=== PATIENT | female | born 1970 | race Caucasian/White ===

== ENCOUNTER → 2019-05-15 12:35 | Outpatient (CLI) | payer MEDICAID, SELFPAY ==
--- NOTE | 2019-05-15 12:38 | CA_ITS ---
APPROVED REPORT EXAM: Comprehensive 2D, Doppler, and color-flow Echocardiogram Screen Printing Stencil Preparer: Lucie Espino CRT Ht: 5 ft 4 in Wt: 204lbs BSA: 1.97 BP: 137/80 mmHg Indications: Abnormal ECG, Chest Pain, Fatigue, Hyperlipidemia, Hypertension/HDD 2D Dimensions LVOT 1.86 cm (M/F) 1.5-2.5 M-Mode Dimensions RVDd 1.95 cm (0.9-2.6) LVDd 5.42 cm (3.5-5.7) LVDs 3.48 cm (3.5-5.7) IVSd 0.91 cm (0.6-1.1) PWd 0.71 cm (0.6-1.1) EF (Teich) 64.80% FS 35.80% EDV (Teich) 142.50 mL ESV (Teich) 50.20 mL LV Diastology E/A Ratio 0.83 Aortic Valve LVOT Max 171.00 (70-110 cm/s) LVOT VTI 37.77 cm Mitral Valve MV A Velocity 97.00 (40-130 cm/s) Left Ventricle Left atrium is mildly enlarged, left ventricle is normal size, mild concentric left ventricular hypertrophy, visually estimated ejection fraction 55% with no regional wall motion abnormality, grade 1 diastolic dysfunction seen without tissue Doppler evidence of raise left atrial pressure. Right Ventricle Right atrium and right ventricular normal size and contractility. Aortic Valve Aortic valve is minimally thickened and fibrosed. There is no aortic stenosis aortic insufficiency. Mitral Valve Mitral valve is grossly normal, there is no mitral stenosis, there is mild mitral regurgitation. Tricuspid Valve Tricuspid valve is grossly normal, there is mild tricuspid regurgitation, tricuspid regurgitation jet velocity is inadequate for calculation of the right ventricular systolic pressure. Pulmonic Valve Pulmonic valve is poorly visualized. Great Vessels Aortic root is normal size. Pericardium No significant pericardial effusion noted. Conclusion 1. Mildly enlarged left atrium, normal left ventricular size, mild concentric left ventricular hypertrophy, visually estimated ejection fraction 55% with no regional wall motion abnormality, grade 1 diastolic dysfunction seen without tissue Doppler evidence of raise left atrial pressure. 2. Mild mitral and tricuspid regurgitation. 3. No significant pericardial effusion noted. Electronically signed by : Ren Carrington, 05/16/2019 06:12:39
== END ==
PROVIDERS: PCP Family Medicine; Visit Provider Nurse Practitioner Family
DX: I11.9 Hypertensive heart disease without heart failure (principal); I44.7 Left bundle-branch block, unspecified; I10 Essential (primary) hypertension; Z82.49 Family history of ischemic heart disease and other diseases of the circulatory system
CPT/HCPCS: 93306

== ENCOUNTER → 2019-08-28 09:09 | Outpatient (CLI) | payer MEDICAID, SELFPAY ==
[2019-08-28 11:11] LABS: Chloride 100 mmol/L (98-107)
[2019-08-28 11:12] LABS: Potassium 3.7 mmoL/L (3.5-5.1); Sodium 138 mmol/L (136-145)
[2019-08-28 11:15] LABS: Anion Gap 14.7 mEq/L (5-15); Blood Urea Nitrogen 7 mg/dl (7-17); Carbon Dioxide 27 mmol/L (22.0-30.0); Estimated Glomerular Filt Rate 90 ml/min (>60); GFR (African American) 109 ML/MIN (>60); Glucose 179 mg/dl (74-100)
== END ==
PROVIDERS: Visit Provider Nurse Practitioner Family
DX: I10 Essential (primary) hypertension (principal); R60.9 Edema, unspecified
CPT/HCPCS: 36415; 80048

== ENCOUNTER → 2019-11-14 09:56 | Outpatient (CLI) | payer MEDICAID, SELFPAY | PROVIDERS: PCP Family Medicine; Visit Provider Urology | DX: R00.2 Palpitations (principal); R00.0 Tachycardia, unspecified; I11.9 Hypertensive heart disease without heart failure; I10 Essential (primary) hypertension; Z82.49 Family history of ischemic heart disease and other diseases of the circulatory system | CPT/HCPCS: 93270 ==

== ENCOUNTER 2020-03-30 08:18 | Emergency (ER) | payer MEDICAID, SELFPAY ==
[2020-03-30 08:23] VITALS: BP 151/84; PULSE 82; RESP 16; TEMP 36.6; O2SAT 100; BMI 35.2
--- NOTE | 2020-03-30 08:41 | CT_ITS ---
PROCEDURE: CT ABDOMEN PELVIS WO CON CLINICAL INDICATION: lower abd pain Abdominal pain, history of diverticulitis COMPARISON: No exams were available for comparison TECHNIQUE: Axial images obtained with sagittal and coronal reformats. All CT scans at the facility use one or more dose reduction, viz: automated exposure control, ma/kV adjustment per patient size (including targeted exams where dose is matched to indication, i.e. head), or iterative reconstruction technique. FINDINGS: LOWER THORAX: No acute finding ABDOMEN & PELVIS: Fatty liver. The spleen, adrenal glands, pancreas, and kidneys have an unremarkable appearance. The there has been a prior cholecystectomy. No intestinal obstruction or free air. There is a umbilical hernia which contains fat. Unremarkable appendix. No intestinal obstruction or free air. There is diverticulosis of the colon but no evidence of diverticulitis. There has been a prior hysterectomy. There is focal increased density involving the left abdominal wall which measures 3 cm transverse and extends cephalad caudad for length of 10 cm which could be due to rectus hematoma. Please correlate as the patient's area of pain and tenderness follow-up suggested to confirm stability. No acute bony anomalies. 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 Asymmetric prominence of the left rectus abdominus muscle inferiorly suspicious for rectus hematoma. 2. Colonic diverticulosis without diverticulitis. 3. Fatty liver Dictated by: Cortes Kumar MD 03/30/2020 11:25 Cortes Kumar MD in [facility] 03/30/2020 11:25
--- NOTE | 2020-03-30 08:50 | HMH.EDGENADL ---
ED Disposition Clinical Impression: Abdominal pain, generalized, Spider veins of both lower extremities, Hyperglycemia Diarrhea Qualifiers: Diarrhea type: unspecified type Qualified Code(s): R19.7 - Diarrhea, unspecified Disposition: Home, Self-Care Condition on Discharge: Good Instructions: DI for Abdominal Pain-Adult, DI for Diarrhea and Traveler's Diarrhea -- Adult, DI for Hyperglycemia -- Adult Additional Instructions: Tylenol or ibuprofen for pain. Imodium for diarrhea. Outpatient diarrhea panel. Follow-up results with your primary care provider. See your primary care provider for further evaluation of elevated blood sugar. Additional instructions for ABDOMINAL PAIN: See your physician as soon as possible for further evaluation. Return immediately if worsening abdominal pain, vomiting, shortness of breath, fever, vomiting of blood or abdominal distention. Referrals: David Alvarez MD [Primary Care Provider] - - Critical Care Critical Care Time: No Attestation: On 03/30/20, the high probability of a clinically significant, sudden or life threatening deterioration of the following system(s) required my full and direct attention, intervention and personal management. The time I documented below is in addition to time spent performing reported procedures but includes the following listed in this critical care notation. Medical Decision Making - Medical Records Medical records reviewed: Yes: I reviewed the patient's medical records. - Niko Inquiry Pt receiving controlled substance: No Vital Signs: 03/30/20 08:23 03/30/20 09:54 03/30/20 10:13 Temperature 97.8 F 98 F Temperature Source Oral Oral Pulse Rate 78 Pulse Rate [Right Radial] 82 62 Respiratory Rate 16 18 16 Blood Pressure 132/88 Blood Pressure [Right Arm] 151/84 H 101/41 L Blood Pressure Mean [Right Arm] 106 61 Blood Pressure Source [Right Arm] Automatic Cuff Automatic Cuff Blood Pressure Position Sitting Blood Pressure Position [Right Arm] Sitting Sitting 02 Sat by Pulse Oximetry 100 98 Oxygen Delivery Method Room Air Room Air Room Air - Lab Data Lab results reviewed: Yes: I reviewed the patient's lab results. Lab Results 03/30/20 08:55: Urine Color Yellow, Urine Appearance Clear, Urine pH 5.0, Ur Specific [place] >= 1.030, Urine Protein 1+, Urine Glucose (UA) 1+, Urine Ketones Trace, Urine Blood 1+, Urine Nitrate Negative, Urine Bilirubin Negative, Urine Urobilinogen 0.2, Ur Leukocyte Esterase Negative, Urine RBC 3-5, Urine WBC Occasional, Ur Squamous Epith Cells 5-10, Urine Bacteria Trace 03/30/20 09:00: WBC 9.3, RBC 4.33, Hgb 13.6, Hct 39.6, MCV 91.4, MCH 31.4 H, MCHC 34.4, RDW 13.0, Plt Count 333, MPV 7.7, Neut % (Auto) 76.0, Lymph % (Auto) 17.5, [place] % (Auto) 3.3, Eos % (Auto) 2.6, Baso % (Auto) 0.5, Neut # (Auto) 7.1, Lymph # (Auto) 1.6, Pre[place] # (Auto) 0.3, Eos # (Auto) 0.2, Baso # (Auto) 0.1 03/30/20 09:00: Sodium 140, Potassium 3.8, Chloride 102, Carbon Dioxide 25, Anion Gap 16.8 H, BUN 6 L, Creatinine 0.70, Estimated Creat Clear 146, Estimated GFR 90, Est GFR ( Amer) 109, Glucose 210 H, Calcium 9.5, Total Bilirubin 1.7 H, AST 35, ALT 41, Alkaline Phosphatase 68, Total Protein 7.5, Albumin 4.1, Globulin 3.4 H, Albumin/Globulin Ratio 1.2, Amylase 55, Lipase 205 03/30/20 09:00: D-Dimer 0.32 03/30/20 09:00: Hemoglobin A1c 6.8 H Result diagrams: 03/30/20 09:00 03/30/20 09:00 - CT Data CT Scan: Abdomen, Pelvis Time Received: 09:43 ([facility] fax) ED CT Reviewed: Yes: I have reviewed the patient's CT results Findings Narrative: No evidence of acute abnormality Hepatic steatosis Diverticulosis Medical Decision Narrative: Addendum: At 11:25 AM I received a call from Dr. Kumar, who has performed an over read on the CT scan that was originally read by [employer]. He is concerned that she may have a rectus sheath hematoma. There was no history of trauma and the patient is not on any anticoagulants. Clinically
[2020-03-30 09:05] LABS: Microscopic, Urine URINE MICROSCOPIC (MICROSCOPIC)
--- NOTE | 2020-03-30 09:11 | PC.NURSE ---
pt to CT
[2020-03-30 09:12] LABS: Appearance,Urine CLEAR (Clear); Bilirubin,Urine Negative (Negative); Blood, Urine 1+ (Negative); Color,Urine YELLOW (Yellow); Glucose,Urine (UA) 1+ (Negative); Ketones,Urine TRACE (Negative); Leukocyte Esterase,Urine Negative (Negative); Nitrate,Urine Negative (Negative); Protein,Urine 1+ (Negative); Specific Gravity, Urine >= 1.030 (1.005-1.030); Urobilinogen,Urine 0.2 EU/dl (0.2)
[2020-03-30 09:17] LABS: Chloride 102 mmol/L (98-107); Potassium 3.8 mmoL/L (3.5-5.1); Sodium 140 mmol/L (136-145)
[2020-03-30 09:20] LABS: Alanine Aminotransferase 41 U/L (12-78); Alkaline Phosphatase 68 U/L (38-126); Amylase 55 U/L (30-110); Anion Gap 16.8 mEq/L (5-15); Aspartate Amino Transferase 35 U/L (14-36); Basophils # 0.1 K/mm3 (0-0.2); Basophils % 0.5 % (0.1-2.0); Bilirubin,Total 1.7 mg/dl (0.2-1.3); Blood Urea Nitrogen 6 mg/dl (7-17); Calcium 9.5 mg/dl (8.4-10.2); Carbon Dioxide 25 mmol/L (22.0-30.0); Creatinine Clearance Estimated 146 mL/min (50-200); Eosinophils # 0.2 K/mm3 (0.0-0.4); Eosinophils % 2.6 % (0.1-12.0); Estimated Glomerular Filt Rate 90 ml/min (>60); GFR (African American) 109 ML/MIN (>60); Glucose 210 mg/dl (74-100); Hematocrit 39.6 % (37.0-47.0); Hemoglobin 13.6 g/dL (12.2-16.2); Lymphocytes # 1.6 K/mm3 (0.7-4.5); Lymphocytes % 17.5 % (10-50); Mean Corpuscular HGB Conc 34.4 g/dL (31.8-35.4); Mean Corpuscular Hemoglobin 31.4 pg (27.0-31.2); Mean Corpuscular Volume 91.4 fl (81-99); Mean Platelet Volume 7.7 fl (7.4-10.4); Monocytes # 0.3 K/mm3 (0.1-1.0); Monocytes % 3.3 % (1.7-9.3); Neutrophils # 7.1 K/mm3 (1.8-7.8); Platelet Count 333 K/mm3 (142-424); Red Blood Count 4.33 M/mm3 (4.20-5.40); White Blood Count 9.3 K/mm3 (4.8-10.8)
[2020-03-30 09:21] LABS: Albumin Level 4.1 g/dl (3.5-5.0); Albumin/Globulin Ratio 1.2 (1.1-1.8); Globulin 3.4 g/dL (1.3-3.2); Lipase 205 U/L (23-300); Total Protein,Serum 7.5 g/dl (6.3-8.2)
[2020-03-30 09:25] LABS: D-Dimer 0.32 ug/mL (0.15-8.0)
[2020-03-30 09:29] LABS: Bacteria,Urine Trace /lpf; WBC,Urine Occasional #/hpf (0-3)
[2020-03-30 09:48] LABS: Hemoglobin A1C 6.8 % (4.0-6.0)
[2020-03-30 09:54] VITALS: BP 101/41; PULSE 62; RESP 18; O2SAT 98
[2020-03-30 10:13] VITALS: BP 132/88; PULSE 78; RESP 16; TEMP 36.6; O2SAT 98
== END 2020-03-30 10:14 | disposition home or self-care (01) ==
PROVIDERS: Emergency Provider Emergency Medicine; PCP Family Medicine
DX: R10.84 Generalized abdominal pain (principal); I83.93 Asymptomatic varicose veins of bilateral lower extremities; R73.9 Hyperglycemia, unspecified; E78.5 Hyperlipidemia, unspecified; I10 Essential (primary) hypertension; K57.90 Diverticulosis of intestine, part unspecified, without perforation or abscess without bleeding; Z90.79 Acquired absence of other genital organ(s); Z79.899 Other long term (current) drug therapy
CPT/HCPCS: 36415; 74176; 80053; 81001; 82150; 83036; 83690; 85025; 85378; 99283

== ENCOUNTER → 2020-04-10 12:27 | Outpatient (CLI) | payer MEDICAID, SELFPAY ==
[2020-04-10 13:35] LABS: Hemoglobin A1C 6.6 % (4.0-6.0)
== END ==
PROVIDERS: Visit Provider Family Medicine
DX: Z00.00 Encounter for general adult medical examination without abnormal findings (principal); R73.9 Hyperglycemia, unspecified
CPT/HCPCS: 36415; 83036

== ENCOUNTER → 2020-07-30 10:08 | Outpatient (CLI) | payer MEDICAID, SELFPAY ==
--- NOTE | 2020-07-30 10:10 | US_ITS ---
APPROVED REPORT Exam Type: Lower Extremity Segmental Pressures Rubber Goods Finisher: Yane Jimenez RVT Indications Claudication: Bilaterally Rest Pain: Bilaterally Risk Factors Hypertension Hyperlipidemia Pressures/Indices Right Indices Left Indices Brachial 150.00 mmHg Brachial 138.00 mmHg Low Thigh 176.00 mmHg 1.17 Low Thigh 157.00 mmHg 1.05 Calf 156.00 mmHg 1.04 Calf 162.00 mmHg 1.08 Ankle(PT) 169.00 mmHg 1.13 Ankle(PT) 170.00 mmHg 1.13 Ankle(DP) 163.00 mmHg 1.09 Ankle(DP) 163.00 mmHg 1.09 Digit 80.00 mmHg 0.53 Digit 97.00 mmHg 0.65 Findings RT SLOANE:1.13 LT SLOANE:1.13 RT TBI:0.53 LT TBI:0.65 NORMAL PULSES BILATERAL NORMAL WAVEFORMS BILATERAL Conclusion RT SLOANE:1.13 LT SLOANE:1.13 RT TBI:0.53 LT TBI:0.65 NORMAL PULSES BILATERAL NORMAL WAVEFORMS BILATERAL Normal appearing resting noninvasive lower extremity arterial study. Electronically signed by : Cortes Kumar MD 07/30/2020 16:47:43
== END ==
PROVIDERS: PCP Family Medicine; Visit Provider Family Medicine
DX: I70.213 Atherosclerosis of native arteries of extremities with intermittent claudication, bilateral legs (principal); M79.672 Pain in left foot; R09.89 Other specified symptoms and signs involving the circulatory and respiratory systems
CPT/HCPCS: 93923

== ENCOUNTER 2020-08-06 07:38 | Day surgery (SDC) | payer MEDICAID, SELFPAY ==
[2020-08-06] VITALS (16 sets, daily range): BP systolic 118–170; BP diastolic 74–101; PULSE 73–120; RESP 16–20; TEMP 36.4–36.8; O2SAT 96–100; BMI 36.0
--- NOTE | 2020-08-06 | IR_ITS ---
APPROVED REPORT Patient Location: Outpatient Postdoctoral Research Fellow: LORELEI Perera RT (R) PROCEDURES Left heart catheterization Left ventriculogram Selective coronary angiogram INDICATION Unstable angina, Left bundle branch block, 2 antianginal medications with recurrent symptoms highly consistent with angina pectoris, Informed consent was obtained prior to the procedure. COMPLICATIONS none Estimated Blood Loss: less than 10 mls TECHNIQUE One percent lidocaine used to anesthetize the right anterior aspect of the wrist. The right radial artery was accessed via the Seldinger technique. A 6 Slovak sheath was placed in the right radial artery. 2.5 mg of verapamil, 800 mcg of nitroglycerin, 1mg Lidocaine and 5000 U Heparin were given through the arterial sheath. The trap catheter was also used to perform left heart catheterization, left ventriculogram and selective coronary angiogram. At the end of the procedure the sheath was removed good hemostasis was achieved using Traclet band, patient was transferred to the postop holding area in stable condition. ANGIOGRAPHIC RESULTS The left main artery Normal The left anterior descending artery Normal The circumflex artery Large dominant normal The right coronary artery Small nondominant normal The DOTSON ventriculogram reveals Normal 65% The left ventricular end-diastolic pressure 20 mmHg IMPRESSION Normal coronary arteries Normal ejection fraction Elevated LVEDP PLAN 1. Medical management Electronically signed by : Buddy Daniels, 08/06/2020 11:44:06
--- NOTE | 2020-08-06 07:39 | ECG_ITS ---
APPROVED REPORT Exam: Resting ECG HR:80 bpm ECG Measurements Heart Rate 80 AXES ME 166 P 55 QRSd 132 QRS -24 QT 412 T 108 QTc 475 Conclusion Normal sinus rhythm Left bundle branch block Abnormal ECG Electronically signed by : Xavier Bass, 08/06/2020 17:41:28
--- NOTE | 2020-08-06 07:47 | PC.NURSE ---
NEETA SULLIVAN spoke with Dr. Daniels, states they are going to do a heart cath on pt today
--- NOTE | 2020-08-06 07:51 | HMH.EDCP ---
ED Disposition Clinical Impression: Unstable angina pectoris, LBBB (left bundle branch block), Obesity (BMI 30-39.9) Disposition: Still a Patient Condition on Discharge: Good - Critical Care Critical Care Time: No Attestation: On , the high probability of a clinically significant, sudden or life threatening deterioration of the following system(s) required my full and direct attention, intervention and personal management. The time I documented below is in addition to time spent performing reported procedures but includes the following listed in this critical care notation. Medical Decision Making - Medical Records Medical records reviewed: Yes: I reviewed the patient's medical records. - Niko Inquiry Pt receiving controlled substance: No Vital Signs: 08/06/20 07:39 Temperature 97.6 F Temperature Source Oral Pulse Rate [Left Radial] 85 Respiratory Rate 18 Blood Pressure [Left Arm] 161/88 H Blood Pressure Mean [Left Arm] 112 Blood Pressure Source [Left Arm] Automatic Cuff Blood Pressure Position [Left Arm] Sitting 02 Sat by Pulse Oximetry 100 Oxygen Delivery Method Room Air - Lab Data Lab results reviewed: Yes: I reviewed the patient's lab results. Orders (Tests/Meds): ED MEDICATIONS Generic Name Dose Route Start Last Admin Trade Name Freq PRN Reason Stop Dose Admin Nitroglycerin 0.4 mg 08/06/20 07:44 Nitroglycerin 0.4mg Sl Tablet SL 09/05/20 07:43 [id number] PRN Chest Pain Discontinued Medications Generic Name Dose Route Start Last Admin Trade Name Freq PRN Reason Stop Dose Admin Aspirin 324 mg 08/06/20 07:41 Aspirin 81mg Chewable Tablet PO 08/06/20 07:42 ONCE ONE ORDERS Category Date Time Status XR chest 2V Stat Exams 08/06/20 07:40 Ordered Basic Metabolic Panel Stat Lab 08/06/20 07:40 Ordered Complete Blood Count Auto Diff Stat Lab 08/06/20 07:40 Ordered Covid-19 IgG/IgM ([facility]) Stat Lab 08/06/20 07:49 Ordered Troponin I Q3H Lab 08/06/20 10:45 Ordered Troponin I Q3H Lab 08/06/20 13:45 Ordered Troponin I Stat Lab 08/06/20 07:40 Ordered - ECG Data Tracing #1 Normal Sinus Rhythm: Yes Ischemic changes: non-specific ST-T wave changes Conduction abnormalities present: LBBB (hx of lbbb) - Physician Consults Physician Consulted: oliva Reason -: Pt condition - MEIR Score for Non-Stemi Age of Patient: 40-49 years old Heart Rate: 70-89 bpm Systolic Blood Pressure: 160-199 mmHg Serum Creatinine: 0.40-0.79 mg/dl CHF Killip Class: I-No CHF Other Risk Factors: None Non-Stemi Risk Score: 48 Chest Pain HPI - General Chief Complaint: Chest Pain Stated Complaint: chest pain Time Seen by Provider: 08/06/20 07:40 Mode of Arrival: Ambulatory Source of Information: Patient, Spouse, Medical Record Limitations: No Limitations Description of Symptoms (Recalled from ER Triage Doc. by RN): pt c/o chest heaviness, states she woke up with it approx 0600 today. Pt denies SOA, cough, fever. Pt reports hx of bundle branch block, states she has had a previous heart cath with no stents. - History of Present Illness HPI narrative: acute onset of ant chest pressure at o300 lasted about 1 hr and again at o6oo - has known lbbb and had cath a few yrs ago with no stents - she reports no tob or diabetes and has possible hives after contrast before MD complaint: chest pain indicative of cardiac Onset (ago): hour(s) Duration: intermittent Activity at onset: during rest, awoke with symptoms Pain location: substernal Severity: moderate Quality: heaviness Pain radiation: none Risk Factors for CAD: Hypertension, Hypercholesterolemia, Family Hx of CAD Treatments prior to or on arrival for Cardiac Chest Pain: none - Related Data Prior Cardiac Testing/Procedures: Cardiac Angiogram On Oral Contraceptives: No Home Medications Medication Instructions Recorded Confirmed Amlodipine Besylate [Amlodipine 5 mg PO DAILY 03/30/20 08/05/20 5mg tab]
--- NOTE | 2020-08-06 07:59 | PC.NURSE ---
laboratory operations coordinator at bedside. Consent signed at this time.
--- NOTE | 2020-08-06 08:11 | PC.NURSE ---
having difficulty getting an IV on pt, multiple attempts, contacting outpatient staff to have them come down with ultrasound to attempt IV.
--- NOTE | 2020-08-06 08:21 | PC.NURSE ---
Shaheed Oliveros from outpatient in with pt to start IV.
--- NOTE | 2020-08-06 09:04 | PC.NURSE ---
pt to labeling associate at this time with deidra bonner transporting pt. Outpatient staff going to meet them in labeling associate to attempt picc line insertion and to obtain blood.
--- NOTE | 2020-08-06 09:22 | XR_ITS ---
PROCEDURE: XR CHEST PORTABLE PICC PLAC CLINICAL HISTORY: Confirm PICC line placement COMPARISON: No exams were available for comparison FINDINGS: Left upper extremity PICC line has been inserted. The tip is in the region the SVC. Normal heart size. The lungs are clear without infiltrates, suspicious nodules, or pleural effusions. No acute bony abnormalities. IMPRESSION: Left upper extremity PICC line tip in the region the SVC Dictated by: Cortes Kumar MD 08/06/2020 10:27 Cortes Kumar MD in [place] 08/06/2020 10:27
[2020-08-06 10:23] LABS: Basophils # 0.1 K/mm3 (0-0.2); Basophils % 0.6 % (0.1-2.0); Eosinophils # 0.1 K/mm3 (0.0-0.4); Eosinophils % 0.6 % (0.1-12.0); Hematocrit 45.3 % (37.0-47.0); Hemoglobin 15.5 g/dL (12.2-16.2); Lymphocytes # 1.1 K/mm3 (0.7-4.5); Lymphocytes % 11.5 % (10-50); Mean Corpuscular HGB Conc 34.3 g/dL (31.8-35.4); Mean Corpuscular Hemoglobin 31.7 pg (27.0-31.2); Mean Corpuscular Volume 92.5 fl (81-99); Mean Platelet Volume 7.5 fl (7.4-10.4); Monocytes # 0.3 K/mm3 (0.1-1.0); Monocytes % 3.4 % (1.7-9.3); Neutrophils # 8.2 K/mm3 (1.8-7.8); Neutrophils % 83.9 % (37.0-80.0); Platelet Count 350 K/mm3 (142-424); Red Cell Distribution Width 14.3 % (11.5-17.5); White Blood Count 9.8 K/mm3 (4.8-10.8)
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
[2020-08-06 10:29] LABS: Chloride 105 mmol/L (98-107); Potassium 3.8 mmoL/L (3.5-5.1); Sodium 138 mmol/L (136-145)
[2020-08-06 10:32] LABS: Anion Gap 13.8 mEq/L (5-15); Blood Urea Nitrogen 7 mg/dl (7-17); Calcium 10.3 mg/dl (8.4-10.2); Carbon Dioxide 23 mmol/L (22.0-30.0); Creatinine Clearance Estimated 149 mL/min (50-200); Estimated Glomerular Filt Rate 90 ml/min (>60); GFR (African American) 109 ML/MIN (>60); Glucose 144 mg/dl (74-100)
--- NOTE | 2020-08-06 10:34 | CA_ITS ---
APPROVED REPORT EXAM: Comprehensive 2D, Doppler, and color-flow Echocardiogram Director Social: Jazzy Mayen Ht: 5 ft 4 in Wt: 210lbs BSA: 2.00 BP: 170/100 mmHg Indications: cp, hx- Mitral Valve insufficiency Echo Enhancing Agent Comments: Technically limited exam due to body habitus and limited windows, Anterior preicardial effusion with reflective debris. Wall motion abnormaities present. Abnormal Pulmonic valve pressures. 2D Dimensions IVSd 0.78 cm LVEF (Visual) 52.30 % PWd 0.81 cm LVDd 5.73 cm LVDs 4.17 cm Aortic Root 0.00 cm LVOT 1.97 cm (M/F) 1.5-2.5 M-Mode Dimensions LA Diam 3.59 cm (1.9-4.0) Ao Diam 2.76 cm (2.0-3.7) EPSs 1.00 cm LV Diastology E Decel Time 63.00 (160-240 msec) E/A Ratio 4.26 MED E' 7.10 (< 7 cm/sec) MED A' 18.40 cm/s E'/MED E' Ratio 20.76 (>14) LAT E' 16.70 (<10 cm/sec) LAT A' 5.30 cm/s E/LAT E' Ratio 8.83 (>14) Aortic Valve AO Peak GR. 12.60 mmHg Mitral Valve MV E Max Mynor. 147.00 (40-130 cm/s) MV A Velocity 35.00 (40-130 cm/s) E/A Ratio 4.26 MV Decel. Time 63.00 (160-240 ms) MV PHT 19.00 ms Pulmonary Valve PV Peak Velocity 133.00 (50-150 cm/s) Tricuspid Valve TR P. Velocity 194.00 cm/s RAP Estimate 10.00 mmHg RVSP 25.10 mmHg Left Ventricle Left atrium is upper limit of the normal size, left ventricle is normal size, there is hyperdynamic left ventricular systolic function, visually estimated ejection fraction over 65% with no regional wall motion abnormality, diastolic parameters are within normal range. Right Ventricle Right atrium and right ventricle are normal size and contractility. Aortic Valve Aortic valve is grossly normal, there is no aortic stenosis or aortic insufficiency. Mitral Valve Mitral valve is grossly normal, there is mild mitral regurgitation. Tricuspid Valve Tricuspid valve is grossly normal, there is mild tricuspid regurgitation tricuspid regurgitation jet velocity is inadequate for calculation of the right ventricular systolic pressure. Pulmonic Valve Pulmonic valve is poorly visualized. Great Vessels Aortic root is normal size. Pericardium Anterior echo-free space and small pericardial effusion noted. Conclusion 1. Normal left ventricular size, hyperdynamic left ventricular systolic function, visually estimated ejection fraction over 65% with no regional wall motion abnormality, diastolic parameters are within normal range, there is abnormal septal motion. 2. Mild mitral and tricuspid regurgitation. 4. Anterior echo-free space and small pericardial effusion noted. Electronically signed by : Ren Carrington, 08/07/2020 16:23:16
[2020-08-06 10:44] LABS: Troponin I < 0.01 ng/ml (0.00-0.034)
[2020-08-06 10:45] LABS: Coronavirus 19 IgG Antibody Negative (Negative); Coronavirus 19 IgM Antibody Negative (Negative)
[2020-08-06 10:59] LABS: Chol/HDL Ratio 4.2 (1-3.5); Cholesterol 163 mg/dl (140-200); HDL Cholesterol 39 mg/dl (40-60); Triglycerides 198 mg/dl (30-150); VLDL Cholesterol 40 mg/dL (0-40)
[2020-08-06 11:11] LABS: Direct LDL Cholesterol 91.98 mg/dL (100-129)
== END 2020-08-06 14:58 | disposition home or self-care (01) ==
LOC: CATHLAB 09:05 → ER 09:05
PROVIDERS: Internal Medicine Cardiovascular Disease; Nurse Practitioner Family; Emergency Provider Emergency Medicine; PCP Family Medicine; Visit Provider Internal Medicine
DX: R07.9 Chest pain, unspecified (principal); I25.110 Atherosclerotic heart disease of native coronary artery with unstable angina pectoris; I44.7 Left bundle-branch block, unspecified; E11.9 Type 2 diabetes mellitus without complications; I10 Essential (primary) hypertension; Z88.8 Allergy status to other drugs, medicaments and biological substances; Z79.899 Other long term (current) drug therapy
CPT/HCPCS: 71045; 80048; 80061; 84484; 85025; 86328; 93005; 93306; 93458; 99152; 99283; C1725; C1769; J1644; Q9967

== ENCOUNTER → 2020-08-07 12:44 | Outpatient (CLI) | payer MEDICAID, SELFPAY ==
--- NOTE | 2020-08-07 | CA_ITS ---
APPROVED REPORT Right Upper Extremity Venous Study for DVT. Assembling Fabricator: Jazzy Parrish RCS, RVS Indications Upper Extremity Pain: Right s/p Right Radial heart cath 08/06/2020 Findings Imaging reveals a widely patent Internal Jugular Vein, Deep Venous System and Superficial Venous System bilaterally. No evidence of intraluminal venous thrombosis Of the Right arm Spontaneous phasic flow is visualized.. Conclusion Negative for DVT of the right upper extremity. Electronically signed by : Cortes Kumar MD 08/07/2020 17:16:02
--- NOTE | 2020-08-07 | CA_ITS ---
APPROVED REPORT Findings Color Flow Duplex demonstrates no evidence of significant arterial insufficiency of the right radial artery. No evidence of pseudoaneurysm of the radial artery. Conclusion Color Flow Duplex demonstrates no evidence of significant arterial insufficiency of the right radial artery. No evidence of pseudoaneurysm of the radial artery. Critical Notification Critical Value: No Physician Notified Date: 08/07/2020 Time: 14:00 Physician Name: Deisy Carrington Electronically signed by : Cortes Kumar MD 08/07/2020 17:14:32
== END ==
PROVIDERS: PCP Family Medicine; Visit Provider Internal Medicine
DX: M79.89 Other specified soft tissue disorders (principal)
CPT/HCPCS: 93931; 93971

== ENCOUNTER → 2020-09-02 12:06 | Outpatient (CLI) | payer MEDICAID, SELFPAY ==
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
== END ==
PROVIDERS: PCP Family Medicine; Visit Provider Family Medicine
DX: M79.605 Pain in left leg (principal); M79.89 Other specified soft tissue disorders
CPT/HCPCS: 93971

== ENCOUNTER → 2021-01-06 18:14 | Outpatient (CLI) | payer MEDICAID, SELFPAY ==
[2021-01-06 18:52] LABS: Amphetamine/Metha Screen,Urine Negative ng/ml (<1000); Barbiturates Screen,Urine Negative ng/ml (<200)
[2021-01-06 18:53] LABS: Benzodiazepines Screen,Urine Negative ng/ml (<200)
[2021-01-06 18:54] LABS: Cannabinoid Screen,Urine Negative ng/ml (<50); Cocaine Screen,Urine Negative ng/ml (<300)
[2021-01-06 18:55] LABS: Methadone Screen,Urine Negative ng/ml (<300)
[2021-01-06 18:56] LABS: Opiate Screen,Urine Positive ng/ml (<300); Phencyclidine Screen,Urine Negative ng/ml (<25)
== END ==
PROVIDERS: Visit Provider Family Medicine
DX: Z79.899 Other long term (current) drug therapy (principal)
CPT/HCPCS: 80305

== ENCOUNTER → 2021-04-10 13:51 | Outpatient (CLI) | payer MEDICAID, SELFPAY ==
[2021-04-10 13:54] LABS: Adenovirus,PCR Not Detected (NotDetected); Bordetella Pertussis Not Detected (NotDetected); Chlamydophila Pneumoniae, PCR Not Detected (NotDetected); Coronavirus 229E Not Detected (NotDetected); Coronavirus NL63 Not Detected (NotDetected); Coronavirus OC43 Not Detected (NotDetected); Coronovirus HKU1,PCR Not Detected (NotDetected); Human Metapneumovirus Not Detected (NotDetected); Influenza A, PCR Not Detected (NotDetected); Influenza AH1, 2009 Not Detected (NotDetected); Influenza AH1, PCR Not Detected (NotDetected); Influenza AH3,PCR Not Detected (NotDetected); Influenza B, PCR Not Detected (NotDetected); Mycoplasma Pneumoniae, PCR Not Detected (NotDetected); Parainfluenza 1, PCR Not Detected (NotDetected); Parainfluenza 2, PCR Not Detected (NotDetected); Parainfluenza 3, PCR Not Detected (NotDetected); Parainfluenza 4, PCR Not Detected (NotDetected); Respiratory Syncytial Virus Not Detected (NotDetected); Rhinovirus/Enterovirus Not Detected (NotDetected)
[2021-04-10 14:31] LABS: Coronavirus 19, PCR Detected (NotDetected)
== END ==
PROVIDERS: Visit Provider Family Medicine
DX: Z20.822 Contact with and (suspected) exposure to COVID-19 (principal); H93.90 Unspecified disorder of ear, unspecified ear; U07.1 COVID-19
CPT/HCPCS: 87486; 87581; 87632; 87798; C9803; U0003; U0005

== ENCOUNTER 2021-04-21 11:35 | Emergency (ER) | payer MEDICAID, SELFPAY ==
--- NOTE | 2021-04-21 11:31 | ECG_ITS ---
APPROVED REPORT Exam: Resting ECG HR:129 bpm ECG Measurements Heart Rate 129 AXES WV 130 P 42 QRSd 120 QRS -18 QT 354 T 116 QTc 518 Conclusion Sinus tachycardia with fusion complexes Anterior infarct, age undetermined ST & T wave abnormality, consider lateral ischemia Abnormal ECG Electronically signed by : Xavier Bass MD 04/22/2021 17:29:04
[2021-04-21 11:36] VITALS: BP 158/92; PULSE 136; RESP 16; TEMP 36.3; O2SAT 94; BMI 33.1
--- NOTE | 2021-04-21 11:39 | HMH.EDGENADL ---
ED Disposition Clinical Impression: Sinus tachycardia, Pneumonia due to COVID-19 virus Disposition: Home, Self-Care Condition on Discharge: Fair Instructions: DI for COVID-19 (Suspected or Confirmed ), Tachycardia Additional Instructions: Continue taking metoprolol. Stop taking amlodipine. Start taking diltiazem CD 180 mg daily. Follow-up in the office with cardiology in 1 week. Prescriptions: dilTIAZem HCL [Diltiazem 24Hr ER (Cd)] 180 mg PO DAILY #30 cap Transmission Status: Pending to [facility] Referrals: Provider,MD Erin [Referring] - Buddy Daniels MD [Staff Physician] - (1 week) - Critical Care Critical Care Time: No Attestation: On , the high probability of a clinically significant, sudden or life threatening deterioration of the following system(s) required my full and direct attention, intervention and personal management. The time I documented below is in addition to time spent performing reported procedures but includes the following listed in this critical care notation. Medical Decision Making - Medical Records Medical records reviewed: Yes: I reviewed the patient's medical records. MR Comment: Reviewed most recent heart cath and ECHO results, see below. Reviewed records from [place] emergency department visit from [facility]. - Niko Inquiry Pt receiving controlled substance: No Vital Signs: 04/21/21 11:36 04/21/21 12:01 Temperature 97.4 F L Temperature Source Oral Pulse Rate 93 H Pulse Rate [Left Radial] 136 H Respiratory Rate 16 16 Blood Pressure 127/76 Blood Pressure [Right Arm] 158/92 H Blood Pressure Mean [Right Arm] 114 Blood Pressure Position [Right Arm] Sitting 02 Sat by Pulse Oximetry 94 L 96 Oxygen Delivery Method Room Air Room Air - Lab Data Lab Results 04/21/21 11:57: WBC 6.9, RBC 4.74, Hgb 14.7, Hct 44.2, MCV 93.1, MCH 30.9, MCHC 33.2, RDW 12.1, Plt Count 631 H, MPV 7.4, Neut % (Auto) 88.5 H, Lymph % (Auto) 6.7 L, [place] % (Auto) 3.6, Eos % (Auto) 0.7, Baso % (Auto) 0.5, Neut # (Auto) 6.1, Lymph # (Auto) 0.5 L, [place] # (Auto) 0.3, Eos # (Auto) 0.1, Baso # (Auto) 0.0, Total Counted 100, Neutrophils % (Manual) 93 H, Lymphocytes % (Manual) 6 L, Monocytes % (Manual) 1 L, Platelet Estimate Normal 04/21/21 11:57: Sodium 140, Potassium 3.6, Chloride 102, Carbon Dioxide 22, Anion Gap 19.6 H, BUN 3 L, Creatinine 0.60, Estimated Creat Clear 158, Estimated GFR 107, Est GFR ( Amer) 129, Glucose 259 H, Calcium 9.7, Troponin I < 0.01 Result diagrams: 04/21/21 11:57 04/21/21 11:57 Orders (Tests/Meds): ED MEDICATIONS Discontinued Medications Generic Name Dose Route Start Last Admin Trade Name Freq PRN Reason Stop Dose Admin Metoprolol Tartrate 5 mg 04/21/21 12:44 04/21/21 12:50 Metoprolol Tartrate 5mg/5ml Vial IV 04/21/21 12:45 5 mg ONCE ONE Administration ORDERS Category Date Time Status Consult to Cardiology [CONS] Routine Cons 04/21/21 12:42 Active Troponin I Q3H Lab 04/21/21 15:15 Ordered Troponin I Q3H Lab 04/21/21 18:15 Ordered Event recorder Request [Holter Monitor Req by Crow/] Y 04/21/21 13:43 Ordered Stat PROCEDURES Left heart catheterization Left ventriculogram Selective coronary angiogram INDICATION Unstable angina, Left bundle branch block, 2 antianginal medications with recurrent symptoms highly consistent with angina pectoris, Informed consent was obtained prior to the procedure. COMPLICATIONS none Estimated Blood Loss: less than 10 mls TECHNIQUE One percent lidocaine used to anesthetize the right anterior aspect of the wrist. The right radial artery was accessed via the Seldinger technique. A 6 Romanian sheath was placed in the right radial artery. 2.5 mg of verapamil, 800 mcg of nitroglycerin, 1mg Lidocaine and 5000 U Heparin were given through the arterial sheath. The trap catheter was also used to perform left heart catheterization, left ventriculogram and selecti
[2021-04-21 12:01] VITALS: BP 127/76; PULSE 93; RESP 16; O2SAT 96
--- NOTE | 2021-04-21 12:02 | XR_ITS ---
PROCEDURE: XR CHEST 2V CLINICAL HISTORY: jaw and neck pain, positive for Covid19 COMPARISON: CR XR CHEST PORTABLE PICC PLAC from 08/06/2020 FINDINGS: The cardiomediastinal silhouette and pulmonary vascularity are within normal limits. Scattered opacities are present in both lower lobes which were not present on 08/06/2020. There is some opacification also within the lingula. No obvious effusion. There is a nodular opacity overlying the left lower lung zone/left heart area measuring 13 mm. This could represent an artifact, pulmonary nodule, or small rounded area of consolidation. Follow-up recommended No acute bony abnormalities. IMPRESSION: Bilateral airspace disease consistent with pneumonia possibly related to Covid19 pneumonia. Left lower lobe nodular opacity which could be due to artifact, nodule, or small area of rounded consolidation. Follow-up suggested Dictated by: Cortes Kumar MD 04/21/2021 12:29 Cortes Kumar MD in [place] 04/21/2021 12:29
[2021-04-21 12:10] LABS: Basophils % 0.5 % (0.1-2.0); Eosinophils # 0.1 K/mm3 (0.0-0.4); Eosinophils % 0.7 % (0.1-12.0); Hematocrit 44.2 % (37.0-47.0); Hemoglobin 14.7 g/dL (12.2-16.2); Lymphocytes # 0.5 K/mm3 (0.7-4.5); Lymphocytes % 6.7 % (10-50); Mean Corpuscular HGB Conc 33.2 g/dL (31.8-35.4); Mean Corpuscular Hemoglobin 30.9 pg (27.0-31.2); Mean Corpuscular Volume 93.1 fl (81-99); Mean Platelet Volume 7.4 fl (7.4-10.4); Monocytes # 0.3 K/mm3 (0.1-1.0); Monocytes % 3.6 % (1.7-9.3); Neutrophils # 6.1 K/mm3 (1.8-7.8); Neutrophils % 88.5 % (37.0-80.0); Platelet Count 631 K/mm3 (142-424); Red Blood Count 4.74 M/mm3 (4.20-5.40); Red Cell Distribution Width 12.1 % (11.5-17.5); White Blood Count 6.9 K/mm3 (4.8-10.8)
[2021-04-21 12:12] LABS: Chloride 102 mmol/L (98-107); Sodium 140 mmol/L (136-145)
[2021-04-21 12:13] LABS: MANUAL DIFFERENTIAL MANUAL DIFFERENTIAL (MANUAL DIFF); Potassium 3.6 mmoL/L (3.5-5.1)
[2021-04-21 12:15] LABS: Blood Urea Nitrogen 3 mg/dl (7-17); Creatinine Clearance Estimated 158 mL/min (50-200); Estimated Glomerular Filt Rate 107 ml/min (>60); GFR (African American) 129 ML/MIN (>60)
[2021-04-21 12:16] LABS: Anion Gap 19.6 mEq/L (5-15); Calcium 9.7 mg/dl (8.4-10.2); Carbon Dioxide 22 mmol/L (22.0-30.0); Glucose 259 mg/dl (74-100)
[2021-04-21 12:32] LABS: Troponin I < 0.01 ng/ml (0.00-0.034)
[2021-04-21 12:34] LABS: Lymphocytes % 6 % (10-50); Monocytes % 1 % (2-9); Neutrophils % 93 % (42-76); Platelet Estimate Normal; Total Cells Counted 100
--- NOTE | 2021-04-21 12:41 | PC.NURSE ---
CHUCK valentine, called to come evaluate patient
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
--- NOTE | 2021-04-21 14:45 | PC.NURSE ---
Called RT to see if there are any available holter monitors for d/c
[2021-04-21 15:29] VITALS: BP 123/84; PULSE 70; RESP 16; TEMP 36.9; O2SAT 98
== END 2021-04-21 15:33 | disposition home or self-care (01) ==
PROVIDERS: Emergency Provider Emergency Medicine; PCP Family Medicine
DX: R00.0 Tachycardia, unspecified (principal); U07.1 COVID-19; J12.82 Pneumonia due to coronavirus disease 2019; I20.0 Unstable angina; E78.5 Hyperlipidemia, unspecified; K21.9 Gastro-esophageal reflux disease without esophagitis; I10 Essential (primary) hypertension; E11.9 Type 2 diabetes mellitus without complications; F41.9 Anxiety disorder, unspecified; Z79.899 Other long term (current) drug therapy
CPT/HCPCS: 71046; 80048; 84484; 85007; 85025; 93005; 93270; 96374; 99284

== ENCOUNTER → 2021-05-05 08:56 | Outpatient (CLI) | payer MEDICAID, SELFPAY ==
--- NOTE | 2021-05-05 09:14 | CA_ITS ---
APPROVED REPORT EXAM: Comprehensive 2D, Doppler, and color-flow Echocardiogram Financial Operations Consultant: Fransisca Lozoya, RT(R) Ht: 5 ft 4 in Wt: 197lbs BSA: 1.94 BP: 153/93 mmHg Indications: SOA, palpitations, HTN, GERD, hx COVID 2D Dimensions Aortic Root 2.11 cm F: 2.7 - 3.3 M-Mode Dimensions RVDd 2.37 cm (0.9-2.6) LA Diam 3.13 cm (1.9-4.0) LVDd 4.77 cm (3.5-5.7) Ao Diam 2.55 cm (2.0-3.7) LVDs 4.06 cm (3.5-5.7) IVSd 0.72 cm (0.6-1.1) PWd 0.72 cm (0.6-1.1) EF (Teich) 31.60% FS 14.90% EDV (Teich) 106.00 mL ESV (Teich) 72.50 mL LV Diastology E Decel Time 243.00 (160-240 msec) E/A Ratio 0.8 MED E' 8.60 (< 7 cm/sec) E'/MED E' Ratio 7.52 (>14) LAT E' 5.70 (<10 cm/sec) E/LAT E' Ratio 11.35 (>14) Mitral Valve MV E Max Mynor. 65.00 (40-130 cm/s) MV A Velocity 81.00 (40-130 cm/s) E/A Ratio 0.80 MV Decel. Time 243.00 (160-240 ms) MV PHT 71.00 ms Left Ventricle Technically difficult study because of the patient factors and poor acoustic windows. Left atrium is normal size, left ventricle is normal size, there is no concentric left ventricular hypertrophy, visually estimated ejection fraction 55% with no regional wall motion abnormality, endocardial surfaces are poorly visualized, diastolic parameters are inconclusive. Right Ventricle Right atrium and right ventricle are normal size and contractility. Aortic Valve Aortic valve is grossly normal, there is no aortic stenosis or aortic insufficiency. Mitral Valve Mitral valve grossly normal, there is trace mitral regurgitation. Tricuspid Valve Tricuspid valve grossly normal, there is trace tricuspid regurgitation, tricuspid regurgitation jet velocity is inadequate for calculation of the right ventricular systolic pressure. Pulmonic Valve Pulmonic valve is poorly visualized. Great Vessels Aortic root is normal size. Inferior vena cava is not well visualized. Pericardium No significant pericardial effusion noted. Conclusion 1. Technically difficult study because of the patient factors and poor acoustic windows. 2. Normal left ventricular size, preserved left ventricular systolic function, visually estimated ejection fraction 55% with no regional wall motion abnormality, diastolic parameters are inconclusive. 3. Trace mitral and tricuspid regurgitation. 4. No significant pericardial effusion noted. 5. Inferior vena cava is not well visualized. Electronically signed by : Ren Carrington MD 05/05/2021 21:38:01
[2021-05-05 10:13] LABS: Chloride 100 mmol/L (98-107); Sodium 138 mmol/L (136-145)
[2021-05-05 10:14] LABS: Potassium 3.6 mmoL/L (3.5-5.1)
[2021-05-05 10:16] LABS: Blood Urea Nitrogen 6 mg/dl (7-17); Estimated Glomerular Filt Rate 89 ml/min (>60); GFR (African American) 108 ML/MIN (>60)
[2021-05-05 10:17] LABS: Anion Gap 15.6 mEq/L (5-15); Carbon Dioxide 26 mmol/L (22.0-30.0); Glucose 161 mg/dl (74-100)
== END ==
PROVIDERS: Visit Provider Nurse Practitioner Family
DX: R06.02 Shortness of breath (principal); U07.1 COVID-19; J12.82 Pneumonia due to coronavirus disease 2019; I11.9 Hypertensive heart disease without heart failure; E78.5 Hyperlipidemia, unspecified; K21.9 Gastro-esophageal reflux disease without esophagitis; R00.0 Tachycardia, unspecified; R00.2 Palpitations; R19.7 Diarrhea, unspecified
CPT/HCPCS: 36415; 80048; 93306

== ENCOUNTER → 2021-05-16 09:57 | Outpatient (CLI) | payer MEDICAID, SELFPAY ==
[2021-05-16 10:02] LABS: Adenovirus F 40/41, stool Not Detected (NotDetected); Astrovirus Not Detected (NotDetected); Campylobacter Not Detected (NotDetected); Clostridium Difficile A/B, PCR Not Detected (NotDetected); Cryptosporidium Not Detected (NotDetected); Cyclospora Cayetanesis Not Detected (NotDetected); Entamoeba histolytica Not Detected (NotDetected); Enteroaggregative E coli Not Detected (NotDetected); Enteropathogenic E coli Not Detected (NotDetected); Enterotoxigenic E coli Not Detected (NotDetected); Giardia lamblia Not Detected (NotDetected); Norovirus Not Detected (NotDetected); Plesimonas Shigalloides, PCR Not Detected (NotDetected); Rotavirus A Not Detected (NotDetected); Salmonella, PCR Not Detected (NotDetected); Sapovirus Not Detected (NotDetected); Shiga-like toxin E coli Not Detected (NotDetected); Shigella Enterovasive E coli Not Detected (NotDetected); Vibrio Cholerae Not Detected (NotDetected); Vibrio, PCR Not Detected (NotDetected); Yersinia Entercolitica, PCR Not Detected (NotDetected)
== END ==
PROVIDERS: Visit Provider Family Medicine
DX: R19.7 Diarrhea, unspecified (principal)
CPT/HCPCS: 87507

== ENCOUNTER → 2021-06-08 10:45 | Outpatient (CLI) | payer MEDICAID, SELFPAY ==
[2021-06-08 11:29] LABS: Hemoglobin A1C 6.3 % (4.0-6.0)
== END ==
PROVIDERS: Visit Provider Family Medicine
DX: E11.9 Type 2 diabetes mellitus without complications (principal)
CPT/HCPCS: 36415; 83036

== ENCOUNTER → 2021-06-19 13:47 | Outpatient (CLI) | payer MEDICAID, SELFPAY ==
[2021-06-19 15:30] LABS: Basophils # 0.1 K/mm3 (0-0.2); Basophils % 0.4 % (0.1-2.0); Eosinophils # 0.3 K/mm3 (0.0-0.4); Eosinophils % 1.9 % (0.1-12.0); Hematocrit 42.7 % (37.0-47.0); Hemoglobin 15.2 g/dL (12.2-16.2); Lymphocytes # 2.7 K/mm3 (0.7-4.5); Mean Corpuscular HGB Conc 35.5 g/dL (31.8-35.4); Mean Corpuscular Hemoglobin 31.4 pg (27.0-31.2); Mean Corpuscular Volume 88.3 fl (81-99); Mean Platelet Volume 10.1 fl (7.4-10.4); Monocytes # 0.6 K/mm3 (0.1-1.0); Monocytes % 4.2 % (1.7-9.3); Neutrophils # 10.1 K/mm3 (1.8-7.8); Neutrophils % 73.5 % (37.0-80.0); Platelet Count 374 K/mm3 (142-424); Red Blood Count 4.83 M/mm3 (4.20-5.40); Red Cell Distribution Width 13.9 % (11.5-17.5); White Blood Count 13.7 K/mm3 (4.8-10.8)
[2021-06-19 16:26] LABS: Alanine Aminotransferase 42 U/L (12-78); Albumin Level 4.6 g/dl (3.5-5.0); Alkaline Phosphatase 74 U/L (38-126); Aspartate Amino Transferase 34 U/L (14-36); Bilirubin,Direct 0.1 mg/dl (0.0-0.4); Bilirubin,Total 2.1 mg/dl (0.2-1.3); Blood Urea Nitrogen 12 mg/dl (7-17); Calcium 10.5 mg/dl (8.4-10.2); Carbon Dioxide 28 mmol/L (22.0-30.0); Chloride 97 mmol/L (98-107); Chol/HDL Ratio 3.6 (1-3.5); Cholesterol 162 mg/dl (140-200); Estimated Glomerular Filt Rate 77 ml/min (>60); GFR (African American) 93 ML/MIN (>60); Glucose 118 mg/dl (74-100); HDL Cholesterol 45 mg/dl (40-60); Sodium 138 mmol/L (136-145); Total Protein,Serum 7.7 g/dl (6.3-8.2); Triglycerides 185 mg/dl (30-150); VLDL Cholesterol 37 mg/dL (0-40)
[2021-06-19 16:37] LABS: Direct LDL Cholesterol 97.87 mg/dL (100-129)
[2021-06-19 16:57] LABS: Thyroid Stimulating Hormone 2.27 uIU/mL (0.465-4.68)
[2021-06-19 17:50] LABS: Free T4 (Free Thyroxine) 1.46 ng/dl (0.78-2.19)
== END ==
PROVIDERS: PCP Family Medicine; Visit Provider Internal Medicine Cardiovascular Disease
DX: R42 Dizziness and giddiness (principal); R00.2 Palpitations; I11.9 Hypertensive heart disease without heart failure; I44.7 Left bundle-branch block, unspecified; Z82.49 Family history of ischemic heart disease and other diseases of the circulatory system
CPT/HCPCS: 36415; 80048; 80061; 80076; 84439; 84443; 85025; 93270

== ENCOUNTER 2021-06-20 11:34 | Emergency (ER) | payer MEDICAID, SELFPAY ==
--- NOTE | 2021-06-20 11:30 | ECG_ITS ---
APPROVED REPORT Exam: Resting ECG HR:57 bpm ECG Measurements Heart Rate 57 AXES WV 154 P 34 QRSd 136 QRS -33 QT 498 T 49 QTc 484 Conclusion Sinus bradycardia with sinus arrhythmia Left axis deviation Left bundle branch block Abnormal ECG Electronically signed by : Xavier Bass MD 06/20/2021 19:55:14
[2021-06-20 11:34] VITALS: BP 156/68; PULSE 68; RESP 16; TEMP 36.8; O2SAT 98; BMI 32.5
--- NOTE | 2021-06-20 11:40 | XR_ITS ---
PROCEDURE INFORMATION: Exam: XR Chest Exam date and time: 06/20/2021 11:40 AM Age: 50 years old Clinical indication: Other: Weakness blurred vision TECHNIQUE: Imaging protocol: XR of the chest. Views: 1 view. COMPARISON: CR XR CHEST 2V 04/21/2021 12:11 PM FINDINGS: Tubes, catheters and devices: A device overlying the left chest, new since the prior study. Lungs: No consolidation. Interval resolution of previously demonstrated lung base airspace disease. Pleural spaces: Unremarkable. No pleural effusion. No pneumothorax. Heart/Mediastinum: Unremarkable. No cardiomegaly. Bones/joints: No acute fracture seen. IMPRESSION: No evidence of acute cardiopulmonary disease.
--- NOTE | 2021-06-20 11:41 | CT_ITS ---
PROCEDURE INFORMATION: Exam: CT Head Without Contrast Exam date and time: 06/20/2021 11:41 AM Age: 50 years old Clinical indication: Weakness, extremity; Bilateral; Additional info: Weakness blurred vision TECHNIQUE: Imaging protocol: Computed tomography of the head without contrast. Radiation optimization: All CT scans at this facility use at least one of these dose optimization techniques: automated exposure control; mA and/or kV adjustment per patient size (includes targeted exams where dose is matched to clinical indication); or iterative reconstruction. COMPARISON: No relevant prior studies available. FINDINGS: Brain: The brain demonstrates right cerebral volume loss, for example asymmetric widening of right frontoparietal sulci appreciated on sagittal image 18 of series 1002. This could be congenital or acquired. No hemorrhage or edema seen. Cerebral ventricles: Mild ex vacuo enlargement of the right lateral ventricle. Paranasal sinuses: Visualized sinuses are unremarkable. No fluid levels. Mastoid air cells: Visualized mastoid air cells are well aerated. Bones/joints: A chronic appearing nasal bone fracture. Soft tissues: Unremarkable. IMPRESSION: 1. No acute intracranial abnormality seen. 2. Mild right cerebral atrophy.
--- NOTE | 2021-06-20 11:52 | HMH.EDGENADL ---
ED Disposition Clinical Impression: Chest pain, Hypokalemia Disposition: Home, Self-Care Condition on Discharge: Good Additional Instructions: Follow-up with your primary care physician for repeat labs next week. Prescriptions: Potassium Chloride [Klor-Con] 20 meq PO DAILY #10 packet Transmission Status: Received by [facility] Referrals: David Alvarez MD [Primary Care Provider] - - Critical Care Critical Care Time: No Attestation: On , the high probability of a clinically significant, sudden or life threatening deterioration of the following system(s) required my full and direct attention, intervention and personal management. The time I documented below is in addition to time spent performing reported procedures but includes the following listed in this critical care notation. Medical Decision Making - Medical Records Medical records reviewed: Yes: I reviewed the patient's medical records. - Niko Inquiry Pt receiving controlled substance: No Vital Signs: 06/20/21 11:34 06/20/21 13:30 06/20/21 18:18 Temperature 98.2 F 98.2 F Temperature Source Oral Pulse Rate 55 L 61 Pulse Rate [Radial] 68 Respiratory Rate 16 18 16 Blood Pressure 151/72 H 141/70 H Blood Pressure [Right Arm] 156/68 H Blood Pressure Mean [Right Arm] 97 Blood Pressure Source Automatic Cuff Blood Pressure Position Sitting Blood Pressure Position [Right Arm] Sitting 02 Sat by Pulse Oximetry 98 97 Oxygen Delivery Method Room Air Room Air - Lab Data Lab results reviewed: Yes: I reviewed the patient's lab results. Lab Results 06/20/21 11:45: WBC 8.8 D, RBC 5.18, Hgb 16.1, Hct 44.8, MCV 86.5, MCH 31.0, MCHC 35.9 H, RDW 14.0, Plt Count 427 H, MPV 10.3, Neut % (Auto) 71.9, Lymph % (Auto) 22.0, [place] % (Auto) 3.7, Eos % (Auto) 1.7, Baso % (Auto) 0.7, Neut # (Auto) 6.3, Lymph # (Auto) 1.9, [place] # (Auto) 0.3, Eos # (Auto) 0.2, Baso # (Auto) 0.1 06/20/21 11:45: Sodium 140, Potassium 2.8 L*, Chloride 98, Carbon Dioxide 27, Anion Gap 17.8 H, BUN 13, Creatinine 0.90, Estimated Creat Clear 104, Estimated GFR 67, Est GFR ( Amer) 81, Glucose 135 H, Calcium 10.3 H, Total Bilirubin 2.7 H, AST 45 H D, ALT 52, Alkaline Phosphatase 73, Troponin I < 0.01, Total Protein 8.2, Albumin 4.8, Globulin 3.4 H, Albumin/Globulin Ratio 1.4 06/20/21 11:45: Magnesium 1.6 06/20/21 16:45: Troponin I < 0.01 Result diagrams: 06/20/21 11:45 06/20/21 11:45 Orders (Tests/Meds): ED MEDICATIONS Discontinued Medications Generic Name Dose Route Start Last Admin Trade Name Freq PRN Reason Stop Dose Admin Potassium Chloride/Water 100 mls @ 50 mls/hr 06/20/21 12:50 06/20/21 13:19 Potassium Chloride 20meq/100ml Ivpb IV 06/20/21 14:49 50 mls/hr ONCE ONE Administration Sodium Chloride 1,000 mls @ 999 mls/hr 06/20/21 13:30 06/20/21 14:55 Sod Chlor 0.9% 1000ml Bag IV 06/20/21 14:30 999 mls/hr .Q1H1M STEPHANIE Administration Potassium Chloride 40 meq 06/20/21 12:52 06/20/21 13:19 Potassium Chloride 20meq Tab PO 06/20/21 12:53 40 meq ONCE ONE Administration Medical Decision Narrative: Patient is a 42-year-old female presenting to the emergency department with chief complaint of chest pain, chest pressure numbness and tingling of her left hand, as well as some mild blurriness in her vision. Differential diagnosis with patient includes ACS, electrolyte abnormality, PVCs, atypical chest pain, pneumonia among others. Given this plan order CBC, CMP, troponin and repeat troponin, magnesium and reassess. Patient labs were consistent with severe hypokalemia with potassium at 2.8. Patient was given a run of IV potassium as well as 40 of oral potassium. Patient noted resolution of her symptoms with this. Patient initial troponin was not elevated, was unable to see the repeat troponin in her labs, but discussed it with the lab faculty who stated that it was 0.01 and not elevated, and also that magnesium was within normal med
[2021-06-20 11:58] LABS: Basophils # 0.1 K/mm3 (0-0.2); Basophils % 0.7 % (0.1-2.0); Eosinophils # 0.2 K/mm3 (0.0-0.4); Eosinophils % 1.7 % (0.1-12.0); Hematocrit 44.8 % (37.0-47.0); Hemoglobin 16.1 g/dL (12.2-16.2); Lymphocytes # 1.9 K/mm3 (0.7-4.5); Mean Corpuscular HGB Conc 35.9 g/dL (31.8-35.4); Mean Corpuscular Volume 86.5 fl (81-99); Mean Platelet Volume 10.3 fl (7.4-10.4); Monocytes # 0.3 K/mm3 (0.1-1.0); Monocytes % 3.7 % (1.7-9.3); Neutrophils # 6.3 K/mm3 (1.8-7.8); Neutrophils % 71.9 % (37.0-80.0); Platelet Count 427 K/mm3 (142-424); Red Blood Count 5.18 M/mm3 (4.20-5.40); White Blood Count 8.8 K/mm3 (4.8-10.8)
[2021-06-20 12:20] LABS: Chloride 98 mmol/L (98-107); Sodium 140 mmol/L (136-145)
[2021-06-20 12:22] LABS: Blood Urea Nitrogen 13 mg/dl (7-17); Creatinine Clearance Estimated 104 mL/min (50-200); Estimated Glomerular Filt Rate 67 ml/min (>60); GFR (African American) 81 ML/MIN (>60)
[2021-06-20 12:23] LABS: Alanine Aminotransferase 52 U/L (12-78); Albumin Level 4.8 g/dl (3.5-5.0); Albumin/Globulin Ratio 1.4 (1.1-1.8); Alkaline Phosphatase 73 U/L (38-126); Anion Gap 17.8 mEq/L (5-15); Aspartate Amino Transferase 45 U/L (14-36); Bilirubin,Total 2.7 mg/dl (0.2-1.3); Calcium 10.3 mg/dl (8.4-10.2); Carbon Dioxide 27 mmol/L (22.0-30.0); Globulin 3.4 g/dL (1.3-3.2); Glucose 135 mg/dl (74-100); Total Protein,Serum 8.2 g/dl (6.3-8.2)
[2021-06-20 12:46] LABS: Troponin I < 0.01 ng/ml (0.00-0.034)
[2021-06-20 12:48] LABS: Potassium 2.8 mmoL/L (3.5-5.1)
--- NOTE | 2021-06-20 12:50 | PC.NURSE ---
LAB CALLED WITH CRITICAL POTASSIUM 2.8 MD AWARE
[2021-06-20 13:30] VITALS: BP 151/72; PULSE 55; RESP 18; O2SAT 97
[2021-06-20 13:43] LABS: Magnesium 1.6 mg/dl (1.6-2.3)
[2021-06-20 18:18] VITALS: BP 141/70; PULSE 61; RESP 16; TEMP 36.8; O2SAT 98
[2021-06-20 18:20] LABS: Troponin I < 0.01 ng/ml (0.00-0.034)
== END 2021-06-20 18:24 | disposition home or self-care (01) ==
PROVIDERS: Emergency Provider Emergency Medicine; PCP Family Medicine
DX: R07.9 Chest pain, unspecified (principal); E87.6 Hypokalemia; K21.9 Gastro-esophageal reflux disease without esophagitis; I10 Essential (primary) hypertension; E78.5 Hyperlipidemia, unspecified; F41.8 Other specified anxiety disorders
CPT/HCPCS: 70450; 71045; 80053; 83735; 84484; 85025; 93005; 96365; 96366; 99283

== ENCOUNTER → 2021-06-24 08:59 | Outpatient (CLI) | payer MEDICAID, SELFPAY ==
[2021-06-24 10:14] LABS: INR 1.01 (0.9-1.1); Prothrombin Time 11.4 seconds (10.1-12.5)
[2021-06-24 10:25] LABS: Chloride 100 mmol/L (98-107); Potassium 3.8 mmoL/L (3.5-5.1); Sodium 138 mmol/L (136-145)
[2021-06-24 10:28] LABS: Alanine Aminotransferase 39 U/L (12-78); Albumin Level 4.5 g/dl (3.5-5.0); Albumin/Globulin Ratio 1.6 (1.1-1.8); Alkaline Phosphatase 70 U/L (38-126); Anion Gap 13.8 mEq/L (5-15); Aspartate Amino Transferase 29 U/L (14-36); Bilirubin,Total 3.4 mg/dl (0.2-1.3); Blood Urea Nitrogen 9 mg/dl (7-17); Calcium 10.4 mg/dl (8.4-10.2); Carbon Dioxide 28 mmol/L (22.0-30.0); Estimated Glomerular Filt Rate 89 ml/min (>60); GFR (African American) 108 ML/MIN (>60); Globulin 2.9 g/dL (1.3-3.2); Glucose 126 mg/dl (74-100); Total Protein,Serum 7.4 g/dl (6.3-8.2)
[2021-06-24 10:51] LABS: Basophils # 0.1 K/mm3 (0-0.2); Basophils % 1.4 % (0.1-2.0); Eosinophils # 0.1 K/mm3 (0.0-0.4); Eosinophils % 1.1 % (0.1-12.0); Hematocrit 44.4 % (37.0-47.0); Hemoglobin 15.1 g/dL (12.2-16.2); Lymphocytes # 1.7 K/mm3 (0.7-4.5); Lymphocytes % 18.3 % (10-50); Mean Corpuscular Hemoglobin 31.9 pg (27.0-31.2); Mean Corpuscular Volume 93.7 fl (81-99); Mean Platelet Volume 11.8 fl (7.4-10.4); Monocytes # 0.5 K/mm3 (0.1-1.0); Monocytes % 5.6 % (1.7-9.3); Neutrophils # 6.7 K/mm3 (1.8-7.8); Neutrophils % 73.7 % (37.0-80.0); Platelet Count 297 K/mm3 (142-424); Red Blood Count 4.74 M/mm3 (4.20-5.40); Red Cell Distribution Width 13.6 % (11.5-17.5); White Blood Count 9.1 K/mm3 (4.8-10.8)
[2021-06-25 08:52] LABS: HIV Screen 4th Generation wRfx Non Reactive (Non Reactive); Hep A Ab, IgM Negative (Negative); Hep A Ab, Total Negative (Negative); Hep B Core Ab, Total Negative (Negative); Hep B Surface Ab, Qual Reactive (.); Hepatitis B Surface Antigen Negative (Negative); Hepatitis C Antibody <0.1 s/co ratio (0.0-0.9)
[2021-06-26 02:18] LABS: ALT (SGPT) P5P 36 IU/L (0-40); Alpha 2-Macroglobulins, Qn 162 mg/dL (110-276); Apolipoprotein A-1 108 mg/dL (116-209); Fibrosis Score 0.46 (0.00-0.21); Fibrosis Stage F1-F2 (.); GGT 43 IU/L (0-60); Haptoglobin 160 mg/dL (42-296); Necroinflammat Activity Grade A0-A1 (.); Necroinflammat Activity Score 0.23 (0.00-0.17)
== END ==
PROVIDERS: Visit Provider Nurse Practitioner Family
DX: Z11.59 Encounter for screening for other viral diseases (principal); Z91.89 Other specified personal risk factors, not elsewhere classified
CPT/HCPCS: 36415; 80053; 81596; 85025; 85610; 86703; 86704; 86706; 86708; 87340; 87380; 87522; G0432

== ENCOUNTER → 2021-06-30 15:49 | Outpatient (CLI) | payer MEDICAID, SELFPAY ==
[2021-06-30 17:30] LABS: Anion Gap 15.2 mEq/L (5-15); Blood Urea Nitrogen 10 mg/dl (7-17); Calcium 10.6 mg/dl (8.4-10.2); Carbon Dioxide 29 mmol/L (22.0-30.0); Chloride 97 mmol/L (98-107); Estimated Glomerular Filt Rate 89 ml/min (>60); GFR (African American) 108 ML/MIN (>60); Glucose 95 mg/dl (74-100); Potassium 4.2 mmoL/L (3.5-5.1); Sodium 137 mmol/L (136-145)
== END ==
PROVIDERS: Visit Provider Family Medicine
DX: Z00.00 Encounter for general adult medical examination without abnormal findings (principal)
CPT/HCPCS: 36415; 80048

== ENCOUNTER → 2021-07-10 11:27 | Outpatient (CLI) | payer MEDICAID, SELFPAY ==
[2021-07-10 13:44] LABS: Alanine Aminotransferase 32 U/L (12-78); Albumin Level 4.8 g/dl (3.5-5.0); Albumin/Globulin Ratio 1.5 (1.1-1.8); Alkaline Phosphatase 64 U/L (38-126); Aspartate Amino Transferase 29 U/L (14-36); Bilirubin,Total 2.5 mg/dl (0.2-1.3); Blood Urea Nitrogen 7 mg/dl (7-17); Calcium 10.5 mg/dl (8.4-10.2); Carbon Dioxide 26 mmol/L (22.0-30.0); Chloride 104 mmol/L (98-107); Estimated Glomerular Filt Rate 89 ml/min (>60); GFR (African American) 108 ML/MIN (>60); Globulin 3.2 g/dL (1.3-3.2); Glucose 104 mg/dl (74-100); Sodium 140 mmol/L (136-145)
[2021-07-15 08:52] LABS: Hep B Core Ab, Total Negative (Negative); Hep B Surface Ab, Qual Reactive (.)
== END ==
PROVIDERS: Nurse Practitioner Family; PCP Family Medicine; Visit Provider Family Medicine
DX: Z11.59 Encounter for screening for other viral diseases (principal); Z91.89 Other specified personal risk factors, not elsewhere classified; E87.6 Hypokalemia
CPT/HCPCS: 36415; 80053; 86704; 86706

== ENCOUNTER 2021-07-19 04:43 | Emergency (ER) | payer MEDICAID, SELFPAY ==
[2021-07-19 04:44] VITALS: BP 149/70; PULSE 63; RESP 16; TEMP 37.2; O2SAT 98; BMI 32.5
--- NOTE | 2021-07-19 04:47 | ECG_ITS ---
APPROVED REPORT Exam: Resting ECG HR:62 bpm ECG Measurements Heart Rate 62 AXES NV 160 P 46 QRSd 132 QRS -12 QT 482 T 51 QTc 489 Conclusion Normal sinus rhythm Left bundle branch block Abnormal ECG Electronically signed by : Xavier Bass MD 07/21/2021 20:00:10
--- NOTE | 2021-07-19 04:47 | XR_ITS ---
PROCEDURE INFORMATION: Exam: XR Chest Exam date and time: 07/19/2021 4:47 AM Age: 50 years old Clinical indication: Pain; Chest pressure; Additional info: Chest pain TECHNIQUE: Imaging protocol: XR of the chest. Views: 2 views. COMPARISON: CR XR CHEST PORTABLE 06/20/2021 12:07 PM FINDINGS: Lungs: No focal consolidation. Pleural spaces: No pleural effusion. No pneumothorax. Heart/Mediastinum: Unremarkable cardiomediastinal silhouette. Bones/joints: No acute osseous findings. Cholecystectomy. IMPRESSION: No focal consolidation.
[2021-07-19 05:08] LABS: Basophils # 0.1 K/mm3 (0-0.2); Basophils % 1.8 % (0.1-2.0); Eosinophils # 0.2 K/mm3 (0.0-0.4); Eosinophils % 2.4 % (0.1-12.0); Hematocrit 45.5 % (37.0-47.0); Hemoglobin 14.8 g/dL (12.2-16.2); Lymphocytes # 1.9 K/mm3 (0.7-4.5); Lymphocytes % 24.4 % (10-50); Mean Corpuscular HGB Conc 32.6 g/dL (31.8-35.4); Mean Corpuscular Hemoglobin 30.8 pg (27.0-31.2); Mean Corpuscular Volume 94.6 fl (81-99); Monocytes # 0.4 K/mm3 (0.1-1.0); Monocytes % 5.3 % (1.7-9.3); Neutrophils # 5.1 K/mm3 (1.8-7.8); Neutrophils % 66.1 % (37.0-80.0); Platelet Count 287 K/mm3 (142-424); Red Blood Count 4.81 M/mm3 (4.20-5.40); Red Cell Distribution Width 13.8 % (11.5-17.5); White Blood Count 7.7 K/mm3 (4.8-10.8)
[2021-07-19 05:13] LABS: Chloride 104 mmol/L (98-107); Sodium 139 mmol/L (136-145)
[2021-07-19 05:16] LABS: Blood Urea Nitrogen 7 mg/dl (7-17)
[2021-07-19 05:17] LABS: Calcium 9.7 mg/dl (8.4-10.2); Carbon Dioxide 27 mmol/L (22.0-30.0); Creatinine Clearance Estimated 134 mL/min (50-200); Estimated Glomerular Filt Rate 89 ml/min (>60); GFR (African American) 108 ML/MIN (>60); Glucose 127 mg/dl (74-100)
--- NOTE | 2021-07-19 05:22 | HMH.EDGENADL ---
ED Disposition Clinical Impression: Atypical chest pain Disposition: Home, Self-Care Condition on Discharge: Fair Referrals: David Alvarez MD [Primary Care Provider] - - Critical Care Critical Care Time: No Attestation: On 07/19/21, the high probability of a clinically significant, sudden or life threatening deterioration of the following system(s) required my full and direct attention, intervention and personal management. The time I documented below is in addition to time spent performing reported procedures but includes the following listed in this critical care notation. Medical Decision Making - Medical Records Medical records reviewed: Yes: I reviewed the patient's medical records. - Niko Inquiry Pt receiving controlled substance: No Vital Signs: 07/19/21 04:44 Temperature 98.9 F Temperature Source Oral Pulse Rate [Right Radial] 63 Respiratory Rate 16 Blood Pressure [Right Arm] 149/70 H Blood Pressure Mean [Right Arm] 96 Blood Pressure Source [Right Arm] Automatic Cuff Blood Pressure Position [Right Arm] Sitting 02 Sat by Pulse Oximetry 98 Oxygen Delivery Method Room Air - Lab Data Lab results reviewed: Yes: I reviewed the patient's lab results. Lab Results 07/19/21 04:57: WBC 7.7, RBC 4.81, Hgb 14.8, Hct 45.5, MCV 94.6, MCH 30.8, MCHC 32.6, RDW 13.8, Plt Count 287, MPV 10.0, Neut % (Auto) 66.1, Lymph % (Auto) 24.4, [place] % (Auto) 5.3, Eos % (Auto) 2.4, Baso % (Auto) 1.8, Neut # (Auto) 5.1, Lymph # (Auto) 1.9, [place] # (Auto) 0.4, Eos # (Auto) 0.2, Baso # (Auto) 0.1 07/19/21 04:57: Sodium 139, Potassium 4.0, Chloride 104, Carbon Dioxide 27, Anion Gap 12.0, BUN 7, Creatinine 0.70, Estimated Creat Clear 134, Estimated GFR 89, Est GFR ( Amer) 108, Glucose 127 H, Calcium 9.7, Troponin I < 0.01 Result diagrams: 07/19/21 04:57 07/19/21 04:57 Orders (Tests/Meds): ED MEDICATIONS Discontinued Medications Generic Name Dose Route Start Last Admin Trade Name Freq PRN Reason Stop Dose Admin Aspirin 324 mg 07/19/21 05:25 07/19/21 05:27 Aspirin 81mg Chewable Tablet PO 07/19/21 05:26 324 mg ONCE ONE Administration ORDERS Category Date Time Status Troponin I Q3H Lab 07/19/21 08:00 Ordered Troponin I Q3H Lab 07/19/21 11:00 Ordered Medical Decision Narrative: Patient is a 50-year-old female presenting to the emergency department with chief complaint of chest pain, numbness and tingling. Differential diagnosis in this patient includes ACS, atypical chest pain, electrolyte abnormality, pneumothorax, GERD among others. Given this and her CBC, CMP, chest x-ray, EKG, troponins. On evaluation patient had resolution of the majority of her symptoms, less pain of mild lip tingling as well as intermittent sharp stabbing pain. Patient was given 324 of aspirin. EKG showed normal sinus rhythm, compared EKG from EKG prior with no acute change. Chest x-ray showed aerated lungs with no acute pertinent findings. Initial troponin is not elevated, electrolytes are grossly within normal limits besides a mildly elevated glucose. Patient is hemodynamically stable. Will get repeat troponin given short span of symptoms. General Adult HPI - General Chief complaint: Chest Pain Stated complaint: Chest Pain Time Seen by Provider: 07/19/21 05:00 Mode of Arrival: Ambulatory Limitations: No Limitations Description of Symptoms (Recalled from ER Triage Doc. by RN): Pt reports waking at 2:30am with right neck pain that radiates into her right arm and right side of her chest. Pt denies N/V/D. Denies cough. Denies SOA. Denies dizziness. She reports tingling to her arms, les, and lips. - History of Present Illness HPI narrative: Patient is a 50-year-old female presenting to the emergency department with chief complaint of numbness and tingling of her lips, numbness tingling of her chest and right arm as well as some tingling in her legs. She states that the symptoms woke her from sleep at around
[2021-07-19 05:32] LABS: Troponin I < 0.01 ng/ml (0.00-0.034)
[2021-07-19 08:34] LABS: Troponin I < 0.01 ng/ml (0.00-0.034)
[2021-07-19 08:58] VITALS: BP 132/74; PULSE 78; RESP 16; TEMP 36.6; O2SAT 98
== END 2021-07-19 08:59 | disposition home or self-care (01) ==
PROVIDERS: Emergency Provider Emergency Medicine; PCP Family Medicine
DX: R07.89 Other chest pain (principal); F41.9 Anxiety disorder, unspecified; E11.9 Type 2 diabetes mellitus without complications; E78.5 Hyperlipidemia, unspecified; I10 Essential (primary) hypertension
CPT/HCPCS: 71046; 80048; 84484; 85025; 93005; 96375; 99283

== ENCOUNTER 2021-08-09 16:41 | Emergency (ER) | payer MEDICAID, SELFPAY ==
--- NOTE | 2021-08-09 16:38 | ECG_ITS ---
APPROVED REPORT Exam: Resting ECG HR:59 bpm ECG Measurements Heart Rate 59 AXES MT 163 P 55 QRSd 129 QRS -13 QT 442 T 79 QTc 441 Conclusion SINUS BRADYCARDIA LEFT BUNDLE BRANCH BLOCK [120+ ms QRS DURATION, 80+ ms Q/S IN V1/V2, 85+ ms R IN I/aVL/V5/V6] ABNORMAL ECG UNCONFIRMED REPORT Electronically signed by : Xavier Bass MD 08/10/2021 20:35:36
[2021-08-09 16:45] VITALS: BP 165/75; PULSE 72; RESP 18; TEMP 36.6; O2SAT 98; BMI 24.0
--- NOTE | 2021-08-09 16:50 | HMH.EDGENADL ---
ED Disposition Clinical Impression: Abdominal pain Qualifiers: Abdominal location: right lower quadrant Qualified Code(s): R10.31 - Right lower quadrant pain Disposition: Home, Self-Care Condition on Discharge: Good Instructions: DI for Acute Abdominal Pain Additional Instructions: Cipro and Flagyl as prescribed. Call Dr. Alvarez's office tomorrow for follow-up, see him in the office Tuesday or Tuesday. Additional instructions for ABDOMINAL PAIN: See your physician as soon as possible for further evaluation. Return immediately if worsening abdominal pain, vomiting, shortness of breath, fever, vomiting of blood or abdominal distention. Prescriptions: Ciprofloxacin HCl [Cipro 500mg Tab] 500 mg PO BID #20 tab Transmission Status: Pending to [facility] metroNIDAZOLE [Metronidazole] 500 mg PO TID #30 tab Transmission Status: Pending to [facility] Referrals: David Alvarez MD [Primary Care Provider] - - Critical Care Critical Care Time: No Attestation: On , the high probability of a clinically significant, sudden or life threatening deterioration of the following system(s) required my full and direct attention, intervention and personal management. The time I documented below is in addition to time spent performing reported procedures but includes the following listed in this critical care notation. Medical Decision Making - Niko Inquiry Pt receiving controlled substance: No Vital Signs: 08/09/21 16:45 Temperature 97.8 F Temperature Source Oral Pulse Rate [Left Radial] 72 Respiratory Rate 18 Blood Pressure [Right Arm] 165/75 H Blood Pressure Mean [Right Arm] 105 02 Sat by Pulse Oximetry 98 - Lab Data Lab Results 08/09/21 17:17: Urine Color Yellow, Urine Appearance Clear, Urine pH 6.0, Ur Specific [place] 1.015, Urine Protein Negative, Urine Glucose (UA) Negative, Urine Ketones Negative, Urine Blood Negative, Urine Nitrate Negative, Urine Bilirubin Negative, Urine Urobilinogen 0.2, Ur Leukocyte Esterase Negative, Amorphous Sediment Trace 08/09/21 19:15: WBC 8.4, RBC 4.61, Hgb 14.0, Hct 43.0, MCV 93.3, MCH 30.3, MCHC 32.5, RDW 13.4, Plt Count 57 L, MPV 12.0 H, Neut % (Auto) 63.1, Lymph % (Auto) 27.8, [place] % (Auto) 5.2, Eos % (Auto) 1.8, Baso % (Auto) 2.1 H, Neut # (Auto) 5.3, Lymph # (Auto) 2.3, [place] # (Auto) 0.4, Eos # (Auto) 0.2, Baso # (Auto) 0.2 08/09/21 19:15: Sodium 138, Potassium 4.2, Chloride 106, Carbon Dioxide 23, Anion Gap 13.2, BUN 6 L, Creatinine 0.60, Estimated Creat Clear 115, Estimated GFR 107, Est GFR ( Amer) 129, Glucose 116 H, Calcium 9.9, Total Bilirubin 1.5 H, AST 34, ALT 33, Alkaline Phosphatase 58, Troponin I < 0.01, Total Protein 7.4, Albumin 4.3, Globulin 3.1, Albumin/Globulin Ratio 1.4, Lipase 197 Result diagrams: 08/09/21 19:15 08/09/21 19:15 Orders (Tests/Meds): ED MEDICATIONS Generic Name Dose Route Start Last Admin Trade Name Freq PRN Reason Stop Dose Admin Sodium Chloride 1,000 mls @ 999 mls/hr 08/09/21 17:00 08/09/21 17:54 Sod Chlor 0.9% 1000ml Bag IV 08/09/21 18:00 999 mls/hr .Q1H1M STEPHANIE Administration Promethazine HCl 1 boubacar 08/09/21 20:19 Promethazine 25mg Tablet Take Home Pack (10) PO 09/08/21 20:18 Q6HP PRN Nausea And Vomiting Sodium Chloride 10 ml 08/09/21 16:51 Sodium Chloride 0.9% 10ml Flush Syringe IV 09/08/21 16:50 NEEDED PRN Maintain IV Site Discontinued Medications Generic Name Dose Route Start Last Admin Trade Name Freq PRN Reason Stop Dose Admin Levofloxacin 500 mg 08/09/21 20:17 Levofloxacin 500mg Tab PO 08/09/21 20:18 ONCE ONE Metronidazole 500 mg 08/09/21 20:17 Metronidazole 500 Mg Tablet PO 08/09/21 20:18 ONCE ONE Ondansetron HCl 4 mg 08/09/21 16:51 08/09/21 17:54 Ondansetron 4mg/2ml Vial IV 08/09/21 16:52 4 mg ONCE ONE Administration ORDERS Category Date Time Status Troponin I Q3H Lab 08/09/21 21:30 Ordered Troponin I Q3H
--- NOTE | 2021-08-09 16:51 | CT_ITS ---
PROCEDURE INFORMATION: Exam: CT Abdomen And Pelvis Without Contrast Exam date and time: 08/09/2021 4:51 PM Age: 50 years old Clinical indication: Abdominal pain; Flank; Right; Additional info: Abd pain/ right sided flank and bladder pain/ history of kidney stones TECHNIQUE: Imaging protocol: Computed tomography of the abdomen and pelvis without contrast. Radiation optimization: All CT scans at this facility use at least one of these dose optimization techniques: automated exposure control; mA and/or kV adjustment per patient size (includes targeted exams where dose is matched to clinical indication); or iterative reconstruction. COMPARISON: CT ABDOMEN PELVIS WO CON 03/30/2020 9:13 AM FINDINGS: Lungs: Minimal linear subsegmental atelectasis in the visualized lower lungs. No focal consolidation. Liver: The liver is normal size. The liver appears more dense than on the prior exam from 03/30/2021 at which time it had HU density measurements of 18-20 suggesting prominent fatty change or other parenchymal liver disease, today the density measurements are 46-58, within normal limits. Gallbladder and bile ducts: Cholecystectomy clips. Biliary tree is within normal limits. No calcified stones. Pancreas: The pancreas is normal. Spleen: The spleen is normal. Adrenal glands: The adrenal glands are normal. Kidneys and ureters: 7 mm left upper pole renal nodule containing lazaro fat with HU density -73, consistent with tiny angiomyolipoma, coronal image 49 and axial series 3, image 27. No follow-up indicated per ACR guidelines. No suspicious mass seen on this nonenhanced exam. No calcified stones. No hydronephrosis, hydroureter, or obstructing ureteral stones. Bilateral extrarenal pelves. Stomach and bowel: There is diverticulosis coli, without evidence of acute diverticulitis.There is no evidence of intestinal perforation or obstruction. The stomach is normal. Appendix: No findings of appendicitis. Intraperitoneal space: There is no free intraperitoneal air. There is no significant free intraperitoneal fluid. Vasculature: Multiple calcified pelvic phleboliths. The vasculature demonstrates scattered mild atherosclerotic calcification. There is no aortic aneurysm. Lymph nodes: No significantly enlarged lymph nodes by short axis criteria. Urinary bladder: The bladder is unremarkable for the degree of distension, not well filled. No calcified stones. Reproductive: Post hysterectomy. No acute findings. 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 This is unchanged compared with the prior exam. No acute fracture or high-grade listhesis. Soft tissues: A shallow ventral fatty umbilical hernia series 3, image 57, no herniated bowel loops. There are no soft tissue masses or fluid collections. Fatty atrophic changes in the rectus abdominus muscles. IMPRESSION: 1. No hydronephrosis, hydroureter, or obstructing calcified stones to explain right flank pain. 2. There is diverticulosis coli, without evidence of acute diverticulitis. 3. Biliary tree within normal limits post cholecystectomy. 4. No findings of appendicitis. 5. Additional nonemergency and chronic findings as above.
--- NOTE | 2021-08-09 17:01 | PC.NURSE ---
pt to CT scan
--- NOTE | 2021-08-09 17:19 | PC.NURSE ---
urine collected and sent too the lab
--- NOTE | 2021-08-09 18:04 | PC.NURSE ---
Renita Moore RN at bedside attempting IV access at this time.
[2021-08-09 18:30] LABS: Microscopic, Urine URINE MICROSCOPIC (MICROSCOPIC)
[2021-08-09 18:34] LABS: Appearance,Urine CLEAR (Clear); Bilirubin,Urine Negative (Negative); Blood, Urine Negative (Negative); Color,Urine YELLOW (Yellow); Glucose,Urine (UA) Negative (Negative); Ketones,Urine Negative (Negative); Leukocyte Esterase,Urine Negative (Negative); Nitrate,Urine Negative (Negative); Protein,Urine Negative (Negative); Specific Gravity, Urine 1.015 (1.005-1.030); Urobilinogen,Urine 0.2 EU/dl (0.2)
[2021-08-09 18:40] LABS: Amorphous Sediment,Urine Trace /lpf
[2021-08-09 19:26] LABS: Basophils # 0.2 K/mm3 (0-0.2); Basophils % 2.1 % (0.1-2.0); Eosinophils # 0.2 K/mm3 (0.0-0.4); Eosinophils % 1.8 % (0.1-12.0); Lymphocytes # 2.3 K/mm3 (0.7-4.5); Lymphocytes % 27.8 % (10-50); Mean Corpuscular HGB Conc 32.5 g/dL (31.8-35.4); Mean Corpuscular Hemoglobin 30.3 pg (27.0-31.2); Mean Corpuscular Volume 93.3 fl (81-99); Monocytes # 0.4 K/mm3 (0.1-1.0); Monocytes % 5.2 % (1.7-9.3); Neutrophils # 5.3 K/mm3 (1.8-7.8); Neutrophils % 63.1 % (37.0-80.0); Red Blood Count 4.61 M/mm3 (4.20-5.40); Red Cell Distribution Width 13.4 % (11.5-17.5); White Blood Count 8.4 K/mm3 (4.8-10.8)
[2021-08-09 19:28] LABS: Platelet Count 57 K/mm3 (142-424)
[2021-08-09 19:33] LABS: Alanine Aminotransferase 33 U/L (12-78); Aspartate Amino Transferase 34 U/L (14-36); Blood Urea Nitrogen 6 mg/dl (7-17); Carbon Dioxide 23 mmol/L (22.0-30.0); Creatinine Clearance Estimated 115 mL/min (50-200); Estimated Glomerular Filt Rate 107 ml/min (>60); GFR (African American) 129 ML/MIN (>60)
[2021-08-09 19:50] LABS: Troponin I < 0.01 ng/ml (0.00-0.034)
[2021-08-09 20:13] LABS: Albumin Level 4.3 g/dl (3.5-5.0); Albumin/Globulin Ratio 1.4 (1.1-1.8); Alkaline Phosphatase 58 U/L (38-126); Anion Gap 13.2 mEq/L (5-15); Bilirubin,Total 1.5 mg/dl (0.2-1.3); Calcium 9.9 mg/dl (8.4-10.2); Chloride 106 mmol/L (98-107); Globulin 3.1 g/dL (1.3-3.2); Glucose 116 mg/dl (74-100); Lipase 197 U/L (23-300); Potassium 4.2 mmoL/L (3.5-5.1); Sodium 138 mmol/L (136-145); Total Protein,Serum 7.4 g/dl (6.3-8.2)
[2021-08-09 20:23] VITALS: BP 154/72; PULSE 69; RESP 18; TEMP 36.6; O2SAT 98
== END 2021-08-09 21:11 | disposition home or self-care (01) ==
PROVIDERS: Emergency Provider Emergency Medicine; PCP Family Medicine
DX: R10.31 Right lower quadrant pain (principal); F41.9 Anxiety disorder, unspecified; E11.9 Type 2 diabetes mellitus without complications; K21.9 Gastro-esophageal reflux disease without esophagitis; E78.5 Hyperlipidemia, unspecified; I10 Essential (primary) hypertension
CPT/HCPCS: 36415; 74176; 80053; 81001; 83690; 84484; 85025; 93005; 96365; 99283; J2405

== ENCOUNTER 2021-08-19 05:08 | Emergency (ER) | payer MEDICAID, SELFPAY ==
[2021-08-19 05:09] VITALS: BP 160/75; PULSE 58; RESP 17; TEMP 36.5; O2SAT 100; BMI 32.4
[2021-08-19 05:31] VITALS: BMI 32.4
[2021-08-19 06:05] LABS: Microscopic, Urine URINE MICROSCOPIC (MICROSCOPIC)
[2021-08-19 06:17] LABS: Appearance,Urine CLEAR (Clear); Bilirubin,Urine Negative (Negative); Blood, Urine Negative (Negative); Color,Urine YELLOW (Yellow); Glucose,Urine (UA) Negative (Negative); Ketones,Urine Negative (Negative); Leukocyte Esterase,Urine Negative (Negative); Nitrate,Urine Negative (Negative); Protein,Urine Negative (Negative); Specific Gravity, Urine 1.015 (1.005-1.030); Urobilinogen,Urine 0.2 EU/dl (0.2)
--- NOTE | 2021-08-19 06:18 | HMH.EDNVD ---
ED Disposition Clinical Impression: Sphincter of Oddi dysfunction Abdominal pain Qualifiers: Abdominal location: generalized Qualified Code(s): R10.84 - Generalized abdominal pain Disposition: Home, Self-Care Condition on Discharge: Good Instructions: DI for Acute Abdominal Pain Additional Instructions: see pcp or tuesday Referrals: David Alvarez MD [Primary Care Provider] - - Critical Care Critical Care Time: No Attestation: On 08/19/21, the high probability of a clinically significant, sudden or life threatening deterioration of the following system(s) required my full and direct attention, intervention and personal management. The time I documented below is in addition to time spent performing reported procedures but includes the following listed in this critical care notation. Medical Decision Making - Medical Records Medical records reviewed: Yes: I reviewed the patient's medical records. - Niko Inquiry Pt receiving controlled substance: No Vital Signs: 08/19/21 05:09 Temperature 97.7 F Temperature Source Oral Pulse Rate [Right] 58 L Respiratory Rate 17 Blood Pressure [Right Arm] 160/75 H Blood Pressure Mean [Right Arm] 103 02 Sat by Pulse Oximetry 100 Oxygen Delivery Method Room Air - Lab Data Lab results reviewed: Yes: I reviewed the patient's lab results. Lab Results 08/19/21 05:15: Urine Color Yellow, Urine Appearance Clear, Urine pH 6.0, Ur Specific [place] 1.015, Urine Protein Negative, Urine Glucose (UA) Negative, Urine Ketones Negative, Urine Blood Negative, Urine Nitrate Negative, Urine Bilirubin Negative, Urine Urobilinogen 0.2, Ur Leukocyte Esterase Negative, Urine RBC None, Urine WBC 3-5, Ur Squamous Epith Cells Occasional, Calcium Oxalate Crystal 1+, Urine Bacteria None, Fatty Casts 3-5 08/19/21 05:15: Urine Opiates Screen Negative, Urine Methadone Screen Negative, Ur Barbituates Screen Negative, Ur Phencyclidine Scrn Negative, Ur Amphetamines Screen Negative, U Benzodiazepines Scrn Negative, Urine Cocaine Screen Negative, U Marijuana (THC) Screen Negative 08/19/21 06:42: ESR 19 08/19/21 06:42: C-Reactive Protein 0.9, Amylase 73, Procalcitonin < 0.030 08/19/21 06:42: WBC 7.4, RBC 4.68, Hgb 14.5, Hct 42.5, MCV 90.9, MCH 30.9, MCHC 34.1, RDW 12.7, Plt Count 366, MPV 9.6, Neut % (Auto) 69.9, Lymph % (Auto) 23.2, [place] % (Auto) 4.7, Eos % (Auto) 1.7, Baso % (Auto) 0.5, Neut # (Auto) 5.2, Lymph # (Auto) 1.7, [place] # (Auto) 0.4, Eos # (Auto) 0.1, Baso # (Auto) 0.0 08/19/21 06:42: Sodium 135 L, Potassium 4.0, Chloride 103, Carbon Dioxide 27, Anion Gap 9.0, BUN 6 L, Creatinine 0.80, Estimated Creat Clear 116, Estimated GFR 77, Est GFR ( Amer) 93, Glucose 110 H, Calcium 9.1, Total Bilirubin 2.1 H, Direct Bilirubin 0.3, Conjugated Bilirubin 0.0, Indirect Bilirubin 1.8 H, Unconjugated Bilirubin 1.8 H, AST 23, ALT 26, Alkaline Phosphatase 75, Total Protein 7.3, Albumin 4.3, Lipase 377 H Result diagrams: 08/19/21 06:42 08/19/21 06:42 Orders (Tests/Meds): ED MEDICATIONS Generic Name Dose Route Start Last Admin Trade Name Freq PRN Reason Stop Dose Admin Sodium Chloride 8 ml 08/19/21 07:05 Sodium Chloride 0.9% 10ml Vial IV 09/18/21 07:04 NEEDED PRN dilute pepcid Discontinued Medications Generic Name Dose Route Start Last Admin Trade Name Freq PRN Reason Stop Dose Admin Diphenhydramine HCl 25 mg 08/19/21 07:07 08/19/21 07:41 Diphenhydramine 50mg/Ml Vial IV 08/19/21 07:08 25 mg ONCE ONE Administration Famotidine 20 mg 08/19/21 07:05 08/19/21 07:09 Famotidine 20mg/2ml Vial IV 08/19/21 07:06 20 mg ONCE ONE Administration Sodium Chloride 1,000 mls @ 999 mls/hr 08/19/21 07:15 08/19/21 07:09 Sod Chlor 0.9% 1000ml Bag IV 08/19/21 08:15 999 mls/hr .Q1H1M STEPHANIE Administration Iopamidol 75 ml 08/19/21 07:52 08/19/21 07:53 Iopamidol-370 (76%);100ml Bottle IV 08/19/21 07:53 75 ml ONCE ONE Administration Ketorolac [place]
--- NOTE | 2021-08-19 06:26 | PC.NURSE ---
Labs delayed d/t difficulty obtaining IV access and collect blood. Several attempts by 4x staff members with success at drawing labs, however Lab called and states they were hemolyzed and clotted. field assembly supervisor notified and was able to obtain a 20g to L upper arm. Lab notified to collect bloodwork.
--- NOTE | 2021-08-19 06:32 | PC.NURSE ---
Lab at bedside for blood draw
[2021-08-19 06:38] LABS: Barbiturates Screen,Urine Negative ng/ml (<200)
[2021-08-19 06:39] LABS: Amphetamine/Metha Screen,Urine Negative ng/ml (<1000); Benzodiazepines Screen,Urine Negative ng/ml (<200)
[2021-08-19 06:40] LABS: Methadone Screen,Urine Negative ng/ml (<300)
[2021-08-19 06:41] LABS: Cannabinoid Screen,Urine Negative ng/ml (<50); Cocaine Screen,Urine Negative ng/ml (<300); Squamous Epithelial Cell,Urine Occasional #/hpf (0-5)
[2021-08-19 06:42] LABS: Calcium Oxalate Crystals,Urine 1+ /lpf; Opiate Screen,Urine Negative ng/ml (<300)
[2021-08-19 06:43] LABS: Phencyclidine Screen,Urine Negative ng/ml (<25)
[2021-08-19 07:07] LABS: Basophils % 0.5 % (0.1-2.0); Eosinophils # 0.1 K/mm3 (0.0-0.4); Eosinophils % 1.7 % (0.1-12.0); Hematocrit 42.5 % (37.0-47.0); Hemoglobin 14.5 g/dL (12.2-16.2); Lymphocytes # 1.7 K/mm3 (0.7-4.5); Lymphocytes % 23.2 % (10-50); Mean Corpuscular HGB Conc 34.1 g/dL (31.8-35.4); Mean Corpuscular Hemoglobin 30.9 pg (27.0-31.2); Mean Corpuscular Volume 90.9 fl (81-99); Mean Platelet Volume 9.6 fl (7.4-10.4); Monocytes # 0.4 K/mm3 (0.1-1.0); Monocytes % 4.7 % (1.7-9.3); Neutrophils # 5.2 K/mm3 (1.8-7.8); Neutrophils % 69.9 % (37.0-80.0); Platelet Count 366 K/mm3 (142-424); Red Blood Count 4.68 M/mm3 (4.20-5.40); Red Cell Distribution Width 12.7 % (11.5-17.5); White Blood Count 7.4 K/mm3 (4.8-10.8)
--- NOTE | 2021-08-19 07:08 | CT_ITS ---
FINAL REPORT CLINICAL HISTORY: low abd/back pain radiating into pelvis COMPARISON: 08/09/2021 FINDINGS: Technique: The patient was injected with intravenous contrast. Axial images through the abdomen and pelvis were performed. This study was performed with techniques to keep radiation doses as low as reasonably achievable (ALARA). Individualized dose reduction techniques using automated exposure control or adjustment of mA and/or kV according to the patient's size were employed. Abdomen: There is mild bibasilar atelectasis. The liver is normal in size and attenuation. The patient is status post cholecystectomy. The spleen is unremarkable. The adrenals are normal. The pancreas is unremarkable. There is a stable, 7 mm fat containing mass in the upper pole of the left kidney consistent with an angiomyolipoma. The aorta is normal in caliber. There is no free fluid or adenopathy. Pelvis: The appendix is unremarkable. There is an umbilical hernia containing fat. Multiple sigmoid diverticula are identified. The patient is status post hysterectomy. The urinary bladder is unremarkable. There is no free fluid or adenopathy. IMPRESSION: Umbilical hernia containing fat. No acute inflammatory process. Reviewed, Interpreted and Dictated by Lamonte Gaytan III, MD Transcribed by Dejah Metzger Authenticated by Lamonte Gaytan III, MD on 08/19/2021 09:18:17 AM [facility]
[2021-08-19 07:22] LABS: Chloride 103 mmol/L (98-107); Sodium 135 mmol/L (136-145)
[2021-08-19 07:24] LABS: Bilirubin,Unconjugated 1.8 mg/dL (0.0-1.1); Blood Urea Nitrogen 6 mg/dl (7-17); Creatinine Clearance Estimated 116 mL/min (50-200); Estimated Glomerular Filt Rate 77 ml/min (>60); GFR (African American) 93 ML/MIN (>60)
[2021-08-19 07:25] LABS: Alanine Aminotransferase 26 U/L (12-78); Alkaline Phosphatase 75 U/L (38-126); Aspartate Amino Transferase 23 U/L (14-36); Bilirubin,Direct 0.3 mg/dl (0.0-0.4); Bilirubin,Indirect 1.8 mg/dL (0.0-0.9); Bilirubin,Total 2.1 mg/dl (0.2-1.3); Calcium 9.1 mg/dl (8.4-10.2); Carbon Dioxide 27 mmol/L (22.0-30.0); Glucose 110 mg/dl (74-100); Lipase 377 U/L (23-300)
--- NOTE | 2021-08-19 07:29 | PC.NURSE ---
notified radiology of ct scan
[2021-08-19 07:30] LABS: Albumin Level 4.3 g/dl (3.5-5.0); Amylase 73 U/L (30-110); Total Protein,Serum 7.3 g/dl (6.3-8.2)
[2021-08-19 07:31] LABS: C-Reactive Protein 0.9 mg/L (0-4)
[2021-08-19 08:08] LABS: Erythrocyte Sedimentation Rate 19 mm/hr (0-20)
[2021-08-19 09:15] LABS: Procalcitonin < 0.030 ng/mL (0.0-2.0)
[2021-08-19 10:21] VITALS: BP 155/71; PULSE 60; RESP 18; TEMP 36.5; O2SAT 99
== END 2021-08-19 10:22 | disposition home or self-care (01) ==
PROVIDERS: Emergency Provider Emergency Medicine; PCP Family Medicine
DX: K83.09 Other cholangitis (principal)
CPT/HCPCS: 74177; 80048; 80076; 80305; 81001; 82150; 83690; 84145; 85025; 85651; 86140; 96365; 96375; 99283; J2405; Q9967

== ENCOUNTER 2021-09-18 15:29 | Emergency (ER) | payer MEDICAID, SELFPAY ==
[2021-09-18 15:31] VITALS: BP 139/60; PULSE 72; RESP 16; TEMP 36.7; O2SAT 98; BMI 32.5
[2021-09-18 16:04] LABS: Microscopic, Urine URINE MICROSCOPIC (MICROSCOPIC)
[2021-09-18 16:09] LABS: Appearance,Urine CLEAR (Clear); Bilirubin,Urine Negative (Negative); Blood, Urine Negative (Negative); Glucose,Urine (UA) Negative (Negative); Ketones,Urine Negative (Negative); Leukocyte Esterase,Urine Negative (Negative); Nitrate,Urine Negative (Negative); Protein,Urine Negative (Negative); Specific Gravity, Urine <= 1.005 (1.005-1.030); Urobilinogen,Urine 0.2 EU/dl (0.2)
--- NOTE | 2021-09-18 16:14 | HMH.EDGENADL ---
ED Disposition Clinical Impression: Dysuria Disposition: Home, Self-Care Condition on Discharge: Good Instructions: DI for Urinary Tract Infection (UTI), DI for Urinary Tract Infection in Children Referrals: David Alvarez MD [Primary Care Provider] - - Critical Care Critical Care Time: No Attestation: On 09/18/21, the high probability of a clinically significant, sudden or life threatening deterioration of the following system(s) required my full and direct attention, intervention and personal management. The time I documented below is in addition to time spent performing reported procedures but includes the following listed in this critical care notation. Medical Decision Making - Medical Records Medical records reviewed: Yes: I reviewed the patient's medical records. - Niko Inquiry Pt receiving controlled substance: No Vital Signs: 09/18/21 15:31 09/18/21 16:31 Temperature 98.1 F Temperature Source Oral Pulse Rate 80 Pulse Rate [Right Radial] 72 Respiratory Rate 16 16 Blood Pressure 121/52 L Blood Pressure [Right Arm] 139/60 Blood Pressure Mean 72 Blood Pressure Mean [Right Arm] 86 Blood Pressure Source [Right Arm] Automatic Cuff Blood Pressure Position [Right Arm] Sitting 02 Sat by Pulse Oximetry 98 96 Oxygen Delivery Method Room Air - Lab Data Lab results reviewed: Yes: I reviewed the patient's lab results. Lab Results 09/18/21 15:40: Urine Color Straw, Urine Appearance Clear, Urine pH 7.0, Ur Specific [place] <= 1.005, Urine Protein Negative, Urine Glucose (UA) Negative, Urine Ketones Negative, Urine Blood Negative, Urine Nitrate Negative, Urine Bilirubin Negative, Urine Urobilinogen 0.2, Ur Leukocyte Esterase Negative, Urine RBC None, Urine WBC None, Ur Squamous Epith Cells Occasional, Urine Bacteria None Medical Decision Narrative: Patient is a 50-year-old female with history significant for renal stones is presenting for chief complaint of dysuria, increased frequency and hematuria for 2 to 3 days. Patient denies associated systemic symptoms. She has normal vital signs on initial exam and appears nontoxic. Differential diagnosis includes, but is not limited to, urinary tract infection, cystitis, renal stone, pyelonephritis. She was evaluated with UA. UA is negative for blood or infection. It is possible patient may have passed a small renal stone given her history. On my reassessment, patient continues to have normal vital signs and appears very comfortable. She is agreeable with discharge at this time. I do not believe any further work-up is indicated. I counseled her extensively on concerning signs and symptoms to return to the emergency department for. She will be able to follow-up next week with her primary care physician. She is agreeable with plan. General Adult HPI - General Chief complaint: Urogenital-Female Stated complaint: Hernia/bleeding Time Seen by Provider: 09/18/21 15:45 Mode of Arrival: Ambulatory Limitations: No Limitations Description of Symptoms (Recalled from ER Triage Doc. by RN): Pt c/o minimal vaginal bleeding when she went to the bathroom to urinate this afternoon. Pt c/o burning in vagina - History of Present Illness HPI narrative: Patient is a 50-year-old female with a history significant for fatty liver and renal stones is presenting for chief complaint of hematuria and increased frequency. She has had symptoms for 2 to 3 days. Patient denies systemic symptoms such as fever, upper respiratory symptoms, chest pain, dyspnea, N/V/D. Associated symptoms include low back pain and suprapubic and left lower quadrant abdominal pain. Patient also states she feels as if she has to urinate but then has difficulty urinating. She denies blood in her stool or vaginal bleeding. - Related Data Home Medications Medication Instructions Recorded Confirmed omeprazole 20 mg capsule,delayed 20 mg PO BID cap 08/14/21 09/18/21 release Famotidine [Aci
[2021-09-18 16:23] LABS: Color,Urine STRAW (Yellow)
[2021-09-18 16:28] LABS: Squamous Epithelial Cell,Urine Occasional #/hpf (0-5)
[2021-09-18 16:31] VITALS: BP 121/52; PULSE 80; RESP 16; O2SAT 96
[2021-09-18 17:00] VITALS: BP 119/55; PULSE 77; RESP 15; O2SAT 97
[2021-09-18 17:26] VITALS: BP 119/55; PULSE 75; RESP 17; TEMP 36.7; O2SAT 96
== END 2021-09-18 17:28 | disposition home or self-care (01) ==
PROVIDERS: Emergency Provider Emergency Medicine; PCP Family Medicine
DX: N39.0 Urinary tract infection, site not specified (principal); R31.9 Hematuria, unspecified; R00.2 Palpitations; R53.82 Chronic fatigue, unspecified; I10 Essential (primary) hypertension; I38 Endocarditis, valve unspecified; K21.9 Gastro-esophageal reflux disease without esophagitis; E78.5 Hyperlipidemia, unspecified; E11.9 Type 2 diabetes mellitus without complications; K76.0 Fatty (change of) liver, not elsewhere classified; F41.9 Anxiety disorder, unspecified; Z91.041 Radiographic dye allergy status; Z91.018 Allergy to other foods; Z91.010 Allergy to peanuts; Z88.8 Allergy status to other drugs, medicaments and biological substances; Z82.49 Family history of ischemic heart disease and other diseases of the circulatory system; Z83.3 Family history of diabetes mellitus; Z80.9 Family history of malignant neoplasm, unspecified
CPT/HCPCS: 81001; 99283

== ENCOUNTER 2021-10-06 07:01 | Emergency (ER) | payer MEDICAID, SELFPAY ==
[2021-10-06] VITALS (8 sets, daily range): BP systolic 108–135; BP diastolic 61–73; PULSE 57–69; RESP 12–16; TEMP 36.4; O2SAT 95–100; BMI 32.5
--- NOTE | 2021-10-06 07:01 | ECG_ITS ---
APPROVED REPORT Exam: Resting ECG HR:56 bpm ECG Measurements Heart Rate 56 AXES SC 167 P 24 QRSd 134 QRS -11 QT 445 T 89 QTc 438 Conclusion SINUS BRADYCARDIA LEFT BUNDLE BRANCH BLOCK [120+ ms QRS DURATION, 80+ ms Q/S IN V1/V2, 85+ ms R IN I/aVL/V5/V6] ABNORMAL ECG UNCONFIRMED REPORT Electronically signed by : Xavier Bass MD 10/07/2021 17:34:40
--- NOTE | 2021-10-06 07:09 | PC.NURSE ---
ED MD at
--- NOTE | 2021-10-06 07:13 | PC.NURSE ---
Called lab to have them come draw labs due to hard stick
--- NOTE | 2021-10-06 07:16 | PC.NURSE ---
Lab at to draw labs
--- NOTE | 2021-10-06 07:23 | XR_ITS ---
FINAL REPORT CLINICAL HISTORY: chest pain FINDINGS: The heart size is normal. The mediastinum is normal. There is right infrahilar atelectasis. There are no pleural effusions. There is no pneumothorax. There is no osseous abnormality. IMPRESSION: Atelectasis in the right infrahilar region. Reviewed, Interpreted and Dictated by Gerald Duque MD Transcribed by Sven Kapadia Authenticated by Gerald Duque MD on 10/06/2021 07:44:42 AM [facility]
--- NOTE | 2021-10-06 07:27 | HMH.EDCP ---
ED Disposition Clinical Impression: Obesity (BMI 30-39.9), LBBB (left bundle branch block), Atypical chest pain, Dizziness Disposition: Home, Self-Care Condition on Discharge: Good Instructions: DI for Atypical Chest Pain Additional Instructions: see pcp amrik for follow up Referrals: David Alvarez MD [Primary Care Provider] - - Critical Care Critical Care Time: No Attestation: On 10/06/21, the high probability of a clinically significant, sudden or life threatening deterioration of the following system(s) required my full and direct attention, intervention and personal management. The time I documented below is in addition to time spent performing reported procedures but includes the following listed in this critical care notation. Medical Decision Making - Medical Records Medical records reviewed: Yes: I reviewed the patient's medical records. - Niko Inquiry Pt receiving controlled substance: No Vital Signs: 10/06/21 07:01 10/06/21 07:46 10/06/21 08:03 Temperature 97.5 F L Temperature Source Oral Pulse Rate 64 57 L Pulse Rate [Orthostatic Lying Right] Pulse Rate [Orthostatic Sitting Right] Pulse Rate [Orthostatic Standing Right] Pulse Rate [Right Radial] 62 Respiratory Rate 12 Blood Pressure 135/65 120/62 Blood Pressure [Orthostatic Lying Right Arm] Blood Pressure [Orthostatic Sitting Right Arm] Blood Pressure [Orthostatic Standing Right Arm] Blood Pressure [Right Arm] 124/70 Blood Pressure Mean [Right Arm] 88 02 Sat by Pulse Oximetry 100 95 99 Oxygen Delivery Method Room Air Room Air 10/06/21 08:36 10/06/21 08:40 10/06/21 08:54 Temperature Temperature Source Pulse Rate 66 58 L Pulse Rate [Orthostatic Lying Right] 64 Pulse Rate [Orthostatic Sitting Right] 61 Pulse Rate [Orthostatic Standing Right] 60 Pulse Rate [Right Radial] Respiratory Rate 15 Blood Pressure 124/62 121/71 Blood Pressure [Orthostatic Lying Right Arm] 124/62 Blood Pressure [Orthostatic Sitting Right Arm] 133/63 Blood Pressure [Orthostatic Standing Right Arm] 121/73 Blood Pressure [Right Arm] Blood Pressure Mean [Right Arm] 02 Sat by Pulse Oximetry 100 100 Oxygen Delivery Method Room Air Room Air 10/06/21 09:07 Temperature Temperature Source Pulse Rate 59 L Pulse Rate [Orthostatic Lying Right] Pulse Rate [Orthostatic Sitting Right] Pulse Rate [Orthostatic Standing Right] Pulse Rate [Right Radial] Respiratory Rate Blood Pressure 108/61 L Blood Pressure [Orthostatic Lying Right Arm] Blood Pressure [Orthostatic Sitting Right Arm] Blood Pressure [Orthostatic Standing Right Arm] Blood Pressure [Right Arm] Blood Pressure Mean [Right Arm] 02 Sat by Pulse Oximetry 99 Oxygen Delivery Method Room Air - Lab Data Lab results reviewed: Yes: I reviewed the patient's lab results. Lab Results 10/06/21 07:48: WBC 7.9, RBC 4.87, Hgb 15.4, Hct 45.8, MCV 94.0, MCH 31.7 H, MCHC 33.7, RDW 12.8, Plt Count 142, MPV 11.2 H, Neut % (Auto) 64.7, Lymph % (Auto) 19.9, [place] % (Auto) 12.6 H, Eos % (Auto) 1.6, Baso % (Auto) 1.1, Neut # (Auto) 5.1, Lymph # (Auto) 1.6, [place] # (Auto) 1.0, Eos # (Auto) 0.1, Baso # (Auto) 0.1 10/06/21 07:48: Sodium 140, Potassium 4.1, Chloride 104, Carbon Dioxide 27, Anion Gap 13.1, BUN 8, Creatinine 0.70, Estimated Creat Clear 134, Estimated GFR 89, Est GFR ( Amer) 108, Glucose 114 H, Calcium 9.5, Troponin I < 0.01 10/06/21 07:48: Thyroxine (T4) 14.3 H 10/06/21 07:48: Total Bilirubin 2.0 H, Direct Bilirubin 0.5 H, Conjugated Bilirubin 0.0, Indirect Bilirubin 1.5 H, Unconjugated Bilirubin 1.4 H, AST 39 H, ALT 49, Alkaline Phosphatase 88, Total Protein 8.2, Albumin 4.6 10/06/21 07:48: Magnesium 1.6 Result diagrams: 10/06/21 07:48 10/06/21 07:48 Orders (Tests/Meds): ED MEDICATIONS Generic Name Dose Route Start Last Admin Trade Name Freq PRN Reason Stop Dose Admin Sodium Chloride 10 ml 10/06/21 07:21 Sodium Chloride 0.9
--- NOTE | 2021-10-06 07:42 | PC.NURSE ---
ALYSON RN at with US to try and start IV; lab also at BS
[2021-10-06 07:58] LABS: Basophils # 0.1 K/mm3 (0-0.2); Basophils % 1.1 % (0.1-2.0); Eosinophils # 0.1 K/mm3 (0.0-0.4); Eosinophils % 1.6 % (0.1-12.0); Hematocrit 45.8 % (37.0-47.0); Hemoglobin 15.4 g/dL (12.2-16.2); Lymphocytes # 1.6 K/mm3 (0.7-4.5); Lymphocytes % 19.9 % (10-50); Mean Corpuscular HGB Conc 33.7 g/dL (31.8-35.4); Mean Corpuscular Hemoglobin 31.7 pg (27.0-31.2); Mean Platelet Volume 11.2 fl (7.4-10.4); Monocytes % 12.6 % (1.7-9.3); Neutrophils # 5.1 K/mm3 (1.8-7.8); Neutrophils % 64.7 % (37.0-80.0); Platelet Count 142 K/mm3 (142-424); Red Blood Count 4.87 M/mm3 (4.20-5.40); Red Cell Distribution Width 12.8 % (11.5-17.5); White Blood Count 7.9 K/mm3 (4.8-10.8)
[2021-10-06 08:12] LABS: Chloride 104 mmol/L (98-107); Potassium 4.1 mmoL/L (3.5-5.1); Sodium 140 mmol/L (136-145)
[2021-10-06 08:15] LABS: Anion Gap 13.1 mEq/L (5-15); Blood Urea Nitrogen 8 mg/dl (7-17); Calcium 9.5 mg/dl (8.4-10.2); Carbon Dioxide 27 mmol/L (22.0-30.0); Creatinine Clearance Estimated 134 mL/min (50-200); Estimated Glomerular Filt Rate 89 ml/min (>60); GFR (African American) 108 ML/MIN (>60); Glucose 114 mg/dl (74-100)
--- NOTE | 2021-10-06 08:25 | PC.NURSE ---
ED MD at for update on POC
[2021-10-06 08:32] LABS: Troponin I < 0.01 ng/ml (0.00-0.034)
--- NOTE | 2021-10-06 08:39 | PC.NURSE ---
pt ambulatory to restroom without complications
--- NOTE | 2021-10-06 08:40 | PC.NURSE ---
patient back from restroom without any complications
[2021-10-06 08:50] LABS: Alanine Aminotransferase 49 U/L (12-78); Albumin Level 4.6 g/dl (3.5-5.0); Alkaline Phosphatase 88 U/L (38-126); Aspartate Amino Transferase 39 U/L (14-36); Bilirubin,Direct 0.5 mg/dl (0.0-0.4); Bilirubin,Indirect 1.5 mg/dL (0.0-0.9); Bilirubin,Unconjugated 1.4 mg/dL (0.0-1.1); Magnesium 1.6 mg/dl (1.6-2.3); Total Protein,Serum 8.2 g/dl (6.3-8.2)
[2021-10-06 09:13] LABS: T4 (Thyroxine) 14.3 ug/dl (5.53-11.0)
[2021-10-06 09:27] LABS: Thyroid Stimulating Hormone 2.31 uIU/mL (0.465-4.68)
== END 2021-10-06 09:33 | disposition home or self-care (01) ==
PROVIDERS: Emergency Provider Emergency Medicine; PCP Family Medicine
DX: R07.89 Other chest pain (principal); R42 Dizziness and giddiness; K21.9 Gastro-esophageal reflux disease without esophagitis; E78.5 Hyperlipidemia, unspecified; I10 Essential (primary) hypertension; F41.9 Anxiety disorder, unspecified
CPT/HCPCS: 71045; 80048; 80076; 83735; 84436; 84443; 84484; 85025; 93005; 99283

== ENCOUNTER → 2021-11-03 22:04 | Outpatient (CLI) | payer MEDICAID, SELFPAY | PROVIDERS: Visit Provider Family Medicine | DX: M54.9 Dorsalgia, unspecified (principal) | CPT/HCPCS: 87086 ==

== ENCOUNTER 2022-01-04 02:51 | Emergency (ER) | payer MEDICAID, SELFPAY ==
[2022-01-04] VITALS (8 sets, daily range): BP systolic 127–175; BP diastolic 67–109; PULSE 58–74; RESP 16–18; TEMP 36.3–36.6; O2SAT 96–100; BMI 32.5
--- NOTE | 2022-01-04 03:01 | ECG_ITS ---
APPROVED REPORT Exam: Resting ECG HR:61 bpm ECG Measurements Heart Rate 61 AXES W[place] 161 P 30 QRSd 132 QRS 35 QT 454 T -3 QTc 457 Conclusion SINUS RHYTHM INTRAVENTRICULAR CONDUCTION DELAY [130+ ms QRS DURATION] Late R wave progression ABNORMAL ECG UNCONFIRMED REPORT Electronically signed by : Xavier Bass MD 01/04/2022 21:19:36
[2022-01-04 03:05] LABS: Microscopic, Urine URINE MICROSCOPIC (MICROSCOPIC)
[2022-01-04 03:07] LABS: Appearance,Urine CLEAR (Clear); Bilirubin,Urine Negative (Negative); Blood, Urine Negative (Negative); Color,Urine YELLOW (Yellow); Glucose,Urine (UA) Negative (Negative); Ketones,Urine Negative (Negative); Leukocyte Esterase,Urine Negative (Negative); Nitrate,Urine Negative (Negative); Protein,Urine Negative (Negative); Specific Gravity, Urine <= 1.005 (1.005-1.030); Urobilinogen,Urine 0.2 EU/dl (0.2)
--- NOTE | 2022-01-04 03:11 | XR_ITS ---
PROCEDURE INFORMATION: Exam: XR Chest Exam date and time: 01/04/2022 3:15 AM Age: 51 years old Clinical indication: Other: Chest tightness TECHNIQUE: Imaging protocol: Radiologic exam of the chest. Views: 2 views. COMPARISON: CR XR CHEST PORTABLE 10/06/2021 7:20 AM FINDINGS: Lungs: Unremarkable. No consolidation. Pleural spaces: Unremarkable. No pleural effusion. No pneumothorax. Heart/Mediastinum: Unremarkable. No cardiomegaly. Bones/joints: Unremarkable. IMPRESSION: No acute findings.
[2022-01-04 03:19] LABS: Basophils # 0.3 K/mm3 (0-0.2); Basophils % 2.8 % (0.1-2.0); Eosinophils # 0.3 K/mm3 (0.0-0.4); Eosinophils % 3.5 % (0.1-12.0); Hematocrit 48.1 % (37.0-47.0); Hemoglobin 14.8 g/dL (12.2-16.2); Lymphocytes # 1.8 K/mm3 (0.7-4.5); Lymphocytes % 19.1 % (10-50); Mean Corpuscular HGB Conc 30.7 g/dL (31.8-35.4); Mean Corpuscular Hemoglobin 29.1 pg (27.0-31.2); Mean Corpuscular Volume 94.7 fl (81-99); Mean Platelet Volume 10.5 fl (7.4-10.4); Monocytes # 0.6 K/mm3 (0.1-1.0); Neutrophils # 6.5 K/mm3 (1.8-7.8); Neutrophils % 68.5 % (37.0-80.0); Platelet Count 222 K/mm3 (142-424); Red Blood Count 5.08 M/mm3 (4.20-5.40); White Blood Count 9.6 K/mm3 (4.8-10.8)
--- NOTE | 2022-01-04 03:22 | PC.NURSE ---
Pt gone to RAD
--- NOTE | 2022-01-04 03:25 | PC.NURSE ---
received call from jessica in lab. states blood is hemolyzed. requested add'l blood. rn attempting to obtain at this time. pt states am a difficult stick....it normally takes 15-16 times for anyone to get blood from me
[2022-01-04 03:26] LABS: Coronavirus 19, PCR Not Detected (NotDetected); Influenza A, PCR Not Detected (NotDetected); Influenza B, PCR Not Detected (NotDetected)
[2022-01-04 03:38] LABS: Strep Scrn Group A (Rapid) Negative (Negative)
[2022-01-04 03:48] LABS: Erythrocyte Sedimentation Rate 2 mm/hr (0-20)
--- NOTE | 2022-01-04 03:48 | PC.NURSE ---
spoke with jessica in lab and asked to come attempt to draw labs. states he will when he can.
[2022-01-04 05:04] LABS: Alanine Aminotransferase 36 U/L (12-78); Albumin Level 4.2 g/dl (3.5-5.0); Albumin/Globulin Ratio 1.3 (1.1-1.8); Alkaline Phosphatase 79 U/L (38-126); Anion Gap 14.1 mEq/L (5-15); Aspartate Amino Transferase 34 U/L (14-36); Bilirubin,Total 1.2 mg/dl (0.2-1.3); Blood Urea Nitrogen 10 mg/dl (7-17); Carbon Dioxide 25 mmol/L (22.0-30.0); Chloride 103 mmol/L (98-107); Creatinine Clearance Estimated 154 mL/min (50-200); Estimated Glomerular Filt Rate 106 ml/min (>60); GFR (African American) 129 ML/MIN (>60); Globulin 3.3 g/dL (1.3-3.2); Glucose 137 mg/dl (74-100); Potassium 4.1 mmoL/L (3.5-5.1); Sodium 138 mmol/L (136-145); Total Protein,Serum 7.5 g/dl (6.3-8.2)
[2022-01-04 05:09] LABS: C-Reactive Protein 1.2 mg/L (0-4)
--- NOTE | 2022-01-04 05:22 | PC.NURSE ---
Pt updated on POC, and given pillow for comfort. No other needs at this time.
[2022-01-04 05:26] LABS: Troponin I < 0.01 ng/ml (0.00-0.034)
--- NOTE | 2022-01-04 06:26 | PC.NURSE ---
Pt ambulatory to bathroom with no assistance.
--- NOTE | 2022-01-04 06:42 | PC.NURSE ---
Due to patient meeting SIRS criteria, then progressing to severe sepsis, and being placed on vapotherm, dr bragg states patient meets criteria for sepsis with organ dysfunction however doesn't want a fluid bolus given. Patient receiving lasix for chf, see MAR for times.
--- NOTE | 2022-01-04 07:06 | HMH.EDSOB ---
ED Disposition Clinical Impression: SOB (shortness of breath), Bronchitis Disposition: Home, Self-Care Condition on Discharge: Good Instructions: DI for Acute Bronchitis Additional Instructions: see pcp in am Referrals: David Alvarez MD [Primary Care Provider] - - Critical Care Critical Care Time: No Attestation: On 01/04/22, the high probability of a clinically significant, sudden or life threatening deterioration of the following system(s) required my full and direct attention, intervention and personal management. The time I documented below is in addition to time spent performing reported procedures but includes the following listed in this critical care notation. Medical Decision Making - Medical Records Medical records reviewed: Yes: I reviewed the patient's medical records. - Niko Inquiry Pt receiving controlled substance: No Vital Signs: 01/04/22 02:52 01/04/22 03:30 01/04/22 04:00 Temperature 97.4 F L Temperature Source Oral Pulse Rate 58 L 61 Pulse Rate [Left Radial] 63 Respiratory Rate 18 Blood Pressure 175/82 H 141/77 H Blood Pressure [Right Arm] 169/109 H Blood Pressure Mean Blood Pressure Mean [Right Arm] 129 Blood Pressure Source [Right Arm] Automatic Cuff Blood Pressure Position [Right Arm] Sitting 02 Sat by Pulse Oximetry 98 100 98 Oxygen Delivery Method Room Air Room Air Room Air 01/04/22 04:30 01/04/22 05:25 01/04/22 05:30 Temperature Temperature Source Pulse Rate 64 65 61 Pulse Rate [Left Radial] Respiratory Rate Blood Pressure 133/75 127/69 127/67 Blood Pressure [Right Arm] Blood Pressure Mean 94 Blood Pressure Mean [Right Arm] Blood Pressure Source [Right Arm] Blood Pressure Position [Right Arm] 02 Sat by Pulse Oximetry 96 97 96 Oxygen Delivery Method Room Air Room Air Room Air 01/04/22 06:00 Temperature Temperature Source Pulse Rate 73 Pulse Rate [Left Radial] Respiratory Rate Blood Pressure 136/71 Blood Pressure [Right Arm] Blood Pressure Mean Blood Pressure Mean [Right Arm] Blood Pressure Source [Right Arm] Blood Pressure Position [Right Arm] 02 Sat by Pulse Oximetry 97 Oxygen Delivery Method Room Air - Lab Data Lab results reviewed: Yes: I reviewed the patient's lab results. Lab Results 01/04/22 02:59: Urine Color Yellow, Urine Appearance Clear, Urine pH 7.0, Ur Specific [place] <= 1.005, Urine Protein Negative, Urine Glucose (UA) Negative, Urine Ketones Negative, Urine Blood Negative, Urine Nitrate Negative, Urine Bilirubin Negative, Urine Urobilinogen 0.2, Ur Leukocyte Esterase Negative, Ur Squamous Epith Cells 3-5 01/04/22 03:13: WBC 9.6, RBC 5.08, Hgb 14.8, Hct 48.1 H, MCV 94.7, MCH 29.1, MCHC 30.7 L, RDW 13.0, Plt Count 222, MPV 10.5 H, Neut % (Auto) 68.5, Lymph % (Auto) 19.1, [place] % (Auto) 6.0, Eos % (Auto) 3.5, Baso % (Auto) 2.8 H, Neut # (Auto) 6.5, Lymph # (Auto) 1.8, [place] # (Auto) 0.6, Eos # (Auto) 0.3, Baso # (Auto) 0.3 H, ESR 2 01/04/22 03:17: Group A Strep Rapid Negative 01/04/22 03:17: SARS-CoV-2 (PCR) Not detected, Influenza A Untype (PCR) Not detected, Influenza Type B (PCR) Not detected 01/04/22 04:35: Sodium 138, Potassium 4.1, Chloride 103, Carbon Dioxide 25, Anion Gap 14.1, BUN 10, Creatinine 0.60, Estimated Creat Clear 154, Estimated GFR 106, Est GFR ( Amer) 129, Glucose 137 H, Calcium 10.0, Total Bilirubin 1.2, AST 34, ALT 36, Alkaline Phosphatase 79, Troponin I < 0.01, C-Reactive Protein 1.2, Total Protein 7.5, Albumin 4.2, Globulin 3.3 H, Albumin/Globulin Ratio 1.3, Procalcitonin 0.030 Result diagrams: 01/04/22 03:13 01/04/22 04:35 Orders (Tests/Meds): ED MEDICATIONS Generic Name Dose Route Start Last Admin Trade Name Freq PRN Reason Stop Dose Admin Dexamethasone Sodium Phosphate 8 mg 01/04/22 03:15 01/04/22 03:17 Dexamethasone 4mg/Ml 5ml Mdv IM 02/03/22 03:14 8 mg Q6H STEPHANIE Administration ORDERS Category Date Time Status Troponin I Q3H
--- NOTE | 2022-01-04 07:12 | PC.NURSE ---
lab called regarding add on labs. mayte states there is enough blood to run additional test.
[2022-01-04 07:40] LABS: NT Pro Brain Natriuretic Pep. 87.7 pg/mL (0-125)
[2022-01-04 07:42] LABS: T4 (Thyroxine) 14.8 ug/dl (5.53-11.0)
[2022-01-04 07:55] LABS: Thyroid Stimulating Hormone 2.03 uIU/mL (0.465-4.68)
== END 2022-01-04 07:36 | disposition home or self-care (01) ==
PROVIDERS: Emergency Provider Emergency Medicine; PCP Family Medicine
DX: J40 Bronchitis, not specified as acute or chronic (principal); Z79.899 Other long term (current) drug therapy; Z88.8 Allergy status to other drugs, medicaments and biological substances; Z91.041 Radiographic dye allergy status; Z91.018 Allergy to other foods; Z91.010 Allergy to peanuts; E11.9 Type 2 diabetes mellitus without complications; I10 Essential (primary) hypertension; E78.5 Hyperlipidemia, unspecified; F41.9 Anxiety disorder, unspecified; K21.9 Gastro-esophageal reflux disease without esophagitis; R00.2 Palpitations; I51.89 Other ill-defined heart diseases
CPT/HCPCS: 36415; 71046; 80053; 81001; 83880; 84145; 84436; 84443; 84484; 85025; 85651; 86140; 87430; 93005; 96372; 99283; C9803; U0003; U0005

== ENCOUNTER 2022-01-23 02:11 | Emergency (ER) | payer MEDICAID, SELFPAY ==
[2022-01-23 02:42] LABS: Microscopic, Urine URINE MICROSCOPIC (MICROSCOPIC)
--- NOTE | 2022-01-23 02:42 | ECG_ITS ---
APPROVED REPORT Exam: Resting ECG HR:65 bpm ECG Measurements Heart Rate 65 AXES MT 169 P 23 QRSd 142 QRS -22 QT 445 T 81 QTc 456 Conclusion SINUS RHYTHM LEFT BUNDLE BRANCH BLOCK [120+ ms QRS DURATION, 80+ ms Q/S IN V1/V2, 85+ ms R IN I/aVL/V5/V6] ABNORMAL ECG UNCONFIRMED REPORT Electronically signed by : Xavier Bass MD 01/23/2022 21:38:32
[2022-01-23 02:43] VITALS: BP 138/83; PULSE 63; RESP 18; TEMP 36.8; O2SAT 96; BMI 32.5
[2022-01-23 02:53] LABS: Appearance,Urine CLEAR (Clear); Bilirubin,Urine Negative (Negative); Blood, Urine 1+ (Negative); Color,Urine YELLOW (Yellow); Glucose,Urine (UA) Negative (Negative); Ketones,Urine Negative (Negative); Leukocyte Esterase,Urine Negative (Negative); Nitrate,Urine Negative (Negative); PH,Urine 6.5 (5.0-8.5); Protein,Urine Negative (Negative); Specific Gravity, Urine <= 1.005 (1.005-1.030); Urobilinogen,Urine 0.2 EU/dl (0.2)
--- NOTE | 2022-01-23 02:53 | CT_ITS ---
PROCEDURE INFORMATION: Exam: CT Abdomen And Pelvis With Contrast Exam date and time: 01/23/2022 4:34 AM Age: 51 years old Clinical indication: Abdominal pain; Epigastric; Prior surgery; Surgery date: 6+ months; Surgery type: Gb and uterus TECHNIQUE: Imaging protocol: Computed tomography of the abdomen and pelvis with contrast. Radiation optimization: All CT scans at this facility use at least one of these dose optimization techniques: automated exposure control; mA and/or kV adjustment per patient size (includes targeted exams where dose is matched to clinical indication); or iterative reconstruction. Contrast material: ISOVUE; Contrast volume: 75 ml; Contrast route: IV; COMPARISON: CT ABDOMEN PELVIS WO CON 08/09/2021 5:01 PM FINDINGS: Liver: The liver is low in density. Gallbladder and bile ducts: See Stomach and bowel finding. Pancreas: Normal. No ductal dilation. Spleen: Normal. No splenomegaly. Adrenal glands: Normal. No mass. Kidneys and ureters: Normal. No hydronephrosis. Stomach and bowel: The patient is status post cholecystectomy sigmoid diverticulosis is present no active diverticulitis is seen. Appendix: No evidence of appendicitis. Intraperitoneal space: Unremarkable. No free air. No significant fluid collection. Vasculature: Unremarkable. No abdominal aortic aneurysm. Lymph nodes: Unremarkable. No enlarged lymph nodes. Urinary bladder: Unremarkable as visualized. Reproductive: Unremarkable as visualized. Bones/joints: Unremarkable. No acute fracture. Soft tissues: Unremarkable. IMPRESSION: 1. No acute process or mass noted. 2. Status post cholecystectomy and hysterectomy. 3. Diffuse hepatic steatosis.
--- NOTE | 2022-01-23 02:53 | XR_ITS ---
PROCEDURE INFORMATION: Exam: XR Chest Exam date and time: 01/23/2022 4:25 AM Age: 51 years old Clinical indication: Pain; Other: Epigastric; Prior surgery; Surgery date: 6+ months; Surgery type: Gb and uterus removed; Additional info: Abdominal pain with inspiration TECHNIQUE: Imaging protocol: Radiologic exam of the chest. Views: 2 views. COMPARISON: CR XR CHEST 2V 01/04/2022 3:15 AM FINDINGS: Lungs: Unremarkable. No consolidation. Pleural spaces: Unremarkable. No pleural effusion. No pneumothorax. Heart/Mediastinum: Unremarkable. No cardiomegaly. Bones/joints: Unremarkable. IMPRESSION: No acute findings.
[2022-01-23 03:36] LABS: Basophils # 0.1 K/mm3 (0-0.2); Basophils % 0.9 % (0.1-2.0); Eosinophils # 0.3 K/mm3 (0.0-0.4); Eosinophils % 3.9 % (0.1-12.0); Hematocrit 42.5 % (37.0-47.0); Lymphocytes # 2.5 K/mm3 (0.7-4.5); Lymphocytes % 32.2 % (10-50); Mean Corpuscular Hemoglobin 30.5 pg (27.0-31.2); Mean Corpuscular Volume 92.2 fl (81-99); Monocytes # 0.4 K/mm3 (0.1-1.0); Monocytes % 5.3 % (1.7-9.3); Neutrophils # 4.5 K/mm3 (1.8-7.8); Neutrophils % 57.9 % (37.0-80.0); Platelet Count 292 K/mm3 (142-424); Red Blood Count 4.61 M/mm3 (4.20-5.40); Red Cell Distribution Width 12.3 % (11.5-17.5); White Blood Count 7.8 K/mm3 (4.8-10.8)
--- NOTE | 2022-01-23 03:38 | HMH.EDNVD ---
ED Disposition Clinical Impression: Left bundle branch block (LBBB) Abdominal pain Qualifiers: Abdominal location: generalized Qualified Code(s): R10.84 - Generalized abdominal pain Disposition: Home, Self-Care Condition on Discharge: Good Instructions: DI for Acute Abdominal Pain Additional Instructions: fluids and call pcp for follow or return to ed Referrals: David Alvarez MD [Primary Care Provider] - - Critical Care Critical Care Time: No Attestation: On 01/23/22, the high probability of a clinically significant, sudden or life threatening deterioration of the following system(s) required my full and direct attention, intervention and personal management. The time I documented below is in addition to time spent performing reported procedures but includes the following listed in this critical care notation. Medical Decision Making - Medical Records Medical records reviewed: Yes: I reviewed the patient's medical records. - Niko Inquiry Pt receiving controlled substance: No Vital Signs: 01/23/22 02:43 Temperature 98.2 F Temperature Source Oral Pulse Rate [Apical] 63 Respiratory Rate 18 Blood Pressure [Right Arm] 138/83 Blood Pressure Mean [Right Arm] 101 Blood Pressure Source [Right Arm] Automatic Cuff Blood Pressure Position [Right Arm] Sitting 02 Sat by Pulse Oximetry 96 Oxygen Delivery Method Room Air - Lab Data Lab results reviewed: Yes: I reviewed the patient's lab results. Lab Results 01/23/22 02:30: Urine Color Yellow, Urine Appearance Clear, Urine pH 6.5, Ur Specific [place] <= 1.005, Urine Protein Negative, Urine Glucose (UA) Negative, Urine Ketones Negative, Urine Blood 1+, Urine Nitrate Negative, Urine Bilirubin Negative, Urine Urobilinogen 0.2, Ur Leukocyte Esterase Negative, Urine RBC 5-10, Urine WBC 3-5 01/23/22 03:25: WBC 7.8, RBC 4.61, Hgb 14.0, Hct 42.5, MCV 92.2, MCH 30.5, MCHC 33.0, RDW 12.3, Plt Count 292, MPV 9.0, Neut % (Auto) 57.9, Lymph % (Auto) 32.2, [place] % (Auto) 5.3, Eos % (Auto) 3.9, Baso % (Auto) 0.9, Neut # (Auto) 4.5, Lymph # (Auto) 2.5, [place] # (Auto) 0.4, Eos # (Auto) 0.3, Baso # (Auto) 0.1, ESR Cancelled 01/23/22 03:25: Sodium 138, Potassium 3.8, Chloride 104, Carbon Dioxide 27, Anion Gap 10.8, BUN 9, Creatinine 0.70, Estimated Creat Clear 132, Estimated GFR 89, Est GFR ( Amer) 108, Glucose 124 H, Calcium 9.3, Magnesium 1.7, Total Bilirubin 1.4 H, AST 32, ALT 33, Alkaline Phosphatase 74, Troponin I < 0.01, C-Reactive Protein 1.7, Total Protein 7.1, Albumin 3.9, Globulin 3.2, Albumin/Globulin Ratio 1.2, Amylase 77, Lipase 236, Procalcitonin < 0.030 Result diagrams: 01/23/22 03:25 01/23/22 03:25 Orders (Tests/Meds): ED MEDICATIONS Generic Name Dose Route Start Last Admin Trade Name Freq PRN Reason Stop Dose Admin Sodium Chloride 1,000 mls @ 999 mls/hr 01/23/22 03:00 01/23/22 03:02 Sod Chlor 0.9% 1000ml Bag IV 01/23/22 04:00 999 mls/hr .Q1H1M STEPHANIE Administration Sodium Chloride 1,000 mls @ 999 mls/hr 01/23/22 05:00 01/23/22 04:48 Sod Chlor 0.9% 1000ml Bag IV 01/23/22 06:00 999 mls/hr .Q1H1M STEPHANIE Administration Sodium Chloride 8 ml 01/23/22 02:55 Sodium Chloride 0.9% 10ml Vial IV 02/22/22 02:54 NEEDED PRN dilute pepcid Discontinued Medications Generic Name Dose Route Start Last Admin Trade Name Freq PRN Reason Stop Dose Admin Diphenhydramine HCl 50 mg 01/23/22 02:55 01/23/22 03:02 Diphenhydramine 50mg/Ml Vial IV 01/23/22 02:56 50 mg ONCE ONE Administration Famotidine 20 mg 01/23/22 02:55 01/23/22 03:02 Famotidine 20mg/2ml Vial IV 01/23/22 02:56 20 mg ONCE ONE Administration Iopamidol 75 ml 01/23/22 04:47 01/23/22 04:48 Iopamidol-370 (76%);100ml Bottle IV 01/23/22 04:48 75 ml ONCE ONE Administration Methylprednisolone Sodium Succinate 125 mg 01/23/22 02:55 01/23/22 03:02 Methylprednisolone Sod Succ 125mg Vial IV 01/23/22 02:56 125 mg ONCE ONE Administration M
--- NOTE | 2022-01-23 03:39 | PC.NURSE ---
Lab does not have enough blood for ESR, aware and states no need to attempt re-draw
[2022-01-23 03:51] LABS: Alanine Aminotransferase 33 U/L (12-78); Albumin Level 3.9 g/dl (3.5-5.0); Albumin/Globulin Ratio 1.2 (1.1-1.8); Alkaline Phosphatase 74 U/L (38-126); Amylase 77 U/L (30-110); Anion Gap 10.8 mEq/L (5-15); Aspartate Amino Transferase 32 U/L (14-36); Bilirubin,Total 1.4 mg/dl (0.2-1.3); Blood Urea Nitrogen 9 mg/dl (7-17); Calcium 9.3 mg/dl (8.4-10.2); Carbon Dioxide 27 mmol/L (22.0-30.0); Chloride 104 mmol/L (98-107); Creatinine Clearance Estimated 132 mL/min (50-200); Estimated Glomerular Filt Rate 89 ml/min (>60); GFR (African American) 108 ML/MIN (>60); Globulin 3.2 g/dL (1.3-3.2); Glucose 124 mg/dl (74-100); Lipase 236 U/L (23-300); Magnesium 1.7 mg/dl (1.6-2.3); Potassium 3.8 mmoL/L (3.5-5.1); Sodium 138 mmol/L (136-145); Total Protein,Serum 7.1 g/dl (6.3-8.2)
[2022-01-23 03:56] LABS: C-Reactive Protein 1.7 mg/L (0-4)
[2022-01-23 04:11] LABS: Procalcitonin < 0.030 ng/mL (0.0-2.0); Troponin I < 0.01 ng/ml (0.00-0.034)
--- NOTE | 2022-01-23 04:49 | PC.NURSE ---
Patient just returned from radiology. Patient is resting in bed with significant other at bedside. Patient states she is feeling better than she initially was.
[2022-01-23 06:26] VITALS: BP 125/78; PULSE 82; RESP 17; TEMP 36.8; O2SAT 97
== END 2022-01-23 06:30 | disposition home or self-care (01) ==
PROVIDERS: Emergency Provider Emergency Medicine; PCP Family Medicine
DX: I44.7 Left bundle-branch block, unspecified (principal); R10.84 Generalized abdominal pain; R11.0 Nausea; R19.7 Diarrhea, unspecified; F41.9 Anxiety disorder, unspecified; E11.9 Type 2 diabetes mellitus without complications; Z79.84 Long term (current) use of oral hypoglycemic drugs; K21.9 Gastro-esophageal reflux disease without esophagitis; E78.5 Hyperlipidemia, unspecified; I10 Essential (primary) hypertension; R00.2 Palpitations
CPT/HCPCS: 36415; 71046; 74177; 80053; 81001; 82150; 83690; 83735; 84145; 84484; 85025; 86140; 93005; 96361; 96374; 99153; 99285; Q9967

== ENCOUNTER 2022-02-20 01:26 | Observation (INO) | payer MEDICAID, SELFPAY ==
[2022-02-20] VITALS (13 sets, daily range): BP systolic 119–169; BP diastolic 65–88; PULSE 50–74; RESP 15–18; TEMP 36.6–36.7; O2SAT 96–99; BMI 33.5; BMI 35.2
--- NOTE | 2022-02-20 01:24 | ECG_ITS ---
APPROVED REPORT Exam: Resting ECG HR:64 bpm ECG Measurements Heart Rate 64 AXES RI 169 P 35 QRSd 133 QRS -9 QT 406 T 70 QTc 416 Conclusion SINUS RHYTHM LBBB - previously noted Old anteroseptal changes ABNORMAL ECG UNCONFIRMED REPORT Electronically signed by : Xavier Bass MD 02/21/2022 09:14:02
--- NOTE | 2022-02-20 01:34 | XR_ITS ---
PROCEDURE INFORMATION: Exam: XR Chest Exam date and time: 02/20/2022 1:49 AM Age: 51 years old Clinical indication: Sternal or substernal pain; Additional info: Chest pain TECHNIQUE: Imaging protocol: Radiologic exam of the chest. Views: 1 view. COMPARISON: CR XR CHEST 2V 01/23/2022 4:25 AM FINDINGS: Lungs: Unremarkable. No consolidation. Pleural spaces: Unremarkable. No pleural effusion. No pneumothorax. Heart/Mediastinum: Unremarkable. No cardiomegaly. Bones/joints: Unremarkable. IMPRESSION: No acute findings. No significant change since 01/23/2022.
--- NOTE | 2022-02-20 01:46 | PC.NURSE ---
RAD at BS for Chest XRAY
--- NOTE | 2022-02-20 01:47 | PC.NURSE ---
pt chest pressure relieved by SL nitro and [address] per MAR
--- NOTE | 2022-02-20 01:57 | HMH.EDCP ---
ED Disposition Clinical Impression: Chest pain Qualifiers: Chest pain type: precordial pain Qualified Code(s): R07.2 - Precordial pain Disposition: Admitted as Observation Condition on Discharge: Good Referrals: David Alvarez MD [Primary Care Provider] - - Critical Care Critical Care Time: No Attestation: On 02/20/22, the high probability of a clinically significant, sudden or life threatening deterioration of the following system(s) required my full and direct attention, intervention and personal management. The time I documented below is in addition to time spent performing reported procedures but includes the following listed in this critical care notation. Medical Decision Making - Medical Records Medical records reviewed: Yes: I reviewed the patient's medical records. - Niko Inquiry Pt receiving controlled substance: No Vital Signs: 02/20/22 01:30 02/20/22 02:25 02/20/22 02:55 Temperature 98 F Temperature Source Oral Pulse Rate 64 65 Pulse Rate [Apical] 73 Respiratory Rate 18 Blood Pressure 135/73 130/68 Blood Pressure [Right Arm] 169/73 H Blood Pressure Mean [Right Arm] 105 Blood Pressure Source [Right Arm] Automatic Cuff Blood Pressure Position [Right Arm] Sitting 02 Sat by Pulse Oximetry 99 97 96 Oxygen Delivery Method Room Air Room Air Room Air 02/20/22 03:10 02/20/22 03:40 Temperature Temperature Source Pulse Rate 66 74 Pulse Rate [Apical] Respiratory Rate Blood Pressure 120/72 119/73 Blood Pressure [Right Arm] Blood Pressure Mean [Right Arm] Blood Pressure Source [Right Arm] Blood Pressure Position [Right Arm] 02 Sat by Pulse Oximetry 96 97 Oxygen Delivery Method Room Air - Lab Data Lab results reviewed: Yes: I reviewed the patient's lab results. Lab Results 02/20/22 01:50: WBC 6.7, RBC 4.58, Hgb 13.8, Hct 42.7, MCV 93.4, MCH 30.2, MCHC 32.4, RDW 13.2, Plt Count 351, MPV 9.6, Neut % (Auto) 62.9, Lymph % (Auto) 26.8, [place] % (Auto) 4.7, Eos % (Auto) 4.2, Baso % (Auto) 1.4, Neut # (Auto) 4.2, Lymph # (Auto) 1.8, [place] # (Auto) 0.3, Eos # (Auto) 0.3, Baso # (Auto) 0.1, ESR 18 02/20/22 01:50: Sodium 139, Potassium 3.9, Chloride 104, Carbon Dioxide 28, Anion Gap 10.9, BUN 8, Creatinine 0.60, Estimated Creat Clear 158, Estimated GFR 106, Est GFR ( Amer) 129, Glucose 145 H, Calcium 9.8, Magnesium 1.4 L, Troponin I < 0.01, C-Reactive Protein 1.5, Procalcitonin < 0.030 02/20/22 02:01: SARS-CoV-2 (PCR) Not detected, Influenza A Untype (PCR) Not detected, Influenza Type B (PCR) Not detected Result diagrams: 02/20/22 01:50 02/20/22 01:50 Orders (Tests/Meds): ED MEDICATIONS Generic Name Dose Route Start Last Admin Trade Name Freq PRN Reason Stop Dose Admin Sodium Chloride 1,000 mls @ 999 mls/hr 02/20/22 01:45 02/20/22 01:37 Sod Chlor 0.9% 1000ml Bag IV 02/20/22 02:45 999 mls/hr .Q1H1M STEPHANIE Administration Discontinued Medications Generic Name Dose Route Start Last Admin Trade Name Freq PRN Reason Stop Dose Admin Aspirin 324 mg 02/20/22 01:34 02/20/22 01:37 Aspirin 81mg Chewable Tablet PO 02/20/22 01:35 324 mg ONCE ONE Administration Nitroglycerin 0.4 mg 02/20/22 01:34 02/20/22 01:37 Nitroglycerin 0.4mg Sl Tablet SL 02/20/22 01:35 0.4 mg ONCE ONE Administration Nitroglycerin 1 gm 02/20/22 02:04 02/20/22 02:04 Nitroglycerin 1 Gm Ointment TD 02/20/22 02:05 1 gm ONCE ONE Administration ORDERS Category Date Time Status Troponin I Q3H Lab 02/20/22 04:16 Received Troponin I Q3H Lab 02/20/22 07:45 Ordered - Radiology Data #1 Image(s): Chest Image Reviewed: Yes I have reviewed radiologist's interpretation Preliminary Findings: Normal/NAD - ECG Data Tracing #1 Normal Sinus Rhythm: Yes Ischemic changes: non-specific ST-T wave changes Conduction abnormalities present: other (ivcd) ECG compared to prior tracings: there are no significant changes Medical Decision Narrativ
[2022-02-20 01:58] LABS: Basophils # 0.1 K/mm3 (0-0.2); Basophils % 1.4 % (0.1-2.0); Eosinophils # 0.3 K/mm3 (0.0-0.4); Eosinophils % 4.2 % (0.1-12.0); Hematocrit 42.7 % (37.0-47.0); Hemoglobin 13.8 g/dL (12.2-16.2); Lymphocytes # 1.8 K/mm3 (0.7-4.5); Lymphocytes % 26.8 % (10-50); Mean Corpuscular HGB Conc 32.4 g/dL (31.8-35.4); Mean Corpuscular Hemoglobin 30.2 pg (27.0-31.2); Mean Corpuscular Volume 93.4 fl (81-99); Mean Platelet Volume 9.6 fl (7.4-10.4); Monocytes # 0.3 K/mm3 (0.1-1.0); Monocytes % 4.7 % (1.7-9.3); Neutrophils # 4.2 K/mm3 (1.8-7.8); Neutrophils % 62.9 % (37.0-80.0); Platelet Count 351 K/mm3 (142-424); Red Blood Count 4.58 M/mm3 (4.20-5.40); Red Cell Distribution Width 13.2 % (11.5-17.5); White Blood Count 6.7 K/mm3 (4.8-10.8)
[2022-02-20 02:09] LABS: Anion Gap 10.9 mEq/L (5-15); Blood Urea Nitrogen 8 mg/dl (7-17); Calcium 9.8 mg/dl (8.4-10.2); Carbon Dioxide 28 mmol/L (22.0-30.0); Chloride 104 mmol/L (98-107); Creatinine Clearance Estimated 158 mL/min (50-200); Estimated Glomerular Filt Rate 106 ml/min (>60); GFR (African American) 129 ML/MIN (>60); Glucose 145 mg/dl (74-100); Magnesium 1.4 mg/dl (1.6-2.3); Potassium 3.9 mmoL/L (3.5-5.1); Sodium 139 mmol/L (136-145)
[2022-02-20 02:12] LABS: Coronavirus 19, PCR Not Detected (NotDetected); Influenza A, PCR Not Detected (NotDetected); Influenza B, PCR Not Detected (NotDetected)
[2022-02-20 02:14] LABS: C-Reactive Protein 1.5 mg/L (0-4)
[2022-02-20 02:25] LABS: Troponin I < 0.01 ng/ml (0.00-0.034)
[2022-02-20 02:28] LABS: Erythrocyte Sedimentation Rate 18 mm/hr (0-20)
[2022-02-20 02:29] LABS: Procalcitonin < 0.030 ng/mL (0.0-2.0)
--- NOTE | 2022-02-20 02:54 | PC.NURSE ---
Pt resting in bed. Pt advises that she is a little bit dizzy. RN notified. No other needs or complaints voiced.
--- NOTE | 2022-02-20 04:00 | PC.NURSE ---
Rounded on pt. Updated on expected wait times. No other needs or complaints at this time.
--- NOTE | 2022-02-20 04:25 | PC.NURSE ---
House notified of pt admission and need for bed assignment
--- NOTE | 2022-02-20 04:26 | PC.NURSE ---
MD requested nursing staff to ask patient if she is willing to stay the night for observation. Patient states that that's fine.
[2022-02-20 04:52] LABS: Troponin I < 0.01 ng/ml (0.00-0.034)
--- NOTE | 2022-02-20 05:11 | PC.NURSE ---
PT ARRIVED TO FLOOR VIA W/C @ [id number]
[2022-02-20 05:13] LABS: Microscopic, Urine URINE MICROSCOPIC (MICROSCOPIC)
[2022-02-20 05:14] LABS: Appearance,Urine CLEAR (Clear); Bilirubin,Urine Negative (Negative); Blood, Urine Negative (Negative); Color,Urine YELLOW (Yellow); Glucose,Urine (UA) Negative (Negative); Ketones,Urine Negative (Negative); Leukocyte Esterase,Urine Negative (Negative); Nitrate,Urine Negative (Negative); PH,Urine 5.5 (5.0-8.5); Protein,Urine Negative (Negative); Specific Gravity, Urine 1.025 (1.005-1.030); Urobilinogen,Urine 0.2 EU/dl (0.2)
[2022-02-20 05:18] LABS: Hemoglobin A1C 6.3 % (4.0-6.0)
[2022-02-20 05:26] LABS: Amorphous Sediment,Urine Trace /lpf; Squamous Epithelial Cell,Urine Occasional #/hpf (0-5)
[2022-02-20 07:21] LABS: Basophils # 0.1 K/mm3 (0-0.2); Basophils % 1.1 % (0.1-2.0); Eosinophils # 0.3 K/mm3 (0.0-0.4); Eosinophils % 4.6 % (0.1-12.0); Hematocrit 39.1 % (37.0-47.0); Hemoglobin 12.5 g/dL (12.2-16.2); Lymphocytes % 28.1 % (10-50); Mean Corpuscular Hemoglobin 30.1 pg (27.0-31.2); Mean Corpuscular Volume 94.3 fl (81-99); Mean Platelet Volume 10.2 fl (7.4-10.4); Monocytes # 0.3 K/mm3 (0.1-1.0); Monocytes % 4.6 % (1.7-9.3); Neutrophils # 4.4 K/mm3 (1.8-7.8); Neutrophils % 61.6 % (37.0-80.0); Platelet Count 294 K/mm3 (142-424); Red Blood Count 4.15 M/mm3 (4.20-5.40); Red Cell Distribution Width 13.2 % (11.5-17.5); White Blood Count 7.2 K/mm3 (4.8-10.8)
[2022-02-20 07:43] LABS: Chloride 111 mmol/L (98-107)
[2022-02-20 07:44] LABS: Potassium 4.9 mmoL/L (3.5-5.1); Sodium 141 mmol/L (136-145)
[2022-02-20 07:47] LABS: Anion Gap 15.9 mEq/L (5-15); Blood Urea Nitrogen 8 mg/dl (7-17); Calcium 9.3 mg/dl (8.4-10.2); Carbon Dioxide 19 mmol/L (22.0-30.0); Creatinine Clearance Estimated 168 mL/min (50-200); Estimated Glomerular Filt Rate 106 ml/min (>60); GFR (African American) 129 ML/MIN (>60); Glucose 116 mg/dl (74-100)
--- NOTE | 2022-02-20 08:23 | HMH.PHAVTE ---
[facility] Pharmacy VTE Monitoring - Patient Demographics Admission date: 02/20/22 Report Date: 02/20/22 Time: 08:23 Allergies/Adverse Reactions: Patient Allergies peanut Allergy (Severe, Verified 02/16/22 13:48) Anaphylaxis tree nut Allergy (Severe, Verified 02/16/22 13:48) Anaphylaxis Iodinated Contrast Media [Iodinated Contrast Media - Oral and] Allergy (Mild, Verified 02/16/22 13:48) Rash lisinopril Adverse Reaction (Severe, Verified 02/16/22 13:48) Cough losartan Adverse Reaction (Severe, Verified 02/16/22 13:48) Cough furosemide [From Lasix] Adverse Reaction (Intermediate, Verified 02/16/22 13:48) Congested Height: 1.63 m Weight: 93.61 kg Patient Problems: Current Active Problems Chest pain (Acute) - VTE Risk Labs: VTE Related Lab Results Hgb 12.5 g/dL (12.2-16.2) 02/20/22 07:08 Hct 39.1 % (37.0-47.0) 02/20/22 07:08 Plt Count 294 K/mm3 (142-424) 02/20/22 07:08 BUN 8 mg/dl (7-17) 02/20/22 07:10 Creatinine 0.60 mg/dl (0.52-1.04) 02/20/22 07:10 Estimated Creat Clear 168 mL/min (50-200) 02/20/22 07:10 Was VTE Risk Assessment Performed: Yes VTE Score: 6 VTE Risk Level: Moderate Risk Clinical Trial Participant: No - Prophylaxis VTE Prophylaxis Ordered?: Yes Types of VTE Prophylaxis: TEDS Knee High
--- NOTE | 2022-02-20 08:27 | HMH.PHAINT ---
VERIFIED HOME MEDICATION LIST USING LIST FROM [facility]
[2022-02-20 08:45] LABS: Troponin I < 0.01 ng/ml (0.00-0.034)
--- NOTE | 2022-02-20 08:53 | PC.NURSE ---
courtesy Tech; checked on pt, no requests at this time.
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
--- NOTE | 2022-02-22 14:13 | CARE MANAGER ---
Spoke with patient related to hospital discharge. Patient states she has not had any further chest pain. She has already made an appointment with PCP for next week and got her Prtonix today. She denies any questions or concerns at this time. ANN Cherry
== END 2022-02-20 13:39 | disposition home or self-care (01) ==
LOC: ER 04:24 → 2ND 05:04
PROVIDERS: Admitting Provider Emergency Medicine; Emergency Provider Emergency Medicine; PCP Family Medicine; Visit Provider Family Medicine
DX: R07.9 Chest pain, unspecified (principal); I10 Essential (primary) hypertension; E78.5 Hyperlipidemia, unspecified; K21.9 Gastro-esophageal reflux disease without esophagitis; Z82.49 Family history of ischemic heart disease and other diseases of the circulatory system; Z79.899 Other long term (current) drug therapy
CPT/HCPCS: 36415; 71045; 80048; 81001; 83036; 83735; 84145; 84484; 85025; 85651; 86140; 93005; 99285; C9803; G0378; U0003; U0005

== ENCOUNTER → 2022-07-07 13:07 | Outpatient (CLI) | payer MEDICAID, SELFPAY ==
--- NOTE | 2022-07-07 13:08 | US_ITS ---
FINAL REPORT CLINICAL HISTORY: Fullness of the right neck. FINDINGS: THYROID ULTRASOUND FINDINGS: SIZE: Normal ECHOGENICITY: Normal echo-pattern. LESIONS: Numerous subcentimeter nodules throughout the bilateral lobes most of which are cystic. A all 6 mm hypoechoic nodule in the right lobe is noted. A 7 mm hypoechoic right lower lobe nodule has a spongiform appearance. There is no dominant mass. OTHER: No additional findings. IMPRESSION: Tiny nodules scattered within the bilateral thyroid lobes compatible with mild multi nodular goiter. TI-RADS: TR 4 RECOMMENDATIONS: No additional follow-up needed at this time due to size and morphology of nodules. Reviewed, Interpreted and Dictated by Kd Granados MD Transcribed by Makenzie Carrillo Authenticated and [facility]
== END ==
PROVIDERS: PCP Family Medicine; Visit Provider Family Medicine
DX: E07.89 Other specified disorders of thyroid (principal)
CPT/HCPCS: 76536

== ENCOUNTER → 2022-08-26 01:00 | Outpatient (CLI) | payer MEDICAID, SELFPAY | PROVIDERS: PCP Nurse Practitioner Family; Visit Provider Nurse Practitioner Family | DX: N39.0 Urinary tract infection, site not specified (principal) | CPT/HCPCS: 87086 ==

== ENCOUNTER → 2022-09-10 09:28 | Outpatient (CLI) | payer MEDICAID, SELFPAY ==
[2022-09-12 12:07] LABS: Estradiol 12.3 pg/mL (.); FSH 22.8 mIU/mL (.)
== END ==
PROVIDERS: PCP Family Medicine; Visit Provider Family Medicine
DX: Z01.89 Encounter for other specified special examinations (principal); R30.9 Painful micturition, unspecified; I10 Essential (primary) hypertension; G89.29 Other chronic pain
CPT/HCPCS: 82670; 83001

== ENCOUNTER → 2022-09-17 11:46 | Outpatient (CLI) | payer MEDICAID, SELFPAY ==
[2022-09-17 13:09] LABS: Alanine Aminotransferase 35 U/L (12-78); Albumin Level 4.6 g/dl (3.5-5.0); Alkaline Phosphatase 79 U/L (38-126); Aspartate Amino Transferase 31 U/L (14-36); Bilirubin,Direct 0.1 mg/dl (0.0-0.4); Bilirubin,Indirect 1.7 mg/dL (0.0-0.9); Bilirubin,Total 1.8 mg/dl (0.2-1.3); Bilirubin,Unconjugated 1.7 mg/dL (0.0-1.1); Chol/HDL Ratio 4.3 (1-3.5); Cholesterol 165 mg/dl (140-200); HDL Cholesterol 38 mg/dl (40-60); Total Protein,Serum 7.5 g/dl (6.3-8.2); Triglycerides 237 mg/dl (30-150); VLDL Cholesterol 47 mg/dL (0-40)
[2022-09-17 13:20] LABS: Direct LDL Cholesterol 96.74 mg/dL (100-129)
== END ==
PROVIDERS: PCP Family Medicine; Visit Provider Internal Medicine Cardiovascular Disease
DX: E78.2 Mixed hyperlipidemia (principal); I10 Essential (primary) hypertension
CPT/HCPCS: 36415; 80061; 80076

== ENCOUNTER → 2022-10-18 08:59 | Outpatient (CLI) | payer MEDICAID, SELFPAY ==
--- NOTE | 2022-10-18 09:06 | XR_ITS ---
FINAL REPORT CLINICAL HISTORY: right shoulder pain FINDINGS: RIGHT SHOULDER Three views demonstrate no acute fracture or dislocation. There are mild degenerative changes of the acromioclavicular joint. The visualized bony structures are well aligned. No soft tissue abnormality is seen. IMPRESSION: No acute process. Reviewed, Interpreted and Dictated by Lamonte Gaytan III, MD Transcribed by Ashly Kraft Authenticated and [facility]
--- NOTE | 2022-10-18 09:06 | XR_ITS ---
FINAL REPORT CLINICAL HISTORY: pain post fall 6 months ago FINDINGS: Two views of the left knee were obtained. There is no evidence of fracture or dislocation. The bony alignment is normal. There are mild degenerative changes with mild spurring at the medial compartment. There is no evidence of joint effusion. No localized soft tissue abnormality is seen. There is no evidence of foreign body. IMPRESSION: Mild degenerative changes with no acute abnormality identified. Reviewed, Interpreted and Dictated by Lamonte Gaytan III, MD Transcribed by Ashly Kraft Authenticated and [facility]
== END ==
PROVIDERS: PCP Family Medicine; Visit Provider Nurse Practitioner Family
DX: M25.511 Pain in right shoulder (principal); M25.562 Pain in left knee; W19.XXXA Unspecified fall, initial encounter
CPT/HCPCS: 73030; 73560

== ENCOUNTER → 2023-01-03 23:50 | Outpatient (CLI) | payer MEDICAID, SELFPAY ==
[2023-01-03 18:09] LABS: Alanine Aminotransferase 45 U/L (12-78); Albumin Level 4.6 g/dl (3.5-5.0); Albumin/Globulin Ratio 1.4 (1.1-1.8); Alkaline Phosphatase 99 U/L (38-126); Anion Gap 19.5 mEq/L (5-15); Aspartate Amino Transferase 41 U/L (14-36); Blood Urea Nitrogen 11 mg/dl (7-17); Calcium 9.7 mg/dl (8.4-10.2); Carbon Dioxide 26 mmol/L (22.0-30.0); Chloride 99 mmol/L (98-107); Chol/HDL Ratio 4.3 (1-3.5); Cholesterol 191 mg/dl (140-200); Estimated Glomerular Filt Rate 89 ml/min (>60); GFR (African American) 107 ML/MIN (>60); Globulin 3.2 g/dL (1.3-3.2); Glucose 167 mg/dl (74-100); HDL Cholesterol 44 mg/dl (40-60); Potassium 4.5 mmoL/L (3.5-5.1); Sodium 140 mmol/L (136-145); Total Protein,Serum 7.8 g/dl (6.3-8.2); Triglycerides 213 mg/dl (30-150); VLDL Cholesterol 43 mg/dL (0-40)
[2023-01-03 18:17] LABS: Hemoglobin A1C 7.6 % (4.0-6.0)
[2023-01-03 18:19] LABS: Direct LDL Cholesterol 108.38 mg/dL (100-129)
== END ==
PROVIDERS: PCP Family Medicine; Visit Provider Family Medicine
DX: I10 Essential (primary) hypertension (principal); E78.5 Hyperlipidemia, unspecified; E04.2 Nontoxic multinodular goiter; R73.03 Prediabetes; E66.9 Obesity, unspecified; Z68.34 Body mass index [BMI] 34.0-34.9, adult; Z76.0 Encounter for issue of repeat prescription
CPT/HCPCS: 80053; 80061; 83036; 84443

== ENCOUNTER 2023-07-05 10:23 | Outpatient (CLI) | payer MEDICAID, SELFPAY ==
[2023-07-05 19:03] LABS: Basophils # 0.1 K/mm3 (0-0.2); Basophils % 1.1 % (0.1-2.0); Eosinophils # 0.2 K/mm3 (0.0-0.4); Eosinophils % 3.2 % (0.1-12.0); Hematocrit 45.4 % (37.0-47.0); Hemoglobin 15.2 g/dL (12.2-16.2); Lymphocytes # 1.6 K/mm3 (0.7-4.5); Lymphocytes % 30.7 % (10-50); Mean Corpuscular HGB Conc 33.4 g/dL (31.8-35.4); Mean Corpuscular Hemoglobin 31.1 pg (27.0-31.2); Mean Corpuscular Volume 93.1 fl (81-99); Mean Platelet Volume 12.2 fl (7.4-10.4); Monocytes # 0.3 K/mm3 (0.1-1.0); Monocytes % 5.3 % (1.7-9.3); Neutrophils # 3.1 K/mm3 (1.8-7.8); Neutrophils % 59.7 % (37.0-80.0); Platelet Count 243 K/mm3 (142-424); Red Blood Count 4.88 M/mm3 (4.20-5.40); Red Cell Distribution Width 13.4 % (11.5-17.5); White Blood Count 5.1 K/mm3 (4.8-10.8)
[2023-07-05 19:21] LABS: Alanine Aminotransferase 43 U/L (12-78); Albumin Level 4.4 g/dl (3.5-5.0); Albumin/Globulin Ratio 1.4 (1.1-1.8); Alkaline Phosphatase 85 U/L (38-126); Amylase 69 U/L (30-110); Anion Gap 10.5 mEq/L (5-15); Aspartate Amino Transferase 38 U/L (14-36); Bilirubin,Total 1.7 mg/dl (0.2-1.3); Blood Urea Nitrogen 12 mg/dl (7-17); Calcium 9.4 mg/dl (8.4-10.2); Carbon Dioxide 26 mmol/L (22.0-30.0); Chloride 103 mmol/L (98-107); Estimated Glomerular Filt Rate 76 ml/min (>60); GFR (African American) 92 ML/MIN (>60); Globulin 3.2 g/dL (1.3-3.2); Glucose 107 mg/dl (74-100); Lipase 476 U/L (23-300); Potassium 4.5 mmoL/L (3.5-5.1); Sodium 135 mmol/L (136-145); Total Protein,Serum 7.6 g/dl (6.3-8.2)
== END 2023-07-05 23:59 ==
LOC: LAB.DROPOF 07-06 10:24
PROVIDERS: PCP Nurse Practitioner; Visit Provider Nurse Practitioner
DX: K85.90 Acute pancreatitis without necrosis or infection, unspecified (principal)
CPT/HCPCS: 80053; 82150; 83690; 85025

== ENCOUNTER 2023-09-20 09:11 | Outpatient (CLI) | payer MEDICAID, SELFPAY ==
--- NOTE | 2023-09-20 09:12 | US_ITS ---
FINAL REPORT CLINICAL HISTORY: follow uo on goiter COMPARISON: 07/07/2022 FINDINGS: THYROID ULTRASOUND: The right lobe of the thyroid gland measures 4.45 x 1.8 x 1.6 cm in size. The left lobe of the thyroid gland measures 4.6 x 1.5 x 1.4 cm in size. The isthmus of the thyroid measures 5 mm in thickness. Multiple thyroid nodules are again seen bilaterally. There is an upper pole nodule in the right lobe of the thyroid gland, measuring 11 x 7 x 7 mm in size, larger than seen on the prior exam. This nodule is solid, isoechoic, and a TI-RADS 3 category nodule. There is a second mid right upper lobe nodule present, 9 x 7 x 4 mm in size, solid, hypoechoic, a TI-RADS category 4 nodule, stable. There is a nodule in the isthmus, that on today's exam is significantly larger than on the prior ultrasound, measuring 19 x 4 x 13 mm in size (was previously 4 x 4 x 2 mm in size). This is a TI-RADS category 4 nodule. There is a fourth nodule present in the lower pole of the left thyroid lobe, 7 x 6 x 5 mm in size, solid, isoechoic, a TI-RADS category 3 nodule. IMPRESSION: Multiple nodules are again seen. There has been significant growth in a nodule present in the isthmus, on today's exam measuring 19 x 4 x 13 mm in size, a TI-RADS category 4 nodule. Biopsy is recommended for this nodule. Reviewed, Interpreted and Dictated by Lamonte Gaytan III, MD Transcribed by Trudy Bowman Authenticated and [facility]
== END 2023-09-20 23:59 ==
LOC: RAD 09:12
PROVIDERS: PCP Family Medicine; Visit Provider Family Medicine
DX: E04.2 Nontoxic multinodular goiter (principal)
CPT/HCPCS: 76536

== ENCOUNTER 2023-10-06 20:40 | Outpatient (CLI) | payer MEDICAID, SELFPAY | END 2023-10-06 23:59 | LOC: LAB.DROPOF 20:41 | PROVIDERS: PCP Nurse Practitioner; Visit Provider Nurse Practitioner | DX: N30.01 Acute cystitis with hematuria (principal); B96.89 Other specified bacterial agents as the cause of diseases classified elsewhere | CPT/HCPCS: 87086 ==

== ENCOUNTER 2023-11-14 10:16 | Outpatient (CLI) | payer MEDICAID, SELFPAY ==
[2023-11-14 12:27] LABS: Free T4 (Free Thyroxine) 1.28 ng/dl (0.78-2.19)
[2023-11-14 12:41] LABS: Thyroid Stimulating Hormone 1.54 uIU/mL (0.465-4.68)
[2023-11-15 08:36] LABS: FSH 41.9 mIU/mL (.)
== END 2023-11-14 23:59 | disposition home or self-care (01) ==
LOC: LAB 15:11
PROVIDERS: PCP Family Medicine; Visit Provider Family Medicine
DX: E04.1 Nontoxic single thyroid nodule (principal)
CPT/HCPCS: 36415; 83001; 84439; 84443

== ENCOUNTER 2023-11-15 09:03 | Outpatient (CLI) | payer MEDICAID, SELFPAY ==
[2023-11-15 10:03] LABS: Alanine Aminotransferase 40 U/L (12-78); Albumin Level 4.4 g/dl (3.5-5.0); Alkaline Phosphatase 83 U/L (38-126); Anion Gap 16.9 mEq/L (5-15); Aspartate Amino Transferase 40 U/L (14-36); Bilirubin,Direct 0.5 mg/dl (0.0-0.4); Bilirubin,Indirect 1.6 mg/dL (0.0-0.9); Bilirubin,Total 2.1 mg/dl (0.2-1.3); Bilirubin,Unconjugated 1.6 mg/dL (0.0-1.1); Blood Urea Nitrogen 12 mg/dl (7-17); Calcium 10.2 mg/dl (8.4-10.2); Carbon Dioxide 24 mmol/L (22.0-30.0); Chloride 101 mmol/L (98-107); Chol/HDL Ratio 4.4 (1-3.5); Cholesterol 198 mg/dl (140-200); Estimated Glomerular Filt Rate 88 ml/min (>60); GFR (African American) 107 ML/MIN (>60); Glucose 253 mg/dl (74-100); HDL Cholesterol 45 mg/dl (40-60); Magnesium 1.5 mg/dl (1.6-2.3); Potassium 4.9 mmoL/L (3.5-5.1); Sodium 137 mmol/L (136-145); Total Protein,Serum 7.7 g/dl (6.3-8.2); Triglycerides 348 mg/dl (30-150); VLDL Cholesterol 70 mg/dL (0-40)
[2023-11-15 10:14] LABS: Direct LDL Cholesterol 105.64 mg/dL (100-129)
[2023-11-16 12:12] LABS: Thyroid Peroxidase Antibodies 10 IU/mL (0-34)
== END 2023-11-15 23:59 | disposition home or self-care (01) ==
LOC: LAB 09:03
PROVIDERS: Otolaryngology; PCP Family Medicine; Visit Provider Nurse Practitioner Family
DX: I10 Essential (primary) hypertension (principal); E04.1 Nontoxic single thyroid nodule; E78.2 Mixed hyperlipidemia; K21.9 Gastro-esophageal reflux disease without esophagitis
CPT/HCPCS: 36415; 80048; 80061; 80076; 83735; 86376

== ENCOUNTER 2023-11-22 07:29 | Outpatient (CLI) | payer MEDICAID, SELFPAY ==
--- NOTE | 2023-11-22 07:29 | US_ITS ---
FINAL REPORT CLINICAL HISTORY: isthmus nodule thyroid fna -- natalie duke FINDINGS: ULTRASOUND GUIDED THYROID BIOPSY HISTORY: Isthmus nodule. TECHNIQUE: Informed consent was obtained from the patient. Timeout procedure was performed prior to beginning. Limited sonographic evaluation of thyroid gland was performed to localize lesion of interest in the isthmus. The neck was prepped in a routine sterile fashion and locally anesthetized with 1% lidocaine. FNA was performed with 25-gauge needle under direct sonographic visualization. 4 passes were made. Cytology is pending. Procedure was well tolerated. CONCLUSION: 1. Technically successful thyroid fine needle aspiration of an isthmus nodule. Reviewed, Interpreted and Dictated by Gerald Duque MD Transcribed by Jaycee Milian PA-C Authenticated and [facility]
== END 2023-11-22 23:59 | disposition home or self-care (01) ==
LOC: RAD 07:29
PROVIDERS: PCP Family Medicine; Visit Provider Otolaryngology
DX: E04.1 Nontoxic single thyroid nodule (principal)
CPT/HCPCS: 10005; 76536

== ENCOUNTER 2023-12-12 09:44 | Outpatient (CLI) | payer MEDICAID, SELFPAY ==
[2023-12-12 10:27] LABS: Basophils # 0.1 K/mm3 (0-0.2); Basophils % 0.8 % (0.1-2.0); Eosinophils # 0.2 K/mm3 (0.0-0.4); Eosinophils % 2.2 % (0.1-12.0); Hematocrit 42.3 % (37.0-47.0); Hemoglobin 13.9 g/dL (12.2-16.2); Lymphocytes # 1.9 K/mm3 (0.7-4.5); Lymphocytes % 25.3 % (10-50); Mean Corpuscular Volume 94.1 fl (81-99); Mean Platelet Volume 9.9 fl (7.4-10.4); Monocytes # 0.3 K/mm3 (0.1-1.0); Monocytes % 3.8 % (1.7-9.3); Neutrophils # 5.2 K/mm3 (1.8-7.8); Neutrophils % 67.9 % (37.0-80.0); Platelet Count 277 K/mm3 (142-424); Red Blood Count 4.49 M/mm3 (4.20-5.40); Red Cell Distribution Width 13.7 % (11.5-17.5); White Blood Count 7.6 K/mm3 (4.8-10.8)
[2023-12-12 11:27] LABS: Alanine Aminotransferase 45 U/L (12-78); Albumin Level 4.4 g/dl (3.5-5.0); Alkaline Phosphatase 92 U/L (38-126); Aspartate Amino Transferase 30 U/L (14-36); Bilirubin,Indirect 1.7 mg/dL (0.0-0.9); Bilirubin,Total 1.7 mg/dl (0.2-1.3); Bilirubin,Unconjugated 1.8 mg/dL (0.0-1.1); Total Protein,Serum 7.4 g/dl (6.3-8.2)
== END 2023-12-12 23:59 | disposition home or self-care (01) ==
LOC: LAB 09:45
PROVIDERS: PCP Family Medicine; Visit Provider Nurse Practitioner Family
DX: E78.2 Mixed hyperlipidemia (principal); I10 Essential (primary) hypertension; K21.9 Gastro-esophageal reflux disease without esophagitis; K76.0 Fatty (change of) liver, not elsewhere classified; R74.8 Abnormal levels of other serum enzymes
CPT/HCPCS: 36415; 80076; 85025

== ENCOUNTER 2024-01-11 08:42 | Outpatient (CLI) | payer MEDICAID, SELFPAY | END 2024-01-11 23:59 | disposition home or self-care (01) | LOC: LAB.DROPOF 01-12 08:50 | PROVIDERS: PCP Family Medicine; Visit Provider Family Medicine | DX: R30.0 Dysuria (principal) | CPT/HCPCS: 87086 ==

== ENCOUNTER 2024-03-23 09:59 | Outpatient (CLI) | payer MEDICAID, SELFPAY | END 2024-03-23 23:59 | disposition home or self-care (01) | LOC: LAB.DROPOF 03-26 10:00 | PROVIDERS: PCP Nurse Practitioner Family; Visit Provider Nurse Practitioner Family | DX: R30.0 Dysuria (principal) | CPT/HCPCS: 87086 ==

== ENCOUNTER 2024-05-17 08:14 | Outpatient (CLI) | payer MEDICAID, SELFPAY ==
--- NOTE | 2024-05-17 08:42 | US_ITS ---
FINAL REPORT CLINICAL HISTORY: FU THYROID NODULES-- RECENT FNA 11/24 COMPARISON: 09/20/2023 FINDINGS: Sonographic images of the thyroid gland were obtained. The right thyroid lobe measures 46 mm. in length. The left thyroid lobe measures 43 mm. in length. The thyroid isthmus measures 4 mm. The echogenicity is normal. Multiple thyroid nodules are present. Isthmus nodule now measures 14 mm, was 19 mm, visually somewhat improved. Left 10 x 8 x 8 mm, was 7 x 6 x 5 mm, somewhat larger solid hypoechoic TR 4 nodule. Other nodules not significantly changed. IMPRESSION: Thyroid nodules as above. Follow-up in 6-12 months per TI-RADS criteria. Reviewed, Interpreted and Dictated by Lamonet Gaytan III, MD Transcribed by Shodna Cohen Authenticated and [facility]
[2024-05-17 09:44] LABS: Free T4 (Free Thyroxine) 1.35 ng/dl (0.78-2.19)
[2024-05-17 12:15] LABS: Thyroid Stimulating Hormone 2.28 uIU/mL (0.465-4.68)
== END 2024-05-17 23:59 | disposition home or self-care (01) ==
LOC: RAD 08:15
PROVIDERS: PCP Family Medicine; Visit Provider Nurse Practitioner
DX: E04.1 Nontoxic single thyroid nodule (principal)
CPT/HCPCS: 36415; 76536; 84439; 84443

== ENCOUNTER 2024-07-30 10:45 | Outpatient (CLI) | payer MEDICAID, SELFPAY | END 2024-07-30 23:59 | disposition home or self-care (01) | LOC: LAB.DROPOF 07-31 12:16 | PROVIDERS: PCP Nurse Practitioner; Visit Provider Nurse Practitioner | DX: R30.0 Dysuria (principal) | CPT/HCPCS: 87086 ==

== ENCOUNTER 2024-07-31 09:37 | Outpatient (CLI) | payer MEDICAID, SELFPAY ==
[2024-07-31 09:43] LABS: Adenovirus F 40/41, stool Not Detected (NotDetected); Astrovirus Not Detected (NotDetected); Campylobacter Not Detected (NotDetected); Clostridium Difficile A/B, PCR Not Detected (NotDetected); Cryptosporidium Not Detected (NotDetected); Cyclospora Cayetanesis Not Detected (NotDetected); Entamoeba histolytica Not Detected (NotDetected); Enteroaggregative E coli Not Detected (NotDetected); Enteropathogenic E coli Not Detected (NotDetected); Enterotoxigenic E coli Not Detected (NotDetected); Giardia lamblia Not Detected (NotDetected); Norovirus Not Detected (NotDetected); Plesimonas Shigalloides, PCR Not Detected (NotDetected); Rotavirus A Not Detected (NotDetected); Salmonella, PCR Not Detected (NotDetected); Sapovirus Not Detected (NotDetected); Shiga-like toxin E coli Not Detected (NotDetected); Shigella Enterovasive E coli Not Detected (NotDetected); Vibrio Cholerae Not Detected (NotDetected); Vibrio, PCR Not Detected (NotDetected); Yersinia Entercolitica, PCR Not Detected (NotDetected)
== END 2024-07-31 23:59 | disposition home or self-care (01) ==
LOC: LAB 09:38
PROVIDERS: PCP Family Medicine; Visit Provider Nurse Practitioner
DX: K57.92 Diverticulitis of intestine, part unspecified, without perforation or abscess without bleeding (principal); R30.0 Dysuria
CPT/HCPCS: 87045; 87086; 87507

== ENCOUNTER 2024-11-14 08:57 | Outpatient (CLI) | payer MEDICAID, SELFPAY ==
[2024-11-14 09:36] LABS: Basophils % 0.5 % (0.1-2.0); Eosinophils # 0.1 Kmm3 (0.0-0.4); Eosinophils % 1.5 % (0.1-12.0); Hematocrit 43.4 % (37.0-47.0); Immature Granulocytes # 0.02 10^3uL; Immature Granulocytes % 0.3 %; Lymphocytes # 1.5 K/mm3 (0.7-4.5); Lymphocytes % 22.5 % (10-50); Mean Corpuscular HGB Conc 34.6 g/dL (31.8-35.4); Mean Corpuscular Hemoglobin 30.3 pg (27.0-31.2); Mean Corpuscular Volume 87.7 fl (81-99); Mean Platelet Volume 9.4 fl (7.4-10.4); Monocytes # 0.4 K/mm3 (0.1-1.0); Monocytes % 5.6 % (1.7-9.3); Neutrophils # 4.5 K/mm3 (1.8-7.8); Neutrophils % 69.6 % (37.0-80.0); Nucleated Red Blood Cells # 0 10^3/uL; Nucleated Red Blood Cells % 0 %; Platelet Count 244 K/mm3 (142-424); Red Blood Count 4.95 M/mm3 (4.20-5.40); Red Cell Distribution Width 12.6 % (11.5-17.5); Red Cell Distribution Width-SD 40.4 fL; White Blood Count 6.5 K/mm3 (4.8-10.8)
[2024-11-14 10:02] LABS: Alanine Aminotransferase 47 U/L (12-78); Albumin Level 4.9 g/dl (3.5-5.0); Alkaline Phosphatase 117 U/L (38-126); Anion Gap 12.5 mEq/L (5-15); Aspartate Amino Transferase 32 U/L (14-36); Bilirubin,Indirect 1.9 mg/dL (0.0-0.9); Bilirubin,Total 1.9 mg/dl (0.2-1.3); Bilirubin,Unconjugated 1.9 mg/dL (0.0-1.1); Blood Urea Nitrogen 14 mg/dl (7-17); Calcium 10.3 mg/dl (8.4-10.2); Carbon Dioxide 25 mmol/L (22.0-30.0); Chloride 101 mmol/L (98-107); Chol/HDL Ratio 4.4 (1-3.5); Cholesterol 177 mg/dl (140-200); Estimated Glomerular Filt Rate 105 ml/min (>60); GFR (African American) 127 ML/MIN (>60); HDL Cholesterol 40 mg/dl (40-60); Magnesium 1.7 mg/dl (1.6-2.3); Potassium 4.5 mmoL/L (3.5-5.1); Sodium 134 mmol/L (136-145); Total Protein,Serum 7.4 g/dl (6.3-8.2); Triglycerides 223 mg/dl (30-150); VLDL Cholesterol 45 mg/dL (0-40)
[2024-11-14 10:13] LABS: Direct LDL Cholesterol 111.68 mg/dL (100-129)
[2024-11-14 10:17] LABS: Free T4 (Free Thyroxine) 1.68 ng/dl (0.78-2.19)
[2024-11-14 10:31] LABS: Thyroid Stimulating Hormone 1.59 uIU/mL (0.465-4.68)
[2024-11-14 11:03] LABS: Glucose 464 mg/dl (74-100)
[2024-11-14 16:57] LABS: Hemoglobin A1C 10.6 % (4.0-6.0)
== END 2024-11-14 23:59 | disposition home or self-care (01) ==
LOC: LAB 15:35
PROVIDERS: PCP Family Medicine; Visit Provider Nurse Practitioner Family
DX: I11.9 Hypertensive heart disease without heart failure (principal); E11.9 Type 2 diabetes mellitus without complications; R07.89 Other chest pain; E87.6 Hypokalemia; Z79.85 Long-term (current) use of injectable non-insulin antidiabetic drugs; Z79.4 Long term (current) use of insulin
CPT/HCPCS: 36415; 80048; 80061; 80076; 83036; 83735; 84439; 84443; 85025

== ENCOUNTER 2024-11-15 11:03 | Outpatient (CLI) | payer MEDICAID, SELFPAY ==
--- OUTSIDE RECORDS SUMMARY | 2024-11-15 11:05 | XMS_ITS | Continuity of Care Document ---
Author Organization [facility] Address [address] [place] [address] [place] [address] Care Team Providers Care Library Historian Name Role Phone TAMIKO ANGELIKA Primary Care Provider [phone] Assessment No assessment recorded. Plan of Treatment Reminders Order Date Submit Date Provider Last Modified By Organization Details Last Modified Time Details Appointments ORT EST 15 2024 08:15A M ARIAS ABURTO, DO Not available Not available Not available Lab None recorded. Referral None recorded. Procedures None recorded. Surgeries None recorded. Imaging None recorded. Medication Orders meloxicam 15 mg tablet [address] [facility] [place], [address], 09/24/2024 12:26:20 Patient TargetsNo targets recorded. Patient InstructionsNo instructions recorded. Reason for Referral None Reported. Results Created Date Observation Date Name Description Value Unit Range Abnormal Flag Note LastModifiedBy Organization Detail LastModifiedTime 08/27/19 25 XR, hip, unila teral No observ ation record ed. FRANCISCO JAVIER [address] [place], [address], 08/27/2024 08:52:45 08/27/19 25 XR, knee No observ ation record ed. FRANCISCO JAVIER [address] [place], [address], 08/27/2024 08:52:38 08/27/19 25 XR, lumba r spine No observ ation record ed. FRANCISCO JAVIER [facility] [address] [facility] , [place], [address], 08/27/2024 08:52:33 Result Notes None recorded. Procedures Surgical History Date Name Laterality Status Provider Name and Address Organization Details Recorded Time 3 Colonoscopy completed Beth TEJEDA - [facility] & [place] 09/24/2024 08:03:55 7 Other completed Beth Hermosillo-Tjakis NIKHIL - [facility] & [place] 09/24/2024 08:03:55 Imaging Results None recorded. Procedure Notes None recorded. Medical Equipment None Reported. Allergies Allergen ID Allergen Name Allergen Category Reaction Reaction Severity Criticality Documentation Date Start Date Code Code System Note Provider Name and Address Organization Details Recorded Time [id number] Iodinated contrast media (substanc e) medicatio n rash severe Not available 09/24/2024 21626 2004 SNOMED Beth love, NIKHIL Rodriguez [facility] & [place] 5 08:03:29 192983 peanut allergeni c extract food,medi cation rash moderate Not available 09/24/2024 66934 8 RxNorm Beth love, NIKHIL Rodriguez [facility]NT [facility] & [place] 5 08:03:29 519204 lisinopri l medicatio n itching moderate Not available 09/24/2024 19161 RxNorm Beth love, NIKHIL Rodriguez [facility] & [place] 5 08:03:29 775397 Lasix medicatio n rash moderate Not available 09/24/2024 90326 1 RxNorm Beth Hermosillo-Tj ramoss ivan, NIKHIL Rodriguez [facility]NT [facility] & [place] 5 08:03:29 517818 losartan medicatio n rash moderate Not available 09/24/2024 76986 RxNorm Beth Hermosillo-Tj ramoss ivan, NIKHIL Rodriguez [facility]NT [facility] & [place] 5 08:03:29 Medications Name Sig Start Date Stop Date Status Note LastModified by Organization Details LastModified Time atorvastatin 40 mg tablet active Not Available Not Available Not Available terconazole 0.4 % vaginal cream INSERT ONE (1) APPLICATORF UL EVERY DAY BY VAGINAL ROUTE FOR 7 DAYS. active Not Available Not Available No t Available doxycycline hyclate 100 mg capsule TAKE 1 CAPSULE BY MOUTH TWICE DAILY FOR 7 DAYS active Not Available Not Available No t Available fluconazole 150 mg tablet active Not Available Not Available Not Available valacyclovir 1 gram tablet active Not Available Not Available Not Available meloxicam 15 mg tablet Take 1 tablet by mouth once daily active Not Available Not Available No t Available phenazopyrid ine 200 mg tablet active Not Available Not Available Not Available bupivacaine HCl 0.5 % (5 mg/mL) injection solution Take 10 mg by injection route. 2024 active Not Available Not Available Not Avai lable metronidazol e 500 mg tablet TAKE 1 TABLET BY MOUTH TWICE DAILY FOR 7 DAYS active Not Available Not Available No t Available ciprofloxaci n 500 mg tablet active Not Available Not Available Not Available sulfamethoxa zole 800 mg-trimethop rim 160 mg tablet active Not Available Not Available Not Available glimepiride 2 mg tablet active Not Available Not Available Not Available bisoprolol fumarate 5 mg tablet active Not Available Not Available No t Available potassium chloride ER 20 mEq tablet,exten ded release(part /cryst) active Not Available Not Available Not Available clindamycin 1 % topical gel active Not Available Not Available Not Available Kenalog 10 mg/mL suspension for injection Take 20 mg by injection route. 2024 active Not Available Not Available Not Avai lable cephalexin 500 mg capsule active Not Available Not Available Not Available pantoprazole 40 mg tablet,delay ed release active Not Available Not Available N ot Available promethazine 25 mg tablet active Not Available Not Available Not Available mupirocin 2 % topical ointment APPLY OINTMENT TOPICALLY TO AFFECTED AREA THREE TIMES DAILY active Not Available Not Available Not Available azelastine 137 mcg (0.1 %) nasal spray active Not Available Not Available Not Available epinephrine 0.3 mg/0.3 mL injection, auto-injecto r INJECT CONTENTS OF 1 PEN NEEDED FOR ALLERGIC REACTION active Not Available Not Available No t Available levofloxacin 500 mg tablet TAKE 1 TABLET BY MOUTH ONCE DAILY FOR 7 DAYS active Not Available Not Available No t Available albuterol sulfate HFA 90 mcg/actuatio n aerosol inhaler INHALE 1 PUFF BY MOUTH EVERY 4 HOURS active Not Available Not Available No t Available pioglitazone 30 mg tablet active Not Available Not Available Not Available ondansetron 4 mg disintegrati ng tablet DISSOLVE 1 TABLET IN MOUTH EVERY 4 TO 6 HOURS FOR 5 DAYS active Not Available Not Available No t Available cefdinir 300 mg capsule active Not Available Not Available N ot Available fluoxetine 20 mg capsule active Not Available Not Available Not Available fluticasone propionate 50 mcg/actuatio n nasal spray,suspen hayley active Not Available Not Available Not Available dicyclomine 10 mg capsule TAKE 1 CAPSULE BY MOUTH 4 TIMES DAILY FOR 3 DAYS active Not Available Not Available N ot Available amoxicillin 875 mg-potassium clavulanate 125 mg tablet TAKE 1 TABLET BY MOUTH TWICE DAILY FOR 7 DAYS active Not Available Not Available No t Available amoxicillin 500 mg-potassium clavulanate 125 mg tablet TAKE 1 TABLET BY MOUTH TWICE DAILY FOR 7 DAYS active Not Available Not Available No t Available oxycodone 5 mg tablet active Not Available Not Available No t Available Premarin 0.625 mg/gram vaginal cream INSERT ONE (1) G TWICE A WEEK BY VAGINAL ROUTE. active Not Available Not Available No t Available metformin ER 1,000 mg tablet,exten ded release 24hr (osmotic) active Not Available Not Available No t Available nitrofuranto in monohydrate/ macrocrystal s 100 mg capsule active Not Available Not Available Not Available OneTouch Verio test strips active Not Available Not Available Not Available OneTouch Delica Plus Lancet 33 gauge active Not Available Not Available Not Available Ozempic 0.25 mg or 0.5 mg (2 mg/3 mL) subcutaneous pen injector active Not Available Not Available Not Available Vitals None Recorded Social History Question Answer Notes LastModified by Organizat ion Details LastModified Time Tobacco Smoking Status Never Smoker Beth Hermosillo-Bandar null, [place] - [facility] - [place] & [place] 09/24/2024 08:03:47 Do You Have An Advance Directive? No Information not available 09/24/2024 Are You Blind Or Do You Have Difficulty Seeing? No Information not available 09/24/2024 What Was The Date Of Your Most Recent Tobacco Screening? 08/27/2024 Information not available 09/24/2024 Are You Passively Exposed To Smoke? No Information not available 09/24/2024 Sex: Female Functional Status Question Answer Note LastModified by Organizat ion Details LastModified Time Do you use any illicit or recreational drugs? No Information not available 09/24/2024 What is your level of alcohol consumption? None Information not available 09/24/2024 Do you or have you ever used smokeless tobacco? Never used smokeless tobacco Information not available 09/24/2024 What is your exercise level? Occasional Information not available 09/24/2024 Mental Status Question Answer Note LastModified by Organization D etails LastModified Time Do you feel stressed (tense, restless, nervous, or anxious, or unable to sleep at night)? [id number] Information not available 09/24/2024 Family History Nothing Reported. Medical History Condition Response Obesity Y Arthritis Y High Cholesterol Y Liver Disease Y Headaches Y Acne Y Back Problems Y Heart Disease Y Hypertension Y Gynecological History Statement/Question Response Abnormal Pap N Current Control Method None Sexually Active? Y Obstetrics History GPAL:G 0 P 0 0 0 0 Past Encounters Encounter ID Performer Location Encounter Start Date Encounter Closed Date Diagnosis/Indication Diagnosis SNOMED-CT Code Diagnosis ICD10 Code Diagnosis Note [id number] DO [facility] [address] [address] 08/27/2024 08:09:57 08/27/2024 09:04:50 Pain of right hip joint [id number] 89249 M25.551 Pain of ri ght knee joint 8076420254 33966 M25.561 Lumbar radiculitis 84658 32010 2743364 M54.16 Osteoarthr itis of right patellofemoral joint 1879377506 4177735 M17.11 [id number] DO DAYRON GIBBS [address] [address] 09/24/2024 07:55:27 09/24/2024 08:24:25 Osteoarthritis of right patellofemoral joint [id number] 7122196 M17.11 Health Concerns Section Related Observation LastModified by Organization Detai ls LastModified Time None Recorded Concern Status LastModified by Organization Details LastModified Time None Recorded Payers Encounter Date Sequence Insurance Name Policy Number Policy Sierra Covered Member ID Sierra Member ID Guarantor Name 09/24/2024 1 [facility] (MEDICAID HMO) Christine Rucker [id number] Christine Rucker Notes Date Note Type Note Provider Name and Address Organization Details Recorded Time 09/24/2024 text/html This is a 53 y/o female here today for follow up OA of patellofemoral joint post RIGHT knee injection on 08.27.24. Patient states the injection is still helping, about 50%. Has continued popping of knee. E3AP ARIAS ABURTO, DO [address] [facility],[address], [place], [address], [facility] - [facility] - [place] & [place] 09/26/2024 13:23:17 OBGyn Episode No OBEpisode recorded.
--- NOTE | 2024-11-15 11:07 | US_ITS ---
FINAL REPORT TECHNIQUE: Sonographic images of the thyroid gland were obtained in the longitudinal and transverse planes. CLINICAL HISTORY: history of thyroid nodules COMPARISON: 05/17/2024 FINDINGS: The right lobe measures 4.7 x 1.7 x 3.1 cm. Multiple nodules are noted in the right thyroid gland, TI-RADS categories 3 and 4, which appear stable when compared to the prior exam. The left lobe measures 3.9 x 1.6 x 1.7 cm. Multiple nodules are noted in the left thyroid gland as well. The previously noted TI-RADS category 4 nodule is now partially cystic, measuring 11 mm in greatest diameter, was previously 10 mm. The remainder of the left thyroid nodules are less than 1 cm in size and appear stable. The isthmus measures 5 mm. There is a left isthmic nodule, which measures 15 mm, was previously 14 mm, stable. IMPRESSION: Previously noted TI-RADS category 4 nodule in the left lobe is now partially cystic, and stable in size, consistent with a TI-RADS category 3 nodule. The other previously noted nodules are stable in size and appearance. Reviewed, Interpreted and Dictated by Ruth Long MD Transcribed by Trudy Bowman Authenticated and [facility]
== END 2024-11-15 23:59 | disposition home or self-care (01) ==
LOC: RAD 11:03
PROVIDERS: PCP Family Medicine; Visit Provider Nurse Practitioner
DX: E04.2 Nontoxic multinodular goiter (principal)
CPT/HCPCS: 76536

== ENCOUNTER 2025-03-06 11:56 | Outpatient (CLI) | payer MEDICAID, SELFPAY ==
--- OUTSIDE RECORDS SUMMARY | 2025-03-06 07:00 | XMS_ITS | Encounter Summary ---
Author Organization [facility] Address [address] [place] [address] Care Team Providers Care Esl Teacher Name Role Phone David Alvarez MD Primary Care Provider [phone] Reason for Referral * Ultrasound (Routine) - Open Specialty Diagnoses / Procedures Referred By Contac t Referred To Contact Radiology Diagnoses Metabolic dysfunction-associated steatotic liver disease (MASLD) Procedures US ELASTOGRAPHY ONLY - LIVER Garrett Whittaker MD [address] [place] [address] Phone: tel: fax: Referral ID Status Reason Start Date Expiration Date Visits Re quested Visits Authorized [id number] Open 03/06/2025 03/06/2026 1 1 * Ultrasound (Routine) - AFF Authorization Not Needed Specialty Diagnoses / Procedures Referred By Contac t Referred To Contact Radiology Diagnoses Metabolic dysfunction-associated steatotic liver disease (MASLD) Procedures US RIGHT UPPER QUADRANT Garrett Whittaker MD [address] [place] [address] Phone: tel: fax: Referral ID Status Reason Start Date Expiration Date Visits Requested Visits Authorized [id number] AFF Authorization Not Needed 03/06/2025 03/06/2026 1 1 Reason for Visit * Reason Comments Follow-up Post colonoscopy fol low up Medication Refill Pantoprazole Encounter Details Date Type Department Care Team (Late st Contact Info) Description 03/06/2025 7:00 AM EDT Office Visit [facility] [address] [place] [address] Garrett Whittaker MD [address] [place] [address] Metabolic dysfunction-associate d steatotic liver disease (MASLD) (Primary Dx); Gastroesophageal reflux disease without esophagitis; Esophageal dysphagia; Adenomatous polyp of colon, unspecified part of colon; Diverticulitis of large intestine without perforation or abscess without bleeding Social History Tobacco Use Types Packs/Day Years Used Date Smoking Tobacco: Never Smokeless Tobacco: Never Alcohol Use Standard Drinks/Week Comments Never 0 (1 standard drink = 0.6 oz pur e alcohol) Comments No Sex and Gender Information Value Date Recorded Sex Assigned at Not on file Legal Sex Female 4:23 PM EDT Gender Identity Not on file Sexual Orientation Not on file documented as of this encounter Last Filed Vital Signs Vital Sign Reading Time Taken Comments Blood Pressure 109/74 03/06/2025 7:01 AM EDT Pulse 82 03/06/2025 7:01 AM EDT Temperature 36.1 C (97 F) 03/06/2025 7:01 AM EDT Respiratory Rate 16 03/06/2025 7:01 AM EDT Oxygen Saturation - - Inhaled Oxygen Concentration - - Weight 94.8 kg (209 lb) 03/06/2025 7:01 AM EDT Height 162.6 cm (5' 4 ) 03/06/2025 7:01 AM EDT Body Mass Index 35.87 03/06/2025 7:01 AM EDT documented in this encounter Ordered Prescriptions Prescription Sig Dispense Quantity Refills Last Filled Start Date End Date pantoprazole (PROTONIX) 40 mg Oral Tablet, Delayed Release (E.C.) Take 1 Tablet by mouth 2 times daily. 180 Tablet 3 03/06/2025 documented in this encounter Plan of Treatment Upcoming Encounters Date Type Department Care Team (Late Contact Info) Description 03/13/2025 7:30 AM EDT Appointment [facility] [address] [place] [address] Garrett Whittaker MD [address] [place] [address] 03/13/2025 8:45 AM EDT [facility]oint[facility] [place] [address] Garrett Whittaker MD [address] [place] [address] Pending Results Name Type Priority Associated Diagnoses Date /Time HEPATIC FUNCTION PANEL Lab Routine Metabolic dysfunction-associated steatotic liver disease (MASLD) 03/06/2025 8:08 AM EDT Scheduled Orders Name Type Priority Associated Diagnoses Orde r Schedule HEPATIC FUNCTION PANEL Lab Routine Metabolic dysfunction-associated steatotic liver disease (MASLD) 1 Occurrences starting 03/06/2025 until 03/06/2026 US RIGHT UPPER QUADRANT Imaging Routine Metabolic dysfunction-associated steatotic liver disease (MASLD) 1 Occurrences starting 03/06/2025 until 03/06/2026 US ELASTOGRAPHY ONLY - LIVER Imaging Routine Metabolic dysfunction-associated steatotic liver disease (MASLD) 1 Occurrences starting 03/06/2025 until 03/06/2026 documented as of this encounter Visit Diagnoses Diagnosis Metabolic dysfunction-associated steatotic liver disease (MASLD)- Primary Gastroesophageal reflux disease without esophagitis Esophageal reflux Esophageal dysphagia Dysphagia, pharyngoesophageal phase Adenomatous polyp of colon, unspecified part of colon Diverticulitis of large intestine without perforation or abscess without bleeding Diverticulitis of colon (without mention of hemorrhage) documented in this encounter Discontinued Medications Medication Sig Discontinue Reason Start Date End Da te pantoprazole (PROTONIX) 40 mg Oral Tablet, Delayed Release (E.C.) Take 1 Tablet by mouth 2 times daily. Reorder 10/17/2024 03/06/2025 documented as of this encounter Historical Medications * This list may reflect changes made after this encounter. TRULICITY 0.75 mg/0.5 mL SubQ Pen Injector Inject 0.075 mg under the skin once a week. 02/18/2025 added in this encounter Care Teams Esl Teacher Relationship Specialty Start Date End Date David Alvarez MD PCP - General Family Medicine 09/08/23 documented as of this encounter
--- OUTSIDE RECORDS SUMMARY | 2025-03-06 07:50 | XMS_ITS | Encounter Summary ---
Author Organization [place] [address] Care Team Providers Care Drosophere Operator Name Role Phone David Alvarez MD Primary Care Provider [phone] Encounter Details Date Type Department Care Team (Latest Contact Info) Description 03/06/2025 7:50 AM EDT Hospital Encounter [facility] [address] [place] [address] [facility], [facility] Metabolic dysfunction-associa [place] steatotic liver disease (MASLD) Social History Tobacco Use Types Packs/Day Years [...] on file documented as of this encounter Plan of Treatment Upcoming Encounters Date Type Department Care Team (Late st Contact Info) Description 03/13/2025 7:30 AM EDT Appointment [facility] [place] [address] Garrett Whittaker MD [address] [place] [address] 03/13/2025 8:45 AM EDT Appointment [facility] [place] [address] Garrett Whittaker MD [address] [place] [address] Pending Results Name Type Priority Associated Diagnoses Date /Time HEPATIC FUNCTION PANEL Lab Routine Metabolic dysfunction-associated steatotic liver disease (MASLD) 03/06/2025 8:08 AM EDT Scheduled Orders Name Type Priority Associated Diagnoses Orde r Schedule HEPATIC FUNCTION PANEL Lab Routine Metabolic dysfunction-associated steatotic liver disease (MASLD) 1 Occurrences starting 03/06/2025 until 03/06/2025 documented as of this encounter Visit Diagnoses Diagnosis Metabolic dysfunction-associated steatotic liver disease (MASLD) documented in this encounter Care Teams Drosophere Operator Relationship Specialty Start Date End Date David Alvarez MD PCP - General Family Medicine 09/08/23 documented as of this encounter
--- OUTSIDE RECORDS SUMMARY | 2025-03-06 12:09 | XMS_ITS | Encounter Summary ---
Author Organization [facility] rology Address [address] [place] [id number] Care Team Providers Care Public Affairs Specialist Name Role Phone David Alvarez MD Primary Care Provider [phone] Encounter Details Date Type Department Care Team ([facility] Contact Info) Description 11/30/2024 Results Follow-Up [facility] [address] [place] [address] Garrett Whittaker MD [address] [place] [address] [facility] ORDER Social History Tobacco Use Types Packs/Day Years [...] Description 03/13/2025 7:30 AM EDT Appointment [facility] [place] [address] Garrett Whittaker MD [address] [place] [address] 03/13/2025 8:45 AM EDT Appointment [facility] [place] [address] Garrett Whittaker MD [address] [place] [address] documented as of this encounter Visit Diagnoses Not on filedocumented in this encounter Care Teams Public Affairs Specialist Relationship Specialty Start Date End Date David Alvarez MD PCP - General Family Medicine 09/08/23 documented as of this encounter
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
--- OUTSIDE RECORDS SUMMARY | 2025-03-06 12:09 | XMS_ITS | Encounter Summary ---
Author Organization [facility] [place] [address] Care Team Providers Care Drug Abuse Treatment Specialist Name Role Phone David Alvarez MD Primary Care Provider [phone] Encounter Details Date Type Department Care Team (Latest Contact Info) Description 03/01/2025 Travel Social History Tobacco Use Types Packs/Day Years [...] Info) Description 03/13/2025 7:30 AM EDT Appointment [facility] [place] [address] Garrett Whittaker MD [address] [place] [address] 03/13/2025 8:45 AM EDT Appointment [facility] [place] [address] Garrett Whittaker MD [address] [place] [address] documented as of this encounter Visit Diagnoses Not on filedocumented in this encounter Care Teams Drug Abuse Treatment Specialist Relationship Specialty Start Date End Date David Alvarez MD PCP - General Family Medicine 09/08/23 documented as of this encounter
[2025-03-06 13:52] LABS: Alanine Aminotransferase 19 U/L (12-78); Albumin Level 4.6 g/dl (3.5-5.0); Albumin/Globulin Ratio 1.4 (1.1-1.8); Alkaline Phosphatase 91 U/L (38-126); Anion Gap 14.4 mEq/L (5-15); Aspartate Amino Transferase 19 U/L (14-36); Bilirubin,Total 2.2 mg/dl (0.2-1.3); Blood Urea Nitrogen 10 mg/dl (7-17); Calcium 10.2 mg/dl (8.4-10.2); Carbon Dioxide 26 mmol/L (22.0-30.0); Chloride 103 mmol/L (98-107); Creatinine,Serum 0.90 mg/dl (0.52-1.04); Estimated Glomerular Filt Rate 66 ml/min (>60); GFR (African American) 80 ML/MIN (>60); Globulin 3.2 g/dL (1.3-3.2); Glucose 113 mg/dl (74-100); Potassium 4.4 mmoL/L (3.5-5.1); Sodium 139 mmol/L (136-145); Total Protein,Serum 7.8 g/dl (6.3-8.2)
[2025-03-06 13:54] LABS: Hemoglobin A1C 6.3 % (4.0-6.0)
[2025-03-06 14:41] LABS: Vitamin B12 574 pg/mL (239-931)
== END 2025-03-06 23:59 | disposition home or self-care (01) ==
LOC: LAB 11:56
PROVIDERS: PCP Family Medicine; Visit Provider Nurse Practitioner
DX: E11.9 Type 2 diabetes mellitus without complications (principal); Z11.59 Encounter for screening for other viral diseases; Z86.39 Personal history of other endocrine, nutritional and metabolic disease
CPT/HCPCS: 36415; 80053; 82607; 83036; 87389

== ENCOUNTER 2025-04-16 10:22 | Outpatient (CLI) | payer MEDICAID, SELFPAY ==
--- OUTSIDE RECORDS SUMMARY | 2025-03-06 07:00 | XMS_ITS | Encounter Summary ---
Author Organization [facility] Address [address] [place] [address] Care Team Providers Care Homoeopath Name Role Phone David Alvarez MD Primary Care Provider [phone] Reason for Referral * Ultrasound (Routine) - Closed Specialty Diagnoses / Procedures Referred By Contac t Referred To Contact Radiology Diagnoses Metabolic dysfunction-associated steatotic liver disease (MASLD) Procedures US ELASTOGRAPHY ONLY - LIVER Garrett Whittaker MD [address] [place] [address] Phone: tel: fax: Referral ID Status Reason Start Date Expiration Date Visits Re quested Visits Authorized [id number] Closed 03/06/2025 03/06/2026 1 1 * Ultrasound (Routine) - AFF Authorization Not Needed Specialty Diagnoses / Procedures Referred By Contac t Referred To Contact Radiology Diagnoses Metabolic dysfunction-associated steatotic liver disease (MASLD) Procedures US RIGHT UPPER QUADRANT Garrett Whittaker MD [address] [place] [address] Phone: tel: fax: Referral ID Status Reason Start Date Expiration Date Visits Requested Visits Authorized [id number] AFF Authorization Not Needed 03/06/2025 03/06/2026 1 1 Reason for Visit * Reason Comments Follow-up Post colonoscopy fol low up Medication Refill Pantoprazole Encounter Details Date Type Department Care Team (Late st Contact Info) Description 03/06/2025 7:00 AM EDT Office Visit [facility] [address] [place] [address] Garrett Whittaker MD [address] [place] [address] Metabolic dysfunction-associate d steatotic liver [...] Tablet 3 03/06/2025 documented in this encounter Progress Notes * Garrett Whittaker MD - 03/06/2025 7:00 AM EDT Images from the original note were not included. Subjective Subjective: Patient ID: Christine Rucker is a 54 y.o. female. Chief Complaint Patient presents with Follow-up Post colonoscopy follow up Medication Refill Pantoprazole HPI I saw Christine Rucker in follow-up today. Christine is a very pleasant 54-year-old female who I have followed for a history of reflux disease, fatty liver, and colon polyps. She did have a bout of acute diverticulitis. She returned 11-28-24 and underwent a full colonoscopy which did show five small polyps which were a mixture of adenomas and hyperplastic polyps. She had a few diverticula and internalhemorrhoids. There was no residual inflammation. I have managed her on pantoprazole, reflux precautions, a weight losing diet, and vitamin E. For her diverticulitis, I started her on a high fiber regimen. She does have a history of diabetes diagnosed in the last year. Christine returns and reports that she has been doing much better from a GI standpoint. She has been eating a bowl of raisin bran every day and she describes her bowel pattern as one normal soft stool per day. She started on Trulicity six months ago which gave her some constipation. She will take MiraLAX the day she gets her Trulicity and the day afterwards. She has had no recurrence of her abdominal pain. There has been no rectal bleeding. She has had no black stools. Her reflux symptoms have been well controlled on the pantoprazole but it has not been improved for b.i.d. dosing. If she takes it once a day she will have breakthrough. She has had no dysphagia or odynophagia. She has had some d ecreased oral intake on the Trulicity and she has lost six pounds. She denies abdominal pain and she has had no nausea or vomiting. Patients past medical, family and social histories were reviewed and updated. There were no changesexcept as noted. Review of Systems Constitutional: Negative. HENT: Negative. Eyes: Negative. Respiratory: Negative. Cardiovascular: Negative. Gastrointestinal: Negative. Endocrine: Negative. Genitourinary: Negative. Musculoskeletal: Negative. Skin: Negative. Allergic/Immunologic: Negative. Neurological: Negative. Hematological: Negative. Psychiatric/Behavioral: Negative. Objective Objective: Vitals: 03/06/25 0701 BP: 109/74 BP Location: Left arm Patient Position: Sitting Pulse: 82 Resp: 16 Temp: 97 ??F (36.1 ??C) TempSrc: Forehead Weight: 209 lb (94.8 kg) Height: 5' 4 (1.626 m) Body mass index is 35.87 kg/m??. Physical Exam Vitals and nursing note reviewed. Constitutional: General: She is not in acute distress. Appearance: Normal appearance. She is not ill-appearing. HENT: Head: Normocephalic and atraumatic. Right Ear: External ear normal. Left Ear: External ear normal. Nose: Nose normal. Mouth/Throat: Mouth: Mucous membranes are moist. Pharynx: Oropharynx is clear. Eyes: General: No scleral icterus. Extraocular Movements: Extraocular movements intact. Conjunctiva/sclera: Conjunctivae normal. Pupils: Pupils are equal, round, and reactive to light. Cardiovascular: Rate and Rhythm: Normal rate and regular rhythm. Pulses: Normal pulses. Heart sounds: Normal heart sounds. Pulmonary: Effort: Pulmonary effort is normal. Breath sounds: Normal breath sounds. Abdominal: General: Bowel sounds are normal. There is no distension. Palpations: Abdomen is soft. There is no mass. Tenderness: There is no abdominal tenderness. There is no guarding or rebound. Musculoskeletal: General: No swelling. Normal range of motion. Cervical back: Normal range of motion and neck supple. Right lower leg: No edema. Left lower leg: No edema. Skin: General: Skin is warm and dry. Capillary Refill: Capillary refill takes less than 2 seconds. Coloration: Skin is not jaundiced. Findings: No rash. Neurological: General: No focal deficit present. Mental Status: She is alert and oriented to person, place, and time. Mental status is at baseline. Psychiatric: Mood and Affect: Mood normal. Behavior: Behavior normal. Thought Content: Thought content normal. Judgment: Judgment normal. Assessment and Plan: Diagnoses and all orders for this visit: Gastroesophageal reflux disease without esophagitis Esophageal dysphagia Adenomatous polyp of colon, unspecified part of colon Diverticulitis of large intestine without perforation or abscess without bleeding Christine has four issues which need to be addressed. She has the history of reflux disease which hasbeen well controlled on the pantoprazole. We will need to get it preauthorized for b.i.d. dosing. She did not have Haro's and does not need to be in a surveillance protocol. If her dysphagia returns, then I would anticipate repeating the dilation. The second issue is her history of fatty liver. I will repeat her liver tests today. I will do an ultrasound and a FibroScan to establish a baseline study. I did review treatment including weight loss, exercise, and a low carb diet. She is already taking vitamin E and does not drink alcohol. I did suggest that she drink one or two cups of coffee a day. Depending on the results of her FibroScan, she could be considered for Rezdiffra. A third issue is her history of diverticulitis and she just had a few diverticula on her colonoscopy. I will continue her high fiber regimen. If she does have a flare, I would start her on a clear liquid diet. I will continue her MiraLAX as well. Finally, she has the history of colon polyps and she will need a colonoscopy in 2030. I will manageher expectantly at this point and tentatively I will plan to see her in follow-up in one year. We will be in touch with her with the results of her liver tests. Thank you, Marcio, for allowing me to participate in the care of Christine. If you have any questions,please do not hesitate to contact me any time. No follow-ups on file. documented in this encounter Plan of Treatment Not on file documented as of this encounter Results * US ELASTOGRAPHY ONLY - LIVER (03/13/2025 7:13 AM EDT) Anatomical Region Laterality Modality Abdomen Ultrasound 03/13/2025 7:13 AM EDT Impressions 03/13/2025 7:31 AM EDT Fibrosis category: Score below 5, Correlates with category F0-F1, indicating absent or mild fibrosis. - Note: Radiology results need to be interpreted within a comprehensive clinical context. If you have questions about the radiology report, please contact the office of the ordering clinician. Narrative 03/13/2025 7:31 AM EDT LIVER ELASTOGRAPHY, 03/13/2025 7:13 AM CLINICAL HISTORY: K76.0-Fatty (change of) liver, not elsewhere [id number]. Suspected liver fibrosis. COMPARISON: None. PROCEDURE COMMENTS: Liver stiffness measurements were obtained using a Siemens Katerin system with at least 10 measurements using a PARTHA (1-3.5MHZ) probe. Sent to PACS along with tech notes for radiologist review. FINDINGS: Elastography: IQR/median ratio: <= 0.3 indicating satisfactory quality data set. Median (kPa): 4.0 *The degree of liver fibrosis may be overestimated in the setting of markedly elevated LFTs, non-fasting state, CHF, etc. Incidental: No focal lesions visible. Procedure Note Desmond Sanchez MD - 03/13/2025 LIVER ELASTOGRAPHY, 03/13/2025 7:13 AM CLINICAL HISTORY: K76.0-Fatty (change of) liver, not elsewhere [id number]. Suspected liver fibrosis. COMPARISON: None. PROCEDURE COMMENTS: Liver stiffness measurements were obtained using [employer] Katerin system with at least 10 measurements using a PARTHA (1-3.5MHZ) probe. Sent to PACS along with tech notes for radiologist review. FINDINGS: Elastography: IQR/median ratio: <= 0.3 indicating satisfactory qualitydata set. Median (kPa): 4.0 *The degree of liver fibrosis may be overestimated in the setting ofmarkedly elevated LFTs, non-fasting state, CHF, etc. Incidental: No focal lesions visible. IMPRESSION: Fibrosis category: Score below 5, Correlates with category F0-F1, indicating absent or mild fibrosis. - Note: Radiology results need to be interpreted within a comprehensiveclinical context. If you have questions about the radiology report, please contactthe office of the ordering clinician. us Garrett Whittaker MD [facility] US ORDERABLES Final Result * US RIGHT UPPER QUADRANT (03/13/2025 6:37 AM EDT) Anatomical Region Laterality Modality Abdomen Ultrasound 03/13/2025 6:37 AM EDT Impressions 03/13/2025 6:49 AM EDT Fatty change of the liver. No focal hepatic lesions. - Note: Radiology results need to be interpreted within a comprehensive clinical context. If you have questions about the radiology report, please contact the office of the ordering clinician. Narrative 03/13/2025 6:49 AM EDT US RIGHT UPPER QUADRANT, 03/13/2025 6:37 AM CLINICAL HISTORY: K76.0-Fatty (change of) liver, not elsewhere [id number]. COMPARISON: September 12, 2021 PROCEDURE COMMENTS: Ultrasound examination of the right upper quadrant performed by the technologist. Sent to PACS along with tech notes for radiologist review. FINDINGS: Gallbladder: Surgically absent Hernandez's sign: Negative. Liver: Mildly coarsened echotexture with normal size. No focal hepatic lesions. There is mild increased echogenicity of the liver diffusely. Common bile duct: Measures 5 mm. (Normal is 6mm or less. If there has been cholecystectomy, normal is 10mm or less.) Pancreas: Visualized portions are normal. Other: Right kidney non-hydronephrotic. Procedure Note Desmond Sanchez MD - 03/13/2025 US RIGHT UPPER QUADRANT, 03/13/2025 6:37 AM CLINICAL HISTORY: K76.0-Fatty (change of) liver, not elsewhere [id number]. COMPARISON: September 12, 2021 PROCEDURE COMMENTS: Ultrasound examination of the right upper quadrantperformed by the technologist. Sent to PACS along with tech notes for radiologistreview. FINDINGS: Gallbladder: Surgically absent Hernandez's sign: Negative. Liver: Mildly coarsened echotexture with normal size. No focal hepaticlesions. There is mild increased echogenicity of the liver diffusely. Common bile duct: Measures 5 mm. (Normal is 6mm or less. If there hasbeen cholecystectomy, normal is 10mm or less.) Pancreas: Visualized portions are normal. Other: Right kidney non-hydronephrotic. IMPRESSION: Fatty change of the liver. No focal hepatic lesions. - Note: Radiology results need to be interpreted within a comprehensiveclinical context. If you have questions about the radiology report, please contactthe office of the ordering clinician. Garrett Whittaker MD [facility] ORDERABLES Final Result * (ABNORMAL) HEPATIC FUNCTION PANEL (03/06/2025 8:08 AM EDT) Total Protein 7.6 6.4 - 8.3 gm/dL 03/06/2025 1:05 PM EDT [facility] Hyphen 8, [facility] Albumin 4.0 3.5 - 5.2 gm/dL 03/06/2025 1:05 PM EDT [facility], [facility] Bili Direct 0.2 0.0 - 0.3 mg/dL 03/06/2025 1:05 PM EDT [facility] [employer], [facility] Bili Total 1.5(H) 0.2 - 1.3 mg/dL 03/06/2025 1:05 PM EDT [facility] [employer], [facility] AST 15 <=40 U/L 03/06/2025 1:05 PM EDT [facility] [employer], [facility] ALT 16 <=41 U/L 03/06/2025 1:05 PM EDT [facility] [employer], [facility] Alk Phos 82 36 - 123 U/L 03/06/2025 1:05 PM EDT [facility] [employer], [facility] Blood VENOUS BLOOD / Unknown Venipuncture / Unknown 03/06/2025 8:08 AM EDT 03/06/2025 8:08 AM EDT us Garrett Whittaker MD CHEMISTRY ORDERABLES Final Res ult [facility] [address], [facility] [address] [facility] , [place] [address] documented in this encounter Visit Diagnoses Diagnosis Metabolic dysfunction-associated steatotic liver disease (MASLD)- Primary Gastroesophageal reflux disease without esophagitis Esophageal reflux Esophageal dysphagia Dysphagia, pharyngoesophageal phase Adenomatous polyp of colon, unspecified part of colon Diverticulitis of large intestine without perforation or abscess without bleeding Diverticulitis of colon (without mention of hemorrhage) Metabolic dysfunction-associated steatotic liver disease (MASLD) Metabolic dysfunction-associated steatotic liver disease (MASLD) documented in this encounter Discontinued Medications Medication [...] 02/18/2025 added in this encounter Care Teams Homoeopath Relationship Specialty Start Date End Date David Alvarez MD PCP - General Family Medicine 09/08/23 documented as of this encounter
--- OUTSIDE RECORDS SUMMARY | 2025-03-06 07:50 | XMS_ITS | Encounter Summary ---
Author Organization [place] [address] Care Team Providers Care Assembler And Tester Electronics Name Role Phone David Alvarez MD Primary Care Provider [phone] Encounter Details Date Type Department Care Team (Latest Contact Info) Description 03/06/2025 7:50 AM EDT - 03/06/2025 11:59 PM EDT Hospital Encounter [facility] [address] [place] [address] [facility], [facility] Metabolic dysfunction-associa [place] steatotic liver disease (MASLD) Discharge Disposition: Home or Self Care Social History Tobacco Use Types Packs/Day Years [...] on file documented as of this encounter Medications at Time of Discharge atorvastatin (LIPITOR) 40 mg Oral Tablet 11/03/2021 bisoprolol (ZEBETA) 5 mg Oral Tablet 11/03/2021 cyclobenzaprine (FLEXERIL) 10 mg Oral Tablet 11/03/2021 EPINEPHrine (EPIPEN) 0.3 mg/0.3 mL Inj Auto-InjectorInd ications:Diarrhe a, unspecified type,Esophageal dysphagia,Gastro esophageal reflux disease without esophagitis,Gene ralized abdominal pain,Adenomatous polyp of colon, unspecified part of colon,Epigastric pain 01/05/2022 gabapentin (NEURONTIN) 300 mg Oral CapsuleIndicatio ns:Diarrhea, unspecified type,Esophageal dysphagia,Gastro esophageal reflux disease without esophagitis,Gene ralized abdominal pain,Adenomatous polyp of colon, unspecified part of colon,Epigastric pain 10/09/2021 glimepiride (AMARYL) 2 mg Oral Tablet 11/15/2024 hydrocortisone (ANUSOL-HC) 25 mg Rect Suppository 1 suppository BID x 10 days 07/23/2021 meloxicam (MOBIC) 15 mg Oral Tablet Take 15 mg by mouth daily. 09/24/2024 oxyCODONE (ROXICODONE) 5 mg Oral Tablet 11/07/2021 OZEMPIC 0.25 mg or 0.5 mg (2 mg/3 mL) SubQ Pen Injector inject 0.25 mg subcutaneously once a week 10/13/2024 pantoprazole (PROTONIX) 40 mg Oral Tablet, Delayed Release (E.C.) Take 1 Tablet by mouth 2 times daily. 180 Tablet 3 03/06/2025 pioglitazone (ACTOS) 45 mg Oral Tablet 11/15/2024 polyethylene glycol (GOLYTELY;NULYTE LY) 236-22.74-6.74 -5.86 gram Oral Recon SolnIndications: Diarrhea, unspecified type Take 1 kit per physician instructions 1 Each 01/29/2022 potassium chloride SA (KLOR-CON) 20 mEq Oral Tab Sust.Rel. Particle/Crystal 10/19/2021 TRULICITY 0.75 mg/0.5 mL SubQ Pen Injector Inject 0.075 mg under the skin once a week. 02/18/2025 valACYclovir (VALTREX) 1 gram Oral Tablet documented as of this encounter Discharge Disposition Disposition Code Departure Means Destination Home or Self Care documented in this encounter Plan of Treatment Not on file documented as of this encounter Procedures Procedure Name Priority Date/Time Associated Diagnosis Comments HEPATIC FUNCTION PANEL Routine 03/06/2025 8:08 AM EDT Metabolic dysfunction-associa [place] steatotic liver disease (MASLD) documented in this encounter Results * (ABNORMAL) HEPATIC FUNCTION PANEL (03/06/2025 8:08 AM EDT) Pathologist [facility] Total Protein 7.6 6.4 - 8.3 gm/dL 03/06/2025 1:05 PM EDT [facility] Albumin 4.0 3.5 - 5.2 gm/dL 03/06/2025 1:05 PM EDT [facility] Bili Direct 0.2 0.0 - 0.3 mg/dL 03/06/2025 1:05 PM EDT [facility] Bili Total 1.5(H) 0.2 - 1.3 mg/dL 03/06/2025 1:05 PM EDT [facility] AST 15 <=40 U/L 03/06/2025 1:05 PM EDT [facility] ALT 16 <=41 U/L 03/06/2025 1:05 PM EDT [facility] Alk Phos 82 36 - 123 U/L 03/06/2025 1:05 PM EDT [facility] Blood VENOUS BLOOD / Unknown Venipuncture / Unknown 03/06/2025 8:08 AM EDT 03/06/2025 8:08 AM EDT us Garrett Whittaker MD CHEMISTRY ORDERABLES Final Res ult [facility], [facility] [address] [facility] , [place] [address] documented in this encounter Visit Diagnoses Diagnosis Metabolic dysfunction-associated steatotic liver disease (MASLD) documented in this encounter Care Teams Assembler And Tester Electronics Relationship Specialty Start Date End Date David Alvarez MD PCP - General Family Medicine 09/08/23 documented as of this encounter
--- OUTSIDE RECORDS SUMMARY | 2025-03-13 05:56 | XMS_ITS | Encounter Summary ---
Author Organization [place] [address] Care Team Providers Care K 9 Police Officer Name Role Phone David Alvarez MD Primary Care Provider [phone] Reason for Referral * Ultrasound (Routine) - Closed Specialty Diagnoses / Procedures Referred By Contac t Referred To Contact Radiology Diagnoses Metabolic dysfunction-associated steatotic liver disease (MASLD) Procedures US ELASTOGRAPHY ONLY - LIVER Garrett Whittaker MD [address] [place] [address] Phone: tel: fax: Referral ID Status Reason Start Date Expiration Date Visits Re quested Visits Authorized [id number] Closed 03/06/2025 03/06/2026 1 1 Reason for Visit * Ultrasound (Routine) - Closed Specialty Diagnoses / Procedures Referred By Contac t Referred To Contact Radiology Diagnoses Metabolic dysfunction-associated steatotic liver disease (MASLD) Procedures US ELASTOGRAPHY ONLY - LIVER Garrett Whittaker MD [address] [place] [address] Phone: tel: fax: Referral ID Status Reason Start Date Expiration Date Visits Re quested Visits Authorized [id number] Closed 03/06/2025 03/06/2026 1 1 Encounter Details Date Type Department Care Team (Latest Contact Info) Description 03/13/2025 5:56 AM EDT - 03/13/2025 11:59 PM EDT Hospital Encounter [place] [facility] [place] [address] Garrett Whittaker MD [address] [place] [address] Metabolic dysfunction-associa juan diego steatotic liver disease [...] Procedure Name Priority Date/Time Associated Diagnosis Comments US ELASTROGRAPHY ONLY - LIVER Routine 03/13/2025 7:13 AM EDT Metabolic dysfunction-associ ated steatotic liver disease (MASLD) documented in this encounter Results * US ELASTOGRAPHY ONLY [...] HISTORY: K76.0-Fatty (change of) liver, not elsewhere [id number]. Suspected liver fibrosis. COMPARISON: None. PROCEDURE COMMENTS: [...] HISTORY: K76.0-Fatty (change of) liver, not elsewhere [id number]. Suspected liver fibrosis. COMPARISON: None. PROCEDURE COMMENTS: Liver stiffness measurements were obtained using EximForce system with at least 10 measurements using [...] the ordering clinician. us Garrett Whittaker MD [facility] US ORDERABLES Final Result documented in this encounter Visit Diagnoses Diagnosis Metabolic dysfunction-associated steatotic liver disease (MASLD) documented in this encounter Care Teams K 9 Police Officer Relationship Specialty Start Date End Date David Alvarez MD PCP - General Family Medicine 09/08/23 documented as of this encounter
--- OUTSIDE RECORDS SUMMARY | 2025-03-13 05:56 | XMS_ITS | Encounter Summary ---
Author Organization [place] [address] Care Team Providers Care Field Sales Manager Name Role Phone David Alvarez MD Primary Care Provider [phone] Reason for Referral * Ultrasound (Routine) - AFF Authorization Not Needed Specialty Diagnoses / Procedures Referred By Contac t Referred To Contact Radiology Diagnoses Metabolic dysfunction-associated steatotic liver disease (MASLD) Procedures US RIGHT UPPER QUADRANT Garrett Whittaker MD [address] [place] [address] Phone: tel: fax: Referral ID Status Reason Start Date Expiration Date Visits Requested Visits Authorized [id number] AFF Authorization Not Needed 03/06/2025 03/06/2026 1 1 Reason for Visit * Ultrasound (Routine) - AFF Authorization Not Needed Specialty Diagnoses / Procedures Referred By Contac t Referred To Contact Radiology Diagnoses Metabolic dysfunction-associated steatotic liver disease (MASLD) Procedures US RIGHT UPPER QUADRANT Garrett Whittaker MD [address] [place] [address] Phone: tel: fax: Referral ID Status Reason Start Date Expiration Date Visits Requested Visits Authorized [id number] AFF Authorization Not Needed 03/06/2025 03/06/2026 1 1 Encounter Details Date Type Department Care Team (Latest Contact Info) Description 03/13/2025 5:56 AM EDT - 03/13/2025 11:59 PM EDT Hospital Encounter [place] [facility] [address] [place], [place] [id number] Garrett Whittaker MD [address] [place] [address] Metabolic dysfunction-associa juan diego steatotic [...] Name Priority Date/Time Associated Diagnosis Comments US RIGHT UPPER QUADRANT Routine 03/13/2025 6:37 AM EDT Metabolic dysfunction-associa juan diego steatotic liver disease (MASLD) documented in this encounter Results * US RIGHT UPPER QUADRANT (03/13/2025 6:37 [...] HISTORY: K76.0-Fatty (change of) liver, not elsewhere [id number]. COMPARISON: September 12, 2021 PROCEDURE COMMENTS: Ultrasound [...] HISTORY: K76.0-Fatty (change of) liver, not elsewhere [id number]. COMPARISON: September 12, 2021 PROCEDURE COMMENTS: Ultrasound [...] the ordering clinician. us Garrett Whittaker MD [facility] US ORDERABLES Final Result documented in this encounter Visit Diagnoses Diagnosis Metabolic dysfunction-associated steatotic liver disease (MASLD) documented in this encounter Care Teams Field Sales Manager Relationship Specialty Start Date End Date David Alvarez MD PCP - General Family Medicine 09/08/23 documented as of this encounter
--- NOTE | 2025-04-16 10:24 | XR_ITS ---
FINAL REPORT CLINICAL HISTORY: evaluate right foot pain FINDINGS: AP, oblique and lateral views of the right foot were obtained. There is no prior exam for comparison. There are old fracture deformities of the distal 2nd and 4th metatarsals. There is no acute fracture or dislocation. There is a surgical screw in the medial malleolus. Mild degenerative disease is noted. Soft tissues are unremarkable. IMPRESSION: Degenerative/chronic changes without acute osseous abnormality of the right foot. Reviewed, Interpreted and Dictated by Ruth Long MD Transcribed by Shonda Cohen Authenticated and [facility]
--- NOTE | 2025-04-16 10:24 | XR_ITS ---
FINAL REPORT CLINICAL HISTORY: evaluate left foot pain FINDINGS: AP, oblique and lateral views of the left foot were obtained. There is no prior exam for comparison. There is a surgical screw between the medial cuneiform and base of the 2nd metatarsal. There are deformities of the distal 2nd and 3rd metatarsals consistent with old fractures. There is no acute fracture or dislocation. Multi joint degenerative disease is noted. Soft tissues are unremarkable. IMPRESSION: Degenerative/chronic changes without acute osseous abnormality of the left foot. Reviewed, Interpreted and Dictated by Ruth Long MD Transcribed by Shonda Cohen Authenticated and [facility]
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
--- OUTSIDE RECORDS SUMMARY | 2025-04-16 10:25 | XMS_ITS | Encounter Summary ---
Author Organization [facility] Address [address] [place] [address] Care Team Providers Care Aeronautical Project Engineer Name Role Phone David Alvarez MD Primary Care Provider [phone] Encounter Details Date Type Department Care Team (Latest Contact Info) Description 03/13/2025 Results Follow-Up [facility] [address] [place] [address] Garrett Whittaker MD [address] [place] [address] US ELASTOGRAPHY ONLY - LIVER Social History Tobacco Use Types Packs/Day Years [...] as of this encounter Plan of Treatment Not on file documented as of this encounter Visit Diagnoses Not on filedocumented in this encounter Care Teams Aeronautical Project Engineer Relationship Specialty Start Date End Date David Alvarez MD PCP - General Family Medicine 09/08/23 documented as of this encounter
--- OUTSIDE RECORDS SUMMARY | 2025-04-16 10:25 | XMS_ITS | Clinical Summary ---
Author Organization [facility] Address [address] [address] [place] [address] Phone Care Team Providers Care Cna Hha Name Role Phone David Alvarez MD Primary Care Provider [phone] Allergies Active Allergy Reactions Criticality Noted Date [...] 1 kit per physician instructions 1 Each 07/29/20 22 Active Additional Information Patient not taking.Reason: [...] 0.25 mg subcutaneously once a week 10/14/19 Active meloxicam (MOBIC) 15 mg Oral Tablet [...] daily. 180 Tablet 3 03/06/20 25 Active Active Problems Problem Noted Date Diagnosed Date [...] & Plan (09/09/2021 3:34 PM EST): Episodic. University down both sides of her abdomen. Her [...] 2:02 PM EDT): Isolated indirect elevation c/w [place]. Assessment & Plan (09/09/2021 3:35 PM EST): Indirect elevation with other LFT's normal. 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 She did have elevated lipase twice recently but no CT evidence of pancreatitis. EGD without ulcer. PLan as below. Diverticular disease of large intestine 05/16/20 19 Family history of colonic polyps 05/16/2019 Encounters Date Type Department Care Team Description 03/13/2025 5:56 AM EDT - 03/13/2025 11:59 PM EDT Hospital Encounter [facility] [place] [address] Garrett Whittaker MD Metabolic dysfunction-associat ed steatotic liver disease (MASLD) Discharge Disposition: Home or Self Care 03/13/2025 5:56 AM EDT - 03/13/2025 11:59 PM EDT Hospital Encounter [facility] [place] [address] Garrett Whittaker MD Metabolic dysfunction-associat ed steatotic liver disease (MASLD) Discharge Disposition: Home or Self Care 03/13/2025 Results Follow-Up [facility] [address] [place] [address] Garrett Whittaker MD US ELASTOGRAPHY ONLY - LIVER 03/06/2025 7:50 AM EDT - 03/06/2025 11:59 PM EDT Hospital Encounter [facility] [address] [place] [address] Click, [facility] Metabolic dysfunction-associat ed steatotic liver disease (MASLD) Discharge Disposition: Home or Self Care 03/06/2025 7:00 AM EDT Office Visit [facility] [address] [place] [address] Garrett Whittaker MD Metabolic dysfunction-associat ed steatotic liver disease (MASLD) (Primary Dx); Gastroesophageal reflux disease without esophagitis; Esophageal dysphagia; Adenomatous polyp of colon, unspecified part of colon; Diverticulitis of large intestine without perforation or abscess without bleeding 03/01/2025 Travel from Last 3 Months Surgical History Surgery Date Site/Laterality Comments AR TOTAL ABDOMINAL HYSTERECT W/WO RMVL TUBE OVARY [...] on file Sexual Orientation Not on file Last Filed Vital Signs Vital Sign Reading [...] 03/06/2025 7:01 AM EDT Plan of Treatment Health Maintenance Due Date Last Done Comments Annual Wellness Exam 11/13/1975 Breast Cancer Screening 2012 Cologuard 2017 FIT 2017 Sigmoidoscopy 2017 Virtual Colonography 2017 Pneumococcal Vaccine 50+ (1 of 1 - PCV) 2022 Zoster (1 of 2) 2022 DTaP/TDaP/Td (2 - Td or Tdap) 04/24/2024 04/24/2014 COVID-19 Vaccine (1 - 2023-2 5 season) 2025 Influenza Vaccine (#1) 2025 Colon Cancer Screening 11/27/2029 Colonoscopy 11/27/2029 11/28/2024, 02/03/2022, 05/16/2019 Hepatitis B Vaccine Completed 02/16/2006, 08/26/2005, 07/21/2005 Meningococcal B Vaccine Aged Out No l onger eligible based on patient's age to complete this topic Procedures Procedure Name Priority Date/Time Associated Diagnosis Comments US ELASTROGRAPHY ONLY - LIVER Routine 03/13/2025 7:13 AM EDT Metabolic dysfunction-[facility] steatotic liver disease (MASLD) US RIGHT UPPER QUADRANT Routine 03/13/2025 6:37 AM EDT Metabolic dysfunction-associa [place] steatotic liver disease (MASLD) HEPATIC FUNCTION PANEL Routine 8:08 AM EDT Metabolic dysfunction-associa [place] steatotic liver disease (MASLD) COLONOSCOPY Routine 11/28/2024 7:50 AM EDT Adenomatous polyp of colon, unspecified part of colon Diverticulitis of large intestine without perforation or abscess without bleeding from Last 3 Months or Most Recently Relevant to Health Maintenance Results * US ELASTOGRAPHY ONLY - LIVER [...] HISTORY: K76.0-Fatty (change of) liver, not elsewhere [id number]. Suspected liver fibrosis. COMPARISON: None. PROCEDURE COMMENTS: [...] HISTORY: K76.0-Fatty (change of) liver, not elsewhere [id number]. Suspected liver fibrosis. COMPARISON: None. PROCEDURE COMMENTS: Liver stiffness measurements were obtained using [employer] Systemsa system with at least 10 measurements using [...] the ordering clinician. us Garrett Whittaker MD IM US ORDERABLES Final Result * US RIGHT [...] HISTORY: K76.0-Fatty (change of) liver, not elsewhere [id number]. COMPARISON: September 12, 2021 PROCEDURE COMMENTS: Ultrasound [...] HISTORY: K76.0-Fatty (change of) liver, not elsewhere [id number]. COMPARISON: September 12, 2021 PROCEDURE COMMENTS: Ultrasound [...] of the ordering clinician. Garrett Whittaker MD [facility] US ORDERABLES Final Result * (ABNORMAL) HEPATIC FUNCTION [...] <=41 U/L 03/06/2025 1:05 PM EDT PREFERRED [employer] 82 36 - 123 U/L 03/06/2025 1:05 PM EDT [employer] Blood VENOUS BLOOD / Unknown Venipuncture / Unknown 03/06/2025 8:08 AM EDT 03/06/2025 8:08 AM EDT us Garrett Whittaker MD CHEMISTRY ORDERABLES Final Res ult [employer] [address] [facility] , [address] [place] [id number] * COLONOSCOPY (11/28/2024 7:50 AM EDT) Anatomical [...] of bowel preparation was evaluated using the [place] Bowel Preparation Scale with scores of: right [...] Most Recently Relevant to Health Maintenance Insurance [address] [facility] [facility] [place] [id number] [place] [facility] [id number] MDR Care Teams Cna Hha Relationship Specialty Start Date End Date David Alvarez MD PCP - General Family Medicine 09/08/23
--- OUTSIDE RECORDS SUMMARY | 2025-04-16 10:25 | XMS_ITS | Encounter Summary ---
Author Organization [facility] [place] [address] Care Team Providers Care Doorshaker Name Role Phone David Alvarez MD Primary Care Provider [phone] Encounter Details Date Type Department Care Team [...] on filedocumented in this encounter Care Teams Doorshaker Relationship Specialty Start Date End Date David Alvarez MD PCP - General Family Medicine 09/08/23 documented as of this encounter
== END 2025-04-16 23:59 | disposition home or self-care (01) ==
LOC: RAD 10:22
PROVIDERS: PCP Family Medicine; Visit Provider Podiatrist
DX: M19.072 Primary osteoarthritis, left ankle and foot (principal); M19.071 Primary osteoarthritis, right ankle and foot; Z96.698 Presence of other orthopedic joint implants
CPT/HCPCS: 73630

== ENCOUNTER 2025-05-17 08:40 | Outpatient (CLI) | payer MEDICAID, SELFPAY ==
--- OUTSIDE RECORDS SUMMARY | 2025-05-17 08:43 | XMS_ITS | Data Portability ---
Author Organization [facility] Address [address] [place] [address] Care Team Providers Care Vp Lab Name Role Phone ANGELIKA ALVAREZ Primary Care Provider JAMIN AGUDELO [employer] Assessment Encounter Date Assessment Date Assessment LastModified by Organization Details LastModified Time 05/25/2023 05/25/2023 Annual gynecological exam performed. Patient will come back in a year unless there are new symptoms. Not available 05/25/2023 08:47:13 06/05/2024 06/05/2024 53 yo here for annual TRAINING MGR exam Not available 06/21/2024 11:07:16 Plan of Treatment Reminders Order Date Submit Date Provider Last Modified By Organization Details Last Modified Time Details Appointments ANNUAL TRAINING MGR 20 min 2024 03:00P M Ana Laura Levy MD Not available Not available Not available Lab culture, urine 2023 024 [email or web address] 7 [facility], [address], [place], [place], [address], 07/05/2024 09:49:03 cytology report, thin prep, smear or scraping, cervical or vaginal 2023 024 FRANCISCO JAVIER [facility], [address], [place], [place], [address], 06/11/2024 15:10:08 bacterial vaginosis + vaginitis panel, vaginal 2023 024 FRANCISCO JAVIER [facility], [address], [place], [place], [address], 01/27/2024 20:09:22 urinalysi s, dipstick 2022 023 lshower [facility], [address], [place], [place], [address], 05/26/2023 17:28:43 culture, urine 2022 023 FRANCISCO JAVIER [facility], [address], [place], [place], [address], 05/27/2023 05:06:47 cytology report, thin prep, smear or scraping, cervical or vaginal 2022 023 MOCLIPS [facility], [address], [place], [place], [address], 05/31/2023 10:37:01 Referral None recorded. Procedures None recorded. Surgeries None recorded. Imaging MAMMO, screening , digital, bilateral 2023 [email or web address] [place] [address] (Centralized Scheduling), [address] [place] [address] [place], [address], 07/27/2024 11:28:35 MAMMO, screening , digital, bilateral 2022 023 [facility] (Centralized Scheduling), [address] [place] [address] [place], [address], 07/20/2023 15:53:27 Medication Orders Premarin 0.625 mg/gram vaginal cream 2023 024 FRANCISCO JAVIER [facility], [address] [place] [address], [address], 06/21/2024 11:10:39 Premarin 0.625 mg/gram vaginal cream 2023 024 [facility], [address] [place] [address], [address], 01/25/2024 18:54:21 Patient TargetsNo targets recorded. Patient Instructions Encounter Date Encounter Id Patient Instructions Last Modified By Organization Details Last Modified Time 05/25/2023 [id number] medical record request* - Please send ER records and lab results Not available 08/09/2023 08:34:33 learning about healthy weight lshower Not available 05/25/2023 14:21:41 body mass index: care instructions lshower Not available 05/25/2023 14:21:41 A healthy lifestyle: care instructions lshower Not available 05/26/2023 17:28:43 01/25/2024 [id number] medical record request* - Requesting records from any labs in the last 2 years thank you from [email or web address] Not available 02/01/2024 10:12:49 06/05/2024 [id number] learning about breast cancer screening Not available 06/07/2024 09:52:18 Annual TRAINING MGR -pap: collected given hx of FERNANDO and VAIN -Colon cancer screening: due 2026 -Mammogram: ordered -Clinical breast exam: WNL -BMI: 37.9; encourage diet/exercise -BP: 112/64 WNL -Depression screening: negative -Family Hx: grandmother with some type of TRAINING MGR malignancy -Flu vaccine: declined -Atrophy of vagina: vaginal estrogen helping; refilled Not available 06/21/2024 11:09:47 Reason for Referral None Reported. Results Created Date Observation Date Name Description Value Unit Range Abnormal Flag Note LastModifiedBy Organization Detail LastModifiedTime 04/21/2004/28/2022 IGP,R FX APTIM A HPV ALL PTH diagnosis: Commen t NEGAT CÉSAR FOR INTRA EPITH ELIAL LESIO N OR NATO HERRING . Not Available [facility] ([facility]) [address] [facility], [place], [address], 04/28/2022 14:12:27 04/21/2004/28/2022 IGP,R FX APTIM A HPV ALL PTH specimen adequacy: Commen t Satis facto ry for evalu ation . No endoc ervic al cells are prese nt. This is consi stent with a histo ry of hyste recto my. Not Available [facility] ([facility]) [address] [facility], [place], [address], 04/28/2022 14:12:27 04/21/20 22 04/28/2022 IGP,R FX APTIM A HPV ALL PTH clinician provided ICD10: Asa garcia Z12.7 2 Not Available [facility] ([facility]) [address] [place], [address], 04/28/2022 14:12:27 04/21/2004/28/2022 IGP,R FX APTIM A HPV ALL PTH performed by: Sandip Kuhn (ASCP ) Not Available [facility] ([facility]) [address] [facility], [place], [address], 04/28/2022 14:12:27 04/21/20 22 04/28/2022 IGP,R FX APTIM A HPV ALL PTH . . Not Available [facility] ([facility]) [address] [place], [address], 04/28/2022 14:12:27 04/21/20 22 04/28/2022 IGP,R FX APTIM A HPV ALL PTH note: Asa garcia The Pap smear is a scree venkata test desig lyndon to aid in the detec tion of jayro ligna nt and malig nant condi tions of the uteri ne cervi x. It is not a diagn ostic proce dure and shoul d not be used as the sole means of detec ting cervi juma cance r. Both false -posi tive and false -nega tive repor ts do occur . Not Available [facility] ([facility]) [address] [facility], [place], [address], 04/28/2022 14:12:27 04/21/20 22 04/28/2022 IGP,R FX APTIM A HPV ALL PTH test methodology: Commen t This liqui d based ThinP rep(R ) pap test was lisa haney with the use of an image guide kyleigh fitch Not Available [facility] ([facility]) [address] [place], [address], 04/28/2022 14:12:27 04/21/2004/28/2022 IGP,R FX APTIM A HPV ALL PTH . Commen t The HPV DNA refle x crite pauly were not met with this speci men resul t there fore, no HPV testi ng was perfo rmed. Not Available [facility] ([facility]) [address] [facility], [place], [address], 04/28/2022 14:12:27 05/25/2005/26/2023 URINA LYSIS , ROUTI NE specific gravity 1.023 1.005- 1.030 Not Available [facility] ([facility]) [address] [place], [address], 05/26/2023 06:15:32 05/25/2005/26/2023 URINA LYSIS , ROUTI NE pH 5.0 5.0-7. 5 Not Available [facility] ([facility]) [address] [place], [address], 05/26/2023 06:15:32 05/25/2005/26/2023 URINA LYSIS , ROUTI NE urine-color Yellow yellow Not Available [facility] ([facility]) [address] [place], [address], 05/26/2023 06:15:32 05/25/2005/26/2023 URINA LYSIS , ROUTI NE appearance Clear clear Not Available [facility] ([facility]) [address] [place], [address], 05/26/2023 06:15:32 05/25/20 23 05/26/2023 URINA LYSIS , ROUTI NE WBC esterase Negati ve negati ve Not Available [facility] ([facility]) [address] [facility], [place], [address], 05/26/2023 06:15:32 05/25/2005/26/2023 URINA LYSIS , ROUTI NE protein Trace negati ve/tra ce Not Available [facility] ([facility]) [address] [facility], [place], [address], 05/26/2023 06:15:32 05/25/2005/26/2023 URINA LYSIS , ROUTI NE glucose Negati ve negati ve Not Available [facility] ([facility]) [address] [place], [address], 05/26/2023 06:15:32 05/25/2005/26/2023 URINA LYSIS , ROUTI NE ketones Negati ve negati ve Not Available [facility] ([facility]) [address] [facility], [place], [address], 05/26/2023 06:15:32 05/25/2005/26/2023 URINA LYSIS , ROUTI NE occult blood Negati ve negati ve Not Available [facility] ([facility]) [address] [facility], [place], [address], 05/26/2023 06:15:32 05/25/2005/26/2023 URINA LYSIS , ROUTI NE bilirubin Negati ve negati ve Not Available [facility] ([facility]) [address] [place], [address], 05/26/2023 06:15:32 05/25/2005/26/2023 URINA LYSIS , ROUTI NE urobilinogen ,semi-qn 0.2 mg/dL 0.2-1. 0 Not Available [facility] ([facility]) [address] [place], [address], 05/26/2023 06:15:32 05/25/20 23 05/26/2023 URINA LYSIS , ROUTI NE nitrite, urine Negati ve negati ve Not Available [facility] ([facility]) [address] [facility], [place], [address], 05/26/2023 06:15:32 05/25/20 23 05/26/2023 URINA LYSIS , ROUTI NE microscopic examination Commen t Micro scopi c not indic ated and not perfo rmed. Not Available [facility] ([facility]) [address] [facility], [place], [address], 05/26/2023 06:15:32 05/25/20 23 05/27/2023 URINE CULTU RE, ROUTI NE urine culture, routine Final report Not Available [facility] ([facility]) [address] [facility], [place], [address], 05/27/2023 05:06:46 05/25/20 23 05/27/2023 URINE CULTU RE, ROUTI NE result 1 No growth Not Available [facility] ([facility]) [address] [facility], [place], [address], 05/27/2023 05:06:46 05/25/20 23 05/27/2023 IGP, APTIM A HPV, RFX 16/18 ,45 HPV aptima Negati ve negati ve This nucle ic acid ampli ficat ion test detec ts fourt een high- risk HPV types (16,1 8,31, 33,35 ,39,4 5,51, 52,56 ,58,5 9,66, 68) witho ut diffe renti ation . Not Available [facility] ([facility]) [address] [facility], [place], [address], 05/31/2023 10:37:01 05/25/20 23 05/31/2023 IGP, APTIM A HPV, RFX 16/18 ,45 diagnosis: Commen t NEGAT CÉSAR FOR INTRA EPITH ELIAL LESIO N OR MALIG NIMA . FUNGA L ORGAN ISMS MORPH OLOGI WILLIE CONSI STENT WITH ALKA DA SPECI ES ARE PRESE NT. THIS SPECI MEN WAS RESCR EENED PART OF OUR QUALI TY CONTR OL PROGR AM. Not Available [facility] ([facility]) [address] [facility], [place], [address], 05/31/2023 10:37:01 05/25/20 23 05/31/2023 IGP, APTIM A HPV, RFX 16/18 ,45 specimen adequacy: Asa garcia Satis facto ry for evalu ation . No endoc ervic al cells are prese nt. This is consi stent with a histo ry of hyste recto my. Not Available [facility] ([facility]) [address] [place], [address], 05/31/2023 10:37:01 05/25/20 23 05/31/2023 IGP, APTIM A HPV, RFX 16/18 ,45 clinician provided ICD10: Asa garcia N39.0 D07.2 Not Available [facility] ([facility]) [address] [place], [address], 05/31/2023 10:37:01 05/25/20 23 05/31/2023 IGP, APTIM A HPV, RFX 16/18 ,45 performed by: Asa Alcantara , Cytot echno logis t (ASCP ) Not Available [facility] ([facility]) [address] [place], [address], 05/31/2023 10:37:01 05/25/20 23 05/31/2023 IGP, APTIM A HPV, RFX 16/18 ,45 QC reviewed by: Marsha Thompson y Cytot echno logis t (ASCP ) Not Available [facility] ([facility]) [address] [place], [address], 05/31/2023 10:37:01 05/25/20 23 05/31/2023 IGP, APTIM A HPV, RFX 16/18 ,45 . . Not Available [facility] ([facility]) [address] [place], [address], 05/31/2023 10:37:01 05/25/20 23 05/31/2023 IGP, APTIM A HPV, RFX 16/18 ,45 note: Commen t The Pap smear is a scree venkata test ric haney to aid in the detec tion of jayro ligna nt and malig nant condi tions of the uteri ne cervi x. It is not a diagn ostic proce dure and shoul d not be used as the sole means of detec ting cervi juma cance r. Both false -posi tive and false -nega tive repor ts do occur . Not Available [facility] ([facility]) [address] [place], [address], 05/31/2023 10:37:01 05/25/20 23 05/31/2023 IGP, APTIM A HPV, RFX 16/18 ,45 test methodology: Commen t This liqui d based ThinP rep(R ) pap test was scree lyndon with the use of an image guide kyleigh galicia. Not Available [facility] ([facility]) [address] [place], [address], 05/31/2023 10:37:01 05/25/20 23 05/31/2023 IGP, APTIM A HPV, RFX 16/18 ,45 HPV genotype reflex Commen t Crite pauly not met, HPV Genot ype not perfo rmed. Not Available [facility] ([facility]) [address] [place], [address], 05/31/2023 10:37:01 01/25/20 24 01/27/2024 NUSWA B VAGIN ITIS (VG) atopobium vaginae Low - 0 score Not Available [facility] ([facility]) [address] [place], [address], 01/27/2024 20:09:22 01/25/20 24 01/27/2024 NUSWA B VAGIN ITIS (VG) bvab 2 Low - 0 score Not Available [facility] ([facility]) [address] [facility], [place], [address], 01/27/2024 20:09:22 01/25/20 24 01/27/2024 NUA B VAGIN ITIS (VG) megasphaera 1 Low - 0 score Calcu late total score by hermelinda g the 3 indiv idual bacte rial vagin osis (BV) marke r score s toget her. Total score is inter prete d as follo ws: Total score 0-1: Indic ates the absen ce of BV. Total score 2: Indet ermin ate for BV. Addit ional clini juma data shoul d be evalu ated to estab jessa a diagn osis. Total score 3-6: Indic ates the prese nce of BV. Not Available [facility] ([facility]) [address] [facility], [place], [address], 01/27/2024 20:09:22 01/25/20 24 01/27/2024 NUA B VAGIN ITIS (VG) marcin albicans, ASPEN Negati ve negati ve Not Available [facility] ([facility]) [address] [facility], [place], [address], 01/27/2024 20:09:22 01/25/20 24 01/27/2024 NUA B VAGIN ITIS (VG) marcin glabrata, ASPEN Positi ve negati ve abnormal Publi shed data demon strat e that up to 65% of Akla da glabr sofy ident ified in cases of vagin al alka diasi s have decre ased susce ptibi lity to fluco nazol e. Not Available [facility] ([facility]) [address] [facility], [place], [address], 01/27/2024 20:09:22 01/25/20 24 01/27/2024 NUSWA B VAGIN ITIS (VG) trich vag by ASPEN Negati ve negati ve Not Available [facility] ([facility]) [address] [facility], [place], [address], 01/27/2024 20:09:22 06/05/20 24 06/06/2024 URINE CULTU RE, ROUTI NE urine culture, routine Final report Not Available [facility] ([facility]) [address] [facility], [place], [address], 06/06/2024 22:07:30 06/05/20 24 06/06/2024 URINE CULTU RE, ROUTI NE result 1 COMMEN T Cultu re shows less than 10,00 0 colon y formi ng units of bacte pauly per esmer liter of urine . This colon y count is not gener ally consi dered to be clini willie signi fican t. Not Available [facility] ([facility]) [address] [facility], [place], [address], 06/06/2024 22:07:30 06/05/20 24 06/07/2024 IGP, APTIM A HPV, RFX 16/18 ,45 HPV aptima Negati ve negati ve This nucle ic acid ampli ficat ion test detec ts fourt een high- risk HPV types (16,1 8,31, 33,35 ,39,4 5,51, 52,56 ,58,5 9,66, 68) witho ut diffe renti ation . Not Available [facility] ([facility]) [address] [place], [address], 06/11/2024 15:10:08 06/05/20 24 06/11/2024 IGP, APTIM A HPV, RFX 16/18 ,45 diagnosis: Commen t NEGAT CÉSAR FOR INTRA EPITH ELIAL LESIO N OR MALIG NIMA . Not Available [facility] ([facility]) [address] [facility], [place], [address], 06/11/2024 15:10:08 06/05/20 24 06/11/2024 IGP, APTIM A HPV, RFX 16/18 ,45 specimen adequacy: Aas garcia Satis facto ry for evalu ation . No endoc ervic al compo nent is ident ified . Not Available [facility] ([facility]) [address] [facility], [place], [address], 06/11/2024 15:10:08 06/05/20 24 06/11/2024 IGP, APTIM A HPV, RFX 16/18 ,45 clinician provided ICD10: Asa garcia Z12.4 Not Available [facility] ([facility]) [address] [facility], [place], [address], 06/11/2024 15:10:08 06/05/20 24 06/11/2024 IGP, APTIM A HPV, RFX 16/18 ,45 performed by: Asa baez, Cytoradha garcia (ASCP ) Not Available [facility] ([facility]) [address] [facility], [place], [address], 06/11/2024 15:10:08 06/05/20 24 06/11/2024 IGP, APTIM A HPV, RFX 16/18 ,45 . . Not Available [facility] ([facility]) [address] [facility], [place], [address], 06/11/2024 15:10:08 06/05/20 24 06/11/2024 IGP, APTIM A HPV, RFX 16/18 ,45 note: Asa garcia The Pap smear is a scree venkata test desig lyndon to aid in the detec tion of jayro ligna nt and malig nant condi tions of the uteri ne cervi x. It is not a diagn ostic proce dure and shoul d not be used as the sole means of detec ting cervi juma cance r. Both false -posi tive and false -nega tive repor ts do occur . Not Available [facility] ([facility]) [address] [facility], [place], [address], 06/11/2024 15:10:08 06/05/20 24 06/11/2024 IGP, APTIM A HPV, RFX 16/18 ,45 test methodology: Commen t This liqui d based ThinP rep(R ) pap test was lisa haney with the use of an image guide kyleigh fitch Not Available [facility] ([facility]) [address] [facility], [place], [address], 06/11/2024 15:10:08 06/05/20 24 06/11/2024 IGP, APTIM A HPV, RFX 16/18 ,45 HPV genotype reflex Commen t Crite pauly not met, HPV Genot ype not perfo rmed. Not Available [facility] ([facility]) [address] [facility], [place], [address], 06/11/2024 15:10:08 09/15/19 23 06/18/2022 MAMMO , lisa hastings, digit al, bilat eral No observ ation record ed. [place] (Centralized Scheduling) [facility] [place] , [place], [address], 09/14/2022 13:18:04 07/18/19 24 07/15/2023 MAMMO , lisa hastings, digit al, bilat eral [facility] Name: SALLY NANCE Veronica Granger [facility] [address] Phys: Pedro SULLIVAN (Showe r), [place] [address] : 1970 Age: 52 Sex: F Acct: [id number] Loc: G.MAMM PHONE #: Exam Date: 2023 Status : DEP CLI FAX #: [phone] Rad# [id number] Unit# [id number] Admit Date: 2023 EXAMS: CPT CODE: [id number] 852 SCN DIG BREAST TOMOSY N CESAR 98209 BILATE RAL DIGITA L SCREEN ING MAMMOG ARGELIA WITH CAD AND 3 D Tomosy nthesi s Person al histor y of Breast Cancer : None Family histor y of Breast Cancer : None Compla ints: None Compar yoni: Multip le prior studie s. TECHNI QUE: Bilate ral digita l mammog nicola and CAD screen ing were perfor med by Lina Lee RTM. 3-D Tomosy nthesi s imagin g was also perfor med. FINDIN GS: These images demons trate a Type II breast parenc hymal patter n indica ting the breast s are mainly fatty replac ed with scatte red residu al glandu lar tissue . No worris ome lesion s are identi fied in either breast . IMPRES HAYLEY: Negati ve. Recomm end annual screen ing, regula r self breast examin ation and regula r clinic al breast exam. (CAT1) - CATEGO RY 1, NEGATI VE (1 YR)-1 YEAR -In the patien t with a palpab le abnorm ality, unexpl ained by breast imagin g, the palpab le abnorm ality should be manage d on a clinic al basis by the attend ing clinic jag. -Breas t imagin g as a false negati ve rate of approx imatel y 15%. -Patie nt was notifi ed by mail of the result s of this examin ation. Patien t may be called if furthe r workup is indica juan diego. -The patien t's inform ation was entere d into a remind er system with a target due date for the next mammog argelia. -This mammog argelia was review ed by a radiol ogist and CAD. This report is genera juan diego using voice recogn ition comput er softwa re. Inadve rtent errors may have occurr ed while dictat ing report . Common sense approa ch is apprec iated and do not hesita te to call for clarif icatio n when necess jany. PAGE 1 Signed Report (CARISA NUED) [facility] Name: LEE ANN CASEYKAEL Martin [facility] Phys: Cheek (Showe r) MD, [place] [address] : 1970 Age: 52 Sex: F Acct: [id number] Loc: Shanda.MAMM PHONE #: Exam Date: 2023 Status : DEP CLI FAX #: Rad# [id number] Unit# [id number] Admit Date: 2023 EXAMS: CPT CODE: [id number] 852 SCN DIG BREAST TOMOSY N CESAR 35626 Electr onical ly Signed by Enmanuel Martin on 2023 at 1809 Report ed and signed by: BARRETT Martin M.D. CC: Angelika Alvarez MD; [place] Dictat ed Date/T dinh: 2023 (1808) Techno logist : LINA LEE (RT)(R ) Transc ribed Date/T dinh: 2023 (1808) Transc riptio nist: DR.HAR HICKS Electr onic Signat ure Date/T dinh: 2023 (1808) Printe d Date/T dinh: 2023 (0943) BATCH NO: N/A PAGE 2 Signed Report CC'ed Logic: Orderi ng Provid er: SHOWER CROW Attend ing Provid er: SHOWER CROW Referr ing Provid er: SHOWER CROW Consul ting Provid er: TAMIKO CARNEY [place] (Centralized Scheduling) [address] [place] [address] [place], [address], 07/20/2023 15:53:27 07/18/19 25 07/18/2024 MAMMO , lisa hastings, digit al, bilat eral [facility] Name: SALLY NANCE Veronica Granger [facility] Phys: [place] [address] : 1970 Age: 53 Sex: F Acct: [id number] Loc: G.MAMM PHONE #: Exam Date: 2024 Status : REG CLI FAX #: Rad# [id number] Unit# [id number] Admit Date: 2024 EXAMS: CPT CODE: [id number] 162 SCN DIG BREAST TOMOSY N CESAR 96752 BILATE RAL DIGITA L SCREEN ING MAMMOG ARGELIA WITH CAD AND 3 D Tomosy nthesi s Person al histor y of Breast Cancer : None Family histor y of Breast Cancer : None Compla ints: None Compar yoni: Multip le prior studie s. TECHNI QUE: Bilate ral digita l mammog nicola and CAD screen ing were perfor med by Monet garcia RTM. 3-D Tomosy nthesi s imagin g was also perfor med. FINDIN GS: These images demons trate a Type II breast parenc hymal patter n indica ting the breast s are mainly fatty replac ed with scatte red residu al glandu lar tissue . No worris ome lesion s are identi fied in either breast . IMPRES HAYLEY: Negati ve. Recomm end annual screen ing, regula r self breast examin ation and regula r clinic al breast exam. (CAT1) - CATEGO RY 1, NEGATI VE] [(1 YR)-1 YEAR] -In the patien t with a palpab le abnorm ality, unexpl ained by breast imagin g, the palpab le abnorm ality should be manage d on a clinic al basis by the attend ing clinic jag. -Nahomyas t imagin g as a false negati ve rate of approx imatel y 15%. -Rosalinde nt was notifi ed by mail of the result s of this examin ation. Patien t may be called if furthe r workup is indica juan diego. -The patien t's inform ation was entere d into a remind er system with a target due date for the next mammog argelia. -This mammog argelia was review ed by a radiol ogist and CAD. This report is genera juan diego using voice recogn ition comput er softwa re. Inadve rtent errors may have occurr ed while dictat ing report . Common sense approa ch is apprec iated and do not hesita te to call for clarif icatio n when necess jany. PAGE 1 Signed Report (CARISA NUED) [facility] Veronica Elkin [address] [place] [address] Phys: [place] [address] : 1970 Age: 53 Sex: F Acct: [id number] Loc: G.MAMM PHONE #: [phone] Exam Date: 2024 Status : REG CLI FAX #: [phone] Rad# [id number] Unit# [id number] Admit Date: 2024 EXAMS: CPT CODE: [id number] 162 SCN DIG BREAST TOMOSY N CESAR 34536 Electr onical ly Signed by Enmanuel Martin on 2024 at 1734 Report ed and signed by: BARRETT Martin M.D. CC: Angelika Alvarez MD; [place] Dictat ed Date/T dinh: 2024 (1734) Techno logist : MONET BECKET T Transc ribed Date/T dinh: 2024 (1734) Transc riptio nist: DR.HAR KURT Crowder onic Signat ure Date/T dinh: 2024 (1734) Printe d Date/T dinh: 2024 (1737) BATCH NO: N/A PAGE 2 Signed Report CC'ed Logic: Orderi ng Provid er: SHOWER CROW Attend ing Provid er: SHOWER CROW Referr ing Provid er: SHOWER CROW Consul ting Provid er: TAMIKO CARNEY [email or web address] [place], [address], 07/27/2024 11:28:35 Result Notes Documentation Provider Name and Address Organization Details Recorded Time Mammo, Screening, Digital, Bilateral : [facility] Ce Name: KARI NANCE [facility] Phys: [place], [place] ([place]) [address] : 1970 Age: 52 Sex: F Acct: [id number] Loc: Shanda.MAMM PHONE #: Exam Date: 07/14/2023 Status: DEP CLI FAX #: Rad# [id number] Unit# [id number] Admit Date: 07/14/2023 EXAMS: CPT CODE: [id number] SCN DIG BREAST TOMOSYN CESAR 86043 BILATERAL DIGITAL SCREENING MAMMOGRAM WITH CAD AND 3 D Tomosynthesis Personal history of Breast Cancer: None Family history of Breast Cancer: None Complaints: None Comparison: Multiple prior studies. TECHNIQUE: Bilateral digital mammography and CAD screening were performed by Mago MINAYA. 3-D Tomosynthesis imaging was also performed. FINDINGS: These images demonstrate a Type II breast parenchymal pattern indicating the breasts are mainly fatty replaced with scattered residual glandular tissue. No worrisome lesions are identified in either breast. IMPRESSION: Negative. Recommend annual screening, regular self breast examination and regular clinical breast exam. (CAT1) - CATEGORY 1, NEGATIVE (1 YR)-1 YEAR -In the patient with a palpable abnormality, unexplained by breast imaging, the palpable abnormality should be managed on a clinical basis by the attending clinician. -Breast imaging as a false negative rate of approximately 15%. -Patient was notified by mail of the results of this examination. Patient may be called if further workup is indicated. -The patient's information was entered into a reminder system with a target due date for the next mammogram. -This mammogram was reviewed by a radiologist and CAD. This report is generated using voice recognition computer software. Inadvertent errors may have occurred while dictating report. Common sense approach is appreciated and do not hesitate to call for clarification when necessary. PAGE 1 Signed Report (CONTINUED) [facility] Ce Name: KARI NANCE [facility] [facility] Phys: Pedro SULLIVAN (Shower), [place] [address] : 1970 Age: 52 Sex: F Acct: [id number] Loc: Shanda.MAMM PHONE #: Exam Date: 07/14/2023 Status: DEP CLI FAX #: Rad# [id number] Unit# [id number] Admit Date: 07/14/2023 EXAMS: CPT CODE: [id number] SCN DIG BREAST TOMOSYN CESAR 86882 at 1809 Reported and signed by: YVON SPENCER M.D. CC: Angelika Alvarez MD; Crow Rai Dictated Date/Time: 07/15/2023 (1808) Technologist: MAGO LEE (RT)(R) Transcribed Date/Time: 07/15/2023 (180) Quality Assistant: Electronic Signature Date/Time: 07/15/2023 (1808) Printed Date/Time: 07/18/2023 (0943) BATCH NO: N/A PAGE 2 Signed Report CC'ed Logic: Ordering Provider: NORBERTO MARIA Attending Provider: NORBERTO MARIA Referring Provider: NORBERTO MARIA Consulting Provider: TAMIKO Pérez [place], [place] [facility] 07/20/2023 15:53:27 Mammo, Screening, Digital, Bilateral : [facility] Ce Name: CASEY NANCELIN [facility] Phys: [place] [address] : 1970 Age: 53 Sex: F Acct: [id number] Loc: G.MAMM PHONE #: Exam Date: 07/18/2024 Status: REG CLI FAX #: Rad# [id number] Unit# [id number] Admit Date: 07/18/2024 EXAMS: CPT CODE: [id number] SCN DIG BREAST TOMOSYN CESAR 44231 BILATERAL DIGITAL SCREENING MAMMOGRAM WITH CAD AND 3 D Tomosynthesis Personal history of Breast Cancer: None Family history of Breast Cancer: None Complaints: None Comparison: Multiple prior studies. TECHNIQUE: Bilateral digital mammography and CAD screening were performed by Monet MINAYA. 3-D Tomosynthesis imaging was also performed. FINDINGS: These images demonstrate a Type II breast parenchymal pattern indicating the breasts are mainly fatty replaced with scattered residual glandular tissue. No worrisome lesions are identified in either breast. IMPRESSION: Negative. Recommend annual screening, regular self breast examination and regular clinical breast exam. (CAT1) - CATEGORY 1, NEGATIVE] [(1 YR)-1 YEAR] -In the patient with a palpable abnormality, unexplained by breast imaging, the palpable abnormality should be managed on a clinical basis by the attending clinician. -Breast imaging as a false negative rate of approximately 15%. -Patient was notified by mail of the results of this examination. Patient may be called if further workup is indicated. -The patient's information was entered into a reminder system with a target due date for the next mammogram. -This mammogram was reviewed by a radiologist and CAD. This report is generated using voice recognition computer software. Inadvertent errors may have occurred while dictating report. Common sense approach is appreciated and do not hesitate to call for clarification when necessary. PAGE 1 Signed Report (CONTINUED) [facility] Ce Name: KARI NANCE [facility] Phys: [place] [address] : 1970 Age: 53 Sex: F Acct: [id number] Loc: G.MAMM PHONE #: Exam Date: 07/18/2024 Status: REG CLI FAX #: Rad# [id number] Unit# [id number] Admit Date: 07/18/2024 EXAMS: CPT CODE: [id number] SCN DIG BREAST TOMOSYN CESAR 59715 at 1734 Reported and signed by: YVON SPENCER M.D. CC: Angelika Alvarez MD; Crow Rai Dictated Date/Time: 07/18/2024 (173) Technologist: MONET JOSE Transcribed Date/Time: 07/18/2024 (173) Quality Assistant: Electronic Signature Date/Time: 07/18/2024 (173) Printed Date/Time: 07/18/2024 (173) BATCH NO: N/A PAGE 2 Signed Report CC'ed Logic: Ordering Provider: NORBERTO MARIA Attending Provider: NORBERTO MARIA Referring Provider: NORBERTO MARIA [facility]ing [facility] 07/27/2024 11:28:35 Problems Name Problem SNOMED Code Status Onset Date Resolution Date Notes Provider Name and Address Organization Details Recorded Time Dysplasi a of cervix 40699957 Completed 07/12/2018 Removal Reason: Resolved with [facility] Sandi [place], [place] - [facility] 9 10:30:20 Chest pain 32097192 Completed 11/15/2018 [facility] [address], [place], [address], [place] - [facility] 9 13:42:21 Menorrha aaron [id number] Completed 07/12/2018 Removal Reason: Resolved with [facility] Sandi [place], [place] - [facility] 9 10:30:13 History of hysterec brian 109175296 Completed 12/25/2019 Removal Reason: duplicat Kermit [place], [place] - [facility] 0 10:25:49 History of cardiac catheter ization 4081797536 9100 Completed 12/20/2018 [facility] Care Management [address], [place], [address], [facility] - [facility] 9 10:20:54 HPV - Human papillom avirus test positive Completed 12/25/2019 Removal Reason: 06-02-20 18 Felix [place], [place] - [facility] 0 10:26:16 History of dysplasi a of cervix 052504330 Active x 2 cryo of cervix x2 Leep of cervix [facility] 06/02/20 18 cervix severe dysplasi a Aggie love, [place] - [facility] 4 12:16:13 History of SARS-CoV -2 8215655185 43111049 Active 04/01/21 covid Aggie [place], [place] - [facility] 4 12:16:13 Left bundle branch block 01777715 Active [place]ie [place] - [facility] 4 12:16:13 Tachycar nancy 7599037 Active [place] - [facility] 4 12:16:13 Abnormal liver function 15702703 Active Elevated total bilirubi n 2.0 as of 2022. 1.6 as of ; elevated July 2023 Crow Rai MD [address], [place], [address], [place] - [facility] 4 19:27:48 Condylom a acuminat a of vulva 827398321 Active 1991 Annettebubba Pérez [place], [place] - [facility] 3 13:41:31 Migraine 60242253 Active 2015 Annettebubba Kleins [place] - [facility] 3 13:41:31 Chronic back pain 497290322 Active 2015 Annette Beto [place] - [facility] 3 13:41:30 Gastroes ophageal reflux disease without esophagi tis 669741136 Active 2015 Annette Beto [place] - [facility] 3 13:41:31 Chronic pain syndrome 148993459 Active 2015 Annettebubba Kleins [place] - [facility] 3 13:41:31 Cervical intraepi thelial neoplasi a grade 1 580113401 Completed 201507/12/2018 10/21/16 colpo FERNANDO I; 1992, 2011, 2013, 2015 Sandi Christians[place], [place] - [facility] 9 10:30:40 Influenz a 6426869 Completed 201510/25/2017 [facility] Care Management [address], [place], [address], [place] - [facility] 8 10:36:46 Low grade squamous intraepi thelial lesion on cervical Papanico laou smear 7357910609 9105 Completed 201505/22/2018 Removal Reason: now severe dysplasi a Felix [place], [place] - [facility] 8 09:22:52 Renewal of prescrip tion Completed 201605/02/2017 [facility] Care Management [address], [place], [address], [place] - [facility] 8 08:42:26 Body mass index 30+ - obesity 266826972 Completed 201611/03/2020 Annette Pérez [place], [place] - [facility] 2 10:42:11 History of peptic ulcer 856986901 Active 2016 Aggie Romero [place], [place] - [facility] 4 12:16:13 Upper gastroin testinal bleeding 86861685 Completed 201611/03/2020 Annette Pérez [place], [place] - [facility] 1 11:52:30 Excessiv e and frequent menstrua tion 477372353 Completed 201607/12/2018 Removal Reason: Resolved with TLZoey Christianson [place], [place] - [facility] 9 10:30:29 Renewal of prescrip tion Completed 201709/06/2017 [facility] Care Management [address], [place], [address], [place] - [facility] 8 08:42:26 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 674829868 Completed 201711/03/2020 vaginal biopsy Severe dysplasi a Annette Kleins [place] - [facility] 1 11:52:54 Vaginal intraepi thelial neoplasi a 219200751 Completed 201712/25/2019 Removal Reason: CIS cervix Felix [place] - [facility] 0 10:27:07 [facility] hyperten hayley 10201006 Active 2017 Annette Kleins [place] - [facility] 3 13:41:31 Acquired absence of cervix and uterus 194149872 Completed 201801/06/2022 Annette Beto [place] - [facility] 2 10:42:30 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 593892899 Completed 201811/03/2020 Annette Beto [place] - [facility] 1 11:52:15 Dysplasi a of vagina 7122953 Completed 201911/03/2020 Annette Beto [place] - [facility] 1 11:52:24 High grade squamous intraepi thelial lesion on vaginal Papanico laou smear 1745890812 07756 Completed 201901/06/2022 Annette [place] - [facility] 2 10:46:51 Divertic ulitis 659535637 Active 2020 Annette [place]o [place] [facility] 3 13:41:31 Carcinom a in situ of vagina 58479982 Completed 202001/06/2021 Aggiejr Romero [place], [place] - [facility] 2 09:22:55 History of polyp of colon 896913328 Active 2020 HX of Tubualr adneoma, hyperpla stic polyp Aggiejr Romero [place] - [facility] 4 12:16:13 Body mass index 30+ - obesity 110039120 Completed 202001/06/2022 Annette Beto [place] - [facility] 2 10:42:11 Carcinom a in situ of vagina 11228564 Active 2020 Annette Coonrus [place] - [facility] 3 13:41:31 Painless rectal bleeding 149151994 Active 2020 Aggiejr Romero [place] - [facility] 4 12:16:13 Menopaus al syndrome 080838042 Active 2020 Aggiejr Rom[place] - [facility] 4 12:16:13 History of total hysterec brian 111121868 Active 2021 Aggiejr Romero [place] - [facility] 4 12:16:13 Pain in pelvis 87072751 Active 2021 Aggie Romero [place] - [facility] 4 12:16:13 Prediabe germain 493221588 Active 2021 per pt a1c 6.1 Aggie Heather [place], [place] - [facility] 4 12:16:13 Hyperlip idemia 52994601 Active 2021 on atorvast ain Aggie Romero [place] - [facility] 4 12:16:13 Diabetes mellitus 82044166 Active 2023 A1c elevated up to 9.1 Crow Rai MD [address], [place], [address], [place] - [facility] 4 19:23:49 Problem Notes None recorded. Procedures Surgical History Date Name Laterality Status Provider Name and Address Organization Details Recorded Time 07/18 Date of Last Mammogram completed Nicole Sam [place] - [facility] 5 13:50:31 06/05 Date of Last Pap Smear completed Ana Laura Levy MD [address], [place], [address], [place] - [facility] 4 11:10:44 02/15 potassium sensitivity test- MOB completed Annette Beto [place] - [facility] 2 16:59:26 02/03 Date of Last Colonoscopy completed Alexand pauly [place] - [facility] 2 13:56:45 02/03 Colonoscopy completed Annette Beto [place] - [facility] 2 10:52:39 02/03 esophagogastroduodenoscopy completed Denia mac Beto [place] - [facility] 2 10:52:51 01/08 TRAINING MGR Ultrasound completed Beth Rainey [place] - [facility] 2 09:05:20 07/27 esophagogastroduodenoscopy completed Crow Rai MD [address], [place], [address], [place] - [facility] 2 21:02:05 12/09 dental surgery completed Annette Beto [place] - [facility] 1 15:31:20 11/05 Colposcopy completed Crow Rai MD [address], [place], [address], [place] - [facility] 1 09:52:53 11/05 Colposcopy - Vagina/Vulva completed Crow Rai MD [address], [place], [address], [place] - [facility] 1 09:53:45 11/05 Colposcopy completed Annette Pérez [place] - [facility] 2 10:46:08 04/22 LEEP Procedure completed Crow Rai MD [address], [place], [address], [place] [facility] 0 22:03:45 04/22 LEEP completed Annette Pérez [place] - [facility] 0 14:57:15 04/07 Colposcopy completed Crow Rai MD [address], [place], [address], [place] [facility] 0 21:45:02 06/02 total hysterectomy completed Annette Pérez [place] - [facility] 3 08:49:34 11/01 LEEP completed [facility] [address], [place], [address], [place] [facility] 8 13:25:05 06/06 IUD Insertion (Mirena) completed Felix Lambert [place] - [facility] 7 10:02:18 06/06 IUD Insertion completed [facility] [address], [place], [address], [place] [facility] 8 14:20:18 05/25 Colposcopy completed Felix Lambert [place] [facility] 7 16:52:51 05/03 Excision Benign Lesion completed Dejah Fish [place] - [facility] 7 20:41:29 11/12 LEEP Procedure completed Felix Lambert [place] - [facility] 7 15:58:55 11/12 LEEP completed [facility] [address], [place], [address], [place] [facility] 8 11:25:18 10/21 Colposcopy completed Felix Lambert [place] [facility] 7 13:57:25 07/09 Cryotherapy - SHOT COAT TENDER completed Felix Lambert [place] - [facility] 7 14:42:24 07/09 Cryotherapy for acne completed Eli Vazquez [place] - [facility] 7 09:27:34 05/06 Colposcopy completed Lesley Islas APRN [address], [place], [address], [facility] - [facility] 6 11:46:29 10/15 LEEP completed Annettebubba Pérez [facility] 6 08:50:20 10/04 Tubal Ligation completed Annette Andrus [place] - [facility] 6 08:51:03 07/25 Cryocautery of cervix completed Annette Beto [facility] 6 08:50:05 [address] Beto [facility] 1 13:56:29 Cardiac Cath completed Annette Beto [facility] 1 09:06:15 Caesarean Section completed [facility] 6 08:44:54 Imaging Results None recorded. Procedure Notes None recorded. Medical Equipment None Reported. Allergies Allergen ID Allergen Name Allergen Category Reaction Reaction Severity Criticality Documentation Date Start Date Code Code System Note Provider Name and Address Organization Details Recorded Time 854421 codeine medicatio n Not available Not available Not available 06/05/20182017 2670 RxNorm Crystal Jose [facility], [place] - [facility] 8 09:33:52 38545 peanut oil food,medi cation Not available Not available Not available 04/09/20162013 32422 RxNorm Not Available [facility] 6 09:59:14 11196 losartan medicatio n cough Not available Not available 10/25/2017 55243 RxNorm [facility] [address], [place], [address], [place] - [facility] 8 11:14:28 27405 lisinopri l medicatio n cough Not available Not available 10/25/2017 49646 RxNorm [facility] [address], [place], [address], [place] - [facility] 8 11:14:36 27750 Iodinated contrast media (substanc e) medicatio n hives Not available Not available 10/25/2017 76840 2003 SNOMED I [facility] [address], [place], [address], [place] - [facility] 8 11:14:42 Medications Name Sig Start Date Stop Date Status Note LastModified by Organization Details LastModified Time Prescript ion - Renewal 11/04 completed Not Available Not Available Not Available Prescript ion - Clarifica tion 10/24 completed [facility] Not Available Not Available Not Available losartan 50 mg tablet Take 1 tablet every day by oral route. 10/25 completed Not Available Not Available Not Available cyclobenz aprine 10 mg tablet take 1 tablet (10 mg) by oral route 3 times per day prn 04/21 completed Not Available Not Available Not Available amoxicill in 500 mg capsule take 1 capsule (500 mg) by oral route every 12 hours for 7 days 05/25 completed Not Available Not Available Not Available Mirena 21 mcg/24 hr (up to 8 years) 52 mg intrauter ine device Take by intraute rine route. 07/12 completed Not Available Not Available Not Available atorvasta tin 40 mg tablet 1 po qd active Not Available Not Available Not Available metformin 500 mg tablet 05/25 completed Not Available Not Available Not Available terconazo le 0.4 % vaginal cream INSERT ONE (1) APPLICAT ORFUL EVERY DAY BY VAGINAL ROUTE FOR 7 DAYS. active Not Available Not Available No t Available promethaz ine-DM 6.25 mg-15 mg/5 mL oral syrup TAKE 5 ML BY MOUTH ONCE DAILY AT BEDTIME FOR 10 DAYS 01/24 completed Not Available Not Available Not Available neomycin- polymyxin -hydrocor t 3.5 mg/mL-10, 000 unit/mL-1 % ear solution 04/07 completed Not Available Not Available Not Available Percocet 7.5 mg-325 mg tablet Take 0.5 tablets twice a day by oral route as needed. 05/02 completed Not Available Not Available Not Available prednison e 10 mg tablet 04/07 completed Not Available Not Available Not Available doxycycli ne hyclate 100 mg capsule TAKE 1 CAPSULE BY MOUTH TWICE DAILY FOR 7 DAYS 01/24 completed Not Available Not Available Not Available Depo-Medr ol 40 mg/mL suspensio n for injection one time only 05/25 completed Not Available Not Available Not Available Carafate 1 gram tablet take 1 tablet (1 gram) by oral route 4 times per day on an empty stomach 1 hour before meals and at bedtime for 30 days 08/15 completed Carafate 1 gram oral tablet;R ecorded Status: Recorded on: 02/06/20 13 1:53PM;D iscontin ued Status: Disconti nued on: 08/15/19 14 2:39PM;U ser: neuss;Es t. Completi on: 08/04/19 14;Indic ation: Gastric Ulcer - () Not Available Not Available Not Available cetirizin e 10 mg tablet 05/25 completed Not Available Not Available Not Available lisinopri l 20 mg-hydroc hlorothia zide 12.5 mg tablet 12/24 completed Not Available Not Available Not Available azithromy fernando 250 mg tablet 06/05 completed Not Available Not Available Not Available ibuprofen 800 mg tablet 01/07 completed Not Available Not Available Not Available fluconazo le 150 mg tablet take 1 tablet then repeat 3 days active Not Available Not Available No t Available benzonata te 200 mg capsule TAKE 1 CAPSULE BY MOUTH TWICE DAILY FOR 10 DAYS 01/24 completed Not Available Not Available Not Available valacyclo vir 1 gram tablet active Not Available Not Available Not Available Lotrisone 1 %-0.05 % topical cream apply to the affected and surround ing areas of skin by topical route 2 times per day morning and evening 11/26 completed Lotrison e 1-0.05 % topical cream;Re corded Status: Recorded on: 11/13/19 09 9:20AM;D iscontin ued Status: Disconti nued on: 11/27/19 09 4:07PM;U ser: [email or web address];Pr inted: 11/13/19 09 Not Available Not Available Not Available sumatript an 100 mg tablet 1 tablet oat onset of h/a and repeat in 2 hours if no improvem ent no more than 2 in 24 hours 12/21 completed Not Available Not Available Not Available hydrocodo ne 5 mg-acetam inophen 325 mg tablet 07/09 completed Not Available Not Available Not Available Lortab 7.5 mg-500 mg tablet take 1/2- 1 tablet by oral route every 6 hours as needed for pain 05/16 completed Lortab 7.5-500 mg oral tablet;R ecorded Status: Recorded on: 02/04/20 12 1:39PM;D iscontin ued Status: Disconti nued on: 05/16/20 12 10:02AM; User: neuss;Es t. Completi on: 05/04/20 12;Indic ation: Pain - (16.7809 00) Not Available Not Available Not Available Vicodin ES 7.5 mg-750 mg tablet take 0.5 tablet by oral route 3 times a day as needed 11/08 completed Vicodin ES 7.5-750 mg oral tablet;R ecorded Status: Recorded on: 09/09/19 13 12:23PM; Disconti nued Status: Disconti nued on: 11/09/19 13 7:38PM;U ser: neuss;Es t. Completi on: 11/08/19 13;Indic ation: Pain - (16.7809 00) Not Available Not Available Not Available metoprolo l succinate ER 200 mg tablet,ex tended release 24 hr 06/05 completed Not Available Not Available Not Available phenazopy ridine 200 mg tablet 01/24 completed Not Available Not Available Not Available ondansetr on HCl 4 mg tablet 12/24 completed Not Available Not Available Not Available prednison e 20 mg tablet take 1 tablet (20 mg) by oral route 2 times per day for 4 days 11/05 completed Not Available Not Available Not Available metoprolo l succinate ER 100 mg tablet,ex tended release 24 hr Take 1 tablet every day by oral route. 07/09 completed Not Available Not Available Not Available terconazo le 0.8 % vaginal cream Insert 1 applicat orful every day by vaginal route for 3 days. 11/05 completed Not Available Not Available Not Available metronida zole 250 mg tablet 04/07 completed Not Available Not Available Not Available Anucort-H C 25 mg supposito ry Insert 1 supposit ory twice a day by rectal route for 14 days. 04/21 completed Not Available Not Available Not Available methylpre dnisolone 4 mg tablet 11/25 completed Not Available Not Available Not Available diphenoxy late-atro pine 2.5 mg-0.025 mg tablet 06/05 completed Not Available Not Available Not Available penicilli n V potassium 500 mg tablet 1 po qid x 7 d 05/25 completed Not Available Not Available Not Available metronida zole 500 mg tablet TAKE 1 TABLET BY MOUTH TWICE DAILY FOR 7 DAYS active Not Available Not Available No t Available phentermi ne 37.5 mg tablet 05/25 completed Not Available Not Available Not Available amlodipin e 5 mg tablet one daily 05/25 completed Not Available Not Available Not Available ciproflox acin 500 mg tablet take 1 tablet (500 mg) by oral route every 12 hours for 10 days 01/24 completed Not Available Not Available Not Available Tamiflu 75 mg capsule 09/07 completed Not Available Not Available Not Available sulfameth oxazole 800 mg-trimet hoprim 160 mg tablet take 1 tablet by oral route 2 times per day for 10 days active Not Available Not Available No t Available Cefzil 500 mg tablet take 1 tablet (500 mg) by oral route every 12 hours for 7 days 01/27 completed Cefzil 500 mg oral tablet;R ecorded Status: Recorded on: 11/27/19 09 4:45PM;D iscontin ued Status: Disconti nued on: 01/28/20 09 1:41PM;U ser: [email or web address] ;Est. Completi on: 12/04/19 09;Print ed: 11/27/19 Not Available Not Available Not Available glimepiri de 2 mg tablet active Not Available Not Available Not Available Rocephin 250 mg solution for injection inject 125 mg by intramus cular route as a single dose 03/28 completed Rocephin 250 mg injectio n recon soln;Rec orded Status: Recorded on: 01/28/20 09 2:28PM;D iscontin ued Status: Disconti nued on: 03/28/20 09 3:08PM;U ser: [email or web address];E st. Completi on: 01/29/20 09;Indic ation: Acute Gonococc al Cervicit is - () Not Available Not Available Not Available Depo-Medr ol 80 mg/mL suspensio n for injection one time only 05/25 completed Not Available Not Available Not Available bisoprolo l fumarate 10 mg tablet 11/25 completed Not Available Not Available Not Available ketorolac 10 mg tablet 01/24 completed Not Available Not Available Not Available bisoprolo l fumarate 5 mg tablet qd active Not Available Not Available Not Available amoxicill in 875 mg tablet TAKE 1 TABLET BY MOUTH TWICE DAILY FOR 10 DAYS 01/24 completed Not Available Not Available Not Available potassium chloride ER 20 mEq tablet,ex tended release(p art/cryst ) qd active Not Available Not Available Not Available famotidin e 20 mg tablet 01/24 completed Not Available Not Available Not Available clindamyc in 1 % topical gel active Not Available Not Available Not Available Midrin 65 mg-100 mg-325 mg capsule take 1 capsule by oral route every 4 hours as needed for 30 days 12/03 completed Midrin 65-100-3 25 mg oral capsule; Recorded Status: Recorded on: 11/06/19 10 9:21AM;D iscontin ued Status: Disconti nued on: 12/04/19 10 4:13PM;U ser: neuss;Es t. Completi on: 12/06/19 10 Not Available Not Available Not Available tamsulosi n 0.4 mg capsule 04/14 completed Not Available Not Available Not Available dicyclomi ne 20 mg tablet prn 01/24 completed Not Available Not Available Not Available meclizine 25 mg tablet Take 2 tablets every 6 hours by oral route as needed. 04/07 completed Not Available Not Available Not Available phenazopy ridine 100 mg tablet 11/25 completed Not Available Not Available Not Available amlodipin e 10 mg tablet 12/24 completed Not Available Not Available Not Available hydrocodo ne 7.5 mg-acetam inophen 325 mg tablet take 0.5 tablet poBID- TID prn severe pain 07/09 completed Not Available Not Available Not Available cephalexi n 500 mg capsule 01/24 completed Not Available Not Available Not Available Zomig 5 mg tablet Take 1 tablet by oral route. 11/04 completed Not Available Not Available Not Available pantopraz ole 40 mg tablet,de layed release take 1 tablet (40 mg) by oral route once daily for 30 days active Not Available Not Available No t Available erythromy fernando 5 mg/gram (0.5 %) eye ointment 01/24 completed Not Available Not Available Not Available ranitidin e 150 mg tablet 1 po bid 03/22 completed Not Available Not Available Not Available promethaz ine 25 mg tablet active Not Available Not Available Not Available metoprolo l tartrate 50 mg tablet Take 1 tablet twice a day by oral route for 90 days. 11/05 completed Not Available Not Available Not Available indometha efrnando 50 mg capsule Take 1 capsule 3 times a day by oral route as needed for 10 days. 10/24 completed Not Available Not Available Not Available gabapenti n 300 mg capsule PRN 11/25 completed Not Available Not Available Not Available omeprazol e 20 mg capsule,d elayed release 1 po qd 04/21 completed Not Available Not Available Not Available Banophen 25 mg capsule 12/24 completed Not Available Not Available Not Available amoxicill in 250 mg capsule 04/14 completed Not Available Not Available Not Available piroxicam 10 mg capsule take 1 capsule (10 mg) by oral route once daily 02/05 completed piroxica m 10 mg oral capsule; Recorded Status: Recorded on: 05/16/20 12 10:04AM; Disconti nued Status: Disconti nued on: 02/06/20 13 1:53PM;U ser: [email or web address];Es t. Completi on: 10/12/19 13 Not Available Not Available Not Available halobetas ol propionat e 0.05 % topical cream 05/22 completed Not Available Not Available Not Available hydrochlo rothiazid e 25 mg tablet PRN 07/09 completed Not Available Not Available Not Available mupirocin 2 % topical ointment APPLY OINTMENT TOPICALL Y TO AFFECTED AREA THREE TIMES DAILY 01/24 completed Not Available Not Available Not Available furosemid e 20 mg tablet 1 po qd 06/05 completed Not Available Not Available Not Available azelastin e 137 mcg (0.1 %) nasal spray active Not Available Not Available Not Available epinephri ne 0.3 mg/0.3 mL injection , auto-inje ctor INJECT CONTENTS OF 1 PEN NEEDED FOR ALLERGIC REACTION active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 08:27:42 04/12/2017 08:50:31 Migraine 44608107 G43.909 Trying to prophylact ic measure with Beta lesli Nausea 524378149 R11.0 Excessive and frequent menstruation 626155703 N92.1 has appointmen t to see Dr Lambert ssn/ssbn assistant navigator later in month, instructed to call today and give him an update to see if earlier appointmen t or another interventi on can be done [id number] MD Donell Galloway [employer] [address] [place] [address] [place] [id number] 7 05/02/2017 10:41:37 05/02/2017 12:10:24 Cervical intraepithelial neoplasia grade 1 878461599 N87.0 Excessive and frequent menstruation 268025162 N92.1 See if can get approval for Mirena [id number] Angelika Alvarez MD [address] [place] [address] 05/03/2017 15:46:59 05/24/2017 14:46:04 Benign neoplasm of skin of nose 95923863 D23.39 [id number] Angelika Alvarez MD [facility] [address] [place] [place] [address] 05/16/2017 13:41:09 05/16/2017 15:59:18 Dizziness 233967226 R42 Headache 58212625 R51 On examina tion - painful ear 343821645 H92.09 [id number] Felix Lambert MD [place] [employer] [address] [place] [address] [place] [id number] 7 05/25/2017 15:33:56 05/25/2017 16:48:32 Low grade squamous intraepithelial lesion on cervical Papanicolaou smear 6015838931 9105 R87.403 [id number] Felix Lamebrt MD [place] [employer] [address] [place] [address] [place] [id number] 7 06/06/2017 09:00:36 06/06/2017 11:03:20 Excessive and frequent menstruation 263053318 N92.1 Body mass index 30+ - obesity 002931451 Z68.34 Cervical intraepithelial neoplasia grade 1 372364970 N87.0 LGSIL Paps and positive HPV with negative biopsies 05-25-17 [id number] Angelika Alvarez MD [facility] [address] [place], [place] [address] [place] [address] 06/08/2017 08:50:28 06/08/2017 09:59:50 Arthritis 4986919 M19.90 Pain of joint 98167451 M 25.50 Gouty arthropathy 884099 008 M10.09 Chronic back pain 112120 002 M54.5 Chronic pain syndrome 37 1698103 G89.4 Gastroesop hageal reflux disease without esophagitis 820186225 K21.9 Renewal of prescription 822766860 Z76.0 [id number] Angelika Alvarez MD [facility] [address] [place], [place] [address] [place] [address] 08/08/2017 09:36:46 08/08/2017 11:23:13 Arthritis 0066722 M19.90 Pain of joint 19737518 M 25.50 Gouty arthropathy 771683 008 M10.09 Chronic back pain 123257 002 M54.5 Chronic pain syndrome 37 4968850 G89.4 Body mass index 30+ - obesity 118772767 Z68.35 [id number] MD Donell Galloway [employer] [address] [place] [address] [place] [id number] 7 09/06/2017 08:39:58 09/06/2017 09:47:49 Low grade squamous intraepithelial lesion on cervical Papanicolaou smear 7334216937 9105 R87.612 Body mass index 30+ - obesity 514526407 Z68.35 Excessive and frequent menstruation 404602329 N92.1 Mirena 06-06-17 [id number] Angelika Alvarez MD [address] [place] [address] 09/20/2017 08:26:20 09/20/2017 10:04:29 Pain in left lower limb 030550215 M79.605 Phlebitis 60979717 I80.9 [id number] Titus Phan MD [address] [place] [address] 09/23/2017 13:09:56 09/23/2017 15:25:42 Phlebitis 70205710 I80.9 [id number] Angelika Alvarez MD [address] [place] [address] 10/03/2017 12:36:22 10/03/2017 15:02:22 Chronic back pain 211399773 M54.5 Medication monitoring 39 1256154 Z51.81 Essential hypertension 16663855 I10 [id number] Angelika Alvarez MD [address] [place] [address] 10/24/2017 14:04:03 10/24/2017 16:28:34 Migraine 14850613 G43.909 Trying to prophylact ic measure with Beta lesli Chronic back pain 805282 002 M54.5 [id number] MD Donell Galloway [employer] [address] [place] [address] [place] [id number] 7 10/25/2017 10:23:53 10/25/2017 12:01:54 Low grade squamous intraepithelial lesion on cervical Papanicolaou smear 0441663225 9105 R87.612 HPV - Miranda n papillomavirus test positive 466957898 R87.619 Pre-surger y evaluation 810120140 Z01.818 Body mass index 30+ - obesity 110282908 Z68.35 Excessive and frequent menstruation 860731153 N92.1 Mirena 06-06-17 History of peptic ulcer 538394652 Z87.11 Cervical intraepithelial neoplasia grade 1 693286544 N87.0 LGSIL Paps and positive HPV with negative biopsies 05-25-17 Chronic back pain 224326 002 M54.17 Gastroesop hageal reflux disease without esophagitis 651246661 K21.9 Migraine 73843030 G43.90 9 [id number] MD Donell Galloway [employer] [address] [place] [address] [place] [id number] 11/15/2017 12:37:58 11/15/2017 13:51:56 Cervical intraepithelial neoplasia grade 1 410544230 N87.0 LLETZ cone 18 mild reactive atypia, no dysplasia (SEE VAGINA) HPV - Miranda n papillomavirus test positive 951511441 R87.619 Postoperative care 11371 9007 Z48.89 Vaginal intraepithelial neoplasia 420341735 D07.2 Severe Squamous Dysplasia per Path --18, no invasive carcinoma seen Excessive and frequent menstruation 630193925 N92.1 Mirena 06-06-17 [id number] Angelika Alvarez MD [facility] [address] [facility] [place] [address] 12/02/2017 08:32:06 12/02/2017 10:00:27 Chronic back pain 663048323 M54.5 Gastroesop hageal reflux disease without esophagitis 262515883 K21.9 Body mass index 30+ - obesity 078617108 Z68.35 [id number] MD Donell Galloway [employer] [address] [place] [address] [place] [id number] 7 12/13/2017 12:43:53 12/13/2017 13:40:56 Routine gynecologic examination done 7844075473 9101 Z01.419 Depression screening 171 848446 Z13.89 Diet education 35184183 Z71.3 Counseling 009688174 Z71 .82 Exercise counselgee mendoza. Patient encouraged to exercise 30 minutes 5 days a week. Examinatio n of blood pressure 471646387 Z01.30 Screening for malignant neoplasm of cervix 851533114 Z12.4 Screening mammography 24 998710 Z12.31 Body mass index 30+ - obesity 917833600 Z68.35 Vaginal intraepithelial neoplasia 268358860 D07.2 Severe Squamous Dysplasia per Path 5-1-18, no invasive carcinoma seen Excessive and frequent menstruation 491420201 N92.1 Mirena 12--17 Cervical intraepithelial neoplasia grade 1 788683684 N87.0 LLETZ cone 5-1-18 mild reactive atypia, no dysplasia (SEE VAGINA) [id number] Angelika Alvarez MD [facility] [address] [place] [address] [address] 01/03/2018 10:58:49 01/03/2018 14:17:34 Body mass index 30+ - obesity 417839394 Z68.35 Chronic pain syndrome 37 3379576 G89.4 Chronic back pain 101987 002 M54.5 [id number] MD Donell Galloway [employer] [address] [place] [address] [place] [id number] 7 01/24/2018 13:37:06 01/24/2018 14:12:06 Vaginal intraepithelial neoplasia 988098205 D07.2 Severe Squamous Dysplasia per Path 5-1-18, no invasive carcinoma seen Cervical intraepithelial neoplasia grade 1 235742780 N87.0 LLETZ cone 5--18 mild reactive atypia, no dysplasia (SEE VAGINA) Low grade squamous intraepithelial lesion on cervical Papanicolaou smear 1893545990 9105 R87.612 6-12-18 (with some cells suspicious for high grade ) HPV - Miranda n papillomavirus test positive 533536420 R87.611 [id number] Angelika Alvarez MD [facility] [address] [address] 02/03/2018 12:22:52 02/03/2018 14:43:36 Headache 39197995 R51 [id number] MD Donell Galloway [employer] [address] [place] [address] [place] [id number] 7 03/22/2018 12:30:56 03/22/2018 13:23:37 Cervical intraepithelial neoplasia grade 1 838005924 N87.0 LLETZ cone 11-01-17 mild reactive atypia, no dysplasia (SEE VAGINA) Vaginal intraepithelial neoplasia 396464859 D07.2 Severe Squamous Dysplasia per Path 18, no invasive carcinoma seen HPV - Miranda n papillomavirus test positive 885002597 R87.619 Body mass index 30+ - obesity 993245571 Z68.35 IUD check 133162998 Z30. 672 [id number] MD Donell Galloway [employer] [address] [place] [address] [place] [id number] 7 05/22/2018 08:22:20 05/22/2018 09:20:27 Vaginal intraepithelial neoplasia 248588307 D07.2 Severe Squamous Dysplasia per Path 11-01-17, no invasive carcinoma seen HPV - Miranda n papillomavirus test positive 250036004 R87.619 High grade squamous intraepithelial lesion on cervical Papanicolaou smear 3146321470 9107 R87.613 03-22-18, severe dysplasia Pre-surger y evaluation 940265872 Z01.818 Excessive and frequent menstruation 931053917 N92.1 Mirena 06-06-17 [id number] MD Donell Galloway [employer] [address] [place] [address] [place] [id number] 7 07/12/2018 09:47:38 07/12/2018 11:04:11 Postoperative care 750347572 Z48.816 Body mass index 30+ - obesity 304837706 Z68.36 Acquired a bsence of cervix and uterus 240155288 Z90.710 06-02-18 [facility], BS: SEVERE DYSPLASIA Cervical intraepithelial neoplasia grade III with severe dysplasia 282355574 D06.9 06-02-2018 TLH, BS [id number] MD Donell Galloway [employer] [address] [place] [address] [place] [id number] 7 12/21/2018 12:36:38 12/21/2018 14:06:11 Routine gynecologic examination done 3881702212 9101 Z01.419 Depression screening 171 287008 Z13.89 Diet education 84853553 Z71.3 Counseling 707087532 Z71 .82 Exercise counsellin g. Patient encouraged to exercise 30 minutes 5 days a week. 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 Mi 09/2017 Gastroesop hageal reflux disease without esophagitis 144111858 K21.[address] Alvarez Cervical intraepithelial neoplasia grade III with severe dysplasia 563912947 D06.9 Severe Squamous Dysplasia per Path 11-01-17, no invasive carcinoma seen [id number] MD Donell Galloway [employer] [address] [place] [address] [place] [id number] 7 12/25/2019 09:26:58 12/25/2019 10:54:12 Acquired absence of cervix and uterus 334629773 Z90.710 06-02-18 [facility], BS: SEVERE DYSPLASIA Body mass index 30+ - obesity 570516429 Z68.36 Essential hypertension 37583650 I10 History of peptic ulcer 923993966 Z87.11 Routine gy necologic examination done 3732078694 9101 Z01.419 Depression screening 171 011159 Z13.89 Diet education 45379137 Z71.3 Counseling 585377043 Z71 .82 Exercise counselgee mendoza. Patient encouraged to exercise 30 minutes 5 days a week. Examinatio n of blood pressure 058418558 Z01.30 Vaccine de clined by patient 7519484497 02 Z28.21 Screening for malignant neoplasm of breast 866960463 Z12.39 Cervical intraepithelial neoplasia grade III with severe dysplasia 979772197 D06.9 Severe Squamous Dysplasia per Path 11-01-17, no invasive carcinoma seen Pityriasis versicolor 56 004710 B36.0 Vaginal intraepithelial neoplasia grade 2 109073979 N89.1 [id number] MD Donell Atkins [employer] [address] [place] [address] [place] [id number] 7 04/07/2020 12:21:15 04/07/2020 14:08:55 Vaginal discharge 302687430 N89.8 Asymptomat ic, swab sent Screening for malignant neoplasm of breast 751200382 Z12.31 Patient aware of due date for next Mammogram as indicated below. She will be notified by facility of result after completion . Advise yearly Clinical Breast exam with Annual exam. Dysplasia of vagina 3754 002 N89.3 Severe vaginal dysplasia per 5 1 8 directed biopsy, left proximal vaginal angle at time of LEEP. History of severe cervical dysplasia with clear margins at time of hysterecto my 1 year ago. Persistent HSIL cuff cytology.. I suspect I am seeing is a persistent 1 cm lesion of this, representa tive biopsy taken. Given focal nature, and anticipati ng this showing VAIN, will advise excision of this area with loop electrode under local anesthetic . May need several stay sutures to elevate tissue for excision, and/or hemostasis , will get equipment from OR from this.. Patient tolerated manipulati on and vaginal sidewall biopsy very well today and willing to have this done in office. If any degree of invasive nature of this noted, will refer on to oncology High grade squamous intraepithelial lesion on vaginal Papanicolaou smear 3620415712 16664 R87.619 [id number] MD Donell Atkins [employer] [address] [place] [address] [place] [id number] 7 04/22/2020 13:32:52 04/22/2020 15:23:00 High grade squamous intraepithelial lesion on vaginal Papanicolaou smear 2906976666 74501 R87.623 colpo 04/07/2020 VAIN III Dysplasia of vagina 3754 002 N89.3 Severe vaginal dysplasia per 5 1 8 directed biopsy, left proximal vaginal angle at time of LEEP. History of severe cervical dysplasia with clear margins at time of hysterecto my 1 year ago. Persistent HSIL cuff cytology.. Persistent focal 1 cm lesion left fornix, VA IN 3 biopsy 10 5 . Loop excision completed today without difficulty . Close surveillan ce advised with colposcopy [id number] MD Donell Atkins [employer] [address] [place] [address] [place] [id number] 7 05/19/2020 08:19:46 05/19/2020 09:17:32 Dysplasia of vagina 6128680 N89.3 Severe vaginal dysplasia per 5 1 8 directed biopsy, left proximal vaginal angle at time of LEEP. History of severe cervical dysplasia with clear margins at time of hysterecto my 1 year ago. Persistent HSIL cuff cytology.. Persistent focal 1 cm lesion left fornix, VA IN 3 biopsy 10 5 . Loop excision completed showing VAIN III, possible margin positive-o n gross descriptio n. No microscopi c descriptio n given. Appropriat e postop status today. Advise every 6 month colposcopi c surveillan ce. Including Pap/HPV of that region even if no colposcopi c visual changes, due November 2020 [id number] Crow Rai MD [place] [employer] [address] [place] [address] 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 [id number] 01/07/2021 14:52:37 01/07/2021 16:11:50 Gynecologic examination 12393485 Z01.419 Depression screening 171 773352 Z13.89 Hypertensi on screening 691371533 Z13.6 Patient currently within goal of less than 140/90. Exercises education, guidance, and counseling 031995576 Z71.82 Advise 30 minutes 3 times a week at a minimum of purposeful exercise. Patient currently meeting this goal. Acquired a bsence of cervix and uterus 587374650 Z90.710 Carcinoma in situ of vagina 32126439 D07.2 11/01/2017 vaginal biopsy severe squamous dysplasia 04/07/2020 persistent focal 1cm lesion left fornix bx showing KARLA III 04/22/2020 LEEP of vaginal fornix, KARLA II/III Vaginal colpo no gross visible changes, bx negative. PAP ascus neg hpvNext surveillan ce due as cuff cytology/H PV with summer 2021 annual, unless having discharge or bleeding sooner. Future order placed for tracking History of dysplasia of cervix 959307317 Z87.410 2 previous cyro of cervix and 2 previous LEEP procedures of cervix followed by [facility] 06/02/2018 with final pathology showing severe dysplasia of cervix Screening for malignant neoplasm of breast 615167359 Z12.31 Patient aware of due date for next Mammogram as indicated below. She will be notified by facility of result after completion . Advise yearly Clinical Breast exam with Annual exam. Body mass index 30+ - obesity 181053048 Z68.35 History of polyp of colon 159775400 Z86.010 Request records for polyp histology and follow-up advise, [facility] Dr. Whittaker [id number] MD Donell Atkins [employer] [address] [place] [address] [place] [id number] 06/05/2021 09:38:27 06/05/2021 11:49:00 Menopausal syndrome 547600178 N95.9 Retained ovaries status post 2018 [facility]. New complaints of hot flashes, likely hypoestrog enic symptoms but will check other etiologies , Labs today. Advise checking temperatur e to confirm no latent fevers following Covid. Discuss potential rx for Estrogen if no other abnormalit ies seen. Short-term follow-up Vaginal irritation 04265 6004 N89.8 No obvious etiology but cannot exclude yeast after several rounds of antibiotic s with Covid illness Screening for malignant neoplasm of vagina 113319707 Z12.72 Painless r ectal bleeding 437296280 K62.5 K64.9 Suspect from inflamed hemorrhoid s after frequent loose stools with Covid. rx hydrocorit son suppositor y, if no change 2 weeks advised to f/u with GI History of SARS-CoV-2 29 87980405 76039693 Z86.16 [id number] MD Donell Atkins [employer] [address] [place] [address] [place] [id number] 7 07/09/2021 08:03:23 07/09/2021 09:16:52 Complex cyst of left ovary 7725080447 9756013 N83.292 Suspect hemorrhagi c corpus luteum. Has been acutely symptomati c 3 weeks ago, asymptomat ic currently. Partially resolved sonographi willie. Reassess 6 months History of total hysterectomy 582682563 Z90.710 [facility] 06/02/2018 for severe cervical dysplasia and menorrhagi a Carcinoma in situ of vagina 48952974 D07.2 11/01/2017 vaginal biopsy severe squamous dysplasia 04/07/2020 persistent focal 1cm lesion left fornix bx showing KARLA III 04/22/2020 LEEP of vaginal fornix, KARLA II/III Vaginal colpo no gross visible changes, bx negative. PAP ascus neg hpvNext surveillan ce due as cuff cytology/H PV with summer 2021 annual, unless having discharge or bleeding sooner. Future order has been placed for tracking [id number] MD Donell Atkins [employer] [address] [place] [address] [place] [id number] 7 01/08/2022 08:01:19 01/08/2022 09:58:25 History of total hysterectomy 028255165 Z90.710 [facility] 06/02/2018 for severe cervical dysplasia and menorrhagi a Cyst of left ovary 64795 49983 1709536 N83.202 Pain in pelvis 68778336 R10.2 Chronic pain syndrome. This has been migratory different parts of the abdomen and pelvis over the last 6 months and likely is multifacto rial and hyperalges ia.. Recent pain descriptio n and reproducti on of bladder tenderness suggestive of possible IC. Improvemen t in the upper abdominal pain with dicyclomin e and fiber suggestive of possible IBS. Does not sound like ovulatory pain although had had incidental finding of a corpus luteum on left side in July.. Follow-up ultrasound today shows resolution of likely corpus luteum on left ovary, now still with a small follicle. Still due for PST. Will consider IC treatment if PST is positive [id number] MD Donell Atkins [employer] [address] [place] [address] [place] [id number] 7 11/25/2021 09:13:27 11/25/2021 10:49:48 Pain in pelvis 21220942 R10.2 Nonacute pain. This has been migratory different parts of the abdomen and pelvis over the last 6 months and likely is multifacto rial and hyperalges ia.. Recent pain descriptio n and reproducti on of bladder tenderness suggestive of possible IC. Improvemen t in the upper abdominal pain with dicyclomin e and fiber suggestive of possible IBS. Does not sound like ovulatory pain although had had incidental finding of a corpus luteum on left side in July.. We will plan for confirmato ry PST at [facility], follow-up ultrasound then.. Reassured with low likelihood of any serious pathology History of total hysterectomy 719442957 Z90.710 [facility] 06/02/2018 for severe cervical dysplasia and menorrhagi a Cyst of co rpus luteum of left ovary 9230589112 5925398 N83.15 July 2021 ultrasound , 4 cm overall diameter. Doubt this was cause of her pain then or now. Recheck upcoming visit [id number] MD Donell Atkins [employer] [address] [place] [address] [place] [id number] 02/02/2022 10:03:10 02/03/2022 09:54:49 [id number] Crow Rai MD [place] [employer] [address] [place] [address] [place] [id number] 7 02/15/2022 13:39:24 02/15/2022 14:36:04 Pain in pelvis 59675804 R10.2 Chronic pain syndrome. This has been migratory different parts of the abdomen and pelvis over the last 6 months and likely is multifacto rial and hyperalges ia.. pain descriptio n in January and reproducti on of bladder tenderness suggestive of possible IC, however nothing reproduced today with PST speaks against that likely diagnosis. . Improvemen t in the upper abdominal pain with dicyclomin e and fiber suggestive of possible IBS had not sounded like ovulatory pain at the onset June 2021 although had had incidental finding of a corpus luteum on left side in July.. Follow-up ultrasound today shows resolution of likely corpus luteum on left ovary, now still with a small follicle. Negative PST today. Declines offer of empiric ovarian suppressio n. Continues with Dr. Field for treatment of likely IBS as well [id number] Crow Rai MD [place] [employer] [address] [place] [address] [place] [id number] 7 04/21/2022 08:03:12 04/21/2022 09:00:53 Gynecologic examination 92260607 Z01.419 Depression screening 171 017330 Z13.89 Hypertensi on screening 498511494 Z13.6 Patient currently iswithin goal of less than 140/90. We will rescreen at annual visit, sooner if needed Exercises education, guidance, and counseling [id number] Z71.82 Advise 30 minutes 3 times a week at a minimum of purposeful exercise. Patient is not currently meeting this goal. History of total hysterectomy [id number] Z90.710 [facility] 06/02/2018 for severe cervical dysplasia and menorrhagi a Carcinoma in situ of vagina 94762166 D07.2 11/01/2017 vaginal biopsy severe squamous dysplasia 04/07/2020 persistent focal 1cm lesion left fornix bx showing KARLA III 04/22/2020 LEEP of vaginal fornix, KARLA II/III Vaginal colpo no gross visible changes, bx negative. PAP ascus neg hpv 06/2021 vaginal pap normalCyto logy today Body mass index 30+ - obesity 305335338 Z68.36 Obesity 772268858 E66.[address] Prediabetes 375889038 R7 3.03 pt reports aic6.1 Hyperlipidemia 76306560 E78.5 Screening for malignant neoplasm of vagina 879395388 Z12.72 Screening for malignant neoplasm of breast 176660666 Z12.31 Patient aware of due date for next Mammogram as indicated below. dc She will be notified by facility of result after completion . Advise yearly Clinical Breast exam with Annual exam. [id number] Danielle Harry MS, RDN, USMANN Donell [employer] [address] [place] [address] SAM Juan [id number] 7 04/26/2022 09:40:07 04/26/2022 11:02:56 Body mass index 30+ - obesity 471496472 Z68.36 [id number] Danielle Harry MS, DAVEN, USMANN Donell [employer] [address] [place] [address] SAM Juan [id number] 7 05/24/2022 08:27:11 05/24/2022 09:22:11 Body mass index 30+ - obesity 814063120 Z68.36 [id number] MD Donell Atkins [employer] [address] [place] [address] SAM Juan [id number] 05/25/2023 13:20:28 05/25/2023 14:13:20 Gynecologic examination 02839273 Z01.419 Depression screening 171 737077 Z13.31 neg screen Hypertensi on screening 388284512 Z13.6 Patient currently iswithin goal of less than 140/90. We will rescreen at annual visit, sooner if needed Exercises education, guidance, and counseling 089637259 Z71.82 Advise 30 minutes 3 times a week at a minimum of purposeful exercise. Patient is not currently meeting this goal. Carcinoma in situ of vagina 14659651 D07.2 11/01/2017 vaginal biopsy severe squamous dysplasia 04/07/2020 persistent focal 1cm lesion left fornix bx showing KARLA III 04/22/2020 LEEP of vaginal fornix, KARLA II/III 11/05/20 Vaginal colpo no gross visible changes, bx negative. PAP ascus neg hpv06/2021 vaginal pap mcougu96/1 03/25 vaginal pap normalcont ineu cuff papa surveilanc e,add hpv this year History of total hysterectomy 525190690 Z90.710 [facility] 06/02/2018 for severe cervical dysplasia and menorrhagi a Screening for malignant neoplasm of breast 871856063 Z12.31 Patient aware of due date for next Mammogram as indicated below. [facility] ;She will be notified by facility of result after completion . Advise yearly Clinical Breast exam with Annual exam. Urinary tr act infectious disease 08260221 N39.0 ER visit ~ 2 weeks ago- no records; sx resolved ;CHRIS today Body mass index 30+ - obesity 776072310 Z68.36 E66.8 Obesity 831092568 E66.9 [id number] MD Donell Atkins [employer] [address] [place] [address] SAM Juan [id number] 7 01/25/2024 11:18:05 01/25/2024 13:04:42 History of total hysterectomy 791364041 Z90.710 [facility] 06/02/2018 for severe cervical dysplasia and menorrhagi a Vaginal dryness 06278584 N89.8 Atrophy of vagina 367505 009 N95.2 History of vaginal intraepithelial neoplasia 7483469361 40815 Z87.411 11/01/2017 vaginal biopsy severe squamous dysplasia1 persistent focal 1cm lesion left fornix bx showing KARLA III 020 LEEP of vaginal fornix, KARLA II/III Vaginal colpo no gross visible changes, bx negative. PAP ascus neg hpv06/2021 vaginal pap olryvs66/1 03/25 vaginal jqrsmy2308/26 wnl negative hpvrecheck due with 05/27 exam Perimenopausal state 825 4921106 13433 Z78.0 Suspect she is at least perimenopa usal based on age although she reports normal labs 6 or 7 months ago. Will request records to see what was checked [id number] MD Donell Price [employer] COAT TEND[employer] [address] [place] [id number] 06/05/2024 15:23:52 06/15/2024 08:47:48 Routine gynecologic examination done [id number] 9101 Z01.419 Depression screening 171 432702 Z13.31 Diet education 94236054 Z71.3 Counseling 344695994 Z71 .82 Exercise counselgee mendoza. Patient encouraged to exercise 30 minutes 5 days a week. 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 009 N95.2 Urgent lindy pearl to urinate 27972982 R39.15 History of dysplasia of cervix 238644358 Z87.410 History of vaginal intraepithelial neoplasia 2948179853 89226 Z86.002 Health Concerns Section Related Observation LastModified by Organization Detai ls LastModified Time None Recorded Concern Status LastModified by Organization Details LastModified Time None Recorded Advance Directives Directive N: Payers Insurance Date Sequence Insurance Name Policy Number Policy Sierra Covered Member ID Sierra Member ID Guarantor Name 10/08/2016 1 [place] FFS/TRADITION AL Kari Garcia [id number] Kari Granger Lee Ann 10/08/2016 1 [employer] [place] Kari Jose [id number] Kari Granger Lee Ann 05/11/2022 2 [employer] [place] (MEDICARE [place]PLACEMENT/A DVANTAGE - HMO) Kari Granger Lee Ann [id number] Kari Granger Lee Ann 02/02/2017 [place] Kari Granger Jose [id number] Kari Granger Lee Ann 06/09/2024 1 [employer] [place] ([place] Kari Granger Lee Ann [id number] Kari Granger Lee Ann 10/08/2016 1 UNSPECIFIED REMIT PAYOR Kari Granger Lee Ann 11/23/2016 [place] Kari Granger Jose [id number] Kari Granger Lee Ann 07/16/2024 [place] Kari Granger Lee Ann [id number] Kari Granger Lee Ann Notes Date Note Type Note Provider Name and Address Organization Details Recorded Time 2 text/htm l Initial Nutrition assessment for:obesityPatient was referred by:Dr. Mayorga history: Medical History:obesity, prediabetes, GERD, HTN, hyperlipidemia,Medications:n otedFamily History:DM, CAD, CHF, CAPersonal History Social History: Employment:self employedSmoking Status:nonDiet Recall Breakfast:oatmeal-maple brown sugar x 1, honey sometimes or some swerve or coconut flakes, hard boiled along with it.Snack:Quest barLunch:[place] sandwich on wheat bread, hatch-vegan, lettuce at times, pickles, has been eating chips but none the last few daysHam sometimes instead of turkeySnack:popcorn-microwav e, doesn't eat all of itDinner:chili- and 1/2 pimento cheese sandwichgrilled chicken-might have it on a low carb wrapmight just have a sweet potato or some broccoli-with vegan butter.Snack:Drinks a meal replacement shake if hungryBeverages:water x 10 glasses a dayno popsweet tea once a month maybecoffee on occasion w/oat milk creamerNotes and/or Diet History:Has some trouble with liver from Covid-lost 45#. Eats mostly fish, grilled chicken and turkey. No pasta/white potatoes. Uses a lot of garlic for seasoning. Tries not to eat after 7 pm.She states most recently she was told to follow a high fiber diet, she had done vegan for some time, based on her food recall she appears to be eating primarily a Mediterranean Style diet that is appropriate for her.Allergic to nutsPhysical Activity/Sleep:Is active at her job. Tries to walk 30 minutes after work-usually 3 times/wk.Labs:reported A1C of 6.1 from lab work done at [facility] Needs:64 , 211#, BMI 36.[address]702 calories using [email or web address] w/1-1.2 activity factor, recommend 5641-2411 calories for weight lossNutrition Diagnosis:Artificial Cherry Maker Goals:To improve my health, prevent/delay DM, fatty liver and weight loss.Short Term Goals:1) Increase intake of non starchy vegetable, fruits, whole grains, seeds and dried beans. 2) Increase exercise and add strength exercises.Nutrition Prescription:Mediterranean DietIntervention #1: Modify distribution, type, amount of food and nutrients within a meal or at specified times ND1.2Follow diet prescriptionIntervention #2: Nutrition Education E1.1Discussed her current diet, reviewed the Mediterranean Diet and recommended amounts from each food group. Also reviewed label readingIntervention #3: Self monitoring C2.3 Monitoring and Evaluation:Food/Nutrient-rel ated history outcomes: Types of food/meals Labs:improved W0CBclgbdpeqljbcb:weight changesHandouts provided:Mediterranean Diet, sample meals, label reading handout, prediabetes handout and setting goals for weight [id number] of face to face time with patient.F/U 1 month Danielle Harry, MS, RDN, LDN [address], [place], [address], [place] [facility] 04/27/2022 15:26:12 2 text/htm l Follow Up Nutrition Assessment F/U nutrition assessment for:BMI > 30Previous Goals:1) Increase intake of non starchy vegetable, fruits, whole grains, seeds and dried beans. 2) Increase exercise and add strength exercises. Diet Recall:Has cut back on portions. Eating more vegetables, fruits, whole grains. Limits meat intake, chicken, tofu and eats some beans. Salads with grilled chicken. Jamaican yogurt, avacodo Snack:granola or quest barsDinner: Snack:sometimes still has a meal replacement shake.Drinks:cut out the creamer from the coffeestill drinking 10 cups of water a day.Additional Notes:Discussed some tips for Holiday eating.Physical Activity Reassessment:walking every day even if just 20 minutes and carries weights with herLabs:saw her GI and reports that her numbers are doing better.Anthropometrics Weight:214.2# today hereHeight: BMI: Weight History/Change:up ~ 3#, wearing warmer clothes and not sure what scale was used for her previous weight. She states that her weight has gone down on her home scale and that her clothes are fitting loser. Nutrition Intervention: New Goals:Start doing some strengthening exercises 3-4 times/wk. Continue with current diet.Nutrition Prescription:Mediterranean diet Monitoring and Evaluation: Food/Nutrient-related history outcomes: Types of food/meals Labs: improved A1C and LFT's Anthropometric: weight change Handouts provided:none Spent 30 minutes face to face with patient. F/U as desired. Danielle Harry MS, RDN, LDN [facility] [address], [place], [address], [place] [facility] 05/24/2022 09:20:07 3 text/htm l Patient is a 52 year old who presents today as an established patient for an annual exam. Her previous annual exam was 04/21/22 with myself. She is surgically menopausal. She has had TLH with ovarian conservation in 06/02/2018 for severe cervical dysplasia, [facility]. She has never used HRT. She denies having menopausal related symptoms that concern her. She is stillsexually activewith the same partner as last visit. Other than needing a preventive exam, is also being followed for history of KARLA IIIand this is addressed also today She is not currently taking any medications prescribed by our practice or needing refills. CHRONIC DISEASE AND BP ASSESSMENT : In addition to the above reviewed TRAINING MGR issues, she does have a history of chronic disease(s), noted in PMH, for which she is advised to follow up regularly with her PCP (and/or specialists involved).Significant changes in personal medical history : NoneCurrently prescribed medications reviewed :reconciled and patient states compliance Today's BP reading was within normal limits with goal of 140/90 She has previously been diagnosed with hypertension. She is currently using antihypertensive medication. BMI/EXERCISE and DIET COUNSELLING:Her current BMI is 36. She is advised that her BMI is in obesity category . Her weight is documented as decreasing over the last year. Lost weight with ozempic but no longer available, Has rx for Mounjaro but has not started yet. Diet and physical activities addressed today included patient's activity level.patients current exercise status : addisonShe states she does not attempt to actively monitor her diet for attempts to lose weight or manage a medical condition.It is recommended that she schedule with club car attendant to more closely review eating and exercise habits and she declines this.It is recommended that she increase current exercise status TOBACCO and SUBSTANCE ABUSE SCREENING:Patient is not a tobacco user. She denies the use of drugs. She denies the use of alcohol. DEPRESSION SCREENING:Patient completed a PHQ-9 form and scored a 0. See result on attached form. She does not have any risk factors for depression. She does not need to schedule with Comprehend or mental health specialist.She is not using a psychoactive prescription currently. OTHER SOCIAL HISTORY:She has not had significant social history changes or issues this year. IMMUNIZATION STATUS: Her immunization status was addressed today. see specifics on vaccine panel.Influenza : Current?No - advised and declined todayTdap: Current?:YesShingles: Current?:N/AGardasil:Current ?:Pneumovax:Current?:Prevnar 13: Current?:Other indicated: :Current?:C ovid: No, declined SCREENING STATUS:Her most recent screening test are reviewed as documented above. Currently overdue for:none.------ .Recent abnormal screening tests:colonoscopy, lipids----- . Based on her age and risk factors, she is DUE FOR THE FOLLOWING SCREENS :Pelvic and Breast exam: todayCervical/ vaginal cancer screenin06/02/2018 [facility] due to cervical dysplasia, final path FERNANDO III04/22/2020 LEEP of vaginal fornix, VAIN III11/05/20 Vaginal colpo no gross visible changes, bx negative. PAP ascus neg hpv06/05/21 Vaginal pap normal.04/21/22 vaginal pap normal . Test(s) indicated today: Pap with HPV Co-TestCervical Cultures: N/AMammogram : 06/18/22 nl, yearlyColonoscopy:02/03/2022 tubular adenoma, f/u 5 yearsDEXA: N/A, underageLipids: follow with PCP as advised treated hyperlipidemia on statinUK Ovarian Cancer screening :advised of program, information given and can pursue if interested Patient should return in 1 year for an annual wellness exam and sooner as needed for other problems. 04/01 and 05/01-- 2 episodes of noting blood on paper with wiping post void, none in commode, none on pad. no related SA bad uti in ER last week--no hematuria then but very sharp pain in urgency hesitancy. The symptoms have improved. She even had some mild incontinence during that week and that has resolved. She saw Dr. Dodson for follow-up but did not have any testing then. Will check test of cure today. She has retained ovaries and has not noticed any vasomotor symptoms yet. She has noticed vaginal dryness which was actually present for her hysterectomy. No dyspareunia. She is not interested in estrogen replacement at this time. Medication changes includedstarted ozempic for aic 7.9--> 7.1 and lost 9 pounds in 7 wk and then couldn't get again, now waiting for molly to come through.. Crow Rai MD [facility] [address], [place], [address], [place] [facility] 05/25/2023 14:21:46 4 text/htm l Pt presenting today is a established patient with vulvo-vaginal complaints. She complains of vaginal dryness that she has noted for the pst 6 months. This involves her Labia and introitus and she believes she started menopause. She had a hysterectomy in 2018 with ovaries left. Per her family dr he told her per labs she is post menopausal. Balbina states primarily dryness and discomfort when she is trying to have sex. They have not tried for several months due to this. She is notes a little bit of dryness and normal activities with close touching and wiping. She is really not having any itching or burning. She seen no bleeding. About 8 months ago she was noticing a lot of hot flashes and had blood work then with Dr. Dodson and told not menopausal . She blamed it maybe on her thyroid then although she states she has never had to take thyroid medication. She is not sure if her thyroid labs were checked at that time. She no longer noticing any vasomotor, sleep or mood symptoms. Being followed for history of KARLA 3 at vaginal cuff status post excision. She has had 3 clear cytologies most recently and is due for follow-up this May Crow Rai MD [address], [place], [address], [place] [facility] 01/25/2024 14:45:36 4 text/htm l Annual Fermenter Post-MenopausalReported by PatientGenitourinary symptomsFor menopausal symptoms, patient reportsinadequacy of lubrication of vaginal mucosabut reportsno menopausal symptoms. For vulva, patient reportsatrophic vulvabut reportsno genital lesion. For vaginal bleeding, patient reportshistory of menopause having occurredandno history of post menopausal bleeding. For vagina, patient reportsnormal vaginal dischargeandno vaginal atrophy. For urinary symptoms, (urinary urgency and burning).Breast symptomsFor breast, patient reportsno breast lump,no nipple discharge, andno breast pain.Psychological symptomsFor sexual complaints, patient reportsno sexual complaints. For psychological symptoms, patient reportsno depressionandno anxiety.ROS as noted in the HPI Balbina is here for her annual TRAINING MGR exam. She is doing well. She has noticed some urinary urgency and burning, as well as some leaking with coughing/laughing. She is using vaginal estrogen for her vaginal dryness, and this is helping her. Ana Laura Levy MD [address], [place], [address], [place] [facility] 06/21/2024 11:11:04 OBGyn Episode No OBEpisode recorded.
--- OUTSIDE RECORDS SUMMARY | 2025-05-17 08:43 | XMS_ITS | Clinical Summary ---
Author Organization [facility] Address [address] [address] [place] [address] Phone Care Team Providers Care Guest Services Coordinator Name Role Phone David Alvarez MD Primary Care Provider [phone] Allergies Active Allergy Reactions Criticality Noted Date [...] & Plan (09/09/2021 3:34 PM EST): Episodic. [place] down both sides of her abdomen. Her [...] 2:02 PM EDT): Isolated indirect elevation c/w [place]. Assessment & Plan (09/09/2021 3:35 PM EST): [...] - 03/13/2025 11:59 PM EDT Hospital Encounter [facility] [place] [address] Garrett Whittaker MD Metabolic dysfunction-associat ed steatotic liver disease (MASLD) Discharge Disposition: Home or Self Care 03/13/2025 5:56 AM EDT - 03/13/2025 11:59 PM EDT Hospital Encounter [facility] [place] [address] Garrett Whittaker MD Metabolic dysfunction-associat ed steatotic liver disease (MASLD) Discharge Disposition: Home or Self Care 03/13/2025 Results Follow-Up [facility] [address] [place] [address] Garrett Whittaker MD US ELASTOGRAPHY ONLY - LIVER 03/06/2025 7:50 AM EDT - 03/06/2025 11:59 PM EDT Hospital Encounter [facility] [address] [place] [address] Click, [facility] Metabolic dysfunction-associat ed steatotic liver disease (MASLD) Discharge Disposition: Home or Self Care 03/06/2025 7:00 AM EDT Office Visit [facility] [address] [place] [address] Garrett Whittaker MD Metabolic dysfunction-associat ed steatotic liver disease (MASLD) (Primary Dx); Gastroesophageal reflux disease without esophagitis; Esophageal dysphagia; Adenomatous polyp of colon, unspecified part of colon; Diverticulitis of large intestine without perforation or abscess without bleeding 03/01/2025 Travel from Last 3 Months Surgical History Surgery Date Site/Laterality Comments [place] TOTAL ABDOMINAL HYSTERECT W/WO RMVL TUBE OVARY [...] Tdap) 04/24/2024 04/24/2014 COVID-19 Vaccine (1 - 2024-2 6 season) 2025 Influenza Vaccine (#1) 2025 Colon [...] HISTORY: K76.0-Fatty (change of) liver, not elsewhere [id number]. Suspected liver fibrosis. COMPARISON: None. PROCEDURE COMMENTS: [...] HISTORY: K76.0-Fatty (change of) liver, not elsewhere [id number]. Suspected liver fibrosis. COMPARISON: None. PROCEDURE COMMENTS: Liver stiffness measurements were obtained using Blabrooma system with at least 10 measurements using [...] HISTORY: K76.0-Fatty (change of) liver, not elsewhere [id number]. COMPARISON: September 12, 2021 PROCEDURE COMMENTS: Ultrasound [...] HISTORY: K76.0-Fatty (change of) liver, not elsewhere [id number]. COMPARISON: September 12, 2021 PROCEDURE COMMENTS: Ultrasound [...] of the ordering clinician. Garrett Whittaker MD [facility] US ORDERABLES Final Result * (ABNORMAL) HEPATIC [...] <=41 U/L 03/06/2025 1:05 PM EDT PREFERRED [employer] Alk Phos 82 36 - 123 U/L 03/06/2025 1:05 PM EDT enStage Blood VENOUS BLOOD / Unknown Venipuncture / Unknown 03/06/2025 8:08 AM EDT 03/06/2025 8:08 AM EDT us Garrett Whittaker MD CHEMISTRY ORDERABLES Final Res ult enStage 1 [facility] , [address] [place] [id number] * COLONOSCOPY (11/28/2024 7:50 AM EDT) Anatomical [...] of bowel preparation was evaluated using the [place] Bowel Preparation Scale with scores of: right [...] Most Recently Relevant to Health Maintenance Insurance [address] [employer] [place] [id number] [place] [facility] [id number] [place] Care Teams Guest Services Coordinator Relationship Specialty Start Date End Date David Alvarez MD PCP - General Family Medicine 09/08/23
--- OUTSIDE RECORDS SUMMARY | 2025-05-17 08:43 | XMS_ITS | Encounter Summary ---
Author Organization [facility] Address [address] [place] [address] Care Team Providers Care Flight Operations Manager Name Role Phone David Alvarez MD Primary Care Provider [phone] Encounter Details Date Type Department Care Team (Latest Contact Info) Description 03/13/2025 Results Follow-Up [facility] [address] [place] [address] Garrett Whittaker MD [address] [place] [address] [place] ELASTOGRAPHY ONLY - LIVER [...] on filedocumented in this encounter Care Teams Flight Operations Manager Relationship Specialty Start Date End Date David Alvarez MD PCP - General Family Medicine 09/08/23 documented as of this encounter
--- NOTE | 2025-05-17 09:00 | US_ITS ---
FINAL REPORT CLINICAL HISTORY: Evaluation of Decreased Pedal pulses, HTN, DM, HLD. Previous SLOANE 07/2020 FINDINGS: LOWER EXTREMITY SEGMENTAL PRESSURE MEASUREMENTS Pressure indices are as follows: RIGHT LOWER EXTREMITY: Lower thigh: 1.2 Calf: 1.1 Ankle, posterior tibial artery: 1.2 Ankle, dorsalis pedis: 1.0 Toe: 0.86 Comments: SLOANE: 1.2 LEFT LOWER EXTREMITY: Lower thigh: 1.2 Calf: 1.1 Ankle, posterior tibial artery: 1.1 Ankle, dorsalis pedis: 1.0 Toe: 1.1 Comments: SLOANE: 1.1 Reviewed, Interpreted and Dictated by Kd Granados MD Transcribed by Dejah Metzger Authenticated and [facility]
== END 2025-05-17 23:59 | disposition home or self-care (01) ==
LOC: RT 08:41
PROVIDERS: PCP Family Medicine; Visit Provider Podiatrist
DX: E78.5 Hyperlipidemia, unspecified (principal); I10 Essential (primary) hypertension; E11.9 Type 2 diabetes mellitus without complications; R20.8 Other disturbances of skin sensation; R09.89 Other specified symptoms and signs involving the circulatory and respiratory systems
CPT/HCPCS: 93923

== ENCOUNTER 2025-05-23 07:36 | Outpatient (CLI) | payer MEDICAID, SELFPAY ==
--- OUTSIDE RECORDS SUMMARY | 2025-05-23 07:39 | XMS_ITS | Data Portability ---
Author Organization [facility] Address [address] [place] [address] Care Team Providers Care Final Expense Agent Name Role Phone ANGELIKA ALVAREZ Primary Care Provider JAMIN AGUDELO Academic Computing Director Assessment Encounter Date Assessment Date Assessment LastModified by Organization Details LastModified Time 05/25/2023 05/25/2023 Annual gynecological exam performed. Patient will come back in a year unless there are new symptoms. Not available 05/25/2023 08:47:13 06/05/2024 06/05/2024 53 yo here for annual FANCY NEEDLEWORKER exam Not available 06/21/2024 11:07:16 Plan of Treatment Reminders Order Date Submit Date Provider Last Modified By Organization Details Last Modified Time Details Appointments ANNUAL FANCY NEEDLEWORKER 20 min 2024 03:00P M Ana Laura Levy MD Not available Not available Not available Lab culture, urine 2023 024 7 [facility], [address], Josias [address], [place], [address], 07/05/2024 09:49:03 cytology report, thin prep, smear or scraping, cervical or vaginal 2023 024 FRANCISCO JAVIER [facility], [address], [place] [address], [place], [address], 06/11/2024 15:10:08 bacterial vaginosis + vaginitis panel, vaginal 2023 024 FRANCISCO JAVIER [facility], [address], [place], [place], [address], 01/27/2024 20:09:22 urinalysi s, dipstick 2022 023 lshower [facility], [address], [place], [place], [address], 05/26/2023 17:28:43 culture, urine 2022 023 FRANCISCO JAVIER [facility], [address], [place], [place], [address], 05/27/2023 05:06:47 cytology report, thin prep, smear or scraping, cervical or vaginal 2022 023 [place] [facility], [address], [place] [address], [place], [address], 05/31/2023 10:37:01 Referral None recorded. Procedures None recorded. Surgeries None recorded. Imaging MAMMO, screening , digital, bilateral 2023 [email or web address] [place] [address] (Centralized Scheduling), [address] [place] [address] [place], [address], 07/27/2024 11:28:35 MAMMO, screening , digital, bilateral 2022 023 [facility] (Centralized Scheduling), [address] [place] [address] [place], [address], 07/20/2023 15:53:27 Medication Orders Premarin 0.625 mg/gram vaginal cream 2023 024 FRANCISCO JAVIER [facility], [address] [place] [address], [address], 06/21/2024 11:10:39 Premarin 0.625 mg/gram vaginal cream 2023 024 [facility], [address] [place] [address], [address], 01/25/2024 18:54:21 Patient TargetsNo targets recorded. Patient Instructions Encounter Date Encounter Id Patient Instructions Last Modified By Organization Details Last Modified Time 05/25/2023 [id number] medical record request* - Please send ER records and lab results Not available 08/09/2023 08:34:33 learning about healthy weight lshower Not available 05/25/2023 14:21:41 body mass index: care instructions lshower Not available 05/25/2023 14:21:41 A healthy lifestyle: care instructions lshower Not available 05/26/2023 17:28:43 01/25/2024 [id number] medical record request* - Requesting records from any labs in the last 2 years thank you from [email or web address] Not available 02/01/2024 10:12:49 06/05/2024 [id number] learning about breast cancer screening Not available 06/07/2024 09:52:18 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 Results Created Date Observation Date Name Description Value Unit Range Abnormal Flag Note LastModifiedBy Organization Detail LastModifiedTime 04/21/2004/28/2022 IGP,R FX APTIM A HPV ALL PTH diagnosis: Commen t NEGAT CÉSAR FOR INTRA EPITH ELIAL LESIO N OR NATO HERRING . Not Available [facility] ([facility] [place] [facility] [address] [facility], [place], [address], 04/28/2022 14:12:27 04/21/2004/28/2022 IGP,R FX APTIM A HPV ALL PTH specimen adequacy: Commen t Satis facto ry for evalu ation . No endoc ervic al cells are prese nt. This is consi stent with a histo ry of hyste recto my. Not Available [facility] ([facility] [place] [place] [facility] [address] [facility], [place], [address], 04/28/2022 14:12:27 04/21/20 22 04/28/2022 IGP,R FX APTIM A HPV ALL PTH clinician provided ICD10: Asa garcia Z12.7 2 Not Available [facility] ([facility] [place] [place] [facility] [address] [place], [address], 04/28/2022 14:12:27 04/21/2004/28/2022 IGP,R FX APTIM A HPV ALL PTH performed by: Sandip Kuhn (ASCP ) Not Available [facility] ([facility] [place] [place] [facility] [address] [facility], [place], [address], 04/28/2022 14:12:27 04/21/20 22 04/28/2022 IGP,R FX APTIM A HPV ALL PTH . . Not Available [facility] ([facility] [place] [place] [facility] [address] [place], [address], 04/28/2022 14:12:27 04/21/20 22 04/28/2022 IGP,R FX [...] ts do occur . Not Available [facility] ([facility] [place] [place] [facility] [address] [facility], [place], [address], 04/28/2022 14:12:27 04/21/20 22 04/28/2022 IGP,R FX APTIM A HPV ALL PTH test methodology: Commen t This liqui d based ThinP rep(R ) pap test was lisa haney with the use of an image guide kyleigh fitch Not Available [facility] ([facility] [place] [place] [facility]) [address] [place], [address], 04/28/2022 14:12:27 04/21/2004/28/2022 IGP,R FX APTIM A HPV ALL PTH . Commen t The HPV DNA refle x crite pauly were not met with this speci men resul t there fore, no HPV testi ng was perfo rmed. Not Available [facility] ([facility] [place] [place] [facility] [address] [facility], [place], [address], 04/28/2022 14:12:27 05/25/2005/26/2023 URINA LYSIS , ROUTI NE specific gravity 1.023 1.005- 1.030 Not Available [facility] ([facility] [place] [place] [facility] [address] [place], [address], 05/26/2023 06:15:32 05/25/2005/26/2023 URINA LYSIS , ROUTI NE pH 5.0 5.0-7. 5 Not Available [facility] ([facility] [place] [place] [facility] [address] [place], [address], 05/26/2023 06:15:32 05/25/2005/26/2023 URINA LYSIS , ROUTI NE urine-color Yellow yellow Not Available [facility] ([facility] [place] [place] [facility] [address] [place], [address], 05/26/2023 06:15:32 05/25/2005/26/2023 URINA LYSIS , ROUTI NE appearance Clear clear Not Available [facility] ([facility] [place] [place] [facility] [address] [place], [address], 05/26/2023 06:15:32 05/25/20 23 05/26/2023 URINA LYSIS , ROUTI NE WBC esterase Negati ve negati ve Not Available [facility] ([facility] [place] [place] [facility] [address] [facility], [place], [address], 05/26/2023 06:15:32 05/25/2005/26/2023 URINA LYSIS , ROUTI NE protein Trace negati ve/tra ce Not Available [facility] ([facility] [place] [place] [facility] [address] [facility], [place], [address], 05/26/2023 06:15:32 05/25/2005/26/2023 URINA LYSIS , ROUTI NE glucose Negati ve negati ve Not Available [facility] ([facility] [place] [place] [facility] [address] [place], [address], 05/26/2023 06:15:32 05/25/2005/26/2023 URINA LYSIS , ROUTI NE ketones Negati ve negati ve Not Available [facility] ([facility] [place] [place] [facility] [address] [facility], [place], [address], 05/26/2023 06:15:32 05/25/2005/26/2023 URINA LYSIS , ROUTI NE occult blood Negati ve negati ve Not Available [facility] ([facility] [place] [place] [facility] [address] [facility], [place], [address], 05/26/2023 06:15:32 05/25/2005/26/2023 URINA LYSIS , ROUTI NE bilirubin Negati ve negati ve Not Available [facility] ([facility] [place] [place] [facility] [address] [place], [address], 05/26/2023 06:15:32 05/25/2005/26/2023 URINA LYSIS , ROUTI NE urobilinogen ,semi-qn 0.2 mg/dL 0.2-1. 0 Not Available [facility] ([facility] [place] [place] [facility] [address] [place], [address], 05/26/2023 06:15:32 05/25/20 23 05/26/2023 URINA LYSIS , ROUTI NE nitrite, urine Negati ve negati ve Not Available [facility] ([facility] [place] [place] [facility] [address] [facility], [place], [address], 05/26/2023 06:15:32 05/25/20 23 05/26/2023 URINA LYSIS , ROUTI NE microscopic examination Commen t Micro scopi c not indic ated and not perfo rmed. Not Available [facility] ([facility] [place] [place] [facility] [address] [facility], [place], [address], 05/26/2023 06:15:32 05/25/20 23 05/27/2023 URINE CULTU RE, ROUTI NE urine culture, routine Final report Not Available [facility] ([facility] [place] [place] [facility] [address] [facility], [place], [address], 05/27/2023 05:06:46 05/25/20 23 05/27/2023 URINE CULTU RE, ROUTI NE result 1 No growth Not Available [facility] ([facility] [place] [place] [facility] [address] [facility], [place], [address], 05/27/2023 05:06:46 05/25/20 23 05/27/2023 IGP, APTIM A HPV, RFX 16/18 ,45 HPV aptima Negati ve negati ve This nucle ic acid ampli ficat ion test detec ts fourt een high- risk HPV types (16,1 8,31, 33,35 ,39,4 5,51, 52,56 ,58,5 9,66, 68) witho ut diffe renti ation . Not Available [facility] ([facility] [place] [place] [facility] [address] [facility], [place], [address], 05/31/2023 10:37:01 05/25/20 23 05/31/2023 IGP, APTIM A HPV, RFX 16/18 ,45 diagnosis: Commen t NEGAT CÉSAR FOR INTRA EPITH ELIAL LESIO N OR MALIG NIMA . FUNGA L ORGAN ISMS MORPH OLOGI WILLIE CONSI STENT WITH ALKA DA SPECI ES ARE PRESE NT. THIS SPECI MEN WAS RESCR EENED PART OF OUR QUALI TY CONTR OL PROGR AM. Not Available [facility] ([facility] [place] [place] [facility] [address] [facility], [place], [address], 05/31/2023 10:37:01 05/25/20 23 05/31/2023 IGP, APTIM A HPV, RFX 16/18 ,45 specimen adequacy: Asa garcia Satis facto ry for evalu ation . No endoc ervic al cells are prese nt. This is consi stent with a histo ry of hyste recto my. Not Available [facility] ([facility] [place] [place] [facility] [address] [place], [address], 05/31/2023 10:37:01 05/25/20 23 05/31/2023 IGP, APTIM A HPV, RFX 16/18 ,45 clinician provided ICD10: Asa garcia N39.0 D07.2 Not Available [facility] ([facility] [place] [place] [facility] [address] [place], [address], 05/31/2023 10:37:01 05/25/20 23 05/31/2023 IGP, APTIM A HPV, RFX 16/18 ,45 performed by: Asa Alcantara , Cytot echno logis t (ASCP ) Not Available [facility] ([facility] [place] [place] [facility] [address] [place], [address], 05/31/2023 10:37:01 05/25/20 23 05/31/2023 IGP, APTIM A HPV, RFX 16/18 ,45 QC reviewed by: Marsha Thompson y Cytot echno logis t (ASCP ) Not Available [facility] ([facility] [place] [place] [facility] [address] [place], [address], 05/31/2023 10:37:01 05/25/20 23 05/31/2023 IGP, APTIM A HPV, RFX 16/18 ,45 . . Not Available [facility] ([facility] [place] [place] [facility] [address] [place], [address], 05/31/2023 10:37:01 05/25/20 23 05/31/2023 IGP, APTIM [...] ts do occur . Not Available [facility] ([facility] [place] [place] [facility] [address] [place], [address], 05/31/2023 10:37:01 05/25/20 23 05/31/2023 IGP, APTIM A HPV, RFX 16/18 ,45 test methodology: Commen t This liqui d based ThinP rep(R ) pap test was scree lyndon with the use of an image guide kyleigh galicia. Not Available [facility] ([facility] [place] [place] [facility] [address] [place], [address], 05/31/2023 10:37:01 05/25/20 23 05/31/2023 IGP, APTIM A HPV, RFX 16/18 ,45 HPV genotype reflex Commen t Crite pauly not met, HPV Genot ype not perfo rmed. Not Available [facility] ([facility] [place] [place] [facility] [address] [place], [address], 05/31/2023 10:37:01 01/25/20 24 01/27/2024 NUSWA B VAGIN ITIS (VG) atopobium vaginae Low - 0 score Not Available [facility] ([facility] [place] [place] [facility] [address] [place], [address], 01/27/2024 20:09:22 01/25/20 24 01/27/2024 NUSWA B VAGIN ITIS (VG) bvab 2 Low - 0 score Not Available [facility] ([facility] [place] [place] [facility] [address] [facility], [place], [address], 01/27/2024 20:09:22 01/25/20 24 01/27/2024 NUA B [...] prese nce of BV. Not Available [facility] ([facility] [place] [place] [facility] [address] [facility], [place], [address], 01/27/2024 20:09:22 01/25/20 24 01/27/2024 NUA B VAGIN ITIS (VG) marcin albicans, ASPEN Negati ve negati ve Not Available [facility] ([facility] [place] [place] [facility] [address] [facility], [place], [address], 01/27/2024 20:09:22 01/25/20 24 01/27/2024 NUA B VAGIN ITIS (VG) marcin glabrata, ASPEN Positi ve negati ve abnormal Publi shed data demon strat e that up to 65% of Alka da glabr sofy ident ified in cases of vagin al alka diasi s have decre ased susce ptibi lity to fluco nazol e. Not Available [facility] ([facility] [place] [place] [facility] [address] [facility], [place], [address], 01/27/2024 20:09:22 01/25/20 24 01/27/2024 NUSWA B VAGIN ITIS (VG) trich vag by ASPEN Negati ve negati ve Not Available [facility] ([facility] [place] [place] [facility] [address] [facility], [place], [address], 01/27/2024 20:09:22 06/05/20 24 06/06/2024 URINE CULTU RE, ROUTI NE urine culture, routine Final report Not Available [facility] ([facility] [place] [place] [facility] [address] [facility], [place], [address], 06/06/2024 22:07:30 06/05/20 24 06/06/2024 URINE CULTU RE, ROUTI NE result 1 COMMEN T Cultu re shows less than 10,00 0 colon y formi ng units of bacte pauly per esmer liter of urine . This colon y count is not gener ally consi dered to be clini willie signi fican t. Not Available [facility] ([facility] [place] [place] [facility] [address] [facility], [place], [address], 06/06/2024 22:07:30 06/05/20 24 06/07/2024 IGP, APTIM A HPV, RFX 16/18 ,45 HPV aptima Negati ve negati ve This nucle ic acid ampli ficat ion test detec ts fourt een high- risk HPV types (16,1 8,31, 33,35 ,39,4 5,51, 52,56 ,58,5 9,66, 68) witho ut diffe renti ation . Not Available [facility] ([facility] [place] [place] [facility] [address] [place], [address], 06/11/2024 15:10:08 06/05/20 24 06/11/2024 IGP, APTIM A HPV, RFX 16/18 ,45 diagnosis: Commen t NEGAT CÉSAR FOR INTRA EPITH ELIAL LESIO N OR MALIG NIMA . Not Available [facility] ([facility] [place] [place] [facility] [address] [facility], [place], [address], 06/11/2024 15:10:08 06/05/20 24 06/11/2024 IGP, APTIM A HPV, RFX 16/18 ,45 specimen adequacy: Asa garcia Satis facto ry for evalu ation . No endoc ervic al compo nent is ident ified . Not Available [facility] ([facility] [place] [place] [facility] [address] [facility], [place], [address], 06/11/2024 15:10:08 06/05/20 24 06/11/2024 IGP, APTIM A HPV, RFX 16/18 ,45 clinician provided ICD10: Asa garcia Z12.4 Not Available [facility] ([facility] [place] [place] [facility] [address] [facility], [place], [address], 06/11/2024 15:10:08 06/05/20 24 06/11/2024 IGP, APTIM A HPV, RFX 16/18 ,45 performed by: Asa baez, Cytoradha garcia (ASCP ) Not Available [facility] ([facility] [place] [place] [facility] [address] [facility], [place], [address], 06/11/2024 15:10:08 06/05/20 24 06/11/2024 IGP, APTIM A HPV, RFX 16/18 ,45 . . Not Available [facility] ([facility] [place] [place] [facility] [address] [facility], [place], [address], 06/11/2024 15:10:08 06/05/20 24 06/11/2024 IGP, APTIM A HPV, RFX 16/18 ,45 note: Asa garcia The Pap smear is a scree venkata test desig lnydon to aid in the detec tion of jayro ligna nt and malig nant condi tions of the uteri ne cervi x. It is not a diagn ostic proce dure and shoul d not be used as the sole means of detec ting cervi juma cance r. Both false -posi tive and false -nega tive repor ts do occur . Not Available [facility] ([facility] [place] [place] [facility] [address] [facility], [place], [address], 06/11/2024 15:10:08 06/05/20 24 06/11/2024 IGP, APTIM A HPV, RFX 16/18 ,45 test methodology: Commen t This liqui d based ThinP rep(R ) pap test was lisa haney with the use of an image guide kyleigh fitch Not Available [facility] ([facility] [place] [place] [facility] [address] [facility], [place], [address], 06/11/2024 15:10:08 06/05/20 24 06/11/2024 IGP, APTIM A HPV, RFX 16/18 ,45 HPV genotype reflex Commen t Crite pauly not met, HPV Genot ype not perfo rmed. Not Available [facility] ([facility] [place] [place] [facility] [address] [facility], [place], [address], 06/11/2024 15:10:08 09/15/19 23 06/18/2022 MAMMO , lisa hastings, digit al, bilat eral No observ ation record ed. [place] (Centralized Scheduling) [facility] [place] , [place], [address], 09/14/2022 13:18:04 07/18/19 24 07/15/2023 MAMMO , lisa hastings, digit al, bilat eral [facility] Name: SALLY NANCE Veronica Granger [facility] [address] Phys: Pedro SULLIVAN (Showe r), [place] [address] : 1970 Age: 52 Sex: F Acct: [id number] Loc: G.MAMM PHONE #: Exam Date: 2023 Status : DEP CLI FAX #: [phone] Rad# [id number] Unit# [id number] Admit Date: 2023 EXAMS: CPT CODE: [id number] SCN DIG BREAST TOMOSY N CESAR 68234 BILATE RAL DIGITA L SCREEN ING MAMMOG [...] jany. PAGE 1 Signed Report (CARISA NUED) [facility] Name: LEE ANN CASEYKAEL Martin [facility] [facility] [place] Phys: Cheek (Showe r) MD, [place] [address] : 1970 Age: 52 Sex: F Acct: [id number] Loc: Shanda.MAMM PHONE #: Exam Date: 2023 Status : DEP CLI FAX #: Rad# [id number] Unit# [id number] Admit Date: 2023 EXAMS: CPT CODE: [id number] SCN DIG BREAST TOMOSY N CESAR 82196 Electr onical ly Signed by Enmanuel Martin [...] CROW Consul ting Provid er: TAMIKO CARNEY [place] (Centralized Scheduling) [address] [place] [address] [place], [address], 07/20/2023 15:53:27 07/18/19 25 07/18/2024 MAMMO , lisa hastings, digit al, bilat eral [facility] Name: SALLY NANCE Veronica [place]anger [facility] Phys: [place] [address] : 1970 Age: 53 Sex: F Acct: [id number] Loc: G.MAMM PHONE #: [phone] Exam Date: 2024 Status : REG CLI FAX #: Rad# [id number] Unit# [id number] Admit Date: 2024 EXAMS: CPT CODE: [id number] SCN DIG BREAST TOMOSY N CESAR 32292 BILATE RAL DIGITA L SCREEN ING MAMMOG [...] jany. PAGE 1 Signed Report (CARISA NUED) [facility]: SALLY NANCE Veronica Elkin [address] [place] [address] Phys: [place] [address] : 1970 Age: 53 Sex: F Acct: [id number] Loc: G.MAMM PHONE #: Exam Date: 2024 Status : REG CLI FAX #: [phone] Rad# [id number] Unit# [id number] Admit Date: 2024 EXAMS: CPT CODE: [id number] SCN DIG BREAST TOMOSY N CESAR 50704 Electr onical ly Signed by Enmanuel Martin [...] CROW Consul ting Provid er: TAMIKO CARNEY [email or web address] [address] [place], [address], 07/27/2024 11:28:35 Result Notes Documentation Provider Name and Address Organization Details Recorded Time Mammo, Screening, Digital, Bilateral : [facility] Ce Name: KARI NANCE [facility] Phys: [place], [place] ([place]ower) [address] : 1970 Age: 52 Sex: F Acct: [id number] Loc: Shanda.MAMM PHONE #: Exam Date: 07/14/2023 Status: DEP CLI FAX #: Rad# [id number] Unit# [id number] Admit Date: 07/14/2023 EXAMS: CPT CODE: [id number] SCN DIG BREAST TOMOSYN CESAR 73187 BILATERAL DIGITAL SCREENING MAMMOGRAM WITH CAD AND [...] when necessary. PAGE 1 Signed Report (CONTINUED) [facility] Ce Name: KARI NANCE [place] [address] [employer] [facility] Phys: Pedro SULLIVAN (Shower), [place] [address] : 1970 Age: 52 Sex: F Acct: [id number] Loc: Shanda.MAMM PHONE #: Exam Date: 07/14/2023 Status: DEP CLI FAX #: Rad# [id number] Unit# [id number] Admit Date: 07/14/2023 EXAMS: CPT CODE: [id number] SCN DIG BREAST TOMOSYN CESAR 56574 at 1809 Reported and signed by: YVON SPENCER M.D. CC: Angelika Alvarez MD; [place] Dictated Date/Time: 07/15/2023 (1808) Technologist: MAGO LEE (RT)(R) Transcribed Date/Time: 07/15/2023 (180) [address]: Electronic Signature Date/Time: 07/15/2023 (1808) Printed Date/Time: 07/18/2023 (0943) BATCH NO: N/A PAGE 2 Signed Report CC'ed Logic: Ordering Provider: NORBERTO MARIA Attending Provider: NORBERTO MARIA Referring Provider: NORBERTO MARIA Consulting Provider: TAMIKO Pérez [place], [place] [facility] 07/20/2023 15:53:27 Mammo, Screening, Digital, Bilateral : [facility] Ce Name: CASEY NANCELIN [facility] Phys: [place] [address] : 1970 Age: 53 Sex: F Acct: [id number] Loc: G.MAMM PHONE #: Exam Date: 07/18/2024 Status: REG CLI FAX #: Rad# [id number] Unit# [id number] Admit Date: 07/18/2024 EXAMS: CPT CODE: [id number] SCN DIG BREAST TOMOSYN CESAR 84240 BILATERAL DIGITAL SCREENING MAMMOGRAM WITH CAD AND [...] when necessary. PAGE 1 Signed Report (CONTINUED) [facility] Ce Name: KARI NANCE [facility] Phys: [place] [address] : 1970 Age: 53 Sex: F Acct: [id number] Loc: G.MAMM PHONE #: Exam Date: 07/18/2024 Status: REG CLI FAX #: Rad# [id number] Unit# [id number] Admit Date: 07/18/2024 EXAMS: CPT CODE: [id number] SCN DIG BREAST TOMOSYN CESAR 04030 at 1734 Reported and signed by: YVON SPENCER M.D. CC: Angelika Alvarez MD; [place] Dictated Date/Time: 07/18/2024 (173) Technologist: MONET JOSE Transcribed Date/Time: 07/18/2024 (173) [address]: Electronic Signature Date/Time: 07/18/2024 (173) Printed Date/Time: 07/18/2024 (173) BATCH NO: N/A PAGE 2 Signed Report CC'ed Logic: Ordering Provider: NORBERTO MARIA Attending Provider: NORBERTO MARIA Referring Provider: NORBERTO MARIA [facility]ing [facility] 07/27/2024 11:28:35 Problems Name Problem SNOMED Code Status Onset Date Resolution Date Notes Provider Name and Address Organization Details Recorded Time Dysplasi a of cervix 56021560 Completed 07/12/2018 Removal Reason: Resolved with [facility] Sandi love, [place] - [facility] 9 10:30:20 Chest pain 01267131 Completed 11/15/[address] [facility] [address], [place], [address], [place] - [facility] 9 13:42:21 Menorrha aaron 025827162 Completed 07/12/2018 Removal Reason: Resolved with [facility] Sandi love, [place] - [facility] 9 10:30:13 History of hysterec brian 401817098 Completed 12/25/2019 Removal Reason: duplicat Kermit love, [place] - [facility] 0 10:25:49 History of cardiac catheter ization 3290406210 9100 Completed 12/20/[address] [facility] [address], [place], [address], [facility] - [facility] 9 10:20:54 HPV - Human papillom avirus test positive Completed 12/25/2019 Removal Reason: 06-02-20 18 Felix love, [place] - [facility] 0 10:26:16 History of dysplasi a of cervix 765922451 Active x 2 cryo of cervix x2 Leep of cervix [facility] 06/02/20 18 cervix severe dysplasi a Aggie love, [place] - [facility] 4 12:16:13 History of SARS-CoV -2 7396449939 22502680 Active 04/01/21 covid Aggie [place], [place] - [facility] 4 12:16:13 Left bundle branch block 68450091 Active [place] - [facility] 4 12:16:13 Tachycar nancy 4996259 Active [place] - [facility] 4 12:16:13 Abnormal liver function 81390940 Active Elevated total bilirubi n 2.0 as of 2022. 1.6 as of ; elevated July 2023 [place] Rai MD [address], [place], [address], [place] - [facility] 4 19:27:48 Condylom a acuminat a of vulva 521665332 Active 1991 Annettebubba Pérez null, [place] - [facility] 3 13:41:31 Migraine 50962307 Active 2015 Annettebubba Kleins [place] [facility] 3 13:41:31 Chronic back pain 163522824 Active 2015 Annette Beto [place] [facility] 3 13:41:30 Gastroes ophageal reflux disease without esophagi tis 069604071 Active 2015 Annette [place] [facility] 3 13:41:31 Chronic pain syndrome 225000138 Active 2015 Annettebubba [place] [facility] 3 13:41:31 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 [address], [place], [address], [place] - [facility] 8 08:42:26 Body mass index 30+ - obesity 005597879 Completed 201611/03/2020 Annette Pérez [place] [facility] 2 10:42:11 History of peptic ulcer 151796943 Active 2016 Aggei Rom[place] [facility] 4 12:16:13 Upper gastroin testinal bleeding 63869739 Completed 201611/03/2020 Annette P[place] [facility] 1 11:52:30 Excessiv e and frequent menstrua tion 438979180 Completed 201607/12/2018 Removal Reason: Resolved with TLZoey Christians[place] [facility] 9 10:30:29 Renewal of prescrip tion Completed 201709/06/[address] [facility] [address], [place], [address], [place] [facility] 8 08:42:26 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 808929268 Completed 201711/03/2020 vaginal biopsy Severe dysplasi a Annette [place] [facility] 1 11:52:54 Vaginal intraepi thelial neoplasi a 662776881 Completed 201712/25/2019 Removal Reason: CIS cervix Felix [place] [facility] 0 10:27:07 [facility] hyperten hayley 70702668 Active 2017 Annette [place] [facility] 3 13:41:31 Acquired absence of cervix and uterus 561164813 Completed 201801/06/2022 Annet[place] [facility] 2 10:42:30 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 601173993 Completed 201811/03/2020 Annet[place] [facility] 1 11:52:15 Dysplasi a of vagina 8817066 Completed 201911/03/2020 Annet[place] [facility] 1 11:52:24 High grade squamous intraepi thelial lesion on vaginal Papanico laou smear 6352324210 95294 Completed 201901/06/2022 Annet[place] [facility] 2 10:46:51 Divertic ulitis 355687513 Active 2020 Annette [place] [facility] 3 13:41:31 Carcinom a in situ of vagina 10050541 Completed 202001/06/2021 Aggiejr Rom[place] [facility] 2 09:22:55 History of polyp of colon 461389538 Active 2020 HX of Tubualr adneoma, hyperpla stic polyp Aggiejr Rom[place] [facility] 4 12:16:13 Body mass index 30+ - obesity 783089736 Completed 202001/06/2022 Annette [place] [facility] 2 10:42:11 Carcinom a in situ of vagina 10802979 Active 2020 Annette Coon[place] [facility] 3 13:41:31 Painless rectal bleeding 637594211 Active 2020 Aggiejr [place] [facility] 4 12:16:13 Menopaus al syndrome 262227204 Active 2020 Aggiejr [place] [facility] 4 12:16:13 History of total hysterec brian 996928047 Active 2021 Aggiejr [place] [facility] 4 12:16:13 Pain in pelvis 32906855 Active 2021 Aggie [place] [facility] 4 12:16:13 Prediabe germain 880723317 Active 2021 per pt a1c 6.1 Aggie [place] [facility] 4 12:16:13 Hyperlip idemia 58646643 Active 2021 on atorvast ain Aggie Rom[place] [facility] 4 12:16:13 Diabetes mellitus 05107420 Active 2023 A1c elevated up to 9.1 Crow Rai MD [address], [place], [address], [place] - [facility] 4 19:23:49 Problem Notes None recorded. Procedures Surgical History Date Name Laterality Status Provider Name and Address Organization Details Recorded Time 07/18 Date of Last Mammogram completed Nicole Sam [place] - [facility] 5 13:50:31 06/05 Date of Last Pap Smear completed Ana Laura Levy MD [address], [place], [address], [place] - [facility] 4 11:10:44 02/15 potassium sensitivity test- MOB completed Annette Beto [place] - [facility] 2 16:59:26 02/03 Date of Last Colonoscopy completed Alexand pauly [place] - [facility] 2 13:56:45 02/03 Colonoscopy completed [place]nette [place] - [facility] 2 10:52:39 02/03 esophagogastroduodenoscopy completed Denia mac [place] - [facility] 2 10:52:51 01/08 FANCY NEEDLEWORKER Ultrasound completed Beth [place]ey [place] - [facility] 2 09:05:20 07/27 esophagogastroduodenoscopy completed Crow Rai MD [address], [place], [address], [place] [facility] 2 21:02:05 12/09 dental surgery completed Annette [place]o [place] - [facility] 1 15:31:20 11/05 Colposcopy completed Crow Rai MD [address], [place], [address], [place] [facility] 1 09:52:53 11/05 Colposcopy - Vagina/Vulva completed Crow Rai MD [address], [place], [address], [place] [facility] 1 09:53:45 11/05 Colposcopy completed Annette Pérez [place] - [facility] 2 10:46:08 04/22 LEEP Procedure completed Crow Rai MD [address], [place], [address], [place] [facility] 0 22:03:45 04/22 LEEP completed Annette Pérez [place] [facility] 0 14:57:15 04/07 Colposcopy completed Crow Rai MD [address], [place], [address], [place] [facility] 0 21:45:02 06/02 total hysterectomy completed Annette Pérez [place] - [facility] 3 08:49:34 11/01 LEEP completed [facility] [address], [place], [address], [place] [facility] 8 13:25:05 06/06 IUD Insertion (Mirena) completed Felix [place] [facility] 7 10:02:18 06/06 IUD Insertion completed [facility] [address], [place], [address], [place] [facility] 8 14:20:18 05/25 Colposcopy completed Felix [place] [facility] 7 16:52:51 05/03 Excision Benign Lesion completed Dejah Fish [place] [facility] 7 20:41:29 11/12 LEEP Procedure completed Felix [place] [facility] 7 15:58:55 11/12 LEEP completed [facility] [address], [place], [address], [place] [facility] 8 11:25:18 10/21 Colposcopy completed Felix [place] [facility] 7 13:57:25 07/09 Cryotherapy - ELECTRIC REPAIR SUPERVISOR completed Felix [place] [facility] 7 14:42:24 07/09 Cryotherapy for acne completed Eli Vazquez [place] - [facility] 7 09:27:34 05/06 Colposcopy completed Lesley Islas APRN [address], [place], [address], [facility] - [facility] 6 11:46:29 10/15 LEEP completed Annettebubba Pérez [facility] 6 08:50:20 10/04 Tubal Ligation completed Annette And[place] - [facility] 6 08:51:03 07/25 Cryocautery of cervix completed Annette Beto [facility] 6 08:50:05 Colposcopy completed Annette Beto [facility] 1 13:56:29 Cardiac Cath completed Annette Beto [facility] 1 09:06:15 Caesarean Section completed [facility] pauly [facility] 6 08:44:54 Imaging Results None recorded. Procedure Notes None recorded. Medical Equipment None Reported. Allergies Allergen ID Allergen Name Allergen Category Reaction Reaction Severity Criticality Documentation Date Start Date Code Code System Note Provider Name and Address Organization Details Recorded Time 022248 codeine medicatio n Not available Not available Not available 06/05/20182017 2670 RxNorm Crystal Jose [facility], [place] - [facility] 8 09:33:52 46876 peanut oil food,medi cation Not available Not available Not available 04/09/20162013 45937 RxNorm Not Available [facility] 6 09:59:14 59951 losartan medicatio n cough Not available Not available 10/25/2017 30644 RxNorm [facility] [address], [place], [address], [place] - [facility] 8 11:14:28 43594 lisinopri l medicatio n cough Not available Not available 10/25/2017 75089 RxNorm [facility] [address], [place], [address], [place] [facility] 8 11:14:36 80143 Iodinated contrast media (substanc e) medicatio n hives Not available Not available 10/25/2017 30099 2003 SNOMED I Care [facility] t [address], [place], [address], [place] [facility] 8 11:14:42 Medications [...] Not Available Not Available Not Available indometha fernando 50 mg capsule Take 1 capsule 3 [...] Updated DateTime 01/25/2024 162.56 cm 36.4 kg/m2 71108.58 g Aggie Heather [place] - [facility] 01/25/2024 12:13:44 Date Recorded Body weight Body mass index (BMI) Body height Heart rate Oxygen saturation Systolic And Diastolic Provider Name and Address Organization Details Last Updated DateTime 3 78107.4 g 36 kg/m2 162.56 cm 92 /min 98 % 124/78 mm[Hg] Eder Pérez [place] - [facility] 3 13:40:56 Date Recorded Body height Body mass index (BMI) Body weight Systolic And Diastolic Provider Name and Address Organization Details Last Updated DateTime 06/05/2024 162.56 cm 37.9 kg/m2 440208.91 g 112/64 mm[Hg] Ana Laura Levy MD [address], [place], [address], [place] [facility] 06/06/2024 16:31:45 Social History Question Answer Notes LastModified by Organizat ion Details LastModified Time Tobacco Smoking Status Never Smoker Dejah [place], [place] - [facility] 04/14/2016 15:21:27 Do You Have An Advance Directive? No [email or web address] Information not available 04/14/2016 Are You Blind Or Do You Have Difficulty Seeing? No [email or web address] Information not available 11/25/2021 Is Blood Transfusion Acceptable In An Emergency? Yes [email or web address] Information not available 12/13/2017 What Is Your Level Of Caffeine Consumption? Occasional [email or web address] Information not available 12/13/2017 How Much Tobacco Do You Chew? None Information not available 12/25/2019 In The 14 Days Before Symptom Onset, Have You Had Close Contact With A Laboratory-confir med COVID-19 While That Case Was Ill? No [email or web address] Information not available 11/25/2021 In The 14 Days Before Symptom Onset, Have You Had Close Contact With A Person Who Is Under Investigation For COVID-19 While That Person Was Ill? No [email or web address] Information not available 11/25/2021 Have You Been To An Area Known To Be High Risk For COVID-19? No [email or web address] Information not available 11/25/2021 Are You Deaf Or Do You Have Serious Difficulty Hearing? No Information not available 11/25/2021 What Type Of Diet Are You Following? REGULAR [email or web address] Information not available 12/13/2017 Which Illicit Or Recreational Drugs Have You Used? Denies Information not available 12/13/2017 Have You Processed Blood Or Body Fluids From An Ebola Virus Disease Patient Without Appropriate PPE? No [email or web address] Information not available 11/25/2021 Do You Reside In Or Have You Traveled To An Area Where Ebola Virus Transmission Is Active? No Information not available 11/25/2021 What Is The Highest Grade Or Level Of School You Have Completed Or The Highest Degree You Have Received? [id number] [email or web address] Information not available 11/25/2021 Have There Been Any Changes To Your Family Or Social Situation? No [email or web address] Information no t available 11/25/2021 What Is The Fluoride Status Of Your Home? Fluoridated Information not available 11/25/2021 Hard Of Hearing Or Deaf In One Or Both Ears? No Information not available 10/05/2016 Have You Recently Or Are You Planning To Travel To An Area With Zika Virus? No [email or web address] Information not available 11/25/2021 Legally Blind In One Or Both Eyes? No Information no t available 10/05/2016 Live Alone Or With Others? With Others [email or web address] Information not available 04/14/2016 Do You Have A Medical Power Of Wind Tunnel Technician? No [email or web address] Information not available 11/25/2021 What Was The Date Of Your Most Recent Tobacco Screening? 01/25/2024 [email or web address] Information not available 01/25/2024 How Many Children Do You Have? 2 [email or web address] Information not available 04/14/2016 Performs Monthly Self-breast Exam? No Information no t available 12/13/2017 What Is Your Relationship Status? [email or web address] Information not available 05/22/2018 Seat Belts Used Routinely Yes [email or web address] Information not available 04/14/2016 Are You Sexually Active? No Information not available 10/05/2016 Smoke Alarm In Home Yes [email or web address] Information not available 04/14/2016 Do You Have Smoke And Carbon Monoxide Detectors In Your Home? Yes [email or web address] Information not available 11/25/2021 Are You Passively Exposed To Smoke? No Information no t available 11/25/2021 How Much Tobacco Do You Smoke? No [email or web address] Information not available 09/05/2017 Do You Use Sunscreen Routinely? Yes [email or web address] Information not available 12/13/2017 Has Tobacco Cessation Counseling Been Provided? No [email or web address] Information not available 12/20/2018 How Many Years Have You Smoked Tobacco? 0 [email or web address] Information not available 09/05/2017 Do You Have Difficulty Walking Or Climbing Stairs? No Information not available 11/25/2021 What Contraceptive Method Was Reported At Start Of This Visit? Female Sterilization [email or web address] Information not available 11/25/2021 Do You Want To Talk About Contraception Or Prevention During Your Visit Today? No - I Do Not Want To Talk About Contraception Today Because I Am Here For Something Else [email or web address] Information not available 11/25/2021 Do You Have Any Future Plans To Get ? No, I Don't Want To Become [email or web address] Information not available 01/25/2024 Sex: Female Functional Status Question Answer Note LastModified by Organizat ion Details LastModified Time Do you or have you ever used smokeless tobacco? Never used smokeless tobacco Information not available 12/25/2019 Are you currently employed? Yes [email or web address] Information not available 04/14/2016 Do you have transportation difficulties? No [email or web address] Information not available 11/25/2021 Urinary incontinence assessment performed? Yes [email or web address] Information not available 12/13/2017 Are you able to care for yourself independently? Yes [email or web address] Information not available 04/14/2016 Do you have difficulty dressing, bathing, grooming, or toileting? No Information not available 11/25/2021 Do you or have you ever used e-cigarettes or vape? Never used electronic cigarettes Information not available 12/25/2019 What is your exercise level? Moderate [email or web address] Information not available 12/13/2017 Do you use any illicit or recreational drugs? No Information not available 11/25/2021 What is your level of alcohol consumption? None Information not available 05/05/2016 What is your status? Not [email or web address] Information no t available 11/25/2021 Are you able to walk independently without assistance or assistive devices? [email or web address] Information not available 10/05/2016 Do you have difficulty doing errands alone? 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 [id number] Information not available 11/25/2021 Do you have difficulty concentrating, remembering or making decisions? No [email or web address] Information no t available 11/25/2021 Family History Relationship Description Onset Age of this Age Resolved Age Notes LastModified by Organization Details LastModified Time Mother Aortic aneurysm 54 Not available 2023 15:24:05 Father Congestive heart failure Not available 2023 15:24:05 Father Diabetes mellitus [email or web address] Not available 2015 15:19:09 Paternal Grandfather Coronary arterioscler osis Not available 2023 15:24:05 Paternal Grandmother Coronary arterioscler osis Not available 2023 15:24:05 Maternal Grandfather Coronary arterioscler osis Not available 2023 15:24:05 Maternal Grandmother Family history of malignant neoplasm Not available 2023 15:24:05 Medical History Condition Response Pancreatitis N Coronary Artery Disease N Other N Gout N Atrial Fibrillation N congenital heart disease N Blood Diseases N Kidney Stones N Hyperthyroidism N Rheumatoid arthritis N Blood Transfusion N Erectile Dysfunction N amputation N Skin Lesions N COPD N Depression N Pneumonia N Incontinence N Murmur N Edema N Alzheimer's Disease N Migraine Headaches Y Tobacco Abuse N Anxiety Disorder N Muscle, Joint, or Bone Problems N Hemorrhoids N Obesity N Vision or Eye Problems N Restless Leg Syndrome N Arthritis N Infertility N Polyps N Carpal Tunnel N Mental Disorder N Acid Reflux (GERD) Y Cancer N Stroke N Varicosities N Tendonitis N Crohn's Disease N Hypercholesterolemia N Skin Cancer N Fibromyalgia N Headaches N Anal Fissure N Irritable Bowel Syndrome [...] Fasciitis N Hospital Admission Other Than N Lung Disease N Hypothyroidism N Defects or Inherited Disease N Developmental [...] colitis N Cerebrovascular Disease N Depression N Guillain-[place] N Sleep Apnea N Aneurysm N Bronchitis [...] ICD10 Code Diagnosis IMO Codes Diagnosis Note [id number] Angelika Alvarez MD [facility] [address] [place] [place] [address] 04/14/2016 14:19:53 04/14/2016 16:09:42 Chronic pain syndrome 270720734 G89.4 [id number] AYDIN [place] ELECTRIC REPAIR SUPERVISOR [address] [place] [address] [place] [phone] 05/06/2016 10:16:11 05/06/2016 11:40:18 HPV - Human papillomavirus test positive 784929065 R87.027 [id number] Angelika Alvarez MD [address] [place] [address] 06/02/2016 09:03:23 06/02/2016 09:55:20 Renewal of prescription 058032631 Z76.0 Chronic pain syndrome 37 8997324 G89.4 Influenza 4263980 J11.1 [id number] MD Gina [place] ELECTRIC REPAIR SUPERVISOR [address] [place] [address] [place] [id number] 06/10/2016 15:46:42 06/12/2016 13:30:37 Abnormal cervical Papanicolaou smear 219517574 R87.619 Low grade squamous intraepithelial lesion on cervical Papanicolaou smear 8268211785 9105 R87.606 [id number] MD Donell Galloway ELECTRIC REPAIR SUPERVISOR [address] [place] [address] [place] [id number] 06/10/2016 16:27:57 06/10/2016 17:09:56 HPV - Human papillomavirus test positive 055417601 R87.619 Cervicovag inal cytology: Low grade squamous intraepithelial lesion 589269620 R87.391 [id number] Angelika Alvarez MD [address] [place] [address] 06/16/2016 14:32:33 06/16/2016 16:06:35 Headache 10788660 R51 Chronic back pain 277864 002 M54.5 Renewal of prescription 967209968 Z76.0 [id number] MD Donell Galloway ELECTRIC REPAIR SUPERVISOR [address] [place] [address] [place] [id number] 07/09/2016 13:24:05 07/09/2016 14:35:27 Low grade squamous intraepithelial lesion on cervical Papanicolaou smear 9083652317 9105 R87.612 HPV - Miranda n papillomavirus test positive 827036386 R87.106 [id number] MD Donell Galloway ELECTRIC REPAIR SUPERVISOR [address] [place] [address] [place] [id number] 10/05/2016 09:18:45 10/05/2016 10:08:37 Cervical intraepithelial neoplasia grade 1 209662444 N87.0 s/p cryo 07/2016 HPV - Miranda n papillomavirus test positive 955593628 R87.619 Body mass index 30+ - obesity 552141736 Z68.35 would like to see today if possible for wt loss Routine gy necologic examination done 0033691768 9101 Z01.419 Depression screening 171 018001 Z13.89 Diet education 01848016 Z71.3 Counseling 924777822 Z71 .9 Exercise counselgee farrar Patient encouraged to exercise 30 minutes 5 days a week. Examinatio n of blood pressure 309038072 Z01.30 Vaccine de clined by patient 3114558291 02 Z28.21 [id number] Angelika Alvarez MD [facility] [address] [place], [place] [address] [place] [address] 08/24/2016 09:25:24 08/24/2016 12:00:14 Arthritis 5485271 M19.90 Benign hypertension 1072 5009 I10 Generalize d osteoarthritis 159745667 M15.0 Low back pain 404042141 M54.5 Neck pain 69590120 M54.2 Ankle pain 610192010 M25 .572 Pain of zander int of ankle 728143360 M25.702 [id number] Angelika Alvarez MD [address] [place] [address] 09/07/2016 08:45:27 09/07/2016 10:41:05 Chronic back pain 028247929 M54.5 [id number] MD Donell Galloway ELECTRIC REPAIR SUPERVISOR [address] [place] [address] [place] [id number] 10/21/2016 12:08:25 10/21/2016 13:46:44 Low grade squamous intraepithelial lesion on cervical Papanicolaou smear 8879608329 9105 R87.612 HPV - Miranda n papillomavirus test positive 504022583 R87.619 Condyloma acuminata of vulva 487769460 A63.0 Candidiasis of vagina 72 691393 B37.3 [id number] MD Donell Galloway ELECTRIC REPAIR SUPERVISOR [address] [place] [address] [place] [id number] 2016 14:20:44 2016 16:11:48 Cervical intraepithelial neoplasia grade 1 824859012 N87.0 s/p cryo 07/2016 Low grade squamous intraepithelial lesion on cervical Papanicolaou smear 1818999161 9105 R87.612 HPV - Miranda n papillomavirus test positive 944535053 R87.383 [id number] MD Donell Galloway ELECTRIC REPAIR SUPERVISOR [address] [place] [address] [place] [id number] 11/24/2016 14:33:40 11/24/2016 15:36:54 Low grade squamous intraepithelial lesion on cervical Papanicolaou smear 8074280851 9105 R87.612 FERNANDO I per LLETZ 11-12-16 Postoperative visit 1836 51986 Z09 [id number] Angelika Alvarez MD [place] [address] [facility] [place] [address] 11/23/2016 12:59:39 11/23/2016 15:32:55 Chronic back pain 238882402 M54.5 Arthritis 5790378 M19.90 Pain of joint 95665886 M 25.50 Gouty arthropathy 953432 008 M10.09 Renewal of prescription 660031323 Z76.0 Acute sinusitis 06335548 J01.90 [id number] MD Donell Galloway ELECTRIC REPAIR SUPERVISOR [address] [place] [address] [place] [id number] 01/10/2017 14:39:03 01/10/2017 15:12:53 Cervical intraepithelial neoplasia grade 1 514105836 N87.0 [id number] DO Donell Marsh ELECTRIC REPAIR SUPERVISOR [address] [place] [address] [place] [id number] 01/19/2017 16:05:06 01/19/2017 16:33:14 Counseling 488878179 Z71.9 Body mass index 30+ - obesity 466162349 Z68.39 Dysuria 98465133 R30.0 Bacterial vaginosis 4197 04841 N76.0 Vaginal discharge 309451 006 N89.8 [id number] Angelika Alvarez MD [address] [place] [address] 02/02/2017 09:16:57 02/02/2017 10:24:14 Chronic back pain 019890331 M54.5 Pain of mu ltiple joints 55330648 M25.50 Renewal of prescription 511360452 Z76.0 [id number] Angelika Alvarez MD [address] [place] [address] 04/08/2017 09:04:13 04/08/2017 11:26:10 Renewal of prescription 869665347 Z76.0 Chronic back pain 438988 002 M54.5 Migraine 40839425 G43.90 9 Trying to profilax with Beta lesli Gastroesop hageal reflux disease without esophagitis 548293052 K21.9 [id number] Angelika Alvarez MD [address] [place] [address] 04/12/2017 08:27:42 04/12/2017 08:50:31 Migraine 46992926 G43.909 Trying to prophylact ic measure with Beta lesli Nausea 280342567 R11.0 Excessive and frequent menstruation 168990655 N92.1 has appointmen t to see Dr [place] loan servicing representative later in month, instructed to call today and give him an update to see if earlier appointmen t or another interventi on can be done [id number] MD Donell Galloway ELECTRIC REPAIR SUPERVISOR [address] [place] [address] [place] [id number] 05/02/2017 10:41:37 05/02/2017 12:10:24 Cervical intraepithelial neoplasia grade 1 583825804 N87.0 Excessive and frequent menstruation 730470037 N92.1 See if can get approval for Mirena [id number] Angelika Alvarez MD [address] [place] [address] 05/03/2017 15:46:59 05/24/2017 14:46:04 Benign neoplasm of skin of nose 43217929 D23.39 [id number] Angelika Alvarez MD [address] [place] [address] 05/16/2017 13:41:09 05/16/2017 15:59:18 Dizziness 215171890 R42 Headache 50072510 R51 On examina tion - painful ear 574728753 H92.09 [id number] Felix [place] MD [place] ELECTRIC REPAIR SUPERVISOR [address] [place] [address] [place] [id number] 05/25/2017 15:33:56 05/25/2017 16:48:32 Low grade squamous intraepithelial lesion on cervical Papanicolaou smear 4791395117 9105 R87.432 [id number] MD Donell Galloway ELECTRIC REPAIR SUPERVISOR [address] [place] [address] SAM Juan [id number] 7 06/06/2017 09:00:36 06/06/2017 11:03:20 Excessive and frequent menstruation 055376871 N92.1 Body mass index 30+ - obesity 550166782 Z68.34 Cervical intraepithelial neoplasia grade 1 347376379 N87.0 LGSIL Paps and positive HPV with negative biopsies 05-25-17 [id number] Angelika Alvarez MD [address] [place] [address] 06/08/2017 08:50:28 06/08/2017 09:59:50 Arthritis 7999620 M19.90 Pain of joint 26711832 M 25.50 Gouty arthropathy 447750 008 M10.09 Chronic back pain 089763 002 M54.5 Chronic pain syndrome 37 8112751 G89.4 Gastroesop hageal reflux disease without esophagitis 808647890 K21.9 Renewal of prescription 485763543 Z76.0 [id number] Angelika Alvarez MD [facility] [address] [place], [place] [address] [place] [address] 08/08/2017 09:36:46 08/08/2017 11:23:13 Arthritis 2415650 M19.90 Pain of joint 01022622 M 25.50 Gouty arthropathy 893084 008 M10.09 Chronic back pain 509601 002 M54.5 Chronic pain syndrome 37 0728779 G89.4 Body mass index 30+ - obesity 936799213 Z68.35 [id number] MD Donell Galloway [employer] [address] [place] [address] SAM Juan [id number] 7 09/06/2017 08:39:58 09/06/2017 09:47:49 Low grade squamous intraepithelial lesion on cervical Papanicolaou smear 0033976840 9105 R87.612 Body mass index 30+ - obesity 340683354 Z68.35 Excessive and frequent menstruation 836117523 N92.1 Mirena 06-06-17 [id number] Angelika Alvarez MD [facility] [address] [place], [place] [address] [place] [address] 09/20/2017 08:26:20 09/20/2017 10:04:29 Pain in left lower limb 305621315 M79.605 Phlebitis 27599423 I80.9 [id number] Titus Phan MD [facility] [address] [place], [place] [address] [place] [address] 09/23/2017 13:09:56 09/23/2017 15:25:42 Phlebitis 51251726 I80.9 [id number] Angelika Alvarez MD [facility] [address] [place], [place] [address] [place] [address] 10/03/2017 12:36:22 10/03/2017 15:02:22 Chronic back pain 840592834 M54.5 Medication monitoring 39 4990396 Z51.81 Essential hypertension 81417682 I10 [id number] Angelika Alvarez MD [facility] [address] [place], [place] [address] [place] [address] 10/24/2017 14:04:03 10/24/2017 16:28:34 Migraine 67028621 G43.909 Trying to prophylact ic measure with Beta lesli Chronic back pain 999218 002 M54.5 [id number] MD Donell Galloway [employer] [address] [place] [address] [place] Juan [id number] 7 10/25/2017 10:23:53 10/25/2017 12:01:54 Low grade squamous intraepithelial lesion on cervical Papanicolaou smear 5235918184 9105 R87.612 HPV - Miranda n papillomavirus test positive 300233246 R87.619 Pre-surger y evaluation 588036716 Z01.818 Body mass index 30+ - obesity 933963738 Z68.35 Excessive and frequent menstruation 354576474 N92.1 Mirena 06-06-17 History of peptic ulcer 822005697 Z87.11 Cervical intraepithelial neoplasia grade 1 238399728 N87.0 LGSIL Paps and positive HPV with negative biopsies 05-25-17 Chronic back pain 861704 002 M54.17 Gastroesop hageal reflux disease without esophagitis 924059742 K21.9 Migraine 62971311 G43.90 9 [id number] MD Donell Galloway [employer] [address] [place] [address] 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 Severe Squamous Dysplasia per Path 11-01-18, no invasive carcinoma seen Excessive and frequent menstruation 878381209 N92.1 Mirena 06-06-17 [id number] Angelika Alvarez MD [facility] [address] [facility] [address] 12/02/2017 08:32:06 12/02/2017 10:00:27 Chronic back pain 740040186 M54.5 Gastroesop hageal reflux disease without esophagitis 285960655 K21.9 Body mass index 30+ - obesity 194666800 Z68.35 [id number] MD Donell Galloway [employer] [address] [place] [address] SAM Juan [id number] 7 12/13/2017 12:43:53 12/13/2017 13:40:56 Routine gynecologic examination done 6667948861 9101 Z01.419 Depression screening 171 041571 Z13.89 Diet education 13676711 Z71.3 Counseling 737930974 Z71 .82 Exercise counselgee farrar Patient encouraged to exercise 30 minutes 5 days a week. Examinatio n of blood pressure 018749526 Z01.30 Screening for malignant neoplasm of cervix 990214086 Z12.4 Screening mammography 24 225677 Z12.31 Body mass index 30+ - obesity 295051061 Z68.35 Vaginal intraepithelial neoplasia 737239875 D07.2 Severe Squamous Dysplasia per Path 5-1-18, no invasive carcinoma seen Excessive and frequent menstruation 359046492 N92.1 Mirena 12-4-17 Cervical intraepithelial neoplasia grade 1 148154852 N87.0 LLETZ cone 5--18 mild reactive atypia, no dysplasia (SEE VAGINA) [id number] Angelika Alvarez MD [facility] [address] [address] 01/03/2018 10:58:49 01/03/2018 14:17:34 Body mass index 30+ - obesity 581340114 Z68.35 Chronic pain syndrome 37 2087913 G89.4 Chronic back pain 084668 002 M54.5 [id number] MD Donell Galloway [employer] [address] [place] [address] SAM Juan [id number] 7 01/24/2018 13:37:06 01/24/2018 14:12:06 Vaginal intraepithelial neoplasia 623254825 D07.2 Severe Squamous Dysplasia per Path 5--18, no invasive carcinoma seen Cervical intraepithelial neoplasia grade 1 413441356 N87.0 LLETZ cone 5--18 mild reactive atypia, no dysplasia (SEE VAGINA) Low grade squamous intraepithelial lesion on cervical Papanicolaou smear 8206742182 9105 R87.612 -12-18 (with some cells suspicious for high grade ) HPV - Miranda n papillomavirus test positive 986895393 R87.567 [id number] Angelika Alvarez MD [facility] [address] [address] 02/03/2018 12:22:52 02/03/2018 14:43:36 Headache 45942018 R51 [id number] MD Donell Galloway [employer] [address] [place] [address] SAM Juan [id number] 7 03/22/2018 12:30:56 03/22/2018 13:23:37 Cervical intraepithelial neoplasia grade 1 116309459 N87.0 LLETZ cone 11-01-17 mild reactive atypia, no dysplasia (SEE VAGINA) Vaginal intraepithelial neoplasia 736203855 D07.2 Severe Squamous Dysplasia per Path 11-01-17, no invasive carcinoma seen HPV - Miranda n papillomavirus test positive 650868120 R87.619 Body mass index 30+ - obesity 043618463 Z68.35 IUD check 852089818 Z30. 968 [id number] MD Donell Galloway [employer] [address] [place] [address] SAM Juan [id number] 7 05/22/2018 08:22:20 05/22/2018 09:20:27 Vaginal intraepithelial neoplasia 117218901 D07.2 Severe Squamous Dysplasia per Path 11-01-17, no invasive carcinoma seen HPV - Miranda n papillomavirus test positive 901065628 R87.619 High grade squamous intraepithelial lesion on cervical Papanicolaou smear 8744216365 9107 R87.613 03-22-18, severe dysplasia Pre-surger y evaluation 980506269 Z01.818 Excessive and frequent menstruation 912425667 N92.1 Mirena 06-06-17 [id number] MD Donell Galloway [employer] [address] [place] [address] SAM Juan [id number] 7 07/12/2018 09:47:38 07/12/2018 11:04:11 Postoperative care 263087169 Z48.816 Body mass index 30+ - obesity 236597560 Z68.36 Acquired a bsence of cervix and uterus 858439265 Z90.710 06-02-18 TLH, BS: SEVERE DYSPLASIA Cervical intraepithelial neoplasia grade III with severe dysplasia 006396626 D06.9 06-02-2018 TLH, BS [id number] MD Donell Galloway [employer] [address] [place] [address] SAM Juan [id number] 7 12/21/2018 12:36:38 12/21/2018 14:06:11 Routine gynecologic examination done 2606058186 9101 Z01.419 Depression screening 171 098743 Z13.89 Diet education 36872017 Z71.3 Counseling 259395222 Z71 .82 Exercise counselgee farrar Patient encouraged to exercise 30 minutes 5 days a week. 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 Mi 09/2017 Gastroesop hageal reflux disease without esophagitis 728770485 K21.[address] Alvarez Cervical intraepithelial neoplasia grade III with severe dysplasia 674717753 D06.9 Severe Squamous Dysplasia per Path 11-01-17, no invasive carcinoma seen [id number] MD Donell Galloway [employer] [address] [place] [address] SAM Juan [id number] 7 12/25/2019 09:26:58 12/25/2019 10:54:12 Acquired absence of cervix and uterus 041348388 Z90.710 06-02-18 TLH, BS: SEVERE DYSPLASIA Body mass index 30+ - obesity 036607417 Z68.36 Essential hypertension 90607652 I10 History of peptic ulcer 984545926 Z87.11 Routine gy necologic examination done 8635668778 9101 Z01.419 Depression screening 171 998283 Z13.89 Diet education 24533013 Z71.3 Counseling 592653624 Z71 .82 Exercise counsellin g. Patient encouraged to exercise 30 minutes 5 days a week. Examinatio n of blood pressure 794785233 Z01.30 Vaccine de clined by patient 7613657102 02 Z28.21 Screening for malignant neoplasm of breast 843568374 Z12.39 Cervical intraepithelial neoplasia grade III with severe dysplasia 315408908 D06.9 Severe Squamous Dysplasia per Path 11-01-17, no invasive carcinoma seen Pityriasis versicolor 56 805317 B36.0 Vaginal intraepithelial neoplasia grade 2 910360347 N89.1 [id number] MD Donell Atkins [employer] [address] [place] [address] SAM Juan [id number] 7 04/07/2020 12:21:15 04/07/2020 14:08:55 Vaginal discharge 542586368 N89.8 Asymptomat ic, swab sent Screening for malignant neoplasm of breast 267571987 Z12.31 Patient aware of due date for [...] squamous intraepithelial lesion on vaginal Papanicolaou smear 4100426449 13116 R87.131 [id number] MD Donell Atkins [employer] [address] [place] [address] SAM Juan [id number] 7 04/22/2020 13:32:52 04/22/2020 15:23:00 High grade squamous intraepithelial lesion on vaginal Papanicolaou smear 4639101295 63089 R87.623 colpo 04/07/2020 VAIN III Dysplasia of [...] . Close surveillan ce advised with colposcopy [id number] MD Donell Atkins [employer] [address] [place] [address] SAM Juan [id number] 7 05/19/2020 08:19:46 05/19/2020 09:17:32 Dysplasia of vagina 3363075 N89.3 Severe vaginal dysplasia per 5 1 [...] colposcopi c visual changes, due November 2020 [id number] MD Donell Atkins [employer] [address] [place] [address] 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 [id number] 7 01/07/2021 14:52:37 01/07/2021 16:11:50 Gynecologic examination 88343955 Z01.419 Depression screening 171 773239 Z13.89 Hypertensi on screening 281171623 Z13.6 Patient currently within goal of less than 140/90. Exercises education, guidance, and counseling 817334544 Z71.82 Advise 30 minutes 3 times a week at a minimum of purposeful exercise. Patient currently meeting this goal. Acquired a bsence of cervix and uterus 608973318 Z90.710 Carcinoma in situ of vagina 17932605 D07.2 11/01/2017 vaginal biopsy severe squamous dysplasia [...] for tracking History of dysplasia of cervix 578351480 Z87.410 2 previous cyro of cervix and 2 previous LEEP procedures of cervix followed by [facility] 06/02/2018 with final pathology showing severe dysplasia of cervix Screening for malignant neoplasm of breast 395709261 Z12.31 Patient aware of due date for next Mammogram as indicated below. She will be notified by facility of result after completion . Advise yearly Clinical Breast exam with Annual exam. Body mass index 30+ - obesity 959003705 Z68.35 History of polyp of colon 951774506 Z86.010 Request records for polyp histology and follow-up advise, [facility] GI Dr. Whittaker [id number] MD Donell Atkins [employer] [address] [place] [address] SAM Juan [id number] 7 06/05/2021 09:38:27 06/05/2021 11:49:00 Menopausal syndrome 442143764 N95.9 Retained ovaries status post 2018 [facility]. New complaints of hot flashes, likely hypoestrog enic symptoms but will check other etiologies , Labs today. Advise checking temperatur e to confirm no latent fevers following Covid. Discuss potential rx for Estrogen if no other abnormalit ies seen. Short-term follow-up Vaginal irritation 57178 6004 N89.8 No obvious etiology but cannot exclude yeast after several rounds of antibiotic s with Covid illness Screening for malignant neoplasm of vagina 773540783 Z12.72 Painless r ectal bleeding 493027818 K62.5 K64.9 Suspect from inflamed hemorrhoid s after frequent loose stools with Covid. rx hydrocorit son suppositor y, if no change 2 weeks advised to f/u with GI History of SARS-CoV-2 29 87213804 17081209 Z86.16 [id number] MD Donell Atkins [employer] [address] [place] [address] SAM Juan [id number] 7 07/09/2021 08:03:23 07/09/2021 09:16:52 Complex cyst of left ovary 2139142296 0225956 N83.292 Suspect hemorrhagi c corpus luteum. Has been acutely symptomati c 3 weeks ago, asymptomat ic currently. Partially resolved sonographi willie. Reassess 6 months History of total hysterectomy 772829374 Z90.710 TL 06/02/2018 for severe cervical dysplasia and menorrhagi a Carcinoma in situ of vagina 00778840 D07.2 11/01/2017 vaginal biopsy severe squamous dysplasia 04/07/2020 persistent focal 1cm lesion left fornix bx showing KARLA III 04/22/2020 LEEP of vaginal fornix, KARLA II/III Vaginal colpo no gross visible changes, bx negative. PAP ascus neg hpvNext surveillan ce due as cuff cytology/H PV with summer 2021 annual, unless having discharge or bleeding sooner. Future order has been placed for tracking [id number] MD Donell Atkins [employer] [address] [place] [address] SAM Juan [id number] 7 01/08/2022 08:01:19 01/08/2022 09:58:25 History of total hysterectomy 559981058 Z90.710 TLH 06/02/2018 for severe cervical dysplasia and menorrhagi a Cyst of left ovary 76346 00468 1273560 N83.202 Pain in pelvis 29814334 R10.2 Chronic pain syndrome. This has been [...] consider IC treatment if PST is positive [id number] MD Donell Atkins [employer] [address] [place] [address] SAM Juan [id number] 7 11/25/2021 09:13:27 11/25/2021 10:49:48 Pain in pelvis 71741566 R10.2 Nonacute pain. This has been migratory [...] any serious pathology History of total hysterectomy 652615571 Z90.710 [facility] 06/02/2018 for severe cervical dysplasia and menorrhagi a Cyst of co rpus luteum of left ovary 3999708427 6094691 N83.15 July 2021 ultrasound , 4 cm overall diameter. Doubt this was cause of her pain then or now. Recheck upcoming visit [id number] MD Donell Atkins [employer]PER[employer] [address] [place] [address] SAM Juan [id number] 7 02/02/2022 10:03:10 02/03/2022 09:54:49 [id number] MD Donell Atkins [employer]IR SUPER[employer] [address] [place] [address] SAM Juan [id number] 7 02/15/2022 13:39:24 02/15/2022 14:36:04 Pain in pelvis 20328760 R10.2 Chronic pain syndrome. This has been [...] for treatment of likely IBS as well [id number] MD Donell Atkins [employer]IR SUPER[employer] [address] [place] [address] [place] Juan [id number] 7 04/21/2022 08:03:12 04/21/2022 09:00:53 Gynecologic examination 22120657 Z01.419 Depression screening 171 030189 Z13.89 Hypertensi on screening 507058813 Z13.6 Patient currently iswithin goal of less than 140/90. We will rescreen at annual visit, sooner if needed Exercises education, guidance, and counseling 130204557 Z71.82 Advise 30 minutes 3 times a week at a minimum of purposeful exercise. Patient is not currently meeting this goal. History of total hysterectomy 460466913 Z90.710 [facility] 06/02/2018 for severe cervical dysplasia and menorrhagi a Carcinoma in situ of vagina 16963144 D07.2 11/01/2017 vaginal biopsy severe squamous dysplasia 04/07/2020 persistent focal 1cm lesion left fornix bx showing KARLA III 04/22/2020 LEEP of vaginal fornix, KARLA II/III Vaginal colpo no gross visible changes, bx negative. PAP ascus neg hpv 06/2021 vaginal pap normalCyto logy today Body mass index 30+ - obesity 588853222 Z68.36 Obesity 286123374 E66.[address] Prediabetes 777403535 R7 3.03 pt reports aic6.1 Hyperlipidemia 82796921 E78.5 Screening for malignant neoplasm of vagina 744037564 Z12.72 Screening for malignant neoplasm of breast 506995532 Z12.31 Patient aware of due date for next Mammogram as indicated below. dc She will be notified by facility of result after completion . Advise yearly Clinical Breast exam with Annual exam. [id number] Danielle Harry MS, RDN, USMANN Donell E[employer] SUPERVISOR [address] [place] [address] [place] Juan [id number] 7 04/26/2022 09:40:07 04/26/2022 11:02:56 Body mass index 30+ - obesity 512988456 Z68.36 [id number] Danielle Harry MS, DAVEN, USMANN Donell E[employer]PAIR SUPER[employer]OR [address] [place] [address] SAM Juan [id number] 7 05/24/2022 08:27:11 05/24/2022 09:22:11 Body mass index 30+ - obesity 783829096 Z68.36 [id number] MD Donell Atkins [employer]IR SUPER[employer] [address] [place] [address] SAM Juan [id number] 7 05/25/2023 13:20:28 05/25/2023 14:13:20 Gynecologic examination 40202334 Z01.419 Depression screening 171 149651 Z13.31 neg screen Hypertensi on screening 732728841 Z13.6 Patient currently iswithin goal of less than 140/90. We will rescreen at annual visit, sooner if needed Exercises education, guidance, and counseling 969763979 Z71.82 Advise 30 minutes 3 times a week at a minimum of purposeful exercise. Patient is not currently meeting this goal. Carcinoma in situ of vagina 30798984 D07.2 11/01/2017 vaginal biopsy severe squamous dysplasia 04/07/2020 persistent focal 1cm lesion left fornix bx showing KARLA III 04/22/2020 LEEP of vaginal fornix, KARLA II/III 11/05/20 Vaginal colpo no gross visible changes, bx negative. PAP ascus neg hpv06/2021 vaginal pap ywcovo13/1 03/25 vaginal pap normalcont ineu cuff papa surveilanc e,add hpv this year History of total hysterectomy 401762287 Z90.710 [facility] 06/02/2018 for severe cervical dysplasia and menorrhagi a Screening for malignant neoplasm of breast 229521329 Z12.31 Patient aware of due date for next Mammogram as indicated below. J[facility] ;She will be notified by facility of result after completion . Advise yearly Clinical Breast exam with Annual exam. Urinary tr act infectious disease 90665353 N39.0 ER visit ~ 2 weeks ago- no records; sx resolved ;CHRIS today Body mass index 30+ - obesity 218043733 Z68.36 E66.8 Obesity 705713814 E66.9 [id number] MD Donell Atkins [employer]IR SUPER[employer]OR [address] [place] [address] SAM Juan [id number] 7 01/25/2024 11:18:05 01/25/2024 13:04:42 History of total hysterectomy 283494883 Z90.710 [facility] 06/02/2018 for severe cervical dysplasia and menorrhagi a Vaginal dryness 83768807 N89.8 Atrophy of vagina 546895 009 N95.2 History of vaginal intraepithelial neoplasia 1802841993 08413 Z87.411 11/01/2017 vaginal biopsy severe squamous dysplasia1 persistent focal 1cm lesion left fornix bx showing KARLA III10 020 LEEP of vaginal fornix, KARLA II/III Vaginal colpo no gross visible changes, bx negative. PAP ascus neg hpv06/2021 vaginal pap hgvifw67/1 03/25 vaginal sebjun7908/26 wnl negative hpvrecheck due with 05/27 exam Perimenopausal state 633 9771030 37498 Z78.0 Suspect she is at least perimenopa usal based on age although she reports normal labs 6 or 7 months ago. Will request records to see what was checked [id number] MD Donell Price ELECTRIC REPAIR SUPERVISOR [address] [place] [id number] 06/05/2024 15:23:52 06/15/2024 08:47:48 Routine gynecologic examination done 1162838504 9101 Z01.419 Depression screening 171 832867 Z13.31 Diet education 42570024 Z71.3 Counseling 446281718 Z71 .82 Exercise counselgee farrar Patient encouraged to exercise 30 minutes 5 days a week. Examinatio n of blood pressure 004238138 Z01.30 Screening for malignant neoplasm of cervix 417227138 Z12.4 Screening for malignant neoplasm of breast 196465995 Z12.39 Vaccination declined 230 2803803 Z28.21 Seasonal flu vaccine offered and declined Atrophy of vagina 695212 009 N95.2 Urgent lindy pearl to urinate 19192944 R39.15 History of dysplasia of cervix 030403944 Z87.410 History of vaginal intraepithelial neoplasia 8419544407 33754 Z86.002 Health Concerns Section Related Observation LastModified by Organization Detai ls LastModified Time None Recorded Concern Status LastModified by Organization Details LastModified Time None Recorded Advance Directives Directive N: Payers Insurance Date Sequence Insurance Name Policy Number Policy Sierra Covered Member ID Sierra Member ID Guarantor Name 10/08/2016 1 [place] FFS/TRADITION AL Kari Garcia [id number] Kari Nance 10/08/2016 1 [employer] [place] Kari Garcia [id number] Kari Granger [place] 05/11/2022 2 [employer] [place] (MEDIC[place]AC[place]/A DVANTAGE - HMO) Kari Granger [place] [id number] Kari Granger [place] 02/02/2017 [place] Kari Granger Jose [id number] Kari Granger [place] 06/09/2024 1 [employer] [place] Kari Granger [place] [id number] Kari Granger [place] 10/08/2016 1 UNSPECIFIED REMIT PAYOR Kari Granger [place] 11/23/2016 [place] Kari Garnger Jose [id number] Kari Granger [place] 07/16/2024 [place] Kari Granger [place] [id number] Kari Granger [place] Notes Date Note [...] coconut flakes, hard boiled along with it.Snack:Quest barLunch:[place] sandwich on wheat bread, hatch-vegan, lettuce at [...] of 6.1 from lab work done at [facility] Needs:66 , 211#, BMI 36.[address]07 calories using [employer] w/1-1.2 activity factor, recommend 1972-4498 calories for weight lossNutrition Diagnosis:Skilled Nursing Goals:To improve my health, prevent/delay DM, fatty [...] ated history outcomes: Types of food/meals Labs:improved W6GLntjjjzvtesoor:weight changesHandouts provided:Mediterranean Diet, sample meals, label reading handout, prediabetes handout and setting goals for weight [id number] of face to face time with patient.F/U 1 month Danielle Harry, MS, RDN, LDN [address], [place], [address], [place] - [facility] 04/27/2022 15:26:12 2 [...] eats some beans. Salads with grilled chicken. Mongolian yogurt, avacodo Snack:granola or quest barsDinner: Snack:sometimes [...] face with patient. F/U as desired. Danielle Harry, MS, RDN, LDN [address], [place], [address], [place] - [facility] 05/24/2022 09:20:07 3 text/htm l Patient is a 52 year old who presents today as an established patient for an annual exam. Her previous annual exam was 04/21/22 with myself. She is surgically menopausal. She has had TLH with ovarian conservation in 06/02/2018 for severe cervical dysplasia, menorrhagiaat [facility]. She has never used HRT. 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 PAP ascus neg [id number] Vaginal pap normal.10/19/22 vaginal pap normal . Test(s) indicated today: [...] molly to come through.. 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 She is doing well. She has noticed some urinary urgency and burning, as well as some leaking with coughing/laughing. She is using vaginal estrogen for her vaginal dryness, and this is helping her. Ana Laura Levy MD [address], [place], [address], [place] [facility] 06/21/2024 11:11:04 OBGyn Episode No OBEpisode recorded.
--- OUTSIDE RECORDS SUMMARY | 2025-05-23 07:39 | XMS_ITS | Encounter Summary ---
Author Organization [facility] Address [address] [place] [address] Care Team Providers Care Concrete Bucket Loader Name Role Phone David Alvarez MD Primary Care Provider [phone] Encounter Details Date Type Department Care Team (Latest Contact Info) Description 03/13/2025 Results Follow-Up [facility] [address] [place] [address] Garrett Whittaker MD [address] [place] [address] US ELASTOGRAPHY ONLY - LIVER [...] on filedocumented in this encounter Care Teams Concrete Bucket Loader Relationship Specialty Start Date End Date David Alvarez MD PCP - General Family Medicine 09/08/23 documented as of this encounter
--- OUTSIDE RECORDS SUMMARY | 2025-05-23 07:39 | XMS_ITS | Clinical Summary ---
Author Organization [facility] Address [address] [place] [address] [place] [address] Phone Care Team Providers Care Appliance Tester Name Role Phone David Alvarez MD Primary Care Provider [phone] Allergies Active Allergy Reactions Criticality Noted Date [...] & Plan (09/09/2021 3:34 PM EST): Episodic. Remer down both sides of her abdomen. Her [...] 2:02 PM EDT): Isolated indirect elevation c/w [place]. Assessment & Plan (09/09/2021 3:35 PM EST): [...] - 03/13/2025 11:59 PM EDT Hospital Encounter [facility] [place] [address] Garrett Whittaker MD Metabolic dysfunction-associat ed steatotic liver disease (MASLD) Discharge Disposition: Home or Self Care 03/13/2025 5:56 AM EDT - 03/13/2025 11:59 PM EDT Hospital Encounter [facility] [place] [address] Garrett Whittaker MD Metabolic dysfunction-associat ed steatotic liver disease (MASLD) Discharge Disposition: Home or Self Care 03/13/2025 Results Follow-Up [facility] [address] [place] [address] Garrett Whittaker MD US ELASTOGRAPHY ONLY - LIVER 03/06/2025 7:50 AM EDT - 03/06/2025 11:59 PM EDT Hospital Encounter [facility] [address] [place] [address] [facility], [facility] Metabolic dysfunction-associat ed steatotic liver disease (MASLD) Discharge Disposition: Home or Self Care 03/06/2025 7:00 AM EDT Office Visit [facility] [address] [place] [address] Garrett Whittaker MD Metabolic dysfunction-associat ed steatotic liver disease (MASLD) (Primary Dx); Gastroesophageal reflux disease without esophagitis; Esophageal dysphagia; Adenomatous polyp of colon, unspecified part of colon; Diverticulitis of large intestine without perforation or abscess without bleeding 03/01/2025 Travel from Last 3 Months Surgical History Surgery Date Site/Laterality Comments DC TOTAL ABDOMINAL HYSTERECT W/WO RMVL TUBE OVARY [...] HISTORY: K76.0-Fatty (change of) liver, not elsewhere [id number]. Suspected liver fibrosis. COMPARISON: None. PROCEDURE COMMENTS: [...] HISTORY: K76.0-Fatty (change of) liver, not elsewhere [id number]. Suspected liver fibrosis. COMPARISON: None. PROCEDURE COMMENTS: Liver stiffness measurements were obtained using [employer] system with at least 10 measurements using [...] HISTORY: K76.0-Fatty (change of) liver, not elsewhere [id number]. COMPARISON: September 12, 2021 PROCEDURE COMMENTS: Ultrasound [...] HISTORY: K76.0-Fatty (change of) liver, not elsewhere [id number]. COMPARISON: September 12, 2021 PROCEDURE COMMENTS: Ultrasound [...] of the ordering clinician. Garrett Whittaker MD [facility] US ORDERABLES Final Result * (ABNORMAL) HEPATIC [...] <=41 U/L 03/06/2025 1:05 PM EDT [facility] Alk Phos 82 36 - 123 U/L 03/06/2025 1:05 PM EDT [facility] Blood VENOUS BLOOD / Unknown Venipuncture / Unknown 03/06/2025 8:08 AM EDT 03/06/2025 8:08 AM EDT us Garrett Whittaker MD CHEMISTRY ORDERABLES Final Res ult [facility] [address] [facility] , [address] [place] [id number] * COLONOSCOPY (11/28/2024 7:50 AM EDT) Anatomical [...] of bowel preparation was evaluated using the [place] Bowel Preparation Scale with scores of: right [...] Most Recently Relevant to Health Maintenance Insurance [address] [employer] [facility] [place] [id number] [place] [facility] [id number] [place] Care Teams Appliance Tester Relationship Specialty Start Date End Date David Alvarez MD PCP - General Family Medicine 09/08/23
--- NOTE | 2025-05-23 08:00 | US_ITS ---
FINAL REPORT TECHNIQUE: Real-time grayscale and color ultrasound of the thyroid was performed. CLINICAL HISTORY: 6 month f/u COMPARISON: 11/15/2024 FINDINGS: The thyroid gland measures 50 x 17 x 29 mm on the right and 45 x 19 x 17 mm on the left. There is a multitude of thyroid nodules bilaterally. Upper right lobe is an isoechoic 11 mm solid nodule. There is also a 13 mm cystic and solid TR 3 nodule in the mid right lobe. On the left is a 10 mm TR 3 nodule. IMPRESSION: Multiple TR 3 nodules bilaterally. By size criteria, follow-up recommended in 1 year. Findings most consistent with multinodular goiter. Reviewed, Interpreted and Dictated by Gerald Duque MD Transcribed by Shonda Cohen Authenticated and . [facility]
[2025-05-23 09:20] LABS: Free T4 (Free Thyroxine) 1.46 ng/dl (0.78-2.19)
[2025-05-23 09:33] LABS: Thyroid Stimulating Hormone 1.46 uIU/mL (0.465-4.68)
== END 2025-05-23 23:59 | disposition home or self-care (01) ==
LOC: RAD 07:37
PROVIDERS: PCP Family Medicine; Visit Provider Nurse Practitioner
DX: E04.2 Nontoxic multinodular goiter (principal)
CPT/HCPCS: 36415; 76536; 84439; 84443